=== PATIENT | female | born 1980 | race Caucasian/White ===

== ENCOUNTER 2018-11-02 11:55 | Emergency (ER) | payer OTHER, SELFPAY ==
[2018-11-02 11:56] VITALS: BP 123/76; PULSE 89; RESP 16; TEMP 36.1; O2SAT 99; BMI 29.8
--- NOTE | 2018-11-02 12:38 | CT_ITS ---
STUDY: CT ABDOMEN AND PELVIS WITH CONTRAST REASON FOR EXAM: Female, 38 years old. Trauma. Right abdominal pain RADIATION DOSAGE (If Supplied By Facility): CTDIvol = ( 16.72 ) mGy, DLP = ( 863.24 ) mGycm TECHNIQUE: Transaxial images were obtained from the dome of the diaphragm to the symphysis pubis with oral contrast. 100mL IV/Oral Isovue 300 was administered. Sagittal and coronal images were reconstructed. Individualized dose optimization techniques were used for this CT. COMPARISON: None. FINDINGS: The visualized lung bases are unremarkable. The visualized portions of the heart are within normal limits. Normal liver. Normal gallbladder and extrahepatic biliary system. There are multiple benign calcified granulomata of the spleen. Normal pancreas. Normal bilateral adrenal glands. Normal right kidney. Normal left kidney. Normal visualized stomach. Normal small intestine. There are multiple colonic diverticula consistent with diverticulosis. The appendix is visualized and appears normal. Normal abdominal aorta. Normal inferior vena cava. Normal retroperitoneum. Normal urinary bladder. Normal visualized uterus. Within the subcutaneous tissues overlying the right flank region, there is a small amount of swelling, likely related to history. Normal osseous structures. CT/Abdomen/Pelvis WITH Contrast IMPRESSION: Small amount of subcutaneous swelling and edema as above. Likely related to history. Normal appendix. No evidence of hemorrhage. Electronically Signed: Clifford Hair DO at 15:59 EDT Tel , Service support ,
[2018-11-02 12:52] LABS: Absolute Neutrophil Count 4.1 X10^3/uL (2.0-7.7); Basophil# 0.04 X10^3/uL; Basophil% 0.6 % (0-1); Eosinophil# 0.11 X10^3/uL; Eosinophils% 1.5 % (0-5); Hematocrit 40.3 % (37-47); Hemoglobin 13.7 g/dl (12.0-15.0); Lymphocyte % 34.7 % (19-41); Mean Corpuscular Volume 91.2 fL (81-99); Mean Platelet Vol. 9.7 fl (6.2-12.0); Monocyte# 0.48 X10^3/uL; Monocyte% 6.7 % (0-10); Neutrophil # 4.08 X10^3/uL (2.7-7.7); Neutrophil % 56.5 % (47-70); Platelet Count 337 K/mm3 (150-450); RBC Distribution Width CV 13.7 % (11.6-14.6); RBC Distribution Width SD 45.4 fl (35.1-43.9); Red Blood Count 4.42 M/mm3 (4.2-5.4); White Blood Count 7.2 K/mm3 (4.4-11.0)
[2018-11-02 12:53] LABS: POSITIVE COUNT NO; POSITIVE DIFFERENTIAL NO; POSITIVE MORPHOLOGY NO
--- NOTE | 2018-11-02 12:54 | ED.DCSUM_ITS ---
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[place] and the baseball game fell ball inadvertently struck her to the right flank area y esterday, she had persistent pain to this area, no vomiting no fever normal bowel bladder habits otherwise healthy without any past history she presents because of the persistent nature of the pain in the radiation to the back Physical Examination: [] Vital signs within normal range General, no distress resting comfortably HEENT is generally unremarkable The neck is supple no adenopathy Cardiovascular, regular rate and rhythm Lungs, clear bilateral Abdomen, soft to 10 cm diameter approximately bruise to the right flank area mid position, she has a very mild pain to palpation of the right upper quadrant and mild pain palpation of the right flank there is no rebound or guarding there is no organomegaly with obvious her midline back is nontender her pelvis is stable the rest of her exams unremarkable see the above Extremities, no clubbing cyanosis or edema Neurologic, awake alert answering questions appropriately moving all 4 extremities Test Results: [] Emergency Department Course and Treatment: [] Given her mechanism the potential intra-abdominal traumatic issues the differentials extensive screening labs CT IV contrast oral contrast pain management Treatment Plan: [] Patient screening labs are unremarkable, she is feeling better, the CT abdomen is pending, at this time the CT is unremarkable the plan is to discharge her home to follow-up with her family physicians on Naprosyn with a few [place] as a rescue medicine she understands need to return for change in symptoms a CT report be checked by the afternoon physicians plan is as above Disposition: [] Discharge pending CT report Impression: [] Right flank pain related to being hit by batted ball at baseball This note was generated with [employer] dictation software. It may contain incorrect words, spelling, and punctuation that were not noted in review of the chart pr ior to signing ED Disposition - Plan for ED Patient: Referrals: Arsenio Yun MD [Primary Care Provider] -
[2018-11-02] MEDS: 0.9% Normal Saline 1,000 ML 1000 ML IV (13:04)
[2018-11-02] MEDS: Ondansetron 4 MG/2 ML Vial IV (13:04)
[2018-11-02] MEDS: morphine 8 MG/ML Syringe IV (13:06)
[2018-11-02 13:12] LABS: AST(SGOT) 18 U/L (15-37); Alanine Aminotransfer ALT/SGPT 12 U/L (13-56); Albumin, Serum 3.3 g/dL (3.2-5.0); Alkaline Phosphatase 75 U/L (45-117); Anion Gap 8 (5-15); BUN 5 mg/dL (7-18); BUN/Creat Ratio 7.8 RATIO (10-20); Bilirubin, Direct 0.05 mg/dL (0.00-0.30); Calcium,Total 8.7 mg/dL (8.5-10.1); Chloride 108 mmol/L (98-107); Creatinine, Serum 0.64 mg/dL (0.55-1.02); EST Glomerular Filtration Rate 110 mL/min (>60); Est Glom Filt Rate - Afr Amer 132 mL/min (>60); Estimated Creatinine Clearance 92.42 ml/min; Globulin 3.4 g/dL (2.2-4.2); Glucose 127 mg/dL (74-106); Lipase 98 U/L (73-393); Potassium 3.7 mmol/L (3.5-5.1); Protein, Total 6.7 g/dL (6.4-8.2); Sodium Level 140 mmol/L (136-145)
--- NOTE | 2018-11-02 15:40 | DCINST.ED_ITS ---
ED Disposition - Plan for ED Patient: Instructions: ED Abdominal Injury Blunt Benign Prescriptions: Hydrocodone Bitart/Apap 5-325 [[place] 5MG-325MG] 1 tab PO Q4H PRN PRN 2 Days #7 tab PRN Reason: Pain Naproxen [Naprosyn] 500 mg PO BID PRN #20 tab Referrals: Arsenio Yun MD [Primary Care Provider] -
[2018-11-02 16:34] LABS: Mucous, Urine 0 SEEN /hpf (<or=2+); Red Blood Cells-Urine 0 SEEN /hpf (0-5)
[2018-11-02 17:02] LABS: Color, Urine Yellow (Yellow); Glucose, Dipstick Normal (Normal); Ketone-Dipstick Negative (Negative); Leukocyte Esterase-Dipstick 25 /ul (Negative); Nitrite-Dipstick Negative (Negative); Occult Blood-Urine 10 /ul (Negative); Protein-Dipstick Negative (Negative); Specific Gravity, Urine 1.015 (1.002-1.030); Urine Bilirubin Dipstick Negative (Negative); Urine Clarity Clear (Clear); Urine Urobilinogen Normal (Normal); Urine pH 6.5 (5.0 - 8.0)
[2018-11-02 17:04] LABS: Bacteria RARE /hpf (None Seen); Squamous Epithelial Cells - UA 0-5 SEEN /hpf (5-10); White Blood Cells 0-5 SEEN /hpf (0-5)
[2018-11-02] MEDS: Acetaminophen 500 MG Tablet 1000 MG PO (17:08)
--- NOTE | 2018-11-02 17:14 | ED.VISSUMM ---
- ER Visit Summary Date of Service: 11/02/18 This patient was checked out to me by Dr. Crockett. With a CT and UA pending. Test Results: CT shows a small amount of subcu edema with no hematoma or hemorrhage. Normal appendix. UA is negative. Emergency Department Course and Treatment: Patient was treated with Tylenol for her pain. She is resting comfortably. Treatment Plan: Patient will be discharged per Dr. Crockett's previous dictation. Please see this for details. Disposition: Discharged in stable condition. This note was generated with [employer] dictation software. It may contain incorrect words, spelling, and punctuation that were not noted in review of the chart prior to signing ED Disposition - Plan for ED Patient: Instructions: ED Abdominal Injury Blunt Benign Prescriptions: Hydrocodone Bitart/Apap 5-325 [[place] 5MG-325MG] 1 tab PO Q4H PRN PRN 2 Days #7 tab PRN Reason: Pain Naproxen [Naprosyn] 500 mg PO BID PRN #20 tab Referrals: Arsenio Yun MD [Primary Care Provider] -
[2018-11-02 17:33] VITALS: BP 108/76; PULSE 68; RESP 16; O2SAT 96
== END 2018-11-02 17:35 | disposition home or self-care (01) ==
LOC: ED 13:12
PROVIDERS: Emergency Provider Emergency Medicine; Family Provider Internal Medicine; PCP Internal Medicine
DX: R10.11 Right upper quadrant pain (principal); W21.03XA Struck by baseball, initial encounter; Y93.9 Activity, unspecified; Y92.9 Unspecified place or not applicable; Y99.9 Unspecified external cause status; Z79.899 Other long term (current) drug therapy
CPT/HCPCS: 74177; 80048; 80076; 81001; 83690; 85025; 96361; 96374; 96375; 99283; J7040; Q9967; A4216; J2405

== ENCOUNTER 2019-04-27 17:04 | Emergency (ER) | payer OTHER, SELFPAY ==
[2019-04-27 17:05] VITALS: BP 146/87; PULSE 97; RESP 15; TEMP 36.7; O2SAT 98; BMI 30.6
--- NOTE | 2019-04-27 17:42 | ED.VISSUMM ---
- ER Visit Summary Date of Service: 04/27/19 Chief Complaint: Left foot injury History of Present Illness: The patient is a 38 F presenting after left foot injury. Patient states that she twisted her foot in a divot in the pavement today. This occurred earlier today. She did not fall to the ground. She complains of pain lateral left foot. She is able to ambulate with pain. She has not taken any medications. Denies other injuries. Physical Examination: Vitals are stable. Patient is afebrile. Alert no acute distress. HEENT exam is unremarkable. Neck is supple. Lungs are clear and equal bilaterally. Heart is regular rate and rhythm. Extremities left lateral foot tenderness and ecchymosis. No ankle tenderness. No Achilles tendon tenderness. No proximal fibular tenderness. Skin is warm and dry. No focal neurologic deficit. Remainder of exam is unremarkable. Emergency Department Course and Treatment: Left foot x-ray shows normal x-ray examination of the foot. She was given Motrin. She is advised to ice and elevate. She was given a postop shoe. Advised to follow-up with [facility] care. Advised return to ED for worsening complaints. Disposition: Discharge home Impression: Left foot contusion This note was generated with [employer] dictation software. It may contain incorrect words, spelling, and punctuation that were not noted in review of the chart prior to signing ED Disposition - Plan for ED Patient: Instructions: CONTUSION, Foot Prescriptions: Naproxen [Naprosyn] 500 mg PO BID PRN #20 tab Prescription Printed Referrals: [facility] [GROUP OF PHYSICIANS] - Arsenio Yun MD [Primary Care Provider] -
--- NOTE | 2019-04-27 17:52 | RAD_ITS ---
STUDY: X-RAY - LEFT FOOT CLINICAL: Female, 38 years old. Injury left foot TECHNIQUE: 3 view(s) of the foot. COMPARISON: None. FINDINGS: Normal talus, calcaneus, and tarsal bones. Normal visualized subtalar, talonavicular, calcaneocuboid, tarsal and tarsometatarsal articulations. Normal metatarsi. Normal metatarsophalangeal joint of the great toe. Normal tibial and fibular sesamoid bones. Normal interphalangeal joint of the great toe. Normal phalanges of the great toe. Normal second through fifth metatarsophalangeal joints. Normal interphalangeal joints and phalanges of the lesser toes. The soft tissue structures are unremarkable. RAD/Foot min 3 Views IMPRESSION: Normal x-ray examination of the foot. Electronically Signed: Christ Hobbs MD at 18:31 EST , Service support ,
--- NOTE | 2019-04-27 18:59 | ED.DEP ---
ED Disposition - Plan for ED Patient: Instructions: CONTUSION, Foot Prescriptions: Naproxen [Naprosyn] 500 mg PO BID PRN #20 tablet Referrals: Arsenio Yun MD [Primary Care Provider] - [facility] [GROUP OF PHYSICIANS] -
[2019-04-27] MEDS: Ibuprofen 600 MG Tablet PO (19:21)
== END 2019-04-27 19:29 | disposition home or self-care (01) ==
PROVIDERS: Emergency Provider Emergency Medicine; Family Provider Internal Medicine; PCP Internal Medicine
DX: S90.32XA Contusion of left foot, initial encounter (principal); X50.1XXA Overexertion from prolonged static or awkward postures, initial encounter; Y93.9 Activity, unspecified; Y92.9 Unspecified place or not applicable; Y99.9 Unspecified external cause status; Z72.0 Tobacco use; Z79.899 Other long term (current) drug therapy
CPT/HCPCS: 73630; 99283

== ENCOUNTER 2019-08-13 20:40 | Emergency (ER) | payer OTHER, SELFPAY ==
[2019-08-13 20:41] VITALS: BP 128/86; PULSE 107; RESP 18; TEMP 36.3; O2SAT 100; BMI 29.2
[2019-08-13 20:59] LABS: Bacteria 0 SEEN /hpf (None Seen); Mucous, Urine 0 SEEN /hpf (<or=2+); Squamous Epithelial Cells - UA 0 SEEN /hpf (5-10)
[2019-08-13 21:08] LABS: Glucose, Dipstick Normal (Normal); Ketone-Dipstick Negative (Negative); Leukocyte Esterase-Dipstick 500 /ul (Negative); Nitrite-Dipstick Negative (Negative); Occult Blood-Urine 250 /ul (Negative); Protein-Dipstick 100 mg/dl (Negative); Urine Bilirubin Dipstick Negative (Negative); Urine Clarity Cloudy (Clear); Urine Urobilinogen Normal (Normal); Urine pH 6.5 (5.0 - 8.0)
[2019-08-13 21:10] LABS: Color, Urine SEE COMMENT BELOW (Yellow)
[2019-08-13 21:39] LABS: Red Blood Cells-Urine 25-50 SEEN /hpf (0-5); White Blood Cells >100 SEEN /hpf (0-5)
[2019-08-13 21:50] LABS: Internal QC Validated? YES +Cl - CLEAR BKGD; Pregnancy, Urine Negative Negative
--- NOTE | 2019-08-13 22:08 | ED.DCSUM_ITS ---
- ER Visit Summary Date of Service: 08/13/19 Chief Complaint: Dysuria and hematuria History of Present Illness: The patient is a 39 F who presents with dysuria and hematuria that began approximately 4 hours prior to arrival. Patient states she noted blood in her urine. Patient states she has been having throbbing and aching pain in the lower abdomen over the suprapubic area. Patient states this feels better after she urinates. Patient admits to some burning with urination. Patient noted some blood in her urine earlier today but states it is starting to clear up. Patient denies any fevers or chills. Patient admits to nausea but denies any vomiting. Patient denies any back pain. Physical Examination: Vital signs are stable. Patient is afebrile. Patient is in no acute distress. Oral mucosa is pink and moist. Neck is supple. Trachea is midline. There is no JVD noted. Heart was regular rate and rhythm. Lungs are clear and equal bilaterally. Abdomen is soft. Bowel sounds are normal. There is mild suprapubic tenderness. There is no rebound or guarding noted. Skin is warm dry. Cranial nerves II through XII are intact. There are no focal motor or sensory deficits noted. Extremities are intact. There is no calf tenderness or edema. Test Results: Urinalysis shows leukocyte esterase of 500 with greater than 100 white blood cells. There are 25-50 red blood cells. Emergency Department Course and Treatment: Patient was given a dose of Bactrim here. Patient was given a prescription for Bactrim. Patient was instructed to follow-up with her primary care physician in 5 to 7 days. Patient was instructed to drink plenty of fluids. Patient understood and was agreeable with the plan. All questions were answered. Disposition: Discharge home Impression: 1. Urinary tract infection This note was generated with [employer] dictation software. It may contain incorrect words, spelling, and punctuation that were not noted in review of the chart prior to signing ED Disposition - Plan for ED Patient: Disposition: Home or Assisted Living Diagnosis: Urinary tract infection Instructions: Bladder Infection, Female (Adult) Prescriptions: Smz/Tmp Ds [Bactrim Ds] 1 tab PO BID #6 tab Prescription Printed Referrals: Arsenio Yun MD [Primary Care Provider] - 5-7 Days
[2019-08-13] MEDS: Smz/Tmp Ds Tablet 1 TABLET PO (22:17)
[2019-08-13 22:18] VITALS: PULSE 86; RESP 20; O2SAT 97
--- NOTE | 2019-08-13 22:19 | ED.RN ---
THIS NURSE REVIEWED D/C INSTRUCTIONS WITH PT. PT VERBALIZED UNDERSTANDING OF INSTRUCTIONS. PT DENIES FURTHER NEEDS OR QUESTIONS AT THIS TIME. PT AMBULATES FROM ROOM ON OWN WITHOUT ASSISTANCE FROM STAFF
== END 2019-08-13 22:20 | disposition home or self-care (01) ==
PROVIDERS: Emergency Provider Emergency Medicine; PCP Internal Medicine
DX: N39.0 Urinary tract infection, site not specified (principal); R31.9 Hematuria, unspecified; F41.9 Anxiety disorder, unspecified; Z72.0 Tobacco use; Z79.899 Other long term (current) drug therapy
CPT/HCPCS: 81001; 81025; 99282

== ENCOUNTER 2019-08-17 08:27 | Emergency (ER) | payer OTHER, SELFPAY ==
[2019-08-17 08:28] VITALS: BP 113/68; PULSE 98; RESP 18; TEMP 36.6; O2SAT 100; BMI 29.2
--- NOTE | 2019-08-17 08:39 | CT_ITS ---
STUDY: CT ABDOMEN AND PELVIS WITHOUT CONTRAST REASON FOR EXAM: Female, 39 years old. LEFT FLANK PAIN, UTI SYMPTOMS, N/V RADIATION DOSAGE (If Supplied By Facility): CTDIvol = ( 9.25 ) mGy, DLP = ( 448.22 ) mGycm TECHNIQUE: Transaxial images were obtained from the dome of the diaphragm to the symphysis pubis without oral contrast, and without intravenous contrast. Sagittal and coronal images were reconstructed. Individualized dose optimization techniques were used for this CT. COMPARISON: Comparison is made with prior examination dated November 02, 2018. FINDINGS: Mild degree of dependent bibasilar atelectasis. The visualized portions of the heart are within normal limits. Normal liver. Normal gallbladder and extrahepatic biliary system. There are multiple benign calcified granulomata of the spleen. Normal pancreas. There is a small, circumscribed, smooth, low attenuation right adrenal mass, consistent with an adrenal adenoma. Normal left adrenal gland. Normal right kidney. Normal left kidney. There is a small hiatal hernia. Normal small intestine. Normal colon. The appendix is visualized and appears normal. Normal abdominal aorta. Normal inferior vena cava. There is borderline retroperitoneal lymphadenopathy with enlarged nodes no greater than 10mm in the short axis diameter. Normal urinary bladder. Prominent uterus. There is a small umbilical hernia containing fat. Normal osseous structures. CT/Abdomen/Pelvis without Cont IMPRESSION: Mild degree of dependent bibasilar atelectasis. No obstructive uropathy is seen at this time. Electronically Signed: Ronnie Perdue, at 10:22 EDT , Service support ,
--- NOTE | 2019-08-17 08:42 | ED.VIS.GEN ---
History of Present Illness Chief Complaint: Complaint Informant: Patient Onset: Days Context: Gradual Onset Current Severity: Moderate Maximum Severity: Moderate Narrative: Patient was seen in the ER on the sixth with dysuria and frequency and mild hematuria. Urine was found to have greater than 100 white cells, 0 bacteria, 0 nitrites. She was treated with a 3-day course of Bactrim. Patient states that her antibiotic course is complete but she is not feeling any better. She continues to have suprapubic pain that is now radiating into the left flank. She states this morning she did have some vomiting. She thought she had a fever on the seventh, but none since. She denies any prior abdominal surgeries. Menstrual cycle just ended. - Past Medical History (1) Depression Status: Chronic Past Medical History - Allergies and Home Meds Allergies/Adverse Reactions: Allergies terbinafine HCl [From Lamisil] Allergy (Verified 08/17/19 08:30) Hives Primary Care Physician: Arsenio Yun MD [Primary Care Provider] - Prior records reviewed: Yes Lives: With Family Smoking Status: Current every day smoker Review of Systems General: Reports: Fever Eyes: Denies: Visual changes - bilaterally ENT: Denies: Bilateral ear pain Cardiovascular: Denies: Chest pain Respiratory: Denies: Dyspnea, Cough Gastrointestinal: Reports: Abdominal pain, Nausea, Vomiting. Denies: Diarrhea Genitourinary: Reports: Dysuria, Frequency, - - Denies vaginal discharge Musculoskeletal: Denies: Swelling, Extremity Pain Skin: Denies: Rash Neurological: Denies: Headache Hematologic: Denies: Easy bruising, Easy bleeding Allergy: Denies: Uticaria Physical Exam Vital Signs/Narrative: Vital Signs Temp Pulse Resp BP Pulse Ox 08/17/19 08:28 98 F 98 18 113/68 100 Inital Vital Signs reviewed: Yes General: Well nourished, Well developed Head: Normocephalic ENT: Moist mucous membranes Neck: Supple Cardiovascular: Regular rate, Regular rhythm Respiratory: No distress, CTA bilaterally Abdomen: Soft, Tender - Suprapubic tenderness to palpation. Back: CVA tenderness - Mild left CVA tenderness Skin: Normal color Neurological: Alert, Oriented x3 Psychological: Normal affect Diagnostic/Tx/Re-eval Impressions Abdomen/Pelvis CT 08/17/19 08:39 IMPRESSION: Mild degree of dependent bibasilar atelectasis. No obstructive uropathy is seen at this time. Electronically Signed: Ronnie Perdue, at 10:22 EDT , Service support , 08/17/19 08:39 Abdomen/Pelvis without Cont [CT] Stat Laboratory Results 08/17/19 08/17/19 08/17/19 09:00 09:00 09:00 WBC 10.5 RBC 4.47 Hgb 12.9 Hct 39.2 MCV 87.7 MCH 28.9 MCHC 32.9 RDW Std Deviation 47.1 H RDW Coeff of Kael 14.6 Plt Count 331 MPV 9.6 Immature Gran % (Auto) 0.400 Neut % (Auto) 77.9 H Lymph % (Auto) 14.2 L [place] % (Auto) 6.1 Eos % (Auto) 0.8 Baso % (Auto) 0.6 Absolute Neuts (auto) 8.2 H Absolute Lymphs (auto) 1.49 Nucleated RBC % 0 Sodium 138 Potassium 3.9 Chloride 108 H Carbon Dioxide 25.0 Anion Gap 5 BUN 8 Creatinine 0.84 Estim Creat Clear Calc 69.71 Est GFR (MDRD) Af Amer 96 Est GFR (MDRD) Non-Af 79 BUN/Creatinine Ratio 9.5 L Glucose 93 Calcium 8.9 Urine Color Yellow Urine Clarity Cloudy Urine pH 6.0 Ur Specific [place] 1.015 Urine Protein 100 H Urine Glucose (UA) Normal Urine Ketones 5 H Urine Occult Blood 250 H Urine Nitrite Negative Urine Bilirubin Negative Urine Urobilinogen Normal Ur Leukocyte Esterase 500 H Urine RBC 5-10 SEEN Urine WBC 50-100 SEEN Ur Squamous Epith Cells 0-5 SEEN Urine Bacteria 1+ Urine Mucus 1+ - Medical Decision Making Patient was given Toradol, Zofran, and IV fluids. On repeat evaluation she does feel improved. Urine does now show some bacteria. White blood cell is improved when compared to prior study. CT scan is unremarkable. Patient was given a dose of IV Rocephin here. She will be treated with a 7-day course of Cipro. Urine culture is sent today and patient was advised that she would receive a phone call and antibiotic switched if culture reveals that her infection is resistant to Cipro. She was given return instructions. She voices understanding and agreement. ED Disposition - Plan for ED Patient: Disposition: Home or Assisted Living Diagnosis: Cystitis Instructions: Bladder Infection, Female (Adult) Prescriptions: Ciprofloxacin [Cipro] 500 mg PO BID #14 tab Transmission Status: Pending to [id number] Referrals: Arsenio Yun MD [Primary Care Provider] - 1 Week if not improving
[2019-08-17] MEDS: Ketorolac 30 MG/ML Syringe IV (09:02)
[2019-08-17] MEDS: Ondansetron 4 MG/2 ML Vial IV (09:02)
[2019-08-17] MEDS: 0.9% Normal Saline 1,000 ML 1000 ML IV (09:02)
[2019-08-17 09:18] LABS: Absolute Lymphocyte Count 1.49 X10^3/uL (0.83-4.51); Absolute Neutrophil Count 8.2 X10^3/uL (2.0-7.7); Basophil# 0.06 X10^3/uL; Basophil% 0.6 % (0-1); Eosinophil# 0.08 X10^3/uL; Eosinophils% 0.8 % (0-5); Hematocrit 39.2 % (37-47); Hemoglobin 12.9 g/dL (12.0-15.0); Lymphocyte # 1.49 X10^3/ul (4.0); Lymphocyte % 14.2 % (19-41); Mean Corp Hgb Conc 32.9 g/dL (32-36); Mean Corpuscular Hgb 28.9 pg (27.0-32.0); Mean Corpuscular Volume 87.7 fL (81-99); Mean Platelet Vol. 9.6 fl (6.2-12.0); Monocyte# 0.64 X10^3/uL; Monocyte% 6.1 % (0-10); NRBC Flagged by Analyzer 0 % (0-5); Neutrophil # 8.17 X10^3/uL (2.7-7.7); Neutrophil % 77.9 % (47-70); Platelet Count 331 K/mm3 (150-450); RBC Distribution Width CV 14.6 % (11.6-14.6); RBC Distribution Width SD 47.1 fl (35.1-43.9); Red Blood Count 4.47 M/mm3 (4.2-5.4); White Blood Count 10.5 K/mm3 (4.4-11.0)
[2019-08-17 09:29] VITALS: BP 113/78; PULSE 98; RESP 16; TEMP 36.7; O2SAT 98
[2019-08-17 09:29] LABS: Anion Gap 5 (5-15); BUN 8 mg/dL (7-18); BUN/Creat Ratio 9.5 RATIO (10-20); Calcium,Total 8.9 mg/dL (8.5-10.1); Chloride 108 mmol/L (98-107); Creatinine, Serum 0.84 mg/dL (0.55-1.02); EST Glomerular Filtration Rate 79 mL/min (>60); Est Glom Filt Rate - Afr Amer 96 mL/min (>60); Estimated Creatinine Clearance 69.71 ml/min; Glucose 93 mg/dL (74-106); Potassium 3.9 mmol/L (3.5-5.1); Sodium Level 138 mmol/L (136-145)
[2019-08-17 09:37] LABS: Color, Urine Yellow (Yellow); Glucose, Dipstick Normal (Normal); Ketone-Dipstick 5 mg/dl (Negative); Leukocyte Esterase-Dipstick 500 /ul (Negative); Nitrite-Dipstick Negative (Negative); Occult Blood-Urine 250 /ul (Negative); Protein-Dipstick 100 mg/dl (Negative); Specific Gravity, Urine 1.015 (1.002-1.030); Urine Bilirubin Dipstick Negative (Negative); Urine Clarity Cloudy (Clear); Urine Urobilinogen Normal (Normal)
[2019-08-17 10:02] LABS: Bacteria 1+ /hpf (None Seen); Mucous, Urine 1+ /hpf (<or=2+); Red Blood Cells-Urine 5-10 SEEN /hpf (0-5); Squamous Epithelial Cells - UA 0-5 SEEN /hpf (5-10); White Blood Cells 50-100 SEEN /hpf (0-5)
[2019-08-17] MEDS: 0.9% Normal Saline 1,000 ML 150 ML IV (10:05)
[2019-08-17 10:06] VITALS: BP 100/63; PULSE 82; RESP 16; TEMP 36.4; O2SAT 100
[2019-08-17] MEDS: Ceftriaxone 1 GM/50 ML BAG IV (10:17)
[2019-08-17 11:23] VITALS: BP 105/68; PULSE 80; RESP 16; TEMP 36.6; O2SAT 98
== END 2019-08-17 11:27 | disposition home or self-care (01) ==
PROVIDERS: Emergency Provider Emergency Medicine; PCP Internal Medicine
DX: N30.91 Cystitis, unspecified with hematuria (principal); F32.9 Major depressive disorder, single episode, unspecified; F17.200 Nicotine dependence, unspecified, uncomplicated; Z79.899 Other long term (current) drug therapy; Z88.3 Allergy status to other anti-infective agents
CPT/HCPCS: 74176; 80048; 81001; 85025; 87086; 87088; 87186; 96361; 96365; 96375; 99283; J7030; A4216; J2405

== ENCOUNTER 2021-01-01 11:09 | Emergency (ER) | payer OTHER, SELFPAY ==
[2021-01-01 11:10] VITALS: BP 123/82; PULSE 95; RESP 18; TEMP 36.8; O2SAT 97; BMI 31.8
--- NOTE | 2021-01-01 11:58 | CT_ITS ---
STUDY: CT ABDOMEN AND PELVIS WITHOUT CONTRAST REASON FOR EXAM: Female, 40 years old. Back pain and abdominal pain. RADIATION DOSAGE (If Supplied By Facility): CTDIvol = ( 11.41 ) mGy, DLP = ( 541.49 ) mGycm TECHNIQUE: Transaxial images were obtained from the dome of the diaphragm to the symphysis pubis without oral contrast, and without intravenous contrast. Sagittal and coronal images were reconstructed. Individualized dose optimization techniques were used for this CT. COMPARISON: Comparison is made with prior examination dated 08/17/2019. FINDINGS: The visualized lung bases are unremarkable. The visualized portions of the heart are within normal limits. Normal liver. Normal gallbladder and extrahepatic biliary system. There are multiple benign calcified granulomata of the spleen. Normal pancreas. There is a small, circumscribed, smooth, low attenuation right adrenal mass, consistent with an adrenal adenoma. This measures 8.4 mm. Normal left adrenal gland. Normal right kidney. Normal left kidney. Normal visualized stomach. Normal small intestine. Normal colon. The appendix is visualized and appears normal. Normal abdominal aorta. Normal inferior vena cava. There is borderline retroperitoneal lymphadenopathy with enlarged nodes no greater than 10mm in the short axis diameter. Normal urinary bladder. There is a 3.6 cm x 4.2 cm cyst in the right ovary. IUD is seen within the endometrium. There is a small umbilical hernia containing fat. There is straightening of the normal lumbar lordosis. CT/Abdomen/Pelvis without Cont IMPRESSION: 3.6 cm x 4.2 cm right ovarian cyst. IUD is seen within the endometrium. Electronically Signed: Ronnie Perdue MD at 12:59 EDT , Service support ,
--- NOTE | 2021-01-01 11:59 | EDS_ITS ---
HPI History of Present Illness Chief Complaint: Back Detail of Chief Complaint: Back and abdominal pain Informant: patient Onset/Context/Timing Onset: Yesterday Current Severity: Moderate Maximum Severity: Moderate Narrative Narrative: Patient presents with back and abdominal pain. Yesterday afternoon her back started bothering her and she thought she had threw my back out. Patient states today pain is wrapping around into the abdomen and becoming more severe. She is having abdominal spasms. She did report vomiting secondary to pain. She is urinating without difficulty and having normal bowel movements. She denies any prior abdominal surgeries. [facility] Medical History Depression High cholesterol Home Medications venlafaxine 150 mg PO DAILY 01/12/15 [History Last Taken Unknown] trazodone 50 mg PO QHS 11/02/18 [History Last Taken Unknown] hydrocodone-acetaminophen 1 tab PO Q6H PRN 3 Days #10 tab 01/01/21 [Rx Last Taken Unknown] ondansetron 4 mg PO Q8H PRN #10 tab 01/01/21 [Rx Last Taken Unknown] sulfamethoxazole-trimethoprim [Bactrim DS] 1 tab PO BID #6 tab 01/01/21 [Rx Last Taken Unknown] Allergy/AdvReac Type Severity Reaction Status Date / Time terbinafine HCl Allergy Hives Verified 01/01/21 11:10 [From Lamisil] Social History Smoking Status: Current every day smoker tobacco type: cigarettes ROS ROS ED Constitutional Constitutional ED: Denies chills or fever(s) Eyes Eyes: Denies change in vision ENT ENT ED: Denies sore throat Cardiovascular Cardiovascular: Denies chest pain Respiratory/Chest Respiratory/Chest: Denies cough or dyspnea Gastrointestinal Gastrointestinal: Reports abdominal pain, nausea and vomiting; Denies diarrhea Genitourinary Genitourinary ED: Denies dysuria or urinary frequency Musculoskeletal Musculoskeletal: Reports back pain Integumentary Denies rash Neurologic Neurologic: Denies headache(s) or weakness Psychiatric Psychiatric: Denies anxiety or depression Endocrine Endocrinology: Denies polydipsia or polyuria Allergic/Immunologic Allergic/Immunologic ED: Denies urticaria EXAM Physical Exam Const Vital Signs: 01/01/21 11:10 01/01/21 13:26 Temperature 98.3 F Temperature Source Temporal Pulse Rate 95 Respiratory Rate 18 16 Blood Pressure 123/82 H Blood Pressure Mean 95 Pulse Ox 97 Oxygen Delivery Method Room Air Positive well nourished and well developed General Appearance ED: well developed HEENT Reports normocephalic and head/scalp atraumatic Eyes PERRL and EOMs intact bilaterally Neck supple Chest Wall inspection of chest normal and palpation of chest normal Resp normal respiratory effort and clear to auscultation bilaterally Cardio regular rate and regular rhythm GI normal to inspection, nondistended, normoactive bowel sounds and non-tender Palpation: soft Extremity normal to inspection Neuro oriented x3 and no sensory deficits noted Sensorium / Orientation: alert Motor Exam: strength 5/5 throughout Psych mental status grossly normal Skin no rashes or lesions noted MDM MDM MDM Narrative Medical decision making narrative: Patient was given analgesics. Labs, urinalysis, CT flank obtained. Lab Data Attestation: I reviewed the patient's lab results. Labs: Laboratory Results - last 24 hr 01/01/21 01/01/21 01/01/21 11:55 11:55 12:10 WBC 8.5 RBC 4.80 Hgb 14.7 Hct 43.4 MCV 90.4 MCH 30.6 MCHC 33.9 RDW Std Deviation 49.9 H RDW Coeff of Kael 14.9 H Plt Count 343 MPV 9.9 Immature Gran % (Auto) 0.200 Neut % (Auto) 60.4 Lymph % (Auto) 31.7 Dewitt % (Auto) 5.6 Eos % (Auto) 1.2 Baso % (Auto) 0.9 Absolute Neuts (auto) 5.1 Absolute Lymphs (auto) 2.68 Nucleated RBC % 0 Sodium Potassium Chloride Carbon Dioxide Anion Gap BUN Creatinine Estim Creat Clear Calc Est GFR (MDRD) Af Amer Est GFR (MDRD) Non-Af BUN/Creatinine Ratio Glucose Calcium Total Bilirubin Direct Bilirubin AST ALT Alkaline Phosphatase Total Protein Albumin Globulin Urine Color Yellow Urine Clarity Sl. Cloudy Urine pH 7.0 Ur Specific [place] 1.010 Urine Protein Negative Urine Glucose (UA) Normal Urine Ketones Negative Urine Occult Blood 150 H Urine Nitrite Negative Urine Bilirubin Negative Urine Urobilinogen Normal Ur Leukocyte Esterase 100 H Urine RBC 10-25 SEEN Urine WBC 10-25 SEEN Ur Squamous Epith Cells 0-5 SEEN Urine Bacteria 1+ Urine Mucus 0 SEEN Urine Test Cancelled Negative 01/01/21 12:10 WBC RBC Hgb Hct MCV MCH MCHC RDW Std Deviation RDW Coeff of Kael Plt Count MPV Immature Gran % (Auto) Neut % (Auto) Lymph % (Auto) Dewitt % (Auto) Eos % (Auto) Baso % (Auto) Absolute Neuts (auto) Absolute Lymphs (auto) Nucleated RBC % Sodium 137 Potassium 3.8 Chloride 107 Carbon Dioxide 24.0 Anion Gap 6 BUN 7 Creatinine 0.55 Estim Creat Clear Calc 105.39 Est GFR (MDRD) Af Amer 154 Est GFR (MDRD) Non-Af 128 BUN/Creatinine Ratio 12.6 Glucose 83 Calcium 8.9 Total Bilirubin 0.30 Direct Bilirubin < 0.05 AST 14 L ALT 13 Alkaline Phosphatase 78 Total Protein 6.9 Albumin 3.4 Globulin 3.5 Urine Color Urine Clarity Urine pH Ur Specific [place] Urine Protein Urine Glucose (UA) Urine Ketones Urine Occult Blood Urine Nitrite Urine Bilirubin Urine Urobilinogen Ur Leukocyte Esterase Urine RBC Urine WBC Ur Squamous Epith Cells Urine Bacteria Urine Mucus Urine Test Radiography Diagnostic Testing: Radiology Impression Abdomen/Pelvis CT 01/01/21 11:58 IMPRESSION: 3.6 cm x 4.2 cm right ovarian cyst. IUD is seen within the endometrium. Electronically Signed: Ronnie Perdue MD at 12:59 EDT , Service support , Transvaginal US 01/01/21 13:23 IMPRESSION: 3.2 cm x 3.8 cm x 3.5 cm right ovarian cyst. There are 2 small fundal uterine fibroids. Electronically Signed: Ronnie Perdue MD at 14:46 EDT , Service support , Treatment and Re-Evaluation Comments:: CT scan did reveal a right ovarian cyst. Ultrasound is performed and does ensure good blood flow to the ovary. Lab work is reviewed with the patient. It is unremarkable. Urinalysis does show 1+ bacteria with whites and red cells. I advised her this may be secondary to infection she will be treated with 3 days of antibiotics. I also advised her she may have recently passed a kidney stone causing the blood in her urine. At this time there is no evidence of ureterolithiasis. Patient be given analgesics and antibiotics for home and will follow up with her [employer]. Discharge Plan Triage Chief Complaint: Back ED Provider: Anh Franks Dx/Rx/DC Orders Clinical Impression: Ovarian cyst, UTI (urinary tract infection) Instructions: ED Ovarian Cyst, ED CYSTITIS Female Adult Prescriptions: New hydrocodone-acetaminophen 5-325 mg tablet 1 tab PO Q6H PRN (Reason: pain) 3 Days Qty: 10 RF: 0 ondansetron 4 mg tablet,disintegrating 4 mg PO Q8H PRN (Reason: nausea and vomiting) Qty: 10 RF: 0 sulfamethoxazole-trimethoprim [Bactrim DS] 800-160 mg tablet 1 tab PO BID Qty: 6 RF: 0 No Action venlafaxine 150 MG capsule 150 mg PO DAILY RF: 0 trazodone 50 MG tablet 50 mg PO QHS RF: 0 Primary Care Provider: Arsenio Yun Referrals: Sydney Dhillon MD [STAFF PHYSICIAN] - 1-2 Weeks Arsenio Yun MD [Primary Care Provider] - Disposition Disposition: Home, Self Care
[2021-01-01 12:05] LABS: Mucous, Urine 0 SEEN /hpf (<or=2+)
[2021-01-01 12:06] LABS: Color, Urine Yellow (Yellow); Glucose, Dipstick Normal (Normal); Ketone-Dipstick Negative (Negative); Leukocyte Esterase-Dipstick 100 /ul (Negative); Nitrite-Dipstick Negative (Negative); Occult Blood-Urine 150 /ul (Negative); Protein-Dipstick Negative (Negative); Urine Bilirubin Dipstick Negative (Negative); Urine Clarity Sl. Cloudy (Clear); Urine Urobilinogen Normal (Normal)
[2021-01-01 12:12] LABS: Bacteria 1+ /hpf (None Seen); Red Blood Cells-Urine 10-25 SEEN /hpf (0-5); Squamous Epithelial Cells - UA 0-5 SEEN /hpf (5-10); White Blood Cells 10-25 SEEN /hpf (0-5)
[2021-01-01] MEDS: Morphine 4 MG/ML Syringe IV (12:13)
[2021-01-01] MEDS: Ketorolac 30 MG/ML Syringe IV (12:14)
[2021-01-01] MEDS: 0.9% Normal Saline 1,000 ML 150 ML IV (12:14)
[2021-01-01] MEDS: Ondansetron 4 MG/2 ML Vial IV (12:14)
[2021-01-01 12:25] LABS: Internal QC Validated? YES +Cl - CLEAR BKGD; Pregnancy, Urine Negative Negative
[2021-01-01 12:39] LABS: Absolute Lymphocyte Count 2.68 X10^3/uL (0.83-4.51); Absolute Neutrophil Count 5.1 X10^3/uL (2.0-7.7); Basophil# 0.08 X10^3/uL; Basophil% 0.9 % (0-1); Eosinophils% 1.2 % (0-5); Hematocrit 43.4 % (37-47); Hemoglobin 14.7 g/dL (12.0-15.0); Lymphocyte # 2.68 X10^3/ul (0.83-4.51); Lymphocyte % 31.7 % (19-41); Mean Corp Hgb Conc 33.9 g/dL (32-36); Mean Corpuscular Hgb 30.6 pg (27.0-32.0); Mean Corpuscular Volume 90.4 fL (81-99); Mean Platelet Vol. 9.9 fl (6.2-12.0); Monocyte# 0.47 X10^3/uL; Monocyte% 5.6 % (0-10); NRBC Flagged by Analyzer 0 % (0-5); Neutrophil # 5.11 X10^3/uL (2.7-7.7); Neutrophil % 60.4 % (47-70); Platelet Count 343 K/mm3 (150-450); RBC Distribution Width CV 14.9 % (11.6-14.6); RBC Distribution Width SD 49.9 fl (35.1-43.9); White Blood Count 8.5 K/mm3 (4.4-11.0)
[2021-01-01 12:59] LABS: AST(SGOT) 14 U/L (15-37); Alanine Aminotransfer ALT/SGPT 13 U/L (13-56); Albumin, Serum 3.4 g/dL (3.2-5.0); Alkaline Phosphatase 78 U/L (45-117); Anion Gap 6 (5-15); BUN 7 mg/dL (7-18); BUN/Creat Ratio 12.6 RATIO (10-20); Bilirubin, Direct < 0.05 mg/dL (0.00-0.30); Calcium,Total 8.9 mg/dL (8.5-10.1); Chloride 107 mmol/L (98-107); Creatinine, Serum 0.55 mg/dL (0.55-1.02); EST Glomerular Filtration Rate 128 mL/min (>60); Est Glom Filt Rate - Afr Amer 154 mL/min (>60); Estimated Creatinine Clearance 105.39 ml/min; Globulin 3.5 g/dL (2.2-4.2); Glucose 83 mg/dL (74-106); Potassium 3.8 mmol/L (3.5-5.1); Protein, Total 6.9 g/dL (6.4-8.2); Sodium Level 137 mmol/L (136-145)
--- NOTE | 2021-01-01 13:23 | US_ITS ---
STUDY: ULTRASOUND OF THE FEMALE PELVIS - COMPLETE REASON FOR EXAM: Female, 40 years old. Right ovarian cyst. LMP: Unknown. TECHNIQUE: Transabdominal and Transvaginal TECHNICAL QUALITY: Adequate. COMPARISON: Comparison is made with prior CT scan done on pelvis done earlier today. FINDINGS: The uterus is anteverted and is tilted to the left side of the pelvis. The uterus measures 9.1 signed by 5.5 cm x 5.7 cm. Normal uterine cervix. The endometrium measures 6 mm in thickness, and is hyperechoic. There is no demonstrated endometrial mass. There are 2 small fundal uterine fibroids. The larger measures 2.4 cm x 2.1 cm x 2.2 cm. I.U.D. - The patient does have an I.U.D. The right ovary is visualized. The right ovary measures 4.2 cm x 4.7 cm x 3.9 cm. There is a 3.2 cm x 3.8 cm x 3.5 cm right ovarian cyst. There is no visualized right adnexal mass or complex lesion. There is normal arterial and normal venous vascularity. The left ovary is visualized. The left ovary measures 2.3 cm x 2 cm x 2.7 cm. There is no left ovarian cyst or ovarian mass. There is no visualized left adnexal mass or complex lesion. There is normal arterial and normal venous vascularity. There is no fluid in the cul-de-sac. US/Transvaginal Non- IMPRESSION: 3.2 cm x 3.8 cm x 3.5 cm right ovarian cyst. There are 2 small fundal uterine fibroids. Electronically Signed: Ronnie Perdue MD at 14:46 EDT , Service support ,
[2021-01-01 13:26] VITALS: RESP 16
[2021-01-01 15:12] VITALS: BP 103/69; PULSE 70; RESP 16
== END 2021-01-01 15:14 | disposition home or self-care (01) ==
PROVIDERS: Emergency Provider Emergency Medicine; PCP Internal Medicine
DX: N83.201 Unspecified ovarian cyst, right side (principal); N39.0 Urinary tract infection, site not specified; R11.10 Vomiting, unspecified; E78.00 Pure hypercholesterolemia, unspecified; F32.9 Major depressive disorder, single episode, unspecified; F17.210 Nicotine dependence, cigarettes, uncomplicated; Z79.899 Other long term (current) drug therapy
CPT/HCPCS: 74176; 76830; 80048; 80076; 81001; 81025; 85025; 96361; 96374; 96375; 99283; J7030; A4216; J2405

== ENCOUNTER 2022-03-23 11:55 | Emergency (ER) | payer OTHER, SELFPAY ==
[2022-03-23 11:56] VITALS: BP 136/90; PULSE 98; RESP 17; TEMP 35.7; O2SAT 97; BMI 34.4
--- NOTE | 2022-03-23 12:04 | CT_ITS ---
HISTORY: right flank pain. TECHNIQUE: Helically acquired images were obtained of the abdomen and pelvis without oral or IV contrast. A radiation dose optimization technique was used for this scan. 487 images. COMPARISON: 01/01/2021. FINDINGS: LOWER CHEST: Small calcified left lower lobe granuloma. BOWEL: Bowel including appendix nondilated. Chronic fatty infiltration of the colonic wall. Colonic diverticulosis without focal pericolonic inflammatory change. PERITONEUM: No significant free fluid. LIVER: 20 cm in length with fatty infiltration. GALLBLADDER/BILIARY TREE: Gallbladder present. SPLEEN: Calcified granulomas. KIDNEYS AND URETERS: No nephrolithiasis or obstructing ureteral calculus. PANCREAS/ADRENAL GLANDS: Unremarkable. VESSELS: No abdominal aortic aneurysm. Minimal calcified plaque. PELVIC ORGANS: Mildly lobulated uterus with intrauterine device in place. Right ovarian cyst no longer identified. ABDOMINAL WALL: Small fat-containing umbilical hernia. BONES: Intact. CT/Abdomen/Pelvis without Cont IMPRESSION: Negative examination for renal stone. Colonic diverticulosis without acute diverticulitis. Unremarkable appendix. Resolution of right ovarian cyst. Lobulated uterus, likely leiomyomatous. Hepatic steatosis with hepatomegaly. Electronically Signed: Earlene Dias MD at 13:20 EDT ,
--- NOTE | 2022-03-23 12:05 | EDS_ITS ---
HPI History of Present Illness Chief Complaint: Flank Pain Detail of Chief Complaint: Flank pain that started yesterday Informant: patient Narrative Narrative: Patient presents to the emergency department complaint of right-sided flank pain that started yesterday. Pains been continuous. Today she started having some dysuria and urinary frequency. She denies any blood in the urine. She denies fevers. She has had some nausea but no vomiting. Patient believes she has passed a kidney stone before. Patient has an IUD and does not think she is . Patient rates her pain an 8 out of 10. Prior similar symptoms: Yes PFSH PFSH Medical History Anxiety Depression High cholesterol Smoker Home Medications venlafaxine 150 mg capsule,extended release 24 hr 150 mg PO DAILY 01/12/15 [History Last Taken Unknown] trazodone 50 mg tablet 50 mg PO QHS 11/02/18 [History Last Taken Unknown] atorvastatin 10 mg tablet 10 mg PO DAILY 03/23/22 [History Last Taken Unknown] cyclobenzaprine 10 mg tablet 10 mg PO TID PRN Muscle Spasm #20 TABLETS 03/23/22 [Rx Last Taken Unknown] hydrocodone-acetaminophen 5-325mg 5mg-325mg 1 tab PO Q4H PRN PRN Pain 2 days #10 TABLETS 03/23/22 [Rx Last Taken Unknown] naproxen 500 mg tablet 500 mg PO BID #14 tabs 03/23/22 [Rx Last Taken Unknown] Allergy/AdvReac Type Severity Reaction Status Date / Time terbinafine HCl Allergy Hives Verified 03/23/22 11:55 [From Lamisil] Social History Smoking Status: Current every day smoker tobacco type: cigarettes ROS ROS ED Review of Systems ROS Unobtainable: other Constitutional Constitutional ED: Reports lethargy; Denies chills, fever(s), sweats or weight loss Eyes Eyes: Denies blurry vision, change in vision or diplopia ENT ENT ED: Denies rhinorrhea or sore throat Cardiovascular Cardiovascular: Denies chest pain, orthopnea or racing heartbeat Respiratory/Chest Respiratory/Chest: Denies cough, dyspnea, dyspnea on exertion, orthopnea or sputum Gastrointestinal Gastrointestinal: Reports abdominal pain; Denies diarrhea, nausea or vomiting Genitourinary Genitourinary ED: Denies dysuria, hematuria or urinary frequency Musculoskeletal Musculoskeletal: Reports back pain; Denies arthralgias, myalgias or neck pain Integumentary Denies abscess, Abrasions or rash Neurologic Neurologic: Denies headache(s) or weakness Psychiatric Psychiatric: Denies anxiety, depression or suicidal thoughts Endocrine Endocrinology: Denies polydipsia, polyphagia or polyuria Hematologic/Lymphatic Hematologic/Lymphatic: Denies easy bleeding, easy bruising or lymphadenopathy Allergic/Immunologic Allergic/Immunologic ED: Denies mouth swelling, tongue swelling or urticaria EXAM Physical Exam Const Vital Signs: 03/23/22 11:56 03/23/22 12:28 Temperature 96.3 F L Temperature Source Temporal Pulse Rate 98 Respiratory Rate 17 Respiratory Effort Normal Respiratory Pattern Normal Blood Pressure 136/90 H Blood Pressure Mean 105 Pulse Ox 97 Oxygen Delivery Method Room Air Positive well nourished and well developed General Appearance ED: well developed and NAD HEENT Reports TM's clear and moist mucous membranes normocephalic and atraumatic; Negative for trauma or tenderness Tympanic Membrane ED: Yes TM's clear Eyes PERRL and EOMs intact bilaterally General Eye ED: Negative for pale conjunctiva or scleral icterus Neck no lymphadenopathy, supple and no JVD General: Negative for tenderness Chest Wall inspection of chest normal and palpation of chest normal Chest: Negative for tenderness Resp normal respiratory effort and clear to auscultation bilaterally Effort and Inspection: Negative for respiratory distress or pain with movement Auscultation: Negative for rhonchi, wheezes or diminished lung sounds Cardio regular rate, regular rhythm, S1 normal heart sound, S2 normal heart sound and no murmurs Peripheral Pulses: pulses 2+ throughout GI normal to inspection, nondistended, normoactive bowel sounds, soft to palpation, non-distended and no masses GI Narrative: Tenderness to palpation over the right lower quadrant with some guarding. There is no rebound, rigidity, or peritoneal signs. Back/Spine no thoracic nor lumbar tenderness Back/Spine Narrative: Patient with some mild CVA tenderness on the right. Extremity normal to inspection General Extremety ED: Negative for edema General Extremity: Negative for edema Neuro oriented x3, CN's II-XII intact bilaterally, no sensory deficits noted and gait normal Sensorium / Orientation: awake, alert, oriented to person, oriented to place and oriented to time Motor Exam: strength 5/5 throughout and strength abnormal Psych mental status grossly normal Skin no rashes or lesions noted and no wounds MDM MDM MDM Narrative Medical decision making narrative: IV line established on arrival. Patient was medicated with Toradol, morphine, and Zofran. He does complain of pain in her flank. Her lab work-up and urine were unremarkable. Her test was negative and CT scan of the abdomen pelvis without contrast showed a normal appendix without evidence of kidney stone or other acute disease process. This point etiology of her pain is unclear. Patient will be discharged to home with a prescription for Flexeril and Bynum. Patient does state the pain is worse with certain movements. Suspect possibility of musculoskeletal back pain. She has no radiculopathic symptoms or signs. Patient advised to return if worsening pain, fever, vomiting, or condition worsen anyway. Patient otherwise to follow-up with her primary care physician within next 3 to 5 days. Lab Data Labs: Laboratory Results - last 24 hr 03/23/22 03/23/22 03/23/22 12:17 12:17 12:17 WBC 9.5 RBC 5.05 Hgb 15.8 H Hct 46.1 MCV 91.3 MCH 31.3 MCHC 34.3 RDW Std Deviation 42.4 RDW Coeff of Kael 12.7 Plt Count 399 MPV 9.8 Immature Gran % (Auto) 0.300 Neut % (Auto) 54.8 Lymph % (Auto) 34.9 Walsh % (Auto) 6.0 Eos % (Auto) 2.9 Baso % (Auto) 1.1 H Absolute Neuts (auto) 5.2 Absolute Lymphs (auto) 3.30 Nucleated RBC % 0 Sodium 138 Potassium 4.1 Chloride 108 H Carbon Dioxide 24.0 Anion Gap 6 BUN 8 Creatinine 0.66 Estim Creat Clear Calc 86.93 Est GFR (MDRD) Af Amer 124 Est GFR (MDRD) Non-Af 103 BUN/Creatinine Ratio 12.0 Glucose 94 Calcium 9.2 Serum , Qual NEGATIVE Urine Color Urine Clarity Urine pH Ur Specific [place] Urine Protein Urine Glucose (UA) Urine Ketones Urine Occult Blood Urine Nitrite Urine Bilirubin Urine Urobilinogen Ur Leukocyte Esterase Urine RBC Urine WBC Ur Squamous Epith Cells Urine Bacteria Urine Mucus 03/23/22 12:17 WBC RBC Hgb Hct MCV MCH MCHC RDW Std Deviation RDW Coeff of Kael Plt Count MPV Immature Gran % (Auto) Neut % (Auto) Lymph % (Auto) Walsh % (Auto) Eos % (Auto) Baso % (Auto) Absolute Neuts (auto) Absolute Lymphs (auto) Nucleated RBC % Sodium Potassium Chloride Carbon Dioxide Anion Gap BUN Creatinine Estim Creat Clear Calc Est GFR (MDRD) Af Amer Est GFR (MDRD) Non-Af BUN/Creatinine Ratio Glucose Calcium Serum , Qual Urine Color Yellow Urine Clarity Clear Urine pH 6.0 Ur Specific [place] 1.010 Urine Protein Negative Urine Glucose (UA) Normal Urine Ketones Negative Urine Occult Blood 25 H Urine Nitrite Negative Urine Bilirubin Negative Urine Urobilinogen Normal Ur Leukocyte Esterase 25 H Urine RBC 0 SEEN Urine WBC 0 SEEN Ur Squamous Epith Cells 0-5 SEEN Urine Bacteria 1+ Urine Mucus 0 SEEN Radiography Diagnostic Testing: Clinical Impression(s) from Imaging Studies Abdomen/Pelvis CT 03/23/22 12:04 IMPRESSION: Negative examination for renal stone. Colonic diverticulosis without acute diverticulitis. Unremarkable appendix. Resolution of right ovarian cyst. Lobulated uterus, likely leiomyomatous. Hepatic steatosis with hepatomegaly. Electronically Signed: Earlene Dias MD at 13:20 EDT , Discharge Plan Triage Chief Complaint: Flank Pain ED Provider: Kanchan Morrison Dx/Rx/DC Orders Clinical Impression: Acute flank pain, Back pain, Abdominal pain Instructions: ED Abdominal Pain Unkn Cause Fem, ED Back Pain (Acute or Chronic) Prescriptions: New cyclobenzaprine [cyclobenzaprine] 10 mg tablet 10 mg PO TID PRN (Reason: Muscle Spasm) Qty: 20 0RF hydrocodone-acetaminophen [hydrocodone-acetaminophen] 5-325 mg tablet 1 tab PO Q4H PRN PRN (Reason: Pain) 2 Days Qty: 10 0RF naproxen 500 mg tablet 500 mg PO BID Qty: 14 0RF No Action venlafaxine 150 MG capsule 150 mg PO DAILY trazodone 50 MG tablet 50 mg PO QHS atorvastatin 10 mg tablet 10 mg PO DAILY Primary Care Provider: Arsenio Yun Referrals: Arsenio Yun MD [Primary Care Provider] - 3-5 Days Disposition Disposition: Home, Self Care
[2022-03-23] MEDS: Ondansetron 4 MG/2 ML Vial IV (12:15)
[2022-03-23] MEDS: Ketorolac 30 MG/ML Syringe IV (12:16)
[2022-03-23] MEDS: Morphine 4 MG/ML Syringe IV (12:18)
[2022-03-23] MEDS: 0.9% Normal Saline 1,000 ML 150 ML IV (12:20)
[2022-03-23 12:22] LABS: Mucous, Urine 0 SEEN /hpf (<or=2+); Red Blood Cells-Urine 0 SEEN /hpf (0-5); White Blood Cells 0 SEEN /hpf (0-5)
[2022-03-23 12:29] LABS: Absolute Neutrophil Count 5.2 X10^3/uL (2.0-7.7); Basophil% 1.1 % (0-1); Eosinophil# 0.27 X10^3/uL; Eosinophils% 2.9 % (0-5); Hematocrit 46.1 % (37-47); Hemoglobin 15.8 g/dL (12.0-15.0); Lymphocyte % 34.9 % (19-41); Mean Corp Hgb Conc 34.3 g/dL (32-36); Mean Corpuscular Hgb 31.3 pg (27.0-32.0); Mean Corpuscular Volume 91.3 fL (81-99); Mean Platelet Vol. 9.8 fl (6.2-12.0); Monocyte# 0.57 X10^3/uL; NRBC Flagged by Analyzer 0 % (0-5); Neutrophil # 5.19 X10^3/uL (2.7-7.7); Neutrophil % 54.8 % (47-70); Platelet Count 399 K/mm3 (150-450); RBC Distribution Width CV 12.7 % (11.6-14.6); RBC Distribution Width SD 42.4 fl (35.1-43.9); Red Blood Count 5.05 M/mm3 (4.2-5.4); White Blood Count 9.5 K/mm3 (4.4-11.0)
[2022-03-23 12:30] LABS: Color, Urine Yellow (Yellow); Glucose, Dipstick Normal (Normal); Ketone-Dipstick Negative (Negative); Leukocyte Esterase-Dipstick 25 /ul (Negative); Nitrite-Dipstick Negative (Negative); Occult Blood-Urine 25 /ul (Negative); Protein-Dipstick Negative (Negative); Urine Bilirubin Dipstick Negative (Negative); Urine Clarity Clear (Clear); Urine Urobilinogen Normal (Normal)
[2022-03-23 12:31] LABS: Internal QC Validated? YES +Cl - CLEAR BKGD; Pregnancy, Serum, hCG Quali. NEGATIVE Negative
[2022-03-23 12:37] LABS: Anion Gap 6 (5-15); BUN 8 mg/dL (7-18); Calcium,Total 9.2 mg/dL (8.5-10.1); Chloride 108 mmol/L (98-107); Creatinine, Serum 0.66 mg/dL (0.55-1.02); EST Glomerular Filtration Rate 103 mL/min (>60); Est Glom Filt Rate - Afr Amer 124 mL/min (>60); Estimated Creatinine Clearance 86.93 ml/min; Glucose 94 mg/dL (74-106); Potassium 4.1 mmol/L (3.5-5.1); Sodium Level 138 mmol/L (136-145)
[2022-03-23 12:50] LABS: Bacteria 1+ /hpf (None Seen); Squamous Epithelial Cells - UA 0-5 SEEN /hpf (5-10)
[2022-03-23 13:40] VITALS: BP 126/72; PULSE 90; RESP 15; O2SAT 99
== END 2022-03-23 13:41 | disposition home or self-care (01) ==
PROVIDERS: Emergency Provider Emergency Medicine; PCP Internal Medicine; Visit Provider Emergency Medicine
DX: R10.31 Right lower quadrant pain (principal); M54.9 Dorsalgia, unspecified; E78.00 Pure hypercholesterolemia, unspecified; R30.0 Dysuria; R35.0 Frequency of micturition; R11.0 Nausea; Z79.899 Other long term (current) drug therapy; F17.210 Nicotine dependence, cigarettes, uncomplicated; Z97.5 Presence of (intrauterine) contraceptive device
CPT/HCPCS: 74176; 80048; 81001; 84703; 85025; 96361; 96374; 96375; 99282; J7030; J2405

== ENCOUNTER 2023-02-16 04:45 | Inpatient (IN) | payer OTHER, SELFPAY ==
[2023-02-16] VITALS (8 sets, daily range): BP systolic 95–108; BP diastolic 63–75; PULSE 73–87; RESP 16–20; TEMP 36–36.8; O2SAT 93–98; BMI 34.0; BMI 34.3
--- NOTE | 2023-02-16 04:50 | RAD_ITS ---
STUDY: X-RAY CHEST REASON FOR EXAM: Female, 42 years old. Chest pain TECHNIQUE: Single AP portable view of the chest. COMPARISON: None. FINDINGS: The lungs are clear and expanded. There is no demonstrated pleural abnormality. Normal size heart. Normal mediastinum and saray. Normal visualized pulmonary arteries. Normal visualized aortic arch and descending thoracic aorta. There are diffuse degenerative changes of the visualized thoracic spine. Normal visualized ribs, clavicles, and shoulders. There is no demonstrated abnormality of the visualized soft tissue structures of the upper abdomen. RAD/Chest 1 View (Portable) IMPRESSION: No demonstrated acute cardiopulmonary process. Electronically Signed: Francia Cantu MD at 5:28 EDT ,
--- NOTE | 2023-02-16 04:50 | EKG12_ITS ---
Test Reason : DYSRHYTHMIA Blood Pressure : / mmHG Vent. Rate : 083 BPM Atrial Rate : 083 BPM P-R Int : 152 ms QRS Dur : 080 ms QT Int : 396 ms P-R-T Axes : 068 058 074 degrees QTc Int : 465 ms Normal sinus rhythm Cannot rule out Inferior infarct , age undetermined Abnormal ECG Confirmed by HILARY PUGH, MODE ([id number]), society editor LEYDA TADEO ([id number]) on 02/24/2023 7:24:48 AM Referred By: LUIS Confirmed By:MODE RICHARD MD
[2023-02-16 05:05] LABS: Absolute Lymphocyte Count 2.23 X10^3/uL (0.83-4.51); Absolute Neutrophil Count 7.6 X10^3/uL (2.0-7.7); Basophil% 0.9 % (0-1); Eosinophils% 1.9 % (0-5); Hematocrit 44.8 % (37-47); Hemoglobin 15.1 g/dL (12.0-15.0); Lymphocyte # 2.23 X10^3/ul (0.83-4.51); Lymphocyte % 20.7 % (19-41); Mean Corp Hgb Conc 33.7 g/dL (32-36); Mean Corpuscular Hgb 31.3 pg (27.0-32.0); Mean Corpuscular Volume 92.9 fL (81-99); Mean Platelet Vol. 9.7 fl (6.2-12.0); Monocyte# 0.65 X10^3/uL; NRBC Flagged by Analyzer 0 % (0-5); Neutrophil # 7.56 X10^3/uL (2.7-7.7); Neutrophil % 70.1 % (47-70); Platelet Count 329 K/mm3 (150-450); RBC Distribution Width CV 12.6 % (11.6-14.6); RBC Distribution Width SD 43.6 fl (35.1-43.9); Red Blood Count 4.82 M/mm3 (4.2-5.4); White Blood Count 10.8 K/mm3 (4.4-11.0)
--- NOTE | 2023-02-16 05:29 | EDS_ITS ---
HPI History of Present Illness Chief Complaint: Syncope Narrative Narrative: 42-year-old female presenting after an episode of syncope. Patient states that the night before last she had a lot of belching when she laid down to sleep. Last night she woke up very sweaty. She walked upstairs and thought she might need to have a bowel movement and became nauseous and states she woke up on the floor laying on her left side. She denies a headache, visual complaints, neck pain. She has no pain anywhere. She is no longer nauseous. She has not a fever or chills. She is eating and drinking normally. She states she is making normal urine and stool. Patient states she does have a history of an adrenal mass but no adrenal insufficiency. She states he supposed to have a CT scan of it next week to make sure its not changing. Patient denies any abdominal or flank pain currently. PFSH PFSH Medical History Anxiety and depression Hyperlipidemia Obesity Tobacco use Home Medications venlafaxine 150 mg capsule,extended release 24 hr 150 mg PO DAILY 01/12/15 [History Last Taken Unknown] trazodone 50 mg tablet 50 mg PO QHS 11/02/18 [History Last Taken Unknown] atorvastatin 10 mg tablet 20 mg PO DAILY 03/23/22 [History Last Taken Unknown] Allergy/AdvReac Type Severity Reaction Status Date / Time terbinafine HCl Allergy Hives Verified 02/16/23 04:49 [From Lamisil] Social History Smoking Status: Current every day smoker tobacco type: cigarettes ROS ROS ED Constitutional Constitutional ED: Reports sweats; Denies chills or fever(s) Eyes Eyes: Denies blurry vision or change in vision ENT ENT ED: Denies ear pain or sore throat Cardiovascular Cardiovascular: Reports other Details: Syncope ; Denies chest pain, palpitations or racing heartbeat Respiratory/Chest Respiratory/Chest: Denies cough, dyspnea or sputum Gastrointestinal Gastrointestinal: Denies abdominal pain, constipation, diarrhea, nausea or vomiting Genitourinary Genitourinary ED: Denies dysuria, hematuria or urinary frequency Musculoskeletal Musculoskeletal: Denies arthralgias, myalgias or neck pain Integumentary Denies abscess, Abrasions or rash Neurologic Neurologic: Denies headache(s), paresthesias or weakness Psychiatric Psychiatric: Denies anxiety, depression, suicidal ideation or suicidal thoughts Endocrine Endocrinology: Denies polydipsia or polyuria EXAM Physical Exam Const Vital Signs: 02/16/23 04:45 02/16/23 04:50 02/16/23 04:59 Temperature 96.8 F L Temperature Source Temporal Pulse Rate 86 Pulse Rate [Lying] Pulse Rate [Sitting (for 1 minute prior to obtaining)] Pulse Rate [Standing (for 1 minute prior to obtaining)] Respiratory Rate 20 H Respiratory Effort Normal Non-Labored Respiratory Pattern Normal Blood Pressure 108/73 Blood Pressure [Lying] Blood Pressure [Sitting (for 1 minute prior to obtaining)] Blood Pressure [Standing (for 1 minute prior to obtaining)] Blood Pressure Mean 84 Blood Pressure Mean [Lying] Blood Pressure Mean [Sitting (for 1 minute prior to obtaining)] Blood Pressure Mean [Standing (for 1 minute prior to obtaining)] Pulse Ox 98 Oxygen Delivery Method Room Air Room Air 02/16/23 05:32 Temperature Temperature Source Pulse Rate Pulse Rate [Lying] 83 Pulse Rate [Sitting (for 1 minute prior to obtaining)] 87 Pulse Rate [Standing (for 1 minute prior to obtaining)] 84 Respiratory Rate Respiratory Effort Respiratory Pattern Blood Pressure Blood Pressure [Lying] 99/73 Blood Pressure [Sitting (for 1 minute prior to obtaining)] 108/68 Blood Pressure [Standing (for 1 minute prior to obtaining)] 95/65 Blood Pressure Mean Blood Pressure Mean [Lying] 81 Blood Pressure Mean [Sitting (for 1 minute prior to obtaining)] 81 Blood Pressure Mean [Standing (for 1 minute prior to obtaining)] 75 Pulse Ox Oxygen Delivery Method Positive well nourished General Appearance ED: NAD; Negative for pallor HEENT Reports moist mucous membranes Eyes PERRL and EOMs intact bilaterally Neck no lymphadenopathy Resp normal respiratory effort and clear to auscultation bilaterally Cardio regular rate and regular rhythm GI normal to inspection, nondistended, normoactive bowel sounds Neuro oriented x3 and CN's II-XII intact bilaterally Sensorium / Orientation: alert Motor Exam: strength 5/5 throughout Skin no rashes or lesions noted and no wounds General Skin Exam: Negative for jaundice or pallor MDM MDM MDM Narrative Medical decision making narrative: Presenting with an episode of syncope. She initially denied any sort of chest pain. But after further discussion she states that she is having some chest pressure which she does not really feel is painful and she rates it a 1/10. Differential includes acute coronary syndrome, PE, pneumonia, electrolyte abnor malities, anemia, dehydration. CBC was obtained to assess white blood cell count, hemoglobin, platelets. This was within normal limits. BMP to assess renal function electrolytes and these are unremarkable as well. High- sensitivity troponin came back at 143. EKG on my interpretation shows a sinus rhythm with a ventricular rate of 83 bpm without sign of ischemic change or ectopy. Patient was given 324 of aspirin. Given the patient's elevated troponin and episode of syncope she will need to be admitted. I spoke with the hospitalist who recommend starting heparin. This was ordered. Patient orthostatic vital signs were negative and she is getting IV fluids. Admitted in stable condition. Impression: 1. NSTEMI 2. Syncope Lab Data Attestation: I reviewed the patient's lab results. Labs: Laboratory Results - last 24 hr 02/16/23 04:57 WBC 10.8 RBC 4.82 Hgb 15.1 H Hct 44.8 MCV 92.9 MCH 31.3 MCHC 33.7 RDW Std Deviation 43.6 RDW Coeff of Kael 12.6 Plt Count 329 MPV 9.7 Immature Gran % (Auto) 0.400 Neut % (Auto) 70.1 H Lymph % (Auto) 20.7 [place] % (Auto) 6.0 Eos % (Auto) 1.9 Baso % (Auto) 0.9 Absolute Neuts (auto) 7.6 Absolute Lymphs (auto) 2.23 Nucleated RBC % 0 Sodium 138 Potassium 3.9 Chloride 110 H Carbon Dioxide 23.0 Anion Gap 5 BUN 6 L Creatinine 0.76 Estim Creat Clear Calc 74.71 Est GFR (MDRD) Af Amer 107 Est GFR (MDRD) Non-Af 88 BUN/Creatinine Ratio 7.9 L Glucose 109 H Calcium 8.7 Troponin I High Sens 143 H* Radiography Diagnostic Testing: Clinical Impression(s) from Imaging Studies Chest X-Ray 02/16/23 04:50 IMPRESSION: No demonstrated acute cardiopulmonary process. Electronically Signed: Francia Cantu MD at 5:28 EDT , Discharge Plan Triage Chief Complaint: Syncope ED Provider: Arnav Worlye Dx/Rx/DC Orders Prescriptions: No Action venlafaxine 150 MG capsule 150 mg PO DAILY trazodone 50 MG tablet 50 mg PO QHS atorvastatin 10 mg tablet 20 mg PO DAILY Primary Care Provider: Arsenio Yun Referrals: Arsenio Yun MD [Primary Care Provider] -
[2023-02-16 05:34] LABS: Anion Gap 5 (5-15); BUN 6 mg/dL (7-18); BUN/Creat Ratio 7.9 RATIO (10-20); Calcium,Total 8.7 mg/dL (8.5-10.1); Chloride 110 mmol/L (98-107); Creatinine, Serum 0.76 mg/dL (0.55-1.02); EST Glomerular Filtration Rate 88 mL/min (>60); Est Glom Filt Rate - Afr Amer 107 mL/min (>60); Estimated Creatinine Clearance 74.71 ml/min; Glucose 109 mg/dL (74-106); Potassium 3.9 mmol/L (3.5-5.1); Sodium Level 138 mmol/L (136-145); Troponin-I HS 143 pg/mL (3.0-54.0)
--- NOTE | 2023-02-16 05:48 | PCM.HP.STD ---
HPI - General General Date of Admission: 02/16/23 Date of Service: 02/16/23 Chief Complaint: Chest pain, syncopal event. HPI Narrative The patient is a 42 y/o F w/ PMHx: Obesity, Tobacco use, Anxiety and Depression, Hx adrenal adenoma, of 21 years who presents to the [facility] ED on 02/16/23 with history of onset of retrosternal chest discomfort described as a heaviness/pressure-like sensation rated may be 1-2 out of 10 in severity with reported more difficulty taking a deep breath intermittent with no worsening symptoms with increased activity starting 48 hours prior with significant increased belching and dyspepsia at that time persisting with awakening on day of presentation just prior to ED arrival with significant diaphoresis reportedly soaked with onset of increased nausea and dyspepsia thinking that she may need to use the restroom prompting her to get up and go to the restroom then awakening on the floor of the restroom with no head trauma prompting ED evaluation. She denies having utilize the restroom with no evidence of any urination or defecation. She denied any lightheadedness or dizziness. She denies any marked dyspnea at this time. She currently is having no chest discomfort. Work-up in the ED included T96.8, negative orthostatic VS, heart rate 86, BP 108/73, respiratory rate 20, 98% on room air, CBC with WBC 10.8, hemoglobin 15.1, platelet 329 without marked shift, BMP with chloride 110, glucose 109, troponin 143, chest x-ray with no acute cardiopulmonary findings, EKG sinus rhythm with no acute evidence of ischemia. In the ED patient ministered full-strength aspirin therapy. Discussed patient with ED physician and requested heparin drip also be initiated. [facility] Medical History Adrenal adenoma Anxiety and depression Hyperlipidemia Obesity Tobacco use Home Medications venlafaxine 150 mg capsule,extended release 24 hr 150 mg PO DAILY 01/12/15 [History Last Taken Unknown] trazodone 50 mg tablet 50 mg PO QHS 11/02/18 [History Last Taken Unknown] atorvastatin 10 mg tablet 20 mg PO DAILY 03/23/22 [History Last Taken Unknown] Allergy/AdvReac Type Severity Reaction Status Date / Time terbinafine HCl Allergy Hives Verified 02/16/23 04:49 [From Lamisil] Family History (Updated 02/16/23 @ 06:[address] Alejandrina Flores MD) Father Heart disease CAD (coronary artery disease) Hypertension HLD (hyperlipidemia) Myocardial infarction Mother Heart disease Hypertension HLD (hyperlipidemia) Surgical History (Updated 02/16/23 @ 06:[address] Alejandrina Flores MD) No history of previous surgery Social History (Updated 02/16/23 @ 06:[address] Alejandrina Flores MD) household members: other details: Lives with her 10 year old and 15 year old daughters. current occupational status: employed and other details: Retired of 21 years. Smoking Status: Current every day smoker tobacco type: cigarettes Smoking packs per day: 1 Smoking cigarettes per day: 20.0 counseling given: provider counseling alcohol intake: never substance use type: does not use ROS ROS Narrative Admission Review of Systems: CONSTITUTIONAL: No weight loss, fever, chills, + weakness or fatigue. HEENT: Eyes: No visual loss, blurred vision, double vision or yellow sclerae. Ears, Nose, Throat: No hearing loss, sneezing, congestion, runny nose or sore throat. SKIN: No rash or itching, lesions, wounds. CARDIOVASCULAR: + chest pressure/heaviness, syncope. no palpitations, edema, orthopnea. RESPIRATORY: + Sensation of difficulty taking a deep breath. No shortness of breath, cough or sputum, wheezing, hemoptysis. GASTROINTESTINAL: + Dyspepsia and belching. No anorexia, nausea, vomiting or diarrhea, abdominal pain, melena, BRBPR. GENITOURINARY: No dysuria, frequency, urgency or retention. NEUROLOGICAL: + Syncopal event. No headache, dizziness, paralysis, ataxia, numbness or tingling in the extremities, focal weakness, change in bowel or bladder control, seizure. MUSCULOSKELETAL: No muscle, back pain, joint pain or stiffness. HEMATOLOGIC: No anemia, bleeding or bruising. LYMPHATICS: No enlarged nodes. No history of splenectomy. PSYCHIATRIC: + history of depression or anxiety. ENDOCRINOLOGIC: No reports of sweating, cold or heat intolerance. No polyuria or polydipsia. ALLERGIES: + History of hives. Vital Signs Vital Signs Vital Signs: 02/16/23 04:45 02/16/23 04:50 02/16/23 04:59 Temperature 96.8 F L Temperature Source Temporal Pulse Rate 86 Pulse Rate [Lying] Pulse Rate [Sitting (for 1 minute prior to obtaining)] Pulse Rate [Standing (for 1 minute prior to obtaining)] Respiratory Rate 20 H Respiratory Effort Normal Non-Labored Respiratory Pattern Normal Blood Pressure 108/73 Blood Pressure [Lying] Blood Pressure [Sitting (for 1 minute prior to obtaining)] Blood Pressure [Standing (for 1 minute prior to obtaining)] Blood Pressure Mean 84 Blood Pressure Mean [Lying] Blood Pressure Mean [Sitting (for 1 minute prior to obtaining)] Blood Pressure Mean [Standing (for 1 minute prior to obtaining)] Pulse Ox 98 Oxygen Delivery Method Room Air Room Air 02/16/23 05:32 Temperature Temperature Source Pulse Rate Pulse Rate [Lying] 83 Pulse Rate [Sitting (for 1 minute prior to obtaining)] 87 Pulse Rate [Standing (for 1 minute prior to obtaining)] 84 Respiratory Rate Respiratory Effort Respiratory Pattern Blood Pressure Blood Pressure [Lying] 99/73 Blood Pressure [Sitting (for 1 minute prior to obtaining)] 108/68 Blood Pressure [Standing (for 1 minute prior to obtaining)] 95/65 Blood Pressure Mean Blood Pressure Mean [Lying] 81 Blood Pressure Mean [Sitting (for 1 minute prior to obtaining)] 81 Blood Pressure Mean [Standing (for 1 minute prior to obtaining)] 75 Pulse Ox Oxygen Delivery Method Weight Weight: 186 lb 4.8 oz Body Mass Index (BMI) 34.0 Physical Exam Narrative Physical Examination: General: Awake, alert, oriented x 3 and cooperative, seated upright in the ED bed, anxious, no current chest discomfort. Skin: Normal color, normal turgor, no icterus, no cyanosis. HEENT: AT/NC, EOMI, PERRLA, MMM, no carotid bruits or JVD noted. Lungs: CTA bilaterally, appropriate effort, no rales, ronchi or wheezing. Heart: Regular rate and rhythm; no gallop, rub audible. Abdomen: Soft, obese, NTTP, ND, mildly hyperactive BS, no HSM. Extremities: No cyanosis, clubbing, or edema. Neurological: Patient awake, alert, oriented as noted, cognitive function intact; pupils equally reactive to light and accommodation, cranial nerves II-XII grossly normal, moving all 4 extremities, no focal deficits, strength preserved. Psychiatric: Affect appears fatigued, appropriately anxious, underlying history of depression and anxiety. Results Lab / Micro Data 02/16/23 04:57 02/16/23 04:57 Labs: Laboratory Results - last 24 hr 02/16/23 04:57: WBC 10.8, RBC 4.82, Hgb 15.1 H, Hct 44.8, MCV 92.9, MCH 31.3, MCHC 33.7, RDW Std Deviation 43.6, RDW Coeff of Kael 12.6, Plt Count 329, MPV 9.7, Immature Gran % (Auto) 0.400, Neut % (Auto) 70.1 H, Lymph % (Auto) 20.7, [place] % (Auto) 6.0, Eos % (Auto) 1.9, Baso % (Auto) 0.9, Absolute Neuts (auto) 7.6, Absolute Lymphs (auto) 2.23, Nucleated RBC % 0, Sodium 138, Potassium 3.9, Chloride 110 H, Carbon Dioxide 23.0, Anion Gap 5, BUN 6 L, Creatinine 0.76, Estim Creat Clear Calc 74.71, Est GFR (MDRD) Af Amer 107, Est GFR (MDRD) Non-Af 88, BUN/Creatinine Ratio 7.9 L, Glucose 109 H, Calcium 8.7, Troponin I High Sens 143 H* Radiology Impression Chest X-Ray 02/16/23 04:50 IMPRESSION: No demonstrated acute cardiopulmonary process. Electronically Signed: Francia Cantu MD at 5:28 EDT Reading Location ID and State: Formerly [facility], [facility] / [place] Tel , Service support , Assessment & Plan Assessment/Plan (1) NSTEMI, initial episode of care: PLAN: Plan The patient is a 42 y/o F w/ PMHx: Obesity, Tobacco use, Anxiety and Depression, Hx adrenal adenoma, of 21 years who presents to the [facility] ED on 02/16/23 with history of onset of intermittent chest pressure/heaviness over the last 48 hours with increased dyspepsia awakening on day of presentation extremely diaphoretic with ongoing belching and dyspepsia within syncopal event while attempting to use the restroom. #1. Chest Pain, Syncopal Event w/ Acute NSTEMI: EKG in ED w/ sinus rhythm with no acute evidence of ischemia, CXR w/ no acute cardiopulmonary findings. Trop elevated, 143. Will admit to PCU, maintain on a monitored bed, continue serial cardiac enzymes and EKGs. Obtain magnesium level upon admission. Start Heparin drip. Continue medical management w/ asa, will transition to high-dose statin w/ AM FLP. We will hold on beta-jordan and AKIKO inhibitor/ARB at this time given low BP. We will continue judicious IV fluids. ECHO requested. UDS requested. Cardiology consulted, pending. ASA, NG, morphine. #2. Anxiety and depression: We will continue patient home venlafaxine and trazodone regimen. #3. Hyperlipidemia: We will change to high-dose statin, FLP in AM. #4. Tobacco Abuse: Encouraged cessation, inpatient consultation per RT, NR if desired. #5. Adrenal adenoma: 08/17/19 CT abdomen pelvis with a small circumscribed smooth low-attenuation right adrenal mass consistent with adrenal adenoma however on repeat CT imaging 01/01/2021 and 03/23/2022 there is no mention. Per patient reports she has an upcoming CT in the following week to make sure it is unchanged. #6. Obesity: Weight loss and lifestyle changes encouraged. #7. DVT prophylaxis: We will maintain on heparin drip. Charges/Coding Visit Charges Inpatient E&M: 74632 Init Hosp L3
[2023-02-16] MEDS: Aspirin 81 MG TAB.CHEW 324 MG PO (06:04)
[2023-02-16] MEDS: Heparin Injection (Vial) 5,000 UNIT/ML VIAL 4000 UNIT IV (06:04)
[2023-02-16] MEDS: HEPARIN/D5w 25,000 UNITS 25,000 UNITS/250 ML IV.SOLN. 10 UNITS CONT INF (06:05)
[2023-02-16] MEDS: 0.9% Normal Saline (1000mL) 1,000 ML 999 ML IV (06:21)
[2023-02-16 06:33] LABS: International Normalized Ratio 0.9; Prothrombin Time (Protime)PT. 12.3 SECONDS (11.7-14.9)
[2023-02-16 06:34] LABS: Partial Thromboplast Time 25.9 Seconds (24.1-36.2)
--- NOTE | 2023-02-16 06:47 | EKG12_ITS ---
Test Reason : CP Blood Pressure : / mmHG Vent. Rate : 073 BPM Atrial Rate : 073 BPM P-R Int : 162 ms QRS Dur : 076 ms QT Int : 406 ms P-R-T Axes : 063 038 035 degrees QTc Int : 447 ms Normal sinus rhythm Normal ECG Confirmed by MODE RICHARD MD ([id number]), metropolitan editor LEYDA TADEO ([id number]) on 04/10/2023 8:48:41 AM Referred By: DR MARTINEZ Confirmed By:MODE RICHARD MD
--- NOTE | 2023-02-16 06:47 | ECHOD_ITS ---
Reason For Study: chest pain/pressure Procedure This was a 2D Doppler, Color Flow transthoracic echocardiogram. Exam performed portable in patient room. Left Ventricle Normal LV size. Left ventricular systolic function is normal. The estimated ejection fraction is 60 %. No regional wall motion abnormalities noted. Right Ventricle Normal RV size. Normal systolic function. Atria Normal left atrium. Normal right atrium. Mitral Valve Normal mitral valve. Tricuspid Valve Normal tricuspid valve. Aortic Valve Normal aortic valve. Pulmonic Valve Normal pulmonic valve. Great Vessels Normal aortic root. Pericardium/Pleural No pericardial effusion. MMode/2D Measurements & Calculations LVIDd: 4.4 cm IVSd: 1.2 cm Ao root diam: 3.2 cm LVIDs: 2.6 cm LVPWd: 0.89 cm RVDd: 2.8 cm FS: 40.2 % LAV(MOD-bp): 31.6 ml LVAd ap4: 27.2 cm2 LVAd ap2: 26.8 cm2 LAV(MOD-bp) Indexed: 17.1 ml/m2 LVLd ap4: 7.5 cm LVLd ap2: 7.6 cm LAV(MOD-sp2): 33.0 ml EDV(MOD-sp4): 74.3 ml EDV(MOD-sp2): 79.7 ml LAV(MOD-sp4): 28.2 ml EDV(sp4-el): 84.4 ml EDV(sp2-el): 80.7 ml LVAs ap4: 13.4 cm2 LVAs ap2: 14.5 cm2 LVLs ap4: 5.9 cm LVLs ap2: 6.0 cm ESV(MOD-sp4): 27.2 ml ESV(MOD-sp2): 30.9 ml ESV(sp4-el): 25.6 ml ESV(sp2-el): 29.6 ml EF(MOD-sp4): 63.5 % EF(MOD-sp2): 61.2 % EF(sp4-el): 69.7 % SV(MOD-sp4): 47.1 ml SV(MOD-sp2): 48.8 ml SV(sp4-el): 58.8 ml LA dimension(2D): 3.7 cm LA A4 area: 12.6 cm2 RA A4 area: 11.3 cm2 TAPSE: 1.9 cm Time Measurements MV dec time: 0.21 sec Doppler Measurements & Calculations MV E max james: 89.4 cm/sec Lat Peak E' James: 13.2 cm/sec Med Peak E' James: 11.1 cm/sec MV A max james: 60.7 cm/sec E/E' lat: 6.8 E/E' med: 8.0 MV E/A: 1.5 MV dec slope: 449.3 cm/sec2 Ao V2 max: 106.9 cm/sec LV V1 max: 94.2 cm/sec Ao max P.6 mmHg LV V1 max P.6 mmHg Ao V2 mean: 81.1 cm/sec LV V1 mean P.0 mmHg Ao mean P.8 mmHg LV V1 mean: 66.3 cm/sec Ao V2 VTI: 24.3 cm LV V1 VTI: 21.4 cm AV (velocity ratio): 0.88 PA V2 max: 60.7 cm/sec PA V2 mean: 50.0 cm/sec ECHO/Echo Complete Interpretation Summary Normal LV size. Left ventricular systolic function is normal. The estimated ejection fraction is 60 %. Structurally normal valves. Ordering Physician: Alejandrina Flores Referring Physician: Arsenio Yun M.D. Performed By: Maranda Kim, JEAN, RVT
[2023-02-16 06:53] LABS: Magnesium 2.2 mg/dL (1.6-2.6)
[2023-02-16 06:59] LABS: Amphetamine Urine VISTA NEGATIVE (<1000 ng/mL); Barbiturate Urine VISTA NEGATIVE (< 200 ng/mL); Benzodiazepine Urine VISTA NEGATIVE (< 200 ng/mL); Cocaine Urine VISTA NEGATIVE (< 300 ng/mL); Ecstacy Urine VISTA POSITIVE (< 500 ng/mL); Methadone Urine VISTA NEGATIVE (< 300 ng/mL); PCP Urine VISTA NEGATIVE (< 25 ng/mL); THC Urine VISTA NEGATIVE (< 50 ng/mL); Vista UDS pH Range 4
--- NOTE | 2023-02-16 07:43 | PN.HOSP_ITS ---
Hospitalist Note Patient was admitted with syncope with nausea belching symptoms about 2 nights before that. No major physical injury. High-sensitivity troponin 143, repeat second troponin 315 and third troponin 880. Twelve-lead EKG sinus rhythm with ventricular rate 83 but without ischemic changes. Repeat EKG shows normal sinus rhythm nonspecific T wave abnormality at 66 beats per QTc 458 ms Because of high troponin patient was started on IV heparin drip, aspirin, atorvastatin.At present BP in 100s and heart rate controlled therefore not candidate for beta-jordan or AKIKO/ARB. [employer] Maker is consulted. 2D echo ordered. Discussed with check writing machine operator and plan for cardiac cath on Friday. U tox positive of ecstasy. Serum magnesium normal. Serum phosphorus 3.3. CK normal BNP normal. Laboratory Results 02/16/23 04:57: WBC 10.8, RBC 4.82, Hgb 15.1 H, Hct 44.8, MCV 92.9, MCH 31.3, MCHC 33.7, RDW Std Deviation 43.6, RDW Coeff of Kael 12.6, Plt Count 329, MPV 9.7, Immature Gran % (Auto) 0.400, Neut % (Auto) 70.1 H, Lymph % (Auto) 20.7, [place] % (Auto) 6.0, Eos % (Auto) 1.9, Baso % (Auto) 0.9, Absolute Neuts (auto) 7.6, Absolute Lymphs (auto) 2.23, Nucleated RBC % 0, Sodium 138, Potassium 3.9, Chloride 110 H, Carbon Dioxide 23.0, Anion Gap 5, BUN 6 L, Creatinine 0.76, Estim Creat Clear Calc 74.71, Est GFR (MDRD) Af Amer 107, Est GFR (MDRD) Non-Af 88, BUN/Creatinine Ratio 7.9 L, Glucose 109 H, Calcium 8.7, Troponin I High Sens 143 H* 02/16/23 05:55: Urine Opiates Screen NEGATIVE, Urine Methadone Screen NEGATIVE, Ur Barbiturates Screen NEGATIVE, Ur Phencyclidine Scrn NEGATIVE, Ur Amphetamines Screen NEGATIVE, MDMA (Ecstasy) Screen POSITIVE H, U Benzodiazepines Scrn NEGATIVE, Urine Cocaine Screen NEGATIVE, U Cannabinoids Screen NEGATIVE, Ur Drug Screen Comment 02/16/23 06:00: PT 12.3, INR 0.9, APTT 25.9, Magnesium 2.2, B-Natriuretic Peptide 20.3 02/16/23 07:10: Phosphorus 3.3, Total Creatine Kinase 118, Troponin I High Sens 315 H* 02/16/23 10:40: Troponin I High Sens 880 H* 02/16/23 12:29: APTT 48.1 H
[2023-02-16 07:51] LABS: Troponin-I HS 315 pg/mL (3.0-54.0)
[2023-02-16] MEDS: 0.9% Normal Saline (1000mL) 1,000 ML 100 ML IV (08:12)
[2023-02-16 08:17] LABS: BNP,B-Type NATRIURETIC PEPTIDE 20.3 pg/mL (0-100)
[2023-02-16] MEDS: Famotidine 20 MG Tablet PO ×2 (08:19→22:44)
[2023-02-16] MEDS: Morphine 2 MG/ML Syringe IV ×3 (08:19→23:19)
[2023-02-16] MEDS: Ondansetron 4 MG/2 ML Vial IV (08:19)
[2023-02-16 09:06] LABS: CPK Total, Creatine Kinase 118 U/L (26-192); Phosphorus 3.3 mg/dL (2.5-4.9)
[2023-02-16 11:12] LABS: Troponin-I HS 880 pg/mL (3.0-54.0)
--- NOTE | 2023-02-16 12:03 | PCM.CONS.C ---
Assessment & Plan Assessment/Plan (1) UTI (urinary tract infection): (2) NSTEMI, initial episode of care: PLAN: 42-year-old patient admitted with syncope symptoms of nausea belching symptoms which has been ongoing for the last 2 nights. Also she started to complain of symptoms of chest pain. Came to the ER at [facility]. Patient denies any prior cardiac history. Where she been evaluated with cardiac marker EKG. Which showed elevated high sensitive troponin second set was around 315. And the EKG showed normal sinus with a heart rate of around 83 without ischemic change Nonspecific T wave abnormality was noted in the EKG. Based on clinical presentation I was consulted for cardiovascular evaluation Cardiac exam; essentially normal Cardiac care plan recommendations; 1. 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 I also discussed the need for further evaluation with cardiac catheterization which can set up for the morning Urine toxicology is positive for ecstasy. Erlinda Brumfield MD,[facility] HPI Consult Data Date of Consult: 02/16/23 HPI Narrative Reason for Consultation: Non-STEMI HPI Narrative: ROBIN LUA, is a 42 F who presents [facility] Medical History Adrenal adenoma Anxiety and depression Hyperlipidemia Obesity Tobacco use Home Medications venlafaxine 150 mg capsule,extended release 24 hr 150 mg PO DAILY 01/12/15 [History Last Taken Unknown] trazodone 50 mg tablet 50 mg PO QHS 11/02/18 [History Last Taken Unknown] atorvastatin 10 mg tablet 20 mg PO DAILY 03/23/22 [History Last Taken Unknown] Allergy/AdvReac Type Severity Reaction Status Date / Time terbinafine HCl Allergy Hives Verified 02/16/23 04:49 [From Lamisil] Family History (Updated 02/16/23 @ 06:[address] Alejandrina Flores MD) Father Heart disease CAD (coronary artery disease) Hypertension HLD (hyperlipidemia) Myocardial infarction Mother Heart disease Hypertension HLD (hyperlipidemia) Surgical History (Updated 02/16/23 @ 06:[address] Alejandrina Flores MD) No history of previous surgery Social History (Updated 02/16/23 @ 06:[address] Alejandrina Flores MD) household members: other details: Lives with her 10 year old and 15 year old daughters. current occupational status: employed and other details: Retired of 21 years. Smoking Status: Current every day smoker tobacco type: cigarettes Smoking packs per day: 1 Smoking cigarettes per day: 20.0 counseling given: provider counseling alcohol intake: never substance use type: does not use Physical Exam Cardio Cardio Narrative: Patient seen and evaluated today at bedside along with the nursing staff Family were at bedside Symptoms of chest pain resolved Telemetry, normal sinus rhythm Cardiovascular exam; S1-S2 regular No systolic or diastolic murmur. Chest examination; Clear to auscultation bilateral. Examination lower extremity no lower extremity edema noted Pedal pulses palpable. Risk Stratification Risk Stratification Applicable: Yes Age >/= 65: No >/= 3 CAD Risk Factors (HTN, HLD, DM, family hx of CAD, or current smoker): No Aspirin Use in the Past 7 Days: Yes Severe Angina (>/= episodes in 24 hours): No EKG ST Changes >/= 0.5mm: No Positive Cardiac Marker: Yes JACKELYN Risk Stratification Score: 2 JACKELYN % Risk: 8% Risk Objective Data Vital Signs: Vital Signs Temp Pulse Resp BP Pulse Ox O2 Del Method 97.2 F L 75 18 101/68 95 Room Air 02/16/23 06:49 02/16/23 06:49 02/16/23 06:49 02/16/23 06:49 02/16/23 06:49 02/16/23 06:49 Oxygen Delivery Method Room Air Weight: 187 lb 9.814 oz Body Mass Index (BMI) 34.3 Intake & Output: Intake and Output for Last 24 Hours 02/14/23 02/15/23 02/16/23 23:59 23:59 23:59 Intake Total 1000 / 1000 Balance 1000 / 1000 Lab / Micro Data 02/16/23 04:57 02/16/23 04:57 Labs: Laboratory Results - last 24 hr 02/16/23 04:57: WBC 10.8, RBC 4.82, Hgb 15.1 H, Hct 44.8, MCV 92.9, MCH 31.3, MCHC 33.7, RDW Std Deviation 43.6, RDW Coeff of Kael 12.6, Plt Count 329, MPV 9.7, Immature Gran % (Auto) 0.400, Neut % (Auto) 70.1 H, Lymph % (Auto) 20.7, Rice % (Auto) 6.0, Eos % (Auto) 1.9, Baso % (Auto) 0.9, Absolute Neuts (auto) 7.6, Absolute Lymphs (auto) 2.23, Nucleated RBC % 0, Sodium 138, Potassium 3.9, Chloride 110 H, Carbon Dioxide 23.0, Anion Gap 5, BUN 6 L, Creatinine 0.76, Estim Creat Clear Calc 74.71, Est GFR (MDRD) Af Amer 107, Est GFR (MDRD) Non-Af 88, BUN/Creatinine Ratio 7.9 L, Glucose 109 H, Calcium 8.7, Troponin I High Sens 143 H* 02/16/23 05:55: Urine Opiates Screen NEGATIVE, Urine Methadone Screen NEGATIVE, Ur Barbiturates Screen NEGATIVE, Ur Phencyclidine Scrn NEGATIVE, Ur Amphetamines Screen NEGATIVE, MDMA (Ecstasy) Screen POSITIVE H, U Benzodiazepines Scrn NEGATIVE, Urine Cocaine Screen NEGATIVE, U Cannabinoids Screen NEGATIVE, Ur Drug Screen Comment 02/16/23 06:00: PT 12.3, INR 0.9, APTT 25.9, Magnesium 2.2, B-Natriuretic Peptide 20.3 02/16/23 07:10: Phosphorus 3.3, Total Creatine Kinase 118, Troponin I High Sens 315 H* 02/16/23 10:40: Troponin I High Sens 880 H* Cardiology Labs/Tests 02/16/23 04:57: WBC 10.8, RBC 4.82, Hgb 15.1 H, Hct 44.8, MCV 92.9, MCH 31.3, MCHC 33.7, Plt Count 329, MPV 9.7, Immature Gran % (Auto) 0.400, Neut % (Auto) 70.1 H, Lymph % (Auto) 20.7, Rice % (Auto) 6.0, Eos % (Auto) 1.9, Baso % (Auto) 0.9, Absolute Neuts (auto) 7.6, Nucleated RBC % 0, Sodium 138, Potassium 3.9, Chloride 110 H, Carbon Dioxide 23.0, Anion Gap 5, BUN 6 L, Creatinine 0.76, Est GFR (MDRD) Af Amer 107, Est GFR (MDRD) Non-Af 88, BUN/Creatinine Ratio 7.9 L, Glucose 109 H, Calcium 8.7 02/16/23 06:00: PT 12.3, INR 0.9, APTT 25.9, Magnesium 2.2, B-Natriuretic Peptide 20.3 02/16/23 07:10: Phosphorus 3.3 Rhythm: EKG: ECHO: Stress Test: Cardiac Cath: PCI: CT Surgery: Holter monitor: EPS: PPM: CXR: Chest CT Scan: Radiography Diagnostic Testing: Radiology Impression Chest X-Ray 02/16/23 04:50 IMPRESSION: No demonstrated acute cardiopulmonary process. Electronically Signed: Francia Cantu MD at 5:28 EDT ,
[2023-02-16] MEDS: Venlafaxine XR 150 MG Capsule PO (12:24)
[2023-02-16 13:04] LABS: Partial Thromboplast Time 48.1 Seconds (24.1-36.2)
[2023-02-16] MEDS: Acetaminophen 325 MG Tablet 650 MG PO ×2 (17:37→23:19)
[2023-02-16 19:52] LABS: Partial Thromboplast Time 44.2 Seconds (24.1-36.2)
[2023-02-16] MEDS: traZODone 50 MG Tablet PO (22:44)
[2023-02-16] MEDS: Atorvastatin Calcium 80 MG Tablet PO (22:44)
[2023-02-16] MEDS: 0.9% Saline Lock 10 ML Syringe IV (23:20)
[2023-02-17] VITALS (11 sets, daily range): BP systolic 104–136; BP diastolic 69–92; PULSE 58–78; RESP 14–17; TEMP 36.6–36.7; O2SAT 94–99; BMI 34.4
[2023-02-17 02:11] LABS: Partial Thromboplast Time 58.5 Seconds (24.1-36.2)
[2023-02-17] MEDS: Morphine 2 MG/ML Syringe IV ×2 (02:22→05:58)
[2023-02-17] MEDS: HEPARIN/D5w 25,000 UNITS 25,000 UNITS/250 ML IV.SOLN. 12 UNITS CONT INF (03:39)
[2023-02-17 04:23] LABS: Absolute Lymphocyte Count 3.41 X10^3/uL (0.83-4.51); Absolute Neutrophil Count 4.7 X10^3/uL (2.0-7.7); Basophil# 0.08 X10^3/uL; Basophil% 0.9 % (0-1); Eosinophils% 2.3 % (0-5); Hematocrit 39.7 % (37-47); Hemoglobin 13.5 g/dL (12.0-15.0); Lymphocyte # 3.41 X10^3/ul (0.83-4.51); Lymphocyte % 38.5 % (19-41); Mean Corpuscular Hgb 32.1 pg (27.0-32.0); Mean Corpuscular Volume 94.3 fL (81-99); Mean Platelet Vol. 9.6 fl (6.2-12.0); Monocyte% 5.6 % (0-10); NRBC Flagged by Analyzer 0 % (0-5); Neutrophil # 4.66 X10^3/uL (2.7-7.7); Neutrophil % 52.6 % (47-70); Platelet Count 271 K/mm3 (150-450); RBC Distribution Width CV 12.9 % (11.6-14.6); RBC Distribution Width SD 44.4 fl (35.1-43.9); Red Blood Count 4.21 M/mm3 (4.2-5.4); White Blood Count 8.9 K/mm3 (4.4-11.0)
[2023-02-17 04:50] LABS: ALB/GLOB Ratio 0.9 RATIO (0.9-2.4); AST(SGOT) 21 U/L (15-37); Alanine Aminotransfer ALT/SGPT 10 U/L (13-56); Albumin, Serum 2.7 g/dL (3.2-5.0); Alkaline Phosphatase 71 U/L (45-117); Anion Gap 4 (5-15); BUN 6 mg/dL (7-18); BUN/Creat Ratio 9.8 RATIO (10-20); Calcium,Total 8.1 mg/dL (8.5-10.1); Chloride 115 mmol/L (98-107); Cholesterol 163 mg/dL (200); Creatinine, Serum 0.61 mg/dL (0.55-1.02); EST Glomerular Filtration Rate 112 mL/min (>60); Est Glom Filt Rate - Afr Amer 136 mL/min (>60); Estimated Creatinine Clearance 93.08 ml/min; Glucose 102 mg/dL (74-106); High Density Lipoprotein 40 mg/dL; Protein, Total 5.7 g/dL (6.4-8.2); Sodium Level 142 mmol/L (136-145); Triglycerides 163 mg/dL; Very Low Density Lipoprotein 33 mg/dL (5-40)
[2023-02-17] MEDS: Aspirin E.C. 81 MG Tablet PO (05:52)
[2023-02-17] MEDS: Acetaminophen 325 MG Tablet 650 MG PO ×2 (05:58→16:08)
[2023-02-17] MEDS: 0.9% Saline Lock 10 ML Syringe IV (05:58)
[2023-02-17 08:49] LABS: Partial Thromboplast Time 62.9 Seconds (24.1-36.2)
--- NOTE | 2023-02-17 10:08 | PCM.PN.CARD ---
Subjective Subjective Patient seen and evaluated. Appears to be doing well. No cardiac complaints this morning. Underwent cardiac catheterization. Objective Data Vital Signs: Vital Signs Temp Pulse Resp BP Pulse Ox O2 Del Method 98.0 F 72 16 104/69 94 Room Air 02/17/23 05:20 02/17/23 05:20 02/17/23 05:20 02/17/23 05:20 02/17/23 05:20 02/17/23 09:25 Oxygen Delivery Method Room Air Weight: 188 lb 0.869 oz Body Mass Index (BMI) 34.4 Intake & Output: Intake and Output for Last 24 Hours 02/15/23 02/16/23 02/17/23 23:59 23:59 23:59 Intake Total 2507.92 / 2507.92 153.0 / 153.0 Balance 2507.92 / 2507.92 153.0 / 153.0 Lab / Micro Data 02/17/23 04:15 02/17/23 04:15 Labs: Laboratory Results - last 24 hr 02/16/23 10:40: Troponin I High Sens 880 H* 02/16/23 12:29: APTT 48.1 H 02/16/23 19:19: APTT 44.2 H 02/17/23 01:50: APTT 58.5 H 02/17/23 04:15: WBC 8.9, RBC 4.21, Hgb 13.5, Hct 39.7, MCV 94.3, MCH 32.1 H, MCHC 34.0, RDW Std Deviation 44.4 H, RDW Coeff of Kael 12.9, Plt Count 271, MPV 9.6, Immature Gran % (Auto) 0.100, Neut % (Auto) 52.6, Lymph % (Auto) 38.5, [place] % (Auto) 5.6, Eos % (Auto) 2.3, Baso % (Auto) 0.9, Absolute Neuts (auto) 4.7, Absolute Lymphs (auto) 3.41, Nucleated RBC % 0, Sodium 142, Potassium 4.0, Chloride 115 H, Carbon Dioxide 23.0, Anion Gap 4 L, BUN 6 L, Creatinine 0.61, Estim Creat Clear Calc 93.08, Est GFR (MDRD) Af Amer 136, Est GFR (MDRD) Non-Af 112, BUN/Creatinine Ratio 9.8 L, Glucose 102, Calcium 8.1 L, Total Bilirubin 0.20, AST 21, ALT 10 L, Alkaline Phosphatase 71, Total Protein 5.7 L, Albumin 2.7 L, Globulin 3.0, Albumin/Globulin Ratio 0.9, Triglycerides 163, Cholesterol 163, LDL Cholesterol 90, VLDL Cholesterol 33, HDL Cholesterol 40 02/17/23 08:20: APTT 62.9 H Cardiology Labs/Tests 02/16/23 12:29: APTT 48.1 H 02/16/23 19:19: APTT 44.2 H 02/17/23 01:50: APTT 58.5 H 02/17/23 04:15: WBC 8.9, RBC 4.21, Hgb 13.5, Hct 39.7, MCV 94.3, MCH 32.1 H, MCHC 34.0, Plt Count 271, MPV 9.6, Immature Gran % (Auto) 0.100, Neut % (Auto) 52.6, Lymph % (Auto) 38.5, [place] % (Auto) 5.6, Eos % (Auto) 2.3, Baso % (Auto) 0.9, Absolute Neuts (auto) 4.7, Nucleated RBC % 0, Sodium 142, Potassium 4.0, Chloride 115 H, Carbon Dioxide 23.0, Anion Gap 4 L, BUN 6 L, Creatinine 0.61, Est GFR (MDRD) Af Amer 136, Est GFR (MDRD) Non-Af 112, BUN/Creatinine Ratio 9.8 L, Glucose 102, Calcium 8.1 L, Total Bilirubin 0.20, Triglycerides 163, Cholesterol 163, LDL Cholesterol 90, VLDL Cholesterol 33, HDL Cholesterol 40 02/17/23 08:20: APTT 62.9 H Rhythm: EKG: ECHO: Stress Test: Cardiac Cath: PCI: CT Surgery: Holter monitor: EPS: PPM: CXR: Chest CT Scan: Radiography Diagnostic Testing: Radiology Impression Echocardiogram 02/16/23 06:47 Interpretation Summary Normal LV size. Left ventricular systolic function is normal. The estimated ejection fraction is 60 %. Structurally normal valves. Ordering Physician: Alejandrina Flores Referring Physician: Arsenio Yun M.D. Performed By: Maranda Kim, JEAN, RVT Physical Exam Const alert, oriented x3 and no apparent distress General Appearance: cooperative HEENT hearing grossly normal bilaterally Head and Scalp: atraumatic Eyes EOMs intact bilaterally Neck General: normal visual inspection Chest inspection of chest normal and palpation of chest normal Resp normal respiratory effort Auscultation: clear to auscultation bilaterally Cardio regular rate, regular rhythm, S1 normal heart sound and S2 normal heart sound Jugular Venous Distention: JVD GI normal to inspection, nondistended, normoactive bowel sounds Extremity normal capillary refill and no pedal edema Peripheral Pulses: Yes pulses 2+ throughout and femoral pulses present Skin no rashes or lesions noted Neuro oriented x3 and CN's II-XII intact bilaterally Psych Appearance: grossly normal and appropriate Assessment & Plan Assessment/Plan (1) NSTEMI, initial episode of care: PLAN: Patient underwent a cardiac catheterization this morning which demonstrated the following: Normal left main coronary artery. Left anterior descending artery with mild disease. First diagonal vessel with moderate diffuse disease Left circumflex artery with mild mid segment disease and left to right collaterals filling the right coronary artery system Dominant right coronary artery which is totally occluded proximally Preserved left ventricular systolic function. Based on the above angiographic findings I would recommend attempt at PCI of the right coronary artery.
--- NOTE | 2023-02-17 10:20 | CL.D_ITS ---
Patient Name: ROBIN LUA Study Date: 02/17/2023 Performing: Adriano Arroyo MD Ht: 62 inches 157.48 cm : 1980 Wt: 188.05 lbs 85.3 kg Age: 42 Gender: female BSA: 1.86 PROCEDURE(S) PERFORMED DC01-([id number])LHC/COR/LV CLINICAL PROFILE AND INDICATIONS Indications: Suspected CAD Heart Failure: None Stress/Imaging Stress/Image Study Performed: No CAD Presentations: Non-STEMI. Symptom onset Date/Time: 02/16/23 Time Estimated CONCLUSIONS Premature coronary artery disease with diffuse disease noted of the diagonal vessel and a totally occluded right coronary artery with [id number] collaterals and preserved ejection fraction. RECOMMENDATIONS Referred for immediate PCI DESCRIPTION OF PROCEDURE The patient arrived to the procedure lab. The risks and benefits of the procedure as well as a full description of our services here and current unavailability of surgical backup were fully explained to the patient and/or their significant other prior to the catheterization. The Timeout was completed, verifying the correct patient and procedure. The patient's procedural site was prepped and draped in the usual fashion. Local anesthetic was given subcutaneously to right radial region with Lidocaine 2%. Using a modified Seldinger technique, arterial access was obtained via the right radial artery, a 6Fr sheath was inserted. Left Coronary Artery selective angiography was performed in multiple views using a 5 Fr. 4.0 [place] catheter. Right Coronary Artery selective angiography was then performed in multiple views using a 5 Fr. 4.0 [place] catheter. Left Ventriculography was performed in [place] projection using a 5 Fr. Pigtail catheter. LV to AO pullback pressures were then recorded. CORONARY ANGIOGRAPHY DOMINANCE: Right Dominant LEFT HEART ASSESSMENT Normal LV wall motion LEFT MAIN: Angiographically normal LEFT ANTERIOR DESCENDING ARTERY: Mild disease noted in the midsegment with moderate diffusely diseased first diagonal vessel. CIRCUMFLEX ARTERY: Large vessel with first obtuse marginal branch with mild disease mid segment with mild 30 to 40% stenosis and distal mild disease. [id number] collaterals filling nearly the entire right coronary artery is noted. RIGHT CORONARY ARTERY: PROX RCA: is occluded COLLATERAL FLOW: Collateral flow from Left to Right COMPLICATIONS PROCEDURE MEDICATIONS Versed 1 mg IV Fentanyl 50 mcg IV Versed 1 mg IV Versed 1 mg IV Oxygen: 2 L/min via nasal cannula Brilinta 180 mg PO @ 02/17/2023 10:09:51 Heparin given IA 02/17/2023 09:59:16 Verapamil 2.5mg, Ntg 100mcgs, 3000 units of Heparin given IA 02/17/2023 09:59:16 SUMMARY OF HEMODYNAMIC DATA Time AIR REST ECG 09:35:38 AO 106/77 (92) SA 10:00:36 LV 92/10, 10 10:05:28 LV 90/9, 13 10:05:35 LV 93/9, 20 10:06:13 LV 105/11, 22 10:06:19 LVp 98/7, 21 10:06:24 AOp 82/-16 (16) 10:06:29 Signed By Adriano Arroyo MD On 02/17/2023 10:19:30 Adriano Arroyo MD
[2023-02-17] MEDS: 0.9% Normal Saline (1000mL) 1,000 ML 100 ML IV ×2 (11:05→13:28)
--- NOTE | 2023-02-17 11:30 | EKG12_ITS ---
Test Reason : POST OP Blood Pressure : / mmHG Vent. Rate : 058 BPM Atrial Rate : 058 BPM P-R Int : 164 ms QRS Dur : 074 ms QT Int : 446 ms P-R-T Axes : 000 172 160 degrees QTc Int : 437 ms Sinus bradycardia Low voltage QRS Left posterior fascicular block Inferior infarct , age undetermined Abnormal ECG When compared with ECG of 17-FEB-2023 05:28, MANUAL COMPARISON REQUIRED, DATA IS UNCONFIRMED Confirmed by HILARY PUGH, MODE ([id number]), production editor LEYDA TADEO ([id number]) on 03/19/2023 1:53:05 PM Referred By: MICHELLE Confirmed By:MODE RICHARD MD
[2023-02-17] MEDS: Venlafaxine XR 150 MG Capsule PO (11:36)
[2023-02-17] MEDS: Famotidine 20 MG Tablet PO ×2 (11:36→21:27)
--- NOTE | 2023-02-17 11:41 | CL.I_ITS ---
Patient Name: ROBIN LUA Study Date: 02/17/2023 Performing: Larisa Eden MD Ht: 62 inches 157.48 cm : 1980 Wt: 188.3 lbs 85.3 kg Age: 42 Gender: female BSA: 1.86 PROCEDURE(S) PERFORMED IC12-(08240/[id number])CLINT W/WO PTCA, SINGLE CORONARY ARTERY CLINICAL PROFILE AND CO-MORBIDITIES Indications: Suspected CAD Heart Failure: None Stress/Imaging Stress/Image Study Performed: No CAD Presentations: Non-STEMI. Symptom onset Date/Time: 02/16/23 Time Estimated CONCLUSIONS Successful CLINT to mRCA RECOMMENDATIONS DESCRIPTION OF PROCEDURE The patient arrived to the procedure lab. The risks and benefits of the procedure as well as a full description of our services here and current unavailability of surgical backup were fully explained to the patient and/or their significant other prior to the catheterization. The Timeout was completed, verifying the correct patient and procedure. The patient's procedural site was prepped and draped in the usual fashion. Local anesthetic was given subcutaneously to right radial region with Lidocaine 2% Using a modified Seldinger technique,arterial access was obtained via the right radial artery, a 6Fr sheath was inserted. Left Coronary Artery selective angiography was performed in multiple views using a 5 Fr. 4.0 [place] catheter. Right Coronary Artery selective angiography was then performed in multiple views using a 5 Fr. 4.0 [place] catheter. Left Ventriculography was performed in [place] projection using a 5 Fr. Pigtail catheter. LV to AO pullback pressures were then recorded.The images were reviewed and options discussed. A decision was then made to proceed with an Intervention, IVUS or other adjunct procedure. JR4 Guide catheter was inserted and engaged into the RCA. BMW Dale Guide wire was advanced to the RCA. Euphora 2.0 x 12 Balloon catheter was inserted. Balloon catheter was advanced across lesion in the right coronary, mid. PTCA balloon inflated at 6 atms for 25 secs. Angiogram performed post balloon dilatation. Euphora 3.0 x 20 Balloon catheter was inserted. Balloon catheter was advanced across lesion in the right coronary, mid. PTCA balloon inflated at 10 atms for 18 secs. PTCA balloon inflated at 10 atms for 12 secs. Angiogram performed post balloon dilatation. Resolute Sukh 3.5 x 26 Drug Eluting stent was inserted. Drug Eluting stent was advanced across the lesion in the right coronary, mid. Angiogram performed pre stent deployment. Angiogram performed post stent deployment. INTERVENTION INFORMATION LESION SITE: RCA (Mid) Lesion Complexity: High/C, chronic total occlusion: No, lesion at bifurcation: No, thrombus present: No, lesion length: 22 mm, culprit lesion: Yes, Previously treated lesion: No Pre Stenosis: 100 % Pre intervention JACKELYN flow: 0 PROCEDURE: Drug Eluting Stent with pre dilatation. Post Stenosis: 0 % Post intervention JACKELYN flow: 3 Lesion Devices: Kessler .014 190cm BMW Dale Straight Cordis 6 Fr JR4 100cm Guide Catheter Medtronic SC EUPHORA RX 2.0x12 BALLOON Medtronic SC EUPHORA RX 3.0x20 BALLOON Medtronic Resolute Sukh RX CLINT 3.5x26 COMPLICATIONS No Complications PROCEDURE MEDICATIONS Versed 1 mg IV Fentanyl 50 mcg IV Versed 1 mg IV Versed 1 mg IV Versed 1 mg IV Oxygen: 2 L/min via nasal cannula Brilinta 180 mg PO @ 02/17/2023 10:09:51 Heparin given IA 02/17/2023 09:59:16 Heparin 5000 unit(s) IV 02/17/2023 10:25:16 Nitro 100 mcg IC 02/17/2023 10:34:58 Verapamil 2.5mg, Ntg 100mcgs, 3000 units of Heparin given IA 02/17/2023 09:59:16 SUMMARY OF HEMODYNAMIC DATA Time AIR REST ECG 09:35:38 AO 106/77 (92) SA 10:00:36 LV 92/10, 10 10:05:28 LV 90/9, 13 10:05:35 LV 93/9, 20 10:06:13 LV 105/11, 22 10:06:19 LVp 98/7, 21 10:06:24 AOp 82/-16 (16) 10:06:29 Signed By Larisa Eden MD On 02/17/2023 11:40:23 Larisa Eden MD
--- NOTE | 2023-02-17 12:34 | PN.HOSP_ITS ---
Reason for Visit Reason for Visit: Chest pain/Syncope Subjective Subjective Patient is a 42-year-old white female who presented to the emergency department on 02/16/2023 with chest pain and a syncopal event. Patient reported that on the day of presentation she had retrosternal chest discomfort that she described as heaviness/pressure-like that was mild and reported that difficulty taking a deep breath. She had increased belching and dyspepsia about 48 hours prior to presentation as well. She had recurrent diaphoresis and nausea along with dyspepsia prior to presentation and thought she may need to use the restroom so she got up and found herself awakening on the floor. She denied head trauma presentation. There is no evidence of loss of bowel or bladder. On presentation her vital signs were unremarkable. Orthostatic vital signs were normal. CBC was unremarkable. Chemistry panel was unremarkable. Initial troponin was 143. Chest x-ray showed no acute cardiopulmonary findings and EKG was sinus rhythm with normal intervals and no findings of acute ischemia. She was administered aspirin 324 mg and a [facility] and she was admitted to the progressive care unit. An echocardiogram was done on the day of presentation and demonstrated an EF of 60% with structurally normal valves and no wall motion abnormality. Her second troponin increased to 315 with the third going greater than 800. Toxicology was positive for ecstasy however this is reaction with her Effexor. Cardiology was consulted and recommended cardiac catheterization which was performed on the a.m. of 02/17/2023. Cath showed RCA showed chronic total occlusion with recent stenosis at 100% and JCAKELYN flow 0. Postprocedure CLINT placed meant showed post stenosis 0% with JACKELYN flow 3. She had angiographically normal left main with mild disease in the midsegment of the LAD and moderate diffuse disease of the first diagonal. The circumflex was a large vessel with a first obtuse marginal branch showing mild disease with a mid segment stenosis being 30 to 40% and distal mild disease as well as [id number] collaterals filling nearly the entire right coronary artery. Post catheterization she was placed on Brilinta, and maintained on atorvastatin however the dose was increased to 80 mg nightly and maintained on 81 mg of aspirin. Patient was also complaining of some dysuria evidently on presentation however culture showed only 11,000-25,000 CFU's per mL which is not consistent with acute infection. Treatment was deferr ed for UTI. Post catheterization patient was feeling much better and was able to take deep breath without any signs of shortness of breath. She was a little bit anxious over everything had happened. She states she plans on quitting smoking utilizing patches at the time of discharge. Objective Data Objective Data Vital Signs: Vital Signs Temp Pulse Resp BP Pulse Ox O2 Del Method 97.9 F 58 L 14 120/84 H 98 Room Air 02/17/23 11:05 02/17/23 12:23 02/17/23 12:23 02/17/23 12:23 02/17/23 12:23 02/17/23 12:23 Oxygen Delivery Method Room Air Weight: 85.3 kg Body Mass Index (BMI) 34.4 Intake & Output: Intake and Output for Last 24 Hours 02/15/23 02/16/23 02/17/23 23:59 23:59 23:59 Intake Total 2507.92 / 2507.92 393.6 / 393.6 Balance 2507.92 / 2507.92 393.6 / 393.6 Lab / Micro Data 02/17/23 04:15 02/17/23 04:15 Labs: Laboratory Results - last 24 hr 02/16/23 12:29: APTT 48.1 H 02/16/23 19:19: APTT 44.2 H 02/17/23 01:50: APTT 58.5 H 02/17/23 04:15: WBC 8.9, RBC 4.21, Hgb 13.5, Hct 39.7, MCV 94.3, MCH 32.1 H, MCHC 34.0, RDW Std Deviation 44.4 H, RDW Coeff of Kael 12.9, Plt Count 271, MPV 9.6, Immature Gran % (Auto) 0.100, Neut % (Auto) 52.6, Lymph % (Auto) 38.5, Bates % (Auto) 5.6, Eos % (Auto) 2.3, Baso % (Auto) 0.9, Absolute Neuts (auto) 4.7, Absolute Lymphs (auto) 3.41, Nucleated RBC % 0, Sodium 142, Potassium 4.0, Chloride 115 H, Carbon Dioxide 23.0, Anion Gap 4 L, BUN 6 L, Creatinine 0.61, Estim Creat Clear Calc 93.08, Est GFR (MDRD) Af Amer 136, Est GFR (MDRD) Non-Af 112, BUN/Creatinine Ratio 9.8 L, Glucose 102, Calcium 8.1 L, Total Bilirubin 0.20, AST 21, ALT 10 L, Alkaline Phosphatase 71, Total Protein 5.7 L, Albumin 2.7 L, Globulin 3.0, Albumin/Globulin Ratio 0.9, Triglycerides 163, Cholesterol 163, LDL Cholesterol 90, VLDL Cholesterol 33, HDL Cholesterol 40 02/17/23 08:20: APTT 62.9 H Radiography Diagnostic Testing: Radiology Impression Echocardiogram 02/16/23 06:47 Interpretation Summary Normal LV size. Left ventricular systolic function is normal. The estimated ejection fraction is 60 %. Structurally normal valves. Ordering Physician: Alejandrina Flores Referring Physician: Arsenio Yun M.D. Performed By: Maranda Kim, JEAN, RVT Physical Exam Const alert, oriented x3, no apparent distress, healthy appearing and well nourished; Negative for average body habitus Constitutional Narrative: Obese, middle-aged, white female, sitting up in bed, appears comfortable and nontoxic HEENT head/scalp atraumatic, moist oral mucous membranes and oropharynx normal HEENT Narrative: Mallampati 3, no thrush Resp normal respiratory effort, no retractions, no use of accessory muscles and clear to auscultation bilaterally Resp Narrative: Mildly diminished diffusely but clear Auscultation: Negative for rales, rhonchi or wheezes Cardio regular rate, regular rhythm, S1 normal heart sound, S2 normal heart sound, no murmurs, no rub, no gallops and no clicks GI normal to inspection, nondistended, normoactive bowel sounds, soft to palpation and non-tender Extremity no clubbing, cyanosis or edema Neuro oriented x3, moves all extremities and no focal motor deficits Speech: speech normal Psych affect normal Psych Narrative: Very pleasant, eye contact is good, patient interacts appropriately Mood & Affect: anxious Assessment & Plan Assessment/Plan (1) NSTEMI, initial episode of care: PLAN: Plan NSTEMI -Postcardiac catheterization with CLINT to RCA -Continue aspirin, high-dose statin, Brilinta -Echocardiogram performed on 02/16/2023 and showed an EF of 60% with normal wall motion and structure normal valves -Blood pressures have been on the lower side so we will defer any antihypertensives for now and continue to monitor clinically however we may be able to add some low-dose beta-jordan and/or low-dose AKIKO inhibitor prior to discharge -Cardiac rehab to see -We will arrange for cardiac follow-up at discharge Hyperlipidemia -Continue statin but at high intensity dosing History of adrenal adenoma -Continue outpatient follow-up Obesity BMI 34.4 -Complicates treatment, prognosis, outcomes Tobacco abuse -Encouraged ongoing cessation -Patient intends to use patches at discharge Anxiety/depression -Continue Effexor--> likely caused ecstasy positive toxicology screen -Continue trazodone -As needed Ativan as her anxiety has heightened while she is hospitalized -No intent to discharge on Ativan DVT prophylaxis -Discontinue heparin drip -Subcu Lovenox CODE STATUS Full code Charges/Coding Visit Charges Inpatient E&M: 97859 Subs Hosp L2
[2023-02-17] MEDS: LORazepam 0.5 MG Tablet PO ×2 (13:27→21:27)
--- NOTE | 2023-02-17 14:28 | CRPHASE1_ITS ---
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:: [facility] Refer Phase II Cardiac Rehab:: Yes Medical/Surgical History Medical History [place]:: No Angina:: Yes CAD:: Yes Congestive Heart Failure: Cardiomyopathy:: No Valve Disease/Replacement:: No Pulmonary:: No COPD:: No Asthma:: No Diabetes:: No Diabetes Type I:: No Diabetes Type II:: No Hypertension:: No Dyslipidemia:: Yes CVA/TIA: DVT:: No PAD:: No Arthritis:: No GI:: No GERD:: No Cancer:: No Renal:: No Thyroid:: No Depression:: Yes Anxiety:: Yes Surgical History CABG: No ICD:: No Pacemaker:: No Cardiac Rehabilitation Info Program Information Cardiac Rehabilitation Program Information: Cardiac Rehab The cardiac rehab team at [facility] consists of highly skilled exercise physiologists, nurses, respiratory therapists and physicians working together with you. Our purpose is to help you have a full recovery and achieve the goals you set for yourself. Over the years many of our patients have returned to activities they assumed they would never do again! We can help restore your confidence and motivation to make lifestyle changes that can have a significant impact on your health and quality of life! We can help answer questions and concerns you may have about exercise, lifestyle, medications, diet, stress and anxiety which are common following a hospitalization. WE monitor ECG and vital signs during exercise and discuss your progress with you and report to your physician(s). Cardiac Rehab is proven to help reduce readmissions, improve functional capacity and lower recurrence of problems with your heart. Our Cardiac Rehab program is Certified by the [place] [employer] (AACVPR) and Accredited by the [employer] through our [facility]. You can contact us at . We invite you to call us with your questions or to get started in our program. If you have other questions or concerns be sure to ask your physician/provider during your follow-up visit. WE look forward to seeing you!
--- NOTE | 2023-02-17 14:29 | CRPH1.INSTRU ---
General Education Discussed with Patient CAD and cardiac anatomy and function:: Patient communicates acknowledgment Explanation of diagnoses and procedures:: Patient communicates acknowledgment Sign/Symptoms of [place]:: Patient communicates acknowledgment Antiplatelet therapy: Patient communicates acknowledgment Proper use of NTG-SL: Patient communicates acknowledgment Emergency procedures and activation of EMS: Patient communicates acknowledgment Compliance of all prescribed medications: Patient communicates acknowledgment Smoking Risk Factors Patient Nicotine/Smoking Risk Factors Are:: Cigarettes Recommendations Recommendations Include:: Smoking cessation strategies/Smoking packet Response Code Nicotine/Smoking Response Code:: Patient communicates acknowledgment Dyslipidemia Recommendations Recommendations Include:: Lipid profile not available Response Code Dyslipidemia Response Code:: Patient communicates acknowledgment Overweight/Obesity Risk Factors Patient Overweight/Obesity Risk Factors Are:: Obesity - > or = 30 Recommendations Recommendations Include:: Weight loss of 5-10%, Reduced calorie diet and Exercise 5-7 times/week Response Code Overweight/Obesity:: Patient communicates acknowledgment Hypertension Risk Factors Patient Hypertension Risk Factors Are:: No documented hx of HTN Response Code Hypertension:: Patient communicates acknowledgment Heart Disease Risk Factors Patient Heart Disease Risk Factors Are:: Family history of heart disease < 65 years old Recommendations Recommendations Include:: Educated family members of their risk Response Code Heart Disease Response Code:: Patient communicates acknowledgment Diabetes Risk Factors Patient Diabetes Risk Factors Are:: No documented hx of diabetes Metabolic Syndrome Recommendations Recommendations Include:: Does not meet criteria Sedentary Recommendations Recommendations Include:: Benefits of regular exercise, Discussed home walking program and Monitored Outpatient Cardiac Rehab Response Code Sedentary Response Code:: Patient communicates acknowledgment Stress Recommendations Recommendations Include:: Identification of stressors, and assessment of coping skills and Stress management techniques Response Code Stress Response Code:: Patient communicates acknowledgment
--- NOTE | 2023-02-17 16:57 | CASEMGMT ---
RN?CM?STEM ASSEMBLER?CM?to room to meet with patient for initial transition planning/care coordination?assessment.?RN?CM?introduced self and role at [facility].? Pt voices understanding and consents to?assessment?at this time.? Pt sitting up in bed in no distress at this time.? Mother and dtr @ bedside and pt agreeable to them being present during assessment. Pt is A/O at this time and answers all questions appropriately.?? Care providers, pharmacy, and demographics verified/updated at this time. PCP: Dr Yun Specialists: Pt states is supposed to see an photographic developer and printer @ [facility]/Miranda and she plans to f/u about this after discharge Preferred Pharmacy: [facility] Insurance: [employer] Prescription Benefit:?Yes. Pt to discharge home on Brilinta. Instructed on medication and 30-day savings card and made aware [facility] pharmacy will apply the savings card. Pt made aware to f/u with shoe reconditioner if refills are not affordable. She voices understanding. Living Will/HPOA:?Has both LW and HCPOA, who is her mother, Ashley LEVYOK: Mother/POA, Ashley. Father, Clay Living Arrangements: Lives w/2 dtrs, ages 10 and 14, in 3-story home w/3 steps to enter. Denies difficulty w/stairs. Independent and works full-time. Pt plans to stay w/her mother, who lives in a single story home, for a couple of days after discharge. Transportation:?Pt states drives self and states no transportation concerns at this time.? DME: ? Denies using any DME and denies needs.? HHC/SNF: No hx of eiter. Pt wishes to return home and states has no concerns with going home at time of discharge.? CM?to follow for any further discharge planning/needs.? Pt voices no further concerns/needs at this time.? Advised pt to ask for?CM?if any further questions/concerns/needs arise.? Voices understanding. PLAN:??Home Evette BSN?RN?CM
[2023-02-17] MEDS: Atorvastatin Calcium 80 MG Tablet PO (21:26)
[2023-02-17] MEDS: TICAGRELOR 90 MG TABLET PO (21:26)
[2023-02-17] MEDS: traZODone 50 MG Tablet PO (21:27)
[2023-02-17] MEDS: Mag Hydrox/Al Hydrox/Simeth 30 ML UDC PO (21:27)
[2023-02-18 03:57] VITALS: BP 118/78; PULSE 68; RESP 16; TEMP 36.6; O2SAT 98
[2023-02-18] MEDS: Enoxaparin 40 MG/0.4 ML Syringe SC (05:59)
[2023-02-18 06:00] VITALS: BMI 34.4
[2023-02-18 06:42] LABS: Hemoglobin 13.9 g/dL (12.0-15.0); Mean Corp Hgb Conc 33.9 g/dL (32-36); Mean Corpuscular Hgb 31.2 pg (27.0-32.0); Mean Corpuscular Volume 92.1 fL (81-99); Mean Platelet Vol. 10.3 fl (6.2-12.0); Platelet Count 313 K/mm3 (150-450); RBC Distribution Width CV 12.4 % (11.6-14.6); RBC Distribution Width SD 42.1 fl (35.1-43.9); Red Blood Count 4.45 M/mm3 (4.2-5.4); White Blood Count 9.3 K/mm3 (4.4-11.0)
[2023-02-18 07:13] LABS: ALB/GLOB Ratio 0.9 RATIO (0.9-2.4); AST(SGOT) 18 U/L (15-37); Alanine Aminotransfer ALT/SGPT 10 U/L (13-56); Albumin, Serum 2.9 g/dL (3.2-5.0); Alkaline Phosphatase 79 U/L (45-117); Anion Gap 4 (5-15); BUN 5 mg/dL (7-18); Calcium,Total 8.4 mg/dL (8.5-10.1); Chloride 112 mmol/L (98-107); Cholesterol 177 mg/dL (200); Creatinine, Serum 0.56 mg/dL (0.55-1.02); EST Glomerular Filtration Rate 126 mL/min (>60); Est Glom Filt Rate - Afr Amer 152 mL/min (>60); Estimated Creatinine Clearance 101.39 ml/min; Globulin 3.3 g/dL (2.2-4.2); Glucose 93 mg/dL (74-106); High Density Lipoprotein 39 mg/dL; Potassium 3.7 mmol/L (3.5-5.1); Protein, Total 6.2 g/dL (6.4-8.2); Sodium Level 141 mmol/L (136-145); Triglycerides 264 mg/dL; Very Low Density Lipoprotein 53 mg/dL (5-40)
--- NOTE | 2023-02-18 08:18 | PN.CARD_ITS ---
Subjective Subjective Patient seen and evaluated. Appears to be doing well this morning. No complaints. Objective Data Vital Signs: Vital Signs Temp Pulse Resp BP Pulse Ox O2 Del Method 98 F 68 16 118/78 98 Room Air 02/18/23 03:57 02/18/23 03:57 02/18/23 03:57 02/18/23 03:57 02/18/23 03:57 02/18/23 03:58 Oxygen Delivery Method Room Air Weight: 188 lb 4.396 oz Body Mass Index (BMI) 34.4 Intake & Output: Intake and Output for Last 24 Hours 02/16/23 02/17/23 02/18/23 23:59 23:59 23:59 Intake Total 2507.92 / 2507.92 1235.27 / 1235.27 1000 / 1000 Balance 2507.92 / 2507.92 1235.27 / 1235.27 1000 / 1000 Lab / Micro Data 02/18/23 05:42 02/18/23 05:42 Labs: Laboratory Results - last 24 hr 02/17/23 08:20: APTT 62.9 H 02/18/23 05:42: WBC 9.3, RBC 4.45, Hgb 13.9, Hct 41.0, MCV 92.1, MCH 31.2, MCHC 33.9, RDW Std Deviation 42.1, RDW Coeff of Kael 12.4, Plt Count 313, MPV 10.3, Sodium 141, Potassium 3.7, Chloride 112 H, Carbon Dioxide 25.0, Anion Gap 4 L, BUN 5 L, Creatinine 0.56, Estim Creat Clear Calc 101.39, Est GFR (MDRD) Af Amer 152, Est GFR (MDRD) Non-Af 126, BUN/Creatinine Ratio 9.0 L, Glucose 93, Calcium 8.4 L, Total Bilirubin 0.30, AST 18, ALT 10 L, Alkaline Phosphatase 79, Total Pr otein 6.2 L, Albumin 2.9 L, Globulin 3.3, Albumin/Globulin Ratio 0.9, Triglycerides 264 H, Cholesterol 177, LDL Cholesterol 85, VLDL Cholesterol 53 H, HDL Cholesterol 39 L Cardiology Labs/Tests 02/17/23 08:20: APTT 62.9 H 02/18/23 05:42: WBC 9.3, RBC 4.45, Hgb 13.9, Hct 41.0, MCV 92.1, MCH 31.2, MCHC 33.9, Plt Count 313, MPV 10.3, Sodium 141, Potassium 3.7, Chloride 112 H, Carbon Dioxide 25.0, Anion Gap 4 L, BUN 5 L, Creatinine 0.56, Est GFR (MDRD) Af Amer 152, Est GFR (MDRD) Non-Af 126, BUN/Creatinine Ratio 9.0 L, Glucose 93, Calcium 8.4 L, Total Bilirubin 0.30, Triglycerides 264 H, Cholesterol 177, LDL Cholesterol 85, VLDL Cholesterol 53 H, HDL Cholesterol 39 L Rhythm: EKG: ECHO: Stress Test: Cardiac Cath: PCI: CT Surgery: Holter monitor: EPS: PPM: CXR: Chest CT Scan: Radiography Diagnostic Testing: Radiology Impression Echocardiogram 02/16/23 06:47 Interpretation Summary Normal LV size. Left ventricular systolic function is normal. The estimated ejection fraction is 60 %. Structurally normal valves. Ordering Physician: Alejandrina Flores Referring Physician: Arsenio Yun M.D. Performed By: Maranda Kim, JEAN, RVT Physical Exam Const alert, oriented x3, no apparent distress, healthy appearing and well nourished; Negative for average body habitus Constitutional Narrative: Obese, middle-aged, white female, sitting up in bed, appears comfortable and nontoxic HEENT head/scalp atraumatic, moist oral mucous membranes and oropharynx normal HEENT Narrative: Mallampati 3, no thrush Resp normal respiratory effort, no retractions, no use of accessory muscles and clear to auscultation bilaterally Resp Narrative: Mildly diminished diffusely but clear Auscultation: Negative for rales, rhonchi or wheezes Cardio regular rate, regular rhythm, S1 normal heart sound, S2 normal heart sound, no murmurs, no rub, no gallops and no clicks GI normal to inspection, nondistended, normoactive bowel sounds, soft to palpation and non-tender Extremity no clubbing, cyanosis or edema Neuro oriented x3, moves all extremities and no focal motor deficits Speech: speech normal Psych affect normal Psych Narrative: Very pleasant, eye contact is good, patient interacts appropriately Mood & Affect: anxious Assessment & Plan Assessment/Plan (1) NSTEMI, initial episode of care: PLAN: Patient underwent a cardiac catheterization which demonstrated the following: Normal left main coronary artery. Left anterior descending artery with mild disease. First diagonal vessel with moderate diffuse disease Left circumflex artery with mild mid segment disease and left to right collaterals filling the right coronary artery system Dominant right coronary artery which is totally occluded proximally Preserved left ventricular systolic function. Based on the above angiographic findings the patient underwent PCI of the right coronary artery and appears to be doing well at this time plan is to continue current medical therapy. We will follow-up as outpatient.
[2023-02-18 09:22] VITALS: BP 120/88; PULSE 81; RESP 14; TEMP 36.6; O2SAT 98
[2023-02-18] MEDS: Aspirin E.C. 81 MG Tablet PO (09:28)
[2023-02-18] MEDS: Famotidine 20 MG Tablet PO (09:28)
[2023-02-18] MEDS: Venlafaxine XR 150 MG Capsule PO (09:28)
[2023-02-18] MEDS: TICAGRELOR 90 MG TABLET PO (09:28)
[2023-02-18 09:35] VITALS: BP 120/88; PULSE 81
[2023-02-18] MEDS: Metoprolol(XL)Succ 25 MG Tablet PO (09:35)
--- NOTE | 2023-02-18 11:40 | DS.PCM_ITS ---
Providers Date of Admission: 02/16/23 Date of Discharge: 02/18/23 Primary Care Physician: Dr. Arsenio Yun MD Consultations 02/16/23 06:47 Consult: Cardiology Routine Consulting Provider: Erlinda Brumfield Reason for Consult: Chest Pain, Syncope, NSTEMI EMERGENT Consult: No MD Notified: Yes Date Notified: 02/16/23 Time Notified: 05:50 Method of Notification: Text Reason For Visit: CP, SYNCOPE, NSTEMI Diagnosis Discharge Diagnosis (1) NSTEMI, initial episode of care: Status: Acute Code(s): I21.4 - Non-ST elevation (NSTEMI) myocardial infarction Medications at Discharge Home Medications venlafaxine 150 mg capsule,extended release 24 hr 150 mg PO DAILY 01/12/15 trazodone 50 mg tablet 50 mg PO QHS 11/02/18 aspirin 81 mg tablet,delayed release 81 mg PO BREAKFAST #0 tabs 02/18/23 atorvastatin 80 mg tablet 80 mg PO QHS #30 tabs 02/18/23 metoprolol succinate 25 mg tablet,extended release 24 hr 25 mg PO DAILY #30 tabs 02/18/23 ticagrelor 90 mg tablet (Brilinta) 90 mg PO BID #60 tabs 02/18/23 Hospital Course Operations None Procedures 2-D Echocardiogram and Cardiac catheterization Summary of Care Provided Minutes Spent on Discharge: 37 Hospital Course: Ms Eugene is a 42-year-old white female who presented to the emergency department on 02/16/2023 with chest pain and a syncopal event. Patient reported that on the day of presentation she had retrosternal chest discomfort that she described as heaviness/pressure-like that was mild and reported that difficulty taking a deep breath. She had increased belching and dyspepsia about 48 hours prior to presentation as well. She had recurrent diaphoresis and nausea along with dyspepsia prior to presentation and thought she may need to use the restroom so she got up and found herself awakening on the floor. She denied head trauma upon presentation. There was no evidence of loss of bowel or bladder control with the event. On presentation, her vital signs were unremarkable. Orthostatic vital signs were normal. CBC was unremarkable. Chemistry panel was unremarkable. Initial troponin was 143. Chest x-ray showed no acute cardiopulmonary findings and EKG was sinus rhythm with normal intervals and no findings of acute ischemia. She was administered aspirin 324 mg and a heparin drip was initiated by the emergency department and she was admitted to the progressive care unit. An echocardiogram was done on the day of presentation and demonstrated an EF of 60% with structurally normal valves and no wall motion abnormality. Her second troponin increased to 315 with the third going greater than 800. Toxicology was positive for ecstasy however this is most likely cross reaction with her Effexor. Cardiology was consulted and recommended cardiac catheterization which was performed on the a.m. of 02/17/2023. Cath showed RCA showed chronic total occlusion with recent stenosis at 100% and JACKELYN flow 0. Postprocedure CLINT placed meant showed post stenosis 0% with JACKELYN flow 3. She had angiographically normal left main with mild disease in the midsegment of the LAD and moderate diffuse disease of the first diagonal. The circumflex was a large vessel with a first obtuse marginal branch showing mild disease with a mid segment stenosis being 30 to 40% and distal mild disease as well as [id number] collaterals filling nearly the entire right coronary artery. Post catheterization she was placed on Brilinta, and maintained on atorvastatin however the dose was increased to 80 mg nightly and maintained on 81 mg of aspirin. Patient was also complaining of some dysuria evidently on presentation however culture showed only 11,000-25,000 CFU's per mL which is not consistent with acute infection. Treatment was deferred for UTI. Served 24 hours post catheterization and did well. Her ability to take a deep breath returned and she had no further chest discomfort. She will be discharged on aspirin 81 mg a day, atorvastatin 80 mg nightly, metoprolol succinate 25 mg daily and Brilinta 90 mg p.o. twice daily. She will be further evaluated for the addition of GAUTAM inhibitor or ARB as an outpatient depending on her blood pressure. We did arrange for outpatient cardiology follow-up at the time of discharge. She was seen on 03/20/2023 at 10 AM. She is to follow-up with her primary care physician within the next 2 to 4 weeks. Prescriptions were sent to her local pharmacy and she was discharged home on 02/18/2023 in stable condition. We did extensively counseled her on the importance of tobacco cessation. She indicated she was going to utilize patches as she has had no significant cravings while she is been hospitalized utilizing patches. Discharge diagnoses: NSTEMI CAD Hyperlipidemia History of adrenal adenoma Obesity Tobacco abuse Anxiety Depression Physical Exam Const alert, oriented x3, no apparent distress, healthy appearing and well nourished; Negative for average body habitus Constitutional Narrative: Obese, middle-aged, white female, sitting up in bed, appears comfortable and nontoxic General Appearance: cooperative, comfortable, well kempt and well developed Orientation / Consciousness: awake, oriented to person, oriented to place and oriented to time Exam Limitations: no limitations Nutritional Appearance: obese HEENT normocephalic, head/scalp atraumatic, hearing grossly normal bilaterally, moist oral mucous membranes and oropharynx normal HEENT Narrative: Mallampati 3, no thrush, dentition is good Eyes PERRL, EOMs intact bilaterally and conjunctivae normal Eyes Narrative: No scleral icterus Neck no lymphadenopathy and supple Neck Narrative: Trachea midline, no thyroid enlargement Resp normal respiratory effort, no retractions, no use of accessory muscles and clear to auscultation bilaterally Resp Narrative: Mildly diminished diffusely but clear Auscultation: Negative for rales, rhonchi or wheezes Cardio regular rate, regular rhythm, S1 normal heart sound, S2 normal heart sound, no murmurs, no rub, no gallops and no clicks GI normal to inspection, nondistended, normoactive bowel sounds, soft to palpation and non-tender Extremity no clubbing, cyanosis or edema Skin no rashes or lesions noted, no wounds, skin turgor normal and no jaundice Skin Narrative: Skin over right radial artery without any ecchymosis or tenderness, multiple tattoos Neuro oriented x3, CN's II-XII intact bilaterally, moves all extremities and no focal motor deficits Speech: speech normal Psych affect normal Psych Narrative: Very pleasant, eye contact is good, patient interacts appropriately Mood & Affect: anxious Weight / BMI Weight Weight: 85.4 kg Body Mass Index (BMI) 34.4 ABG / Lab / Microbiology Data 02/18/23 05:42 02/18/23 05:42 Laboratory: Laboratory Results - last 24 hr 02/18/23 05:42: WBC 9.3, RBC 4.45, Hgb 13.9, Hct 41.0, MCV 92.1, MCH 31.2, MCHC 33.9, RDW Std Deviation 42.1, RDW Coeff of Kael 12.4, Plt Count 313, MPV 10.3, Sodium 141, Potassium 3.7, Chloride 112 H, Carbon Dioxide 25.0, Anion Gap 4 L, BUN 5 L, Creatinine 0.56, Estim Creat Clear Calc 101.39, Est GFR (MDRD) Af Amer 152, Est GFR (MDRD) Non-Af 126, BUN/Creatinine Ratio 9.0 L, Glucose 93, Calcium 8.4 L, Total Bilirubin 0.30, AST 18, ALT 10 L, Alkaline Phosphatase 79, Total Protein 6.2 L, Albumin 2.9 L, Globulin 3.3, Albumin/Globulin Ratio 0.9, Triglycerides 264 H, Cholesterol 177, LDL Cholesterol 85, VLDL Cholesterol 53 H, HDL Cholesterol 39 L D/C Instructions Discharge Diet: Low fat / Low cholesterol Discharge Activity: Return to Normal Activity Return to work on: 02/19/23 May resume sexual activity in: No Restrictions Meaningful Use Info Meaningful Use Diagnoses (Choose all that apply): AMI AMI/Post PCI/Angioplasty Aspirin given w/in 24hrs of arrival?: Yes ASA at discharge?: Yes Antiplatelet Therapy at Discharge:: Yes Statins at discharge?: Yes Gautam/ARB at discharge?: No Reason Gautam/ARB not ordered:: Not indicated Beta Zora at discharge?: Yes Done w/ Acute PR measure.: Yes Documented LVEF (%): 60 Discharge Plan Admission Admit Date/Time: 02/16/23 05:49 Primary Reason for Your Visit: Chest pain Attending Provider: Diana Marrero Primary Care Provider: Arsenio Yun Consulting Providers: Alejandrina Flores; Erlinda Brumfield; Horacio Jasmine Discharge Orders/Prescriptions Prescriptions: New atorvastatin 80 mg Tablet 80 mg PO QHS Qty: 30 1RF aspirin 81 mg Tablet,Delayed Release (Dr/Ec) 81 mg PO BREAKFAST Qty: 0 0RF metoprolol succinate 25 mg Tablet Extended Release 24 Hr 25 mg PO DAILY Qty: 30 1RF Brilinta 90 mg Tablet 90 mg PO BID Qty: 60 11RF Continued venlafaxine 150 MG capsule 150 mg PO DAILY trazodone 50 MG tablet 50 mg PO QHS Discontinued atorvastatin 10 mg tablet 20 mg PO DAILY Referrals / Follow Up: Arsenio Yun MD [Primary Care Provider] - Within 1 Month Abdi Birmingham NP, IMMIGRATION INVESTIGATOR-C [Med Staff - Adv Practice Prof] - 03/20/23 10:00 am Disposition Disposition (needs filled in before D/C Order can be placed): Home, Self Care Charges/Coding Visit Charges Inpatient E&M: 62384 Disch Hosp >30min
--- NOTE | 2023-02-18 13:06 | CASEMGMT ---
Patient has order for discharge. Patient is discharging on Brilinta. [facility] retail pharmacy applied savings card. JANNETH MICHAELS updated patient and instructed to follow up with PCP or conference coordinator is medication is too expensive for alternative options. Patient voiced understanding and had no further questions or concerns this time.
== END 2023-02-18 13:54 | disposition home or self-care (01) | DRG 247 ==
LOC: ED 05:06 → PCU 05:56
PROVIDERS: Internal Medicine; Internal Medicine Interventional Cardiology; Specialist; Admitting Provider Family Medicine; Emergency Provider Student in an Organized Health Care Education/Training Program; PCP Internal Medicine; Visit Provider Internal Medicine
DX: I21.4 Non-ST elevation (NSTEMI) myocardial infarction (principal); E66.9 Obesity, unspecified; F32.A Depression, unspecified; E78.5 Hyperlipidemia, unspecified; F41.9 Anxiety disorder, unspecified; I25.10 Atherosclerotic heart disease of native coronary artery without angina pectoris; F17.210 Nicotine dependence, cigarettes, uncomplicated; R55 Syncope and collapse; Z68.34 Body mass index [BMI] 34.0-34.9, adult; Z79.899 Other long term (current) drug therapy
CPT/HCPCS: 36415; 71045; 80048; 80053; 80061; 80307; 82550; 83735; 83880; 84100; 84484; 85025; 85027; 85610; 85730; 92928; 93005; 93306; 93458; 99152; 99153; 99285; 99406; J7030; J7040; Q9967; A4216; C1725; C1769; C1874; C1887; C1894; C9600; J1327; J2405

== ENCOUNTER 2023-03-01 11:13 | Emergency (ER) | payer OTHER, SELFPAY ==
[2023-03-01 11:15] VITALS: BP 122/83; PULSE 69; RESP 16; TEMP 35.9; O2SAT 97; BMI 32.9
--- NOTE | 2023-03-01 11:41 | EKG12_ITS ---
Test Reason : CP Blood Pressure : / mmHG Vent. Rate : 068 BPM Atrial Rate : 068 BPM P-R Int : 158 ms QRS Dur : 076 ms QT Int : 414 ms P-R-T Axes : 052 010 033 degrees QTc Int : 440 ms Normal sinus rhythm Possible Inferior infarct , age undetermined Abnormal ECG When compared with ECG of 18-FEB-2023 05:30, MANUAL COMPARISON REQUIRED, DATA IS UNCONFIRMED Confirmed by HILARY PUGH, MODE ([id number]), editor map LEYDA TADEO ([id number]) on 03/19/2023 11:13:10 AM Referred By: MELITON/ADIEL Confirmed By:MODE RICHARD MD
--- NOTE | 2023-03-01 11:45 | EX.ED.DYSGE1 ---
HPI <QUINN Lucio - Last Filed: 03/01/23 15:23> History of Present Illness Chief Complaint: Chest Pain Narrative Narrative: 42-year-old female with history of CAD, NSTEMI February 18, 2023, patient has 1 stent in the RCA. Patient is currently on Brilinta, sees Dr. Dover. Patient has history of cholesterol, anxiety and depression. Patient states she did smoke 1.5 packs/day. Patient now smokes 1/4 to 1/2 pack. Patient states that she is continue to work and her job is strenuous. 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 Patient states that she developed have pain in her right arm, right shoulder blade, slight pain to her chest, she did have some sweating, and the symptoms were similar, so she is here for evaluation. Patient is pain-free at this time. PFSH <QUINN Lucio - Last Filed: 03/01/23 15:23> [facility] Medical History Adrenal adenoma Anxiety and depression Atherosclerotic heart disease of [place] coronary artery without angina pectoris (02/16/23) Hyperlipidemia NSTEMI, initial episode of care (02/16/23) Obesity Tobacco use Home Medications venlafaxine 150 mg capsule,extended release 24 hr 150 mg PO DAILY 01/12/15 [History Last Taken Unknown] trazodone 50 mg tablet 50 mg PO QHS 11/02/18 [History Last Taken Unknown] aspirin 81 mg tablet,delayed release 81 mg PO BREAKFAST #0 tabs 02/18/23 [Rx Last Taken Unknown] atorvastatin 80 mg tablet 80 mg PO QHS #30 tabs 02/18/23 [Rx Last Taken Unknown] metoprolol succinate 25 mg tablet,extended release 24 hr 25 mg PO DAILY #30 tabs 02/18/23 [Rx Last Taken Unknown] ticagrelor 90 mg tablet (Brilinta) 90 mg PO BID #60 tabs 02/18/23 [Rx Last Taken Unknown] alprazolam 0.25 mg tablet 0.25 mg PO BID PRN anxiety 03/01/23 [History Last Taken Unknown] Allergy/AdvReac Type Severity Reaction Status Date / Time terbinafine HCl Allergy Hives Verified 03/01/23 11:14 [From Lamisil] Family History (Updated 02/16/23 @ 06:[address] Alejandrina Flores MD) Father Heart disease CAD (coronary artery disease) Hypertension HLD (hyperlipidemia) Myocardial infarction Mother Heart disease Hypertension HLD (hyperlipidemia) Surgical History No history of previous surgery Stented coronary artery (02/17/23) Social History (Updated 02/16/23 @ 06:[address] Alejandrina Flores MD) household members: other details: Lives with her 10 year old and 15 year old daughters. current occupational status: employed and other details: Retired of 21 years. Smoking Status: Current every day smoker tobacco type: cigarettes counseling given: provider counseling alcohol intake: never substance use type: does not use ROS <QUINN Lucio - Last Filed: 03/01/23 15:23> ROS ED ROS Narrative Constitutional: Negative for fever, chills, weight loss, weakness. Positive for diaphoresis Eyes: Negative for vision loss, vision change, double vision ENT: Negative for any sore throat, ear pain, congestion Cardiovascular: Negative for any chest pain, palpitations. Positive for chest tightness Respiratory: Negative for any cough, sputum production, hemoptysis, dyspnea on exertion, orthopnea. Positive for dyspnea Gastrointestinal: Negative for any abdominal pain, nausea, vomiting, diarrhea, constipation, blood in stool, blood in vomit : Negative for any urinary frequency, dysuria, retention, blood in urine Muscle skeletal: Negative for any muscle joint pain, stiffness, myalgias, arthralgias, back pain. Positive for right-sided neck pain, right shoulder pain Neurological: Negative for any headache, syncope, numbness or tingling, dizziness Skin: Negative for any rashes, lumps, itching, abrasions, lacerations Psychiatric: Negative for any depression, anxiety, stress, suicidal ideation, homicidal ideation Hematologic: Negative for any easy bruising, excessive bruising, easy bleeding Allergies: Negative for any eczema, hives, rash EXAM <QUINN Lucio - Last Filed: 03/01/23 15:23> Physical Exam Narrative Exam Narrative: Vital signs reviewed. Patient is in no distress. Patient is pain-free. Vital signs are stable. HEET: Head normocephalic atraumatic, TMs clear bilaterally. Posterior pharynx is clear, moist mucous membranes. Nares clear bilaterally. Neck: Supple with no lymphadenopathy or tenderness. No signs of meningismus, negative jolt sign. Cardiac: Regular rate and rhythm no murmurs gallops or rubs, equal peripheral pulses bilaterally. Respiratory: Lungs clear to auscultation bilaterally. No chest tenderness. Abdomen: Soft, nontender, nondistended. No abdominal bruit or pulsatile masses. No hepatosplenomegaly Extremities: No peripheral edema, no signs of gross trauma or deformity. Active full range of motion of all extremities. Neuro: Cranial nerves II through XII intact, no focal neurological deficits. Skin: Clean dry and intact with no rash, purpura, petechiae, vesicles or pustules. Backs/flank: No CVA tenderness, no midline spinal tenderness, no deformity. Patient does have tenderness to the right shoulder blade, right trapezius muscle. This appears to be muscle skeletal. Psych: Normal mood and affect. No SI, HI or acute psychosis. Const Vital Signs: 03/01/23 11:15 03/01/23 11:36 03/01/23 13:24 Temperature 96.7 F L Temperature Source Temporal Pulse Rate 69 65 Respiratory Rate 16 18 Respiratory Effort Normal Non-Labored Blood Pressure 122/83 H 110/75 Blood Pressure Mean 96 86 Pulse Ox 97 97 Oxygen Delivery Method Room Air Room Air 03/01/23 15:31 Temperature Temperature Source Pulse Rate 67 Respiratory Rate 16 Respiratory Effort Blood Pressure 114/69 Blood Pressure Mean Pulse Ox 98 Oxygen Delivery Method <Dr. Robbie Wolf DO - Last Filed: 03/01/23 15:33> Physical Exam Const Vital Signs: 03/01/23 11:15 03/01/23 11:36 03/01/23 13:24 Temperature 96.7 F L Temperature Source Temporal Pulse Rate 69 65 Respiratory Rate 16 18 Respiratory Effort Normal Non-Labored Blood Pressure 122/83 H 110/75 Blood Pressure Mean 96 86 Pulse Ox 97 97 Oxygen Delivery Method Room Air Room Air 03/01/23 15:31 Temperature Temperature Source Pulse Rate 67 Respiratory Rate 16 Respiratory Effort Blood Pressure 114/69 Blood Pressure Mean Pulse Ox 98 Oxygen Delivery Method TANYA <QUINN Lucio - Last Filed: 03/01/23 15:23> [facility] Lab Data Labs: Laboratory Results - last 24 hr 03/01/23 03/01/23 11:40 14:05 WBC 10.8 RBC 4.99 Hgb 15.3 H Hct 44.9 MCV 90.0 MCH 30.7 MCHC 34.1 RDW Std Deviation 40.8 RDW Coeff of Kael 12.4 Plt Count 403 MPV 9.7 Immature Gran % (Auto) 0.300 Neut % (Auto) 61.8 Lymph % (Auto) 29.9 [place] % (Auto) 5.1 Eos % (Auto) 2.0 Baso % (Auto) 0.9 Absolute Neuts (auto) 6.7 Absolute Lymphs (auto) 3.23 Nucleated RBC % 0 PT 12.5 INR 0.9 D-Dimer Quant (PE/DVT) < 0.27 L Sodium 138 Potassium 3.7 Chloride 108 H Carbon Dioxide 25.0 Anion Gap 5 BUN 5 L Creatinine 0.71 Estim Creat Clear Calc 79.97 Est GFR (MDRD) Af Amer 115 Est GFR (MDRD) Non-Af 95 BUN/Creatinine Ratio 7.0 L Glucose 85 Calcium 9.5 Troponin I High Sens 6 8 B-Natriuretic Peptide 34.4 Radiography Diagnostic Testing: Clinical Impression(s) from Imaging Studies Chest X-Ray 03/01/23 12:12 IMPRESSION: No radiographic evidence of acute cardiopulmonary disease. Electronically Signed: Milagro Chu MD at 12:49 EDT , EKG Normal sinus rhythm: Attestation: I personally reviewed and interpreted this EKG as follows: Interpretation: Sinus Rhythm Comments: EKG shows a normal sinus rhythm, rate of 60 bpm, MO interval 158 ms, QRS duration 76 ms, no acute ST elevation, no acute ST elevation, no acute infarct noted Treatment and Re-Evaluation :: Patient appears to be in no distress, vital signs are stable. Patient is in no pain at this time. Patient story of her epigastric pain, right shoulder pain is different than her previous story when she had her NSTEMI 2 weeks ago. Patient states that she was doing pretty significant labor, moving heavy objects. Patient's pain is worse with palpation. Patient states she did have some diaphoresis. Patient denies any near syncope like last time, patient's been taking her medication. However since her history she is here for evaluation. She will see 2 sets of troponins, cardiac work-up, D-dimer to rule out a pulmonary embolism. Patient at this time is pain-free and does not require any aspirin because she takes this at home or nitro. Patient remains pain-free, patient's chest x-ray two-view interpreted the ER physician was negative. Patient's CBC was unremarkable PT/INR within normal limits. Patient's D-dimer was negative, no evidence for any pulmonary embolus. Patient initial troponin was 6, repeat was 8, I did speak with cardiology regarding this patient. At this time, we do not believe this is cardiac. Patient is pain-free, she will take it easy, and follow-up outpatient. She was given return precautions. Patient stable for discharge. I have personally performed a face to face assessment of the patient and have reviewed the KATY Note. I performed a substantive portion of the visit including all aspects of the following. My qiu findings include: History is spent status post recent NSTEMI and stenting. Has been doing well returned to work. Today at work developed sweating some atypical symptoms from her right symptoms that led her to the hospital with her NSTEMI. The patient feels back to baseline. Exam is nonfocal heart regular without murmur patient appears stable and well Medical Decison Making EKG is in normal sinus rhythm. Initial troponin is negative. D-dimer negative. We will obtain a second troponin. Discussed the case with on-call cardiology. <Dr. Robbie Wolf, DO - Last Filed: 03/01/23 15:33> [facility] Lab Data Attestation: I reviewed the patient's lab results. Labs: Laboratory Results - last 24 hr 03/01/23 03/01/23 11:40 14:05 WBC 10.8 RBC 4.99 Hgb 15.3 H Hct 44.9 MCV 90.0 MCH 30.7 MCHC 34.1 RDW Std Deviation 40.8 RDW Coeff of Kael 12.4 Plt Count 403 MPV 9.7 Immature Gran % (Auto) 0.300 Neut % (Auto) 61.8 Lymph % (Auto) 29.9 [place] % (Auto) 5.1 Eos % (Auto) 2.0 Baso % (Auto) 0.9 Absolute Neuts (auto) 6.7 Absolute Lymphs (auto) 3.23 Nucleated RBC % 0 PT 12.5 INR 0.9 D-Dimer Quant (PE/DVT) < 0.27 L Sodium 138 Potassium 3.7 Chloride 108 H Carbon Dioxide 25.0 Anion Gap 5 BUN 5 L Creatinine 0.71 Estim Creat Clear Calc 79.97 Est GFR (MDRD) Af Amer 115 Est GFR (MDRD) Non-Af 95 BUN/Creatinine Ratio 7.0 L Glucose 85 Calcium 9.5 Troponin I High Sens 6 8 B-Natriuretic Peptide 34.4 Radiography Diagnostic Testing: Clinical Impression(s) from Imaging Studies Chest X-Ray 03/01/23 12:12 IMPRESSION: No radiographic evidence of acute cardiopulmonary disease. Electronically Signed: Milagro Chu MD at 12:49 EDT , Treatment and Re-Evaluation :: Patient appears to be in no distress, vital signs are stable. Patient is in no pain at this time. Patient story of her epigastric pain, right shoulder pain is different than her previous story when she had her NSTEMI 2 weeks ago. Patient states that she was doing pretty significant labor, moving heavy objects. Patient's pain is worse with palpation. Patient states she did have some diaphoresis. Patient denies any near syncope like last time, patient's been taking her medication. However since her history she is here for evaluation. She will see 2 sets of troponins, cardiac work-up, D-dimer to rule out a pulmonary embolism. Patient at this time is pain-free and does not require any aspirin because she takes this at home or nitro. I have personally performed a face to face assessment of the patient and have reviewed the KATY Note. I performed a substantive portion of the visit including all aspects of the following. My qiu findings include: History is spent status post recent NSTEMI and stenting. Has been doing well returned to work. Today at work developed sweating some atypical symptoms from her right symptoms that led her to the hospital with her NSTEMI. The patient feels back to baseline. Exam is nonfocal heart regular without murmur patient appears stable and well Medical Decison Making EKG is in normal sinus rhythm. Initial troponin is negative. D-dimer negative. We will obtain a second troponin. Discussed the case with on-call cardiology. Discharge Plan Triage Chief Complaint: Chest Pain ED Midlevel Provider: Romain Austin ED Provider: Robbie Wolf Dx/Rx/DC Orders Clinical Impression: Chest pain in adult Instructions: ED Chest Pain, Uncertain Cause Prescriptions: No Action venlafaxine 150 MG capsule 150 mg PO DAILY trazodone 50 MG tablet 50 mg PO QHS atorvastatin 80 mg Tablet 80 mg PO QHS Qty: 30 1RF aspirin 81 mg Tablet,Delayed Release (Dr/Ec) 81 mg PO BREAKFAST Qty: 0 0RF metoprolol succinate 25 mg Tablet Extended Release 24 Hr 25 mg PO DAILY Qty: 30 1RF Brilinta 90 mg Tablet 90 mg PO BID Qty: 60 11RF alprazolam 0.25 mg tablet 0.25 mg PO BID PRN (Reason: anxiety) Patient Comments: take 1 tablet by mouth twice a day if needed for anxiety for up to 7 days Primary Care Provider: Arsenio Yun Referrals: Miguel Edne MD [Med Staff - Active Staff] - Arsenio Yun MD [Primary Care Provider] - Activity Restrictions/Additional Instructions: Continue to try to quit smoking, follow-up with cardiology Disposition Disposition: Home, Self Care Discharge Date/Time: 03/01/23 15:32
[2023-03-01] MEDS: 0.9% Normal Saline (1000mL) 1,000 ML 1000 ML IV (11:55)
[2023-03-01 11:56] LABS: Absolute Lymphocyte Count 3.23 X10^3/uL (0.83-4.51); Absolute Neutrophil Count 6.7 X10^3/uL (2.0-7.7); Basophil% 0.9 % (0-1); Eosinophil# 0.22 X10^3/uL; Hematocrit 44.9 % (37-47); Hemoglobin 15.3 g/dL (12.0-15.0); Lymphocyte # 3.23 X10^3/ul (0.83-4.51); Lymphocyte % 29.9 % (19-41); Mean Corp Hgb Conc 34.1 g/dL (32-36); Mean Corpuscular Hgb 30.7 pg (27.0-32.0); Mean Platelet Vol. 9.7 fl (6.2-12.0); Monocyte# 0.55 X10^3/uL; Monocyte% 5.1 % (0-10); NRBC Flagged by Analyzer 0 % (0-5); Neutrophil # 6.68 X10^3/uL (2.7-7.7); Neutrophil % 61.8 % (47-70); Platelet Count 403 K/mm3 (150-450); RBC Distribution Width CV 12.4 % (11.6-14.6); RBC Distribution Width SD 40.8 fl (35.1-43.9); Red Blood Count 4.99 M/mm3 (4.2-5.4); White Blood Count 10.8 K/mm3 (4.4-11.0)
[2023-03-01 12:09] LABS: International Normalized Ratio 0.9; Prothrombin Time (Protime)PT. 12.5 SECONDS (11.7-14.9)
--- NOTE | 2023-03-01 12:12 | RAD_ITS ---
INDICATION: chest pain EXAMINATION/TECHNIQUE: X-RAY - XR Chest 1 View COMPARISON: February 16, 2023 FINDINGS: LINES/DEVICES: None. LUNGS: No consolidation, edema or effusion. There is a stable calcified appearing nodule within the left lower lung suggestive of a granuloma. No pneumothorax. MEDIASTINUM AND CARDIOVASCULAR STRUCTURES: Cardiac silhouette not enlarged. Central airways and mediastinal contour are unremarkable. BONES AND SOFT TISSUES: Unremarkable. RAD/Chest 1 View (Portable) IMPRESSION: No radiographic evidence of acute cardiopulmonary disease. Electronically Signed: Milagro Chu MD at 12:49 EDT ,
[2023-03-01 12:17] LABS: Anion Gap 5 (5-15); BUN 5 mg/dL (7-18); Calcium,Total 9.5 mg/dL (8.5-10.1); Chloride 108 mmol/L (98-107); Creatinine, Serum 0.71 mg/dL (0.55-1.02); EST Glomerular Filtration Rate 95 mL/min (>60); Est Glom Filt Rate - Afr Amer 115 mL/min (>60); Estimated Creatinine Clearance 79.97 ml/min; Glucose 85 mg/dL (74-106); Potassium 3.7 mmol/L (3.5-5.1); Sodium Level 138 mmol/L (136-145); Troponin-I HS (w/2H Reflex) 6 pg/mL (3.0-54.0)
[2023-03-01 12:22] LABS: BNP,B-Type NATRIURETIC PEPTIDE 34.4 pg/mL (0-100); D-Dimer Quantitative (DVT/PE) < 0.27 FEU/ug/m (0.27-0.49)
[2023-03-01 13:24] VITALS: BP 110/75; PULSE 65; RESP 18; O2SAT 97
[2023-03-01 13:49] LABS: Reflex Troponin-HS? (from REC) Y
[2023-03-01 15:09] LABS: Troponin-I HS 8 pg/mL (3.0-54.0)
[2023-03-01 15:31] VITALS: BP 114/69; PULSE 67; RESP 16; O2SAT 98
== END 2023-03-01 15:32 | disposition home or self-care (01) ==
PROVIDERS: Nurse Practitioner; Emergency Provider Emergency Medicine; PCP Internal Medicine; Visit Provider Emergency Medicine
DX: R07.9 Chest pain, unspecified (principal); I21.4 Non-ST elevation (NSTEMI) myocardial infarction; F17.210 Nicotine dependence, cigarettes, uncomplicated; I25.10 Atherosclerotic heart disease of native coronary artery without angina pectoris; E78.5 Hyperlipidemia, unspecified; F41.8 Other specified anxiety disorders; Z79.899 Other long term (current) drug therapy; Z79.82 Long term (current) use of aspirin; Z95.5 Presence of coronary angioplasty implant and graft
CPT/HCPCS: 71045; 80048; 83880; 84484; 85025; 85379; 85610; 93005; 96360; 99284; J7030; A4216

== ENCOUNTER 2023-07-02 19:39 | Observation (INO) | payer OTHER, SELFPAY ==
[2023-07-02 19:40] VITALS: BP 123/91; PULSE 72; RESP 16; TEMP 36.7; O2SAT 100; BMI 32.2
--- NOTE | 2023-07-02 19:45 | RAD_ITS ---
STUDY: X-RAY CHEST REASON FOR EXAM: Female, 42 years old. chest pain TECHNIQUE: AP portable COMPARISON: May 31, 2023 FINDINGS: The lungs are clear and expanded. Tiny calcified granuloma in left lower lobe There is no demonstrated pleural abnormality. Normal size heart. Normal mediastinum and saray. Normal visualized pulmonary arteries. Normal visualized aortic arch and descending thoracic aorta. Normal visualized thoracic spine. Normal visualized ribs, clavicles, and shoulders. There is no demonstrated abnormality of the visualized soft tissue structures of the upper abdomen. RAD/Chest 1 View (Portable) IMPRESSION: Old granulomatous disease. No acute cardiopulmonary pathology. Electronically Signed: Deandre Guerin MD at 20:08 EST ,
[2023-07-02 20:02] LABS: Absolute Lymphocyte Count 3.83 X10^3/uL (0.83-4.51); Absolute Neutrophil Count 7.1 X10^3/uL (2.0-7.7); Basophil# 0.11 X10^3/uL; Basophil% 0.9 % (0-1); Eosinophil# 0.34 X10^3/uL; Eosinophils% 2.8 % (0-5); Hematocrit 47.1 % (37-47); Hemoglobin 15.9 g/dL (12.0-15.0); Lymphocyte # 3.83 X10^3/ul (0.83-4.51); Lymphocyte % 31.9 % (19-41); Mean Corp Hgb Conc 33.8 g/dL (32-36); Mean Corpuscular Hgb 30.7 pg (27.0-32.0); Mean Corpuscular Volume 90.9 fL (81-99); Mean Platelet Vol. 9.7 fl (6.2-12.0); NRBC Flagged by Analyzer 0 % (0-5); Neutrophil # 7.11 X10^3/uL (2.7-7.7); Neutrophil % 59.2 % (47-70); Platelet Count 407 K/mm3 (150-450); RBC Distribution Width CV 12.6 % (11.6-14.6); RBC Distribution Width SD 42.1 fl (35.1-43.9); Red Blood Count 5.18 M/mm3 (4.2-5.4)
[2023-07-02 20:19] LABS: Anion Gap 1 (5-15); BUN 8 mg/dL (7-18); BUN/Creat Ratio 11.1 RATIO (10-20); Calcium,Total 9.4 mg/dL (8.5-10.1); Chloride 109 mmol/L (98-107); Creatinine, Serum 0.72 mg/dL (0.55-1.02); EST Glomerular Filtration Rate 93 mL/min (>60); Est Glom Filt Rate - Afr Amer 113 mL/min (>60); Estimated Creatinine Clearance 97.63 ml/min; Glucose 100 mg/dL (74-106); Potassium 3.9 mmol/L (3.5-5.1); Sodium Level 135 mmol/L (136-145); Troponin-I HS (w/2H Reflex) 6 pg/mL (3.0-54.0)
[2023-07-02 20:39] VITALS: BP 111/75; PULSE 66; RESP 24; O2SAT 97
--- NOTE | 2023-07-02 20:51 | ED.VIS.CHEST ---
HPI History of Present Illness Chief Complaint: Chest Pain Informant: patient Onset/Context/Timing Onset: Days Timing: Waxes and wanes Quality: Positive for Heaviness Narrative Narrative: Patient presents with 3-day history of waxing and waning pressure in her right arm, upper chest, and breaking out in sweats. The right arm pain does radiate up into the right neck. She had an NSTEMI in February and has 1 stent to the RCA. She called cardiology today who recommended she come in for evaluation. She states she did have similar symptoms of this prior to her NSTEMI in February and had a syncopal episode at that time. PFSH PFSH Medical History Adrenal adenoma Anxiety Anxiety and depression Atherosclerotic heart disease of [place] coronary artery without angina pectoris (02/16/23) COVID-19 GERD (gastroesophageal reflux disease) Hyperlipidemia Myocardial infarct NSTEMI, initial episode of care (02/16/23) Obesity Sleep apnea Smoker Tobacco use Home Medications venlafaxine 150 mg capsule,extended release 24 hr 150 mg PO DAILY 01/12/15 [History Last Taken Unknown] aspirin 81 mg tablet,delayed release 81 mg PO BREAKFAST #0 tabs 02/18/23 [Rx Last Taken Unknown] atorvastatin 80 mg tablet 80 mg PO QHS #90 tabs 03/20/23 [Rx Last Taken Unknown] bupropion HCl 100 mg tablet,12 hr sustained-release 100 mg PO BID 03/20/23 [History Last Taken Unknown] metoprolol succinate 25 mg tablet,extended release 24 hr 25 mg PO DAILY #90 tabs 03/20/23 [Rx Last Taken Unknown] trazodone 100 mg tablet 100 mg PO QHS 03/20/23 [History Last Taken Unknown] ticagrelor 90 mg tablet (Brilinta) 90 mg PO BID #180 tabs 05/19/23 [Rx Last Taken Unknown] Allergy/AdvReac Type Severity Reaction Status Date / Time terbinafine HCl Allergy Hives Verified 07/02/23 19:44 [From Lamisil] Family History Father Heart disease CAD (coronary artery disease) Hypertension HLD (hyperlipidemia) Myocardial infarction Mother Heart disease Hypertension HLD (hyperlipidemia) Surgical History Stented coronary artery (02/17/23) Social History household members: other details: Lives with her 10 year old and 15 year old daughters. current occupational status: employed and other details: Retired of 21 years. Smoking Status: Current every day smoker tobacco type: cigarettes quit status: considering quitting counseling given: provider counseling alcohol intake: never substance use type: does not use caffeine: Yes Type: coffee Number of servings: 4 ROS ROS ED Constitutional Constitutional ED: Reports sweats; Denies chills or fever(s) Eyes Eyes: Denies change in vision or discharge from eye(s) ENT ENT ED: Denies discharge from eye(s), rhinorrhea or sore throat Cardiovascular Cardiovascular: Reports chest pain; Denies palpitations Respiratory/Chest Respiratory/Chest: Denies cough or dyspnea Gastrointestinal Gastrointestinal: Reports nausea; Denies abdominal pain or vomiting Genitourinary Genitourinary ED: Denies dysuria Musculoskeletal Musculoskeletal: Reports extremity pain; Denies back pain Integumentary Denies Abrasions or rash Neurologic Neurologic: Denies headache(s) or weakness Psychiatric Psychiatric: Denies anxiety or depression Allergic/Immunologic Allergic/Immunologic ED: Denies lip swelling or urticaria EXAM Physical Exam Const Vital Signs: 07/02/23 19:40 07/02/23 20:17 07/02/23 20:21 Temperature 98.0 F Temperature Source Temporal Pulse Rate 72 Respiratory Rate 16 Respiratory Effort Normal Blood Pressure 123/91 H Blood Pressure Mean 101 Pulse Ox 100 Oxygen Delivery Method Room Air Room Air Positive well nourished and well developed General Appearance ED: well developed HEENT Reports moist mucous membranes Eyes EOMs intact bilaterally Chest Wall inspection of chest normal and palpation of chest normal Resp normal respiratory effort and clear to auscultation bilaterally Cardio regular rate and regular rhythm GI soft to palpation and non-tender Extremity normal to inspection Neuro oriented x3 and no sensory deficits noted Motor Exam: strength 5/5 throughout Psych mental status grossly normal Skin no rashes or lesions noted MDM MDM MDM Narrative Medical decision making narrative: IV line established. 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 She took 1 baby aspirin this morning and is given 3 additional baby aspirin at this time. Labwork obtained to evaluate for leukocytosis, anemia, and electrolyte derangement. EKG obtained to evaluate for cardiac arrhythmia/ischemia. Chest x-ray obtained to evaluate for acute lung pathology, cardiac size, or mediastinal abnormality. History & Record Review Discussion w/independent historian: Patient Additional record(s) reviewed:: Prior inpatient record, Prior outpatient record, Prior ED visit and Prior labs Lab Data Attestation: I reviewed the patient's lab results. Labs: Laboratory Results - last 24 hr 07/02/23 19:55 WBC 12.0 H RBC 5.18 Hgb 15.9 H Hct 47.1 H MCV 90.9 MCH 30.7 MCHC 33.8 RDW Std Deviation 42.1 RDW Coeff of Kael 12.6 Plt Count 407 MPV 9.7 Immature Gran % (Auto) 0.200 Neut % (Auto) 59.2 Lymph % (Auto) 31.9 [place] % (Auto) 5.0 Eos % (Auto) 2.8 Baso % (Auto) 0.9 Absolute Neuts (auto) 7.1 Absolute Lymphs (auto) 3.83 Nucleated RBC % 0 Sodium 135 L Potassium 3.9 Chloride 109 H Carbon Dioxide 25.0 Anion Gap 1 L BUN 8 Creatinine 0.72 Estim Creat Clear Calc 97.63 Est GFR (MDRD) Af Amer 113 Est GFR (MDRD) Non-Af 93 BUN/Creatinine Ratio 11.1 Glucose 100 Calcium 9.4 Troponin I High Sens 6 Radiography Chest X-Ray - ED: 1 View, Read by ED Physician, Heart, Lungs and Mediastinum Diagnostic Testing: Clinical Impression(s) from Imaging Studies Chest X-Ray 07/02/23 19:45 IMPRESSION: Old granulomatous disease. No acute cardiopulmonary pathology. Electronically Signed: Deandre Guerin MD at 20:08 EST Reading Location ID and State: [facility] / [place] Tel , Service support , EKG Initial EKG: Attestation: I personally reviewed and interpreted this EKG as follows: Interpretation: Sinus Rhythm (Sinus rhythm at 62 bpm. No acute ischemia.) Treatment and Re-Evaluation :: CBC was a white count 12.0 with a hemoglobin concentrated at 15.9. Chemistry studies reveal slightly low sodium at 135 and a chloride of 109. Renal function is normal. Glucose is normal at 100 with a troponin of 6. Portable chest x-ray per my interpretation reveals no acute abnormalities. Radiology interpretation reviewed and agrees. EKG is sinus rhythm with no evidence of ischemia. Patient's symptoms are certainly concerning for cardiac etiology. I will discuss with hospitalist regarding observation and further testing. Discharge Plan Triage Chief Complaint: Chest Pain ED Provider: Anh Franks Dx/Rx/DC Orders Clinical Impression: Chest pain Prescriptions: No Action trazodone 100 mg tablet 100 mg PO QHS bupropion HCl 100 mg tablet sustained-release 12 hr 100 mg PO BID Patient Comments: take 1 tablet by mouth twice a day atorvastatin 80 mg tablet 80 mg PO QHS Qty: 90 3RF metoprolol succinate 25 mg tablet extended release 24 hr 25 mg PO DAILY Qty: 90 3RF venlafaxine 150 MG capsule 150 mg PO DAILY aspirin 81 mg Tablet,Delayed Release (Dr/Ec) 81 mg PO BREAKFAST Qty: 0 0RF Brilinta 90 mg tablet 90 mg PO BID Qty: 180 3RF Primary Care Provider: Arsenio Yun Referrals: Arsenio Yun MD [Primary Care Provider] - Disposition Disposition: Acute Care Hospital [facility]
--- OUTSIDE RECORDS SUMMARY | 2023-07-02 20:58 | XMS RPT_ITS | CCD ---
Author Name Unknown Address [address] [place] [address] Organization [facility] Care Team Providers Care Cat Driver Name Role Phone Carlos PUGH, Arsenio Fernandez Primary Care Provider [phone] ARSENIO YUN Attending Unavailable YUN, ARSENIO Fernandez Primary Care Unavailable YUN, ARSENIO Fernandez Primary Care Unavailable YUN, ARSENIO Fernandez Attending Unavailable OLDERJERRICA Attending Unavailable YUN, ARSENIO Fernandez Primary Care Unavailable YUN, ARSENIO Fernandez Primary Care Unavailable YUN, ARSENIO Fernandez Referring Unavailable YUN, ARSENIO Fernandez Primary Care Unavailable ANIYAH CARRIZALES Attending Unavaila ble YUN, ARSENIO Fernandez Referring Unavailable YUN, ARSENIO Fernandez Primary Care Unavailable YUN, ARSENIO Fernandez Referring Unavailable YUN, ARSENIO Fernandez Primary Care Unavailable OLDER, JERRICA Attending Unavailable RUBINA HOLBROOK Referring Unavailable YUN, ARSENIO Fernandez Primary Care Unavailable YUN, ARSENIO Fernandez Primary Care Unavailable RUBINA HOLBROOK Attending Unavailable YUN, ARSENIO Fernandez Primary Care Unavailable YUN, ARSENIO Fernandez Primary Care Unavailable OLDERJERRICA Attending Unavailable CARLOS, ARSENIO Fernandez Referring Unavailable YUN, ARSENIO Fernandez Primary Care Unavailable Allergies Allergy Classification Reported Allergen(s) Allergy Type Date of Onset Reaction(s) Facility (20 sources) Seasonal allergy; Translations: [SEASONAL ALLERGIES] Propensity to adverse reactions 8 Other: See Comments [facility] Work Phone: (20 sources) terbinafine; Translations: [TERBINAFINE HCL] Drug Allergy 8 Summeres [facility] Work Phone: Medications Current Medications Medication Drug Class(es) Dates Sig (Normalized) Sig (Original) ALPRAZolam 0.25 mg oral tablet (4 sources) Benzodiazepine Start: 02-24-2023 End: 03-03-2023 take 1 tablet by mouth every twelve hours as needed for anxiety and anxiety ALPRAZolam (XANAX) 0.25 mg tablet Indications: Anxiety Take 1 tablet by mouth twice daily as needed for anxiety for up to 7 days. 14 tablet 0 02/24/2023 03/03/2023 Active Completed/Discontinued Medications Medication Drug Class(es) Dates Sig (Normalized) Sig (Original) acetaminophen 325 mg / HYDROcodone bitartrate 5 mg oral tablet (4 sources) Opioid Agonist Start: 03-23-2022 End: 07-31-2022 take 1 tablet by mouth once HYDROcodone-acetami nophen (NORCO) 5-325 mg per tablet Take 1 tablet by mouth. 0 03/23/2022 07/31/2022 Discontinued (Course of therapy completed) Problems Active Problems Problem Classification Problem Date Documented Da te Episodic/Chronic Abdominal pain (1 source) Lower abdominal pain; Translations: [Lower abdominal pain, unspecified] Episodic Acute myocardial infarction (3 sources) Myocardial infarction; Translations: [Non-ST elevation (NSTEMI) myocardial infarction] Onset: 02-24-2023 02-24-2023 Chronic Anxiety disorders (20 sources) Anxiety; Translations: [Anxiety disorder, unspecified] Onset: 08-12-2010 10-15-2010 Chronic Coronary atherosclerosis and other heart disease (3 sources) Coronary arteriosclerosis; Translations: [Atherosclerotic heart disease of [place] coronary artery without angina pectoris] Onset: 02-24-2023 02-24-2023 Chronic Disorders of lipid metabolism (20 sources) Mixed hyperlipidemia; Translations: [Mixed hyperlipidemia] Onset: 02-05-2007 05-15-2018 Chronic Immunizations and screening for infectious disease (10 sources) Patient encounter status; Translations: [Encounter for immunization] Episodic Mood disorders (16 sources) Depressive disorder; Translations: [Depression, unspecified depression type] Onset: 08-23-2022 Chronic Nausea and vomiting (1 source) Nausea; Translations: [Nausea] Episodic Other endocrine disorders (1 source) Disorder of adrenal gland, unspecified; Translations: [Disorder of adrenal gland (HCC)] Onset: 02-26-2023 Chronic Other gastrointestinal disorders (1 source) Change in stool consistency; Translations: [Other fecal abnormalities] Episodic Other lower respiratory disease (1 source) Wheezing; Translations: [Wheezing] 01-26-2023 Episodic Other nutritional; endocrine; and metabolic disorders (20 sources) Obese class I; Translations: [Obesity, unspecified] Onset: 11-07-2021 Chronic Other screening for suspected conditions (not mental disorders or infectious disease) (4 sources) Mammography abnormal; Translations: [Other abnormal and inconclusive findings on diagnostic imaging of breast] Onset: 02-14-2023 Episodic Other skin disorders (1 source) Eruption; Translations: [Rash and other nonspecific skin eruption] Episodic Other upper respiratory disease (1 source) Hoarse; Translations: [Dysphonia] Episodic Other upper respiratory disease (1 source) Polyp of vocal cord ; Translations: [Polyp of vocal cord and larynx] Episodic Other upper respiratory infections (5 sources) Laryngitis; Translations: [Acute laryngitis] Episodic Residual codes; unclassified (1 source) Insomnia; Translations: [Insomnia, unspecified] Episodic Spondylosis; intervertebral disc disorders; other back problems (1 source) Acute low back pain; Translations: [Acute bilateral low back pain without sciatica] Episodic Substance-related disorders (20 sources) Tobacco user; Translations: [Nicotine dependence, unspecified, uncomplicated] Onset: 10-15-2010 05-15-2018 Chronic Past or Other Problems Problem Classification Problem Date Documented Da te Episodic/Chronic Other and unspecified benign neoplasm (20 sources) Adenoma of right adrenal gland; Translations: [Benign neoplasm of right adrenal gland] Onset: 08-26-2019 08-26-2019 Episodic Other and unspecified benign neoplasm (1 source) Benign neoplasm of right adrenal gland; Translations: [Adrenal adenoma, right] Onset: 08-26-2019 Episodic Results Test Name Value Interpretation Reference Range Facil ity Vital Signs Date Time Vital Sign Value Performing Clinician Ritai lity 02-24-2023 09:20-0400 Body temperature 97.5 [degF] Jerrica Older [employer]ER[employer] Work Phone: [facility] 02-24-2023 09:20-0400 Body weight 83.01 kg Jerrica Older [employer]OCK DEALER.[employer] DIRECT[employer] Work Phone: [facility] 02-24-2023 09:20-0400 Diastolic blood pressure 70 mm[Hg] Jerrica Older [employer]OCK DEALER.[employer] DIRECT[employer] Work Phone: [facility] 02-24-2023 09:20-0400 Heart rate 76 /min Jerrica Older [employer]OCK DEALER.[employer] DIRECTOR Work Phone: [facility] 02-24-2023 09:20-0400 SaO2% (BldA) [Mass fraction] 96 % Jerrica Older STOCK DEALER.[employer] DIRECTOR Work Phone: [facility] 02-24-2023 09:20-0400 Systolic blood pressure 116 mm[Hg] Jerrica Older STOCK DEALER.[employer] DIRECTOR Work Phone: [facility] 01-26-2023 10:35-0400 Body temperature 98.8 [degF] Kristi Kael STOCK DEALER.[employer] DIRECTOR Work Phone: [facility] 01-26-2023 10:35-0400 Body weight 83.92 kg Kristi Kael STOCK DEALER.[employer] DIRECTOR Work Phone: [facility] 01-26-2023 10:35-0400 Diastolic blood pressure 80 mm[Hg] Kristi Kael STOCK DEALER.[employer] DEF[employer] DIRECTOR Work Phone: [facility] 01-26-2023 10:35-0400 Heart rate 82 /min Kristi Kael STOCK DEALER.[employer] DIRECTOR Work Phone: [facility] 01-26-2023 10:35-0400 Respiratory rate 16 /min Kristi Kael STOCK DEALER.[employer] DIRECTOR Work Phone: [facility] 01-26-2023 10:35-0400 SaO2% (BldA) [Mass fraction] 97 % Kristi Kael STOCK DEALER.[employer] DEF[employer] DIRECTOR Work Phone: [facility] 01-26-2023 10:35-0400 Systolic blood pressure 122 mm[Hg] Kristi Kael STOCK DEALER.[employer] DIRECTOR Work Phone: [facility] 01-15-2023 08:11-0400 Body height 157.5 cm Rubina Holbrook STOCK DEALER.CNM Work Phone: [facility] 01-15-2023 08:11-0400 Body weight 84.82 kg Rubina Holbrook STOCK DEALER.CNM Work Phone: [facility] 01-15-2023 08:11-0400 Diastolic blood pressure 80 mm[Hg] Rubina Holbrook STOCK DEALER.CNM Work Phone: [facility] 01-15-2023 08:11-0400 Systolic blood pressure 110 mm[Hg] Rubina Holbrook STOCK DEALER.CNM Work Phone: [facility] 01-10-2023 10:00-0400 Body weight 83.01 kg Jerrica Older STOCK DEALER.[employer] DIRECTOR Work Phone: [facility] 01-10-2023 10:00-0400 Diastolic blood pressure 85 mm[Hg] Jerrica Older STOCK DEALER.[employer] DIRECTOR Work Phone: [facility] 01-10-2023 10:00-0400 Heart rate 85 /min Jerrica Older [employer]OCK DEALER.[employer] DIRECTOR Work Phone: [facility] 01-10-2023 10:00-0400 Respiratory rate 16 /min Jerrica Older STOCK DEALER.[employer] DIRECTOR Work Phone: [facility] 01-10-2023 10:00-0400 Systolic blood pressure 128 mm[Hg] Jerrica Older STOCK DEALER.[employer] DIRECTOR Work Phone: [facility] 10-03-2022 18:03-0400 Body temperature 97.81 [degF] Arsenio Yun MD Work Phone: [facility] 10-03-2022 18:03-0400 Body weight 83.73 kg Arsenio Yun MD Work Phone: [facility] 10-03-2022 18:03-0400 Diastolic blood pressure 78 mm[Hg] Arsenio Yun MD Work Phone: [facility] 10-03-2022 18:03-0400 Heart rate 80 /min Arsenio Yun MD Work Phone: [facility] 10-03-2022 18:03-0400 Respiratory rate 16 /min Arsenio Yun MD Work Phone: [facility] 10-03-2022 18:03-0400 SaO2% (BldA) [Mass fraction] 95 % Arsenio Yun MD Work Phone: [facility] 10-03-2022 18:03-0400 Systolic blood pressure 110 mm[Hg] Arsenio Yun MD Work Phone: [facility] 07-31-2022 15:06-0500 Body weight 84.37 kg Jerrica Older STOCK DEALER.[employer] DIRECTOR Work Phone: [facility] 07-31-2022 15:06-0500 Diastolic blood pressure 87 mm[Hg] Jerrica Older STOCK DEALER.[employer] DIRECTOR Work Phone: [facility] 07-31-2022 15:06-0500 Heart rate 91 /min Jerrica Older STOCK DEALER.[employer] DIRECTOR Work Phone: [facility] 07-31-2022 15:06-0500 Respiratory rate 14 /min Jerrica Older STOCK DEALER.[employer] DIRECTOR Work Phone: [facility] 07-31-2022 15:06-0500 Systolic blood pressure 127 mm[Hg] Jerrica Older STOCK DEALER.[employer] DIRECTOR Work Phone: [facility] 05-08-2022 15:34-0500 Body temperature 97.39 [degF] Luciana Mcgrath STOCK DEALER.[employer] DIRECTOR Work Phone: [facility] 05-08-2022 15:34-0500 Body weight 85.46 kg Luciana Mcgrath STOCK DEALER.[employer] DIRECTOR Work Phone: [facility] 05-08-2022 15:34-0500 Diastolic blood pressure 82 mm[Hg] Luciana Mcgrath STOCK DEALER.[employer] DIRECTOR Work Phone: [facility] 05-08-2022 15:34-0500 Heart rate 85 /min Luciana Mcgrath STOCK DEALER.[employer] DIRECTOR Work Phone: [facility] 05-08-2022 15:34-0500 Respiratory rate 21 /min Luciana Mcgrath STOCK DEALER.[employer] DIRECTOR Work Phone: [facility] 05-08-2022 15:34-0500 SaO2% (BldA) [Mass fraction] 97 % Luciana Mcgrath STOCK DEALER.[employer] DIRECTOR Work Phone: [facility] 05-08-2022 15:34-0500 Systolic blood pressure 120 mm[Hg] Luciana Mcgrath STOCK DEALER.[employer] DIRECTOR Work Phone: [facility] 04-01-2022 11:10-0400 Diastolic blood pressure 86 mm[Hg] Teresa Podlogar STOCK DEALER.[employer] DIRECTOR Work Phone: [facility] 04-01-2022 11:10-0400 Heart rate 89 /min Teresa Podlogar STOCK DEALER.[employer] DIRECTOR Work Phone: [facility] 04-01-2022 11:10-0400 Respiratory rate 16 /min Teresa Podlogar STOCK DEALER.[employer] DIRECTOR Work Phone: [facility] 04-01-2022 11:10-0400 SaO2% (BldA) [Mass fraction] 97 % Teresa Podlogar STOCK DEALER.[employer] DIRECTOR Work Phone: [facility] 04-01-2022 11:10-0400 Systolic blood pressure 122 mm[Hg] Teresa Podlogar STOCK DEALER.[employer] DIRECTOR Work Phone: [facility] 11-07-2021 08:47-0400 Body weight 83.92 kg Jerrica Older STOCK DEALER.[employer] DIRECTOR Work Phone: [facility] 11-07-2021 08:47-0400 Diastolic blood pressure 86 mm[Hg] Jerrica Older STOCK DEALER.[employer] DEF[employer] DIRECTOR Work Phone: [facility] 11-07-2021 08:47-0400 Heart rate 86 /min Jerrica Older STOCK DEALER.[employer] DIRECTOR Work Phone: [facility] 11-07-2021 08:47-0400 Respiratory rate 12 /min Jerrica Older STOCK DEALER.[employer] DIRECTOR Work Phone: [facility] 11-07-2021 08:47-0400 Systolic blood pressure 126 mm[Hg] Jerrica Older STOCK DEALER.[employer] DIRECTOR Work Phone: [facility] Encounters Encounter Date Encounter Type Care Provider Facility Start: 05-06-2023 End: 05-06-2023 ambulatory ARSENIO YUN Facility:[facility] Start: 04-11-2023 Telephone encounter Aniyah Carrizales MD Work Phone: Endocrinology Procedures Date Procedure Procedure Detail Performing Clinician Start: 02-24-2023 INFLUENZA VACCINE, A GE 6 MO - 64 YR, QUADRIVALENT (AFLURIA, FLULAVAL, FLUZONE) Jerrica Older STOCK DEALER.[employer] DIRECTOR Work Phone: Start: 01-26-2023 STREP A MOLECULAR (POC) Kristi Kael STOCK DEALER.[employer]IV[employer] DEF[employer] DIRECTOR Work Phone: Start: 05-08-2022 STREP A MOLECULAR (POC) Luciana Mcgrath STOCK DEALER.[employer] DEF[employer] DIRECTOR Work Phone: Start: 04-01-2022 Urnls dip stick/tabl et rgnt auto w/o microscopy Teresa Podlogewa STOCK DEALER.[employer] DIRECTOR Work Phone: Start: 12-12-2021 Diagnostic mammograp hy computer-aided detcj bi Alma Delia Frey STOCK DEALER.[employer] DIRECTOR Work Phone: Start: 11-08-2021 End: 11-08-2021 Screening mammography bi 2-view breast inc cad Aditi Roger MD Work Phone: Start: 11-07-2021 [email or web address] COVI D-19 VACCINE, AGE 12+ YR (VICENTE TOP) Jerrica Older STOCK DEALER.[employer] DEF[employer] DIRECTOR Work Phone: Start: 11-07-2021 Adult depression scr eening assessment Jerrica Older STOCK DEALER.[employer] DIRECTOR Work Phone: Start: 10-12-2020 Mammography Jerrica Older STOCK DEALER.[employer] DIRECTOR Work Phone: Start: 10-06-2020 Adult depression scr eening assessment Jerrica Older STOCK DEALER.[employer] DIRECTOR Work Phone: Start: 12-15-2019 Colonoscopy Jerrica Older STOCK DEALER.[employer] DEFENSE DIRECTOR Work Phone: Plan of Treatment Date Care Activity Detail Author Start: 12-14-2029 Colonoscopy COLONOSCOPY [facility] Start: 12-14-2029 COLORECTAL CANCER SCREENING COLORECTAL CANCER SCREENING [facility] Start: 01-16-2028 HPV TESTING HPV TESTING [facility] Start: 01-16-2028 PAP TESTING PAP TESTING [facility] Start: 06-28-2026 Urine microalbumin profile [facility] Start: 02-25-2024 Annual PCP Team Color Separation Photographer nani Disease Visit Annual PCP Team Chronic Disease Visit [facility] Start: 02-15-2024 Mammography Mammogram Screening [facility] Start: 01-11-2024 COVID-19 VACCINE (4 - Moderna series) COVID-19 VACCINE (4 - Moderna series) [facility] Immunizations Immunization Date Immunization Notes Care Provider Fa cility 02-24-2023 influenza, injectabl e, quadrivalent, contains preservative Jerrica Older STOCK DEALER.[employer] Work Phone: [facility] Work Phone: 01-10-2023 pneumococcal (PCV20) vaccine, 20 valent (PREVNAR 20) Jerrica Older STOCK DEALER.[employer] Work Phone: [facility] 01-10-2023 pneumococcal Conjuga te, unspecified formulation Jerrica Older STOCK DEALER.[employer] DEF[employer] DIRECTOR Work Phone: [facility] Work Phone: 11-07-2021 COVID-19 vaccine, ag e 12+ yr ([email or web address] - [facility]) Jerrica Older STOCK DEALER.[employer]IVIL DEFENSE DIRECTOR Work Phone: [facility] 03-29-2021 influenza, injectabl e, quadrivalent, contains preservative Jerrica Older STOCK DEALER.[employer] Work Phone: [facility] 03-29-2021 influenza virus vacc ine, unspecified formulation Arsenio Yun MD Work Phone: [facility] 11-29-2020 COVID-19 vaccine, fu ll dose (MODERNA) Jerrica Older STOCK DEALER.[employer] DIRECTOR Work Phone: [facility] Work Phone: 10-31-2020 COVID-19 vaccine, fu ll dose (MODERNA) Jerrica Older STOCK DEALER.[employer] DIRECTOR Work Phone: [facility] Work Phone: 04-18-2020 influenza, injectabl e, quadrivalent, contains preservative Jerrica Older STOCK DEALER.[employer] DIRECTOR Work Phone: [facility] 05-15-2018 pneumococcal polysaccharide vaccine, 23 valent Jerrica Older STOCK DEALER.[employer] DIRECT[employer] Work Phone: [facility] Work Phone: 04-17-2018 influenza, injectabl e, quadrivalent, preservative free Jerrica Older STOCK DEALER.[employer] Work Phone: [facility] Work Phone: 04-04-2018 influenza, injectabl e, quadrivalent, preservative free Jerrica Older STOCK DEALER.[employer] DIRECTOR Work Phone: [facility] 05-22-2017 Influenza, injectabl e, Madin Trinidad Canine Kidney, preservative free, quadrivalent Jerrica Older STOCK DEALER.[employer] DIRECTOR Work Phone: [facility] 09-27-2016 anthrax vaccine Jerrica Older AP RN.[employer] DIRECTOR Work Phone: [facility] 06-28-2016 tetanus toxoid, redu fang diphtheria toxoid, and acellular pertussis vaccine, adsorbed Jerrica Older STOCK DEALER.[employer] DIRECTOR Work Phone: [facility] 04-23-2016 influenza, seasonal, injectable Jerrica Older STOCK DEALER.[employer] DIRECTOR Work Phone: [facility] 03-19-2016 influenza, seasonal, injectable, preservative free Jerrica Older STOCK DEALER.[employer] DIRECTOR Work Phone: [facility] 04-15-2015 influenza, seasonal, injectable, preservative free Jerrica Older STOCK DEALER.[employer] DIRECTOR Work Phone: [facility] 04-15-2015 measles, mumps and rubella virus vaccine Jerrica Older STOCK DEALER.[employer] DIRECTOR Work Phone: [facility] 03-12-2014 influenza, injectabl e, quadrivalent, preservative free Jerrica Older STOCK DEALER.[employer] DIRECTOR Work Phone: [facility] 04-09-2013 influenza, live, intranasal, quadrivalent Jerrica Older STOCK DEALER.[employer] DIRECTOR Work Phone: [facility] 03-28-2012 influenza, seasonal, injectable, preservative free Jerrica Older STOCK DEALER.[employer] DIRECTOR Work Phone: [facility] 03-25-2012 influenza virus vacc ine, unspecified formulation Jerrica Older STOCK DEALER.[employer] DIRECTOR Work Phone: [facility] 05-18-2011 hepatitis B vaccine, adult dosage Jerrica Older STOCK DEALER.[employer] DIRECTOR Work Phone: [facility] 05-18-2011 influenza virus vacc ine, live, attenuated, for intranasal use Jerrica Older STOCK DEALER.[employer] DIRECTOR Work Phone: [facility] 04-15-2010 anthrax vaccine Jerrica Older AP RN.[employer] DEF[employer] DIRECTOR Work Phone: [facility] 04-15-2010 hepatitis B vaccine, adult dosage Jerrica Older STOCK DEALER.[employer] DIRECTOR Work Phone: [facility] 04-15-2010 influenza virus vacc ine, split virus (incl. purified surface antigen) Jerrica Older STOCK DEALER.[employer] DIRECTOR Work Phone: [facility] 07-15-2009 hepatitis B vaccine, adult dosage Jerrica Older STOCK DEALER.[employer] DIRECTOR Work Phone: [facility] 07-15-2009 novel influenza-H1N1 -09, injectable Jerrica Older STOCK DEALER.[employer] DIRECTOR Work Phone: [facility] 03-12-2009 influenza virus vacc ine, live, attenuated, for intranasal use Jerrica Older STOCK DEALER.[employer] DIRECTOR Work Phone: [facility] 03-12-2009 tetanus toxoid, redu fang diphtheria toxoid, and acellular pertussis vaccine, adsorbed Jerrica Older STOCK DEALER.[employer] DEF[employer] DIRECTOR Work Phone: [facility] 05-19-2007 influenza virus vacc ine, live, attenuated, for intranasal use Jerrica Older STOCK DEALER.[employer] DEF[employer] DIRECTOR Work Phone: [facility] 06-28-2006 influenza virus vacc ine, split virus (incl. purified surface antigen) Jerrica Older STOCK DEALER.[employer] DEF[employer] DIRECTOR Work Phone: [facility] 04-21-2004 influenza virus vacc ine, split virus (incl. purified surface antigen) Jerrica Older STOCK DEALER.[employer] DEF[employer] DIRECTOR Work Phone: [facility] 05-20-2003 influenza virus vacc ine, split virus (incl. purified surface antigen) Jerrica Older STOCK DEALER.[employer] DEF[employer] DIRECTOR Work Phone: [facility] 01-29-2003 anthrax vaccine Jerrica Older AP RN.C[employer] DEF[employer] DIRECTOR Work Phone: [facility] 08-26-2002 measles, mumps and rubella virus vaccine Jerrica Older STOCK DEALER.[employer] DIRECTOR Work Phone: [facility] 08-26-2002 meningococcal polysaccharide vaccine (MPSV4) Jerrica Older STOCK DEALER.[employer] DIRECTOR Work Phone: [facility] 08-26-2002 vaccinia (smallpox) vaccine, diluted Jerrica Older STOCK DEALER.[employer] DIRECTOR Work Phone: [facility] 08-14-2002 anthrax vaccine Jerrica Older AP RN.CIVIL DEFENSE DIRECTOR Work Phone: [facility] 07-31-2002 anthrax vaccine Jerrica Older AP RN.CIVIL DEFENSE DIRECTOR Work Phone: [facility] 07-17-2002 anthrax vaccine Jerrica Older AP RN.CIVIL DEFENSE DIRECTOR Work Phone: [facility] 06-19-2002 hepatitis A vaccine, adult dosage Jerrica Older STOCK DEALER.[employer] DIRECTOR Work Phone: [facility] 06-19-2002 typhoid vaccine, unspecified formulation Jerrica Older STOCK DEALER.[employer] DEF[employer] DIRECTOR Work Phone: [facility] 06-09-2002 tetanus and diphther ia toxoids, adsorbed, preservative free, for adult use (2 Lf of tetanus toxoid and 2 Lf of diphtheria toxoid) Jerrica Older STOCK DEALER.[employer] DIRECTOR Work Phone: [facility] Work Phone: 05-17-2000 hepatitis A vaccine, adult dosage Jerrica Older STOCK DEALER.[employer] DIRECTOR Work Phone: [facility] 05-17-2000 measles and rubella virus vaccine Jerrica Older STOCK DEALER.[employer] DIRECTOR Work Phone: [facility] 05-17-2000 poliovirus vaccine, inactivated Jerrica Older STOCK DEALER.[employer] DIRECTOR Work Phone: [facility] 08-16-1998 yellow fever vaccine Jerrica Old er STOCK DEALER.[employer] DIRECTOR Work Phone: [facility] 04-15-1997 tetanus and diphther ia toxoids, adsorbed, preservative free, for adult use (2 Lf of tetanus toxoid and 2 Lf of diphtheria toxoid) Jerrica Older STOCK DEALER.[employer] DEF[employer] DIRECTOR Work Phone: [facility] 07-27-1996 TD(adult) unspecifie d formulation Jerrica Older STOCK DEALER.[employer] DEF[employer] DIRECTOR Work Phone: [facility] 06-29-1996 measles, mumps and rubella virus vaccine Jerrica Older STOCK DEALER.C[employer] DEF[employer] DIRECTOR Work Phone: [facility] Payers Date Payer Category Payer [employer] ( and others) [id number] 2004 Unknown [employer] [id number] 2004-Present [phone] [address] [place] [address] Indemnity [id number] 2004 Unknown [employer] [id number] 2004-Present [phone] [address] [place] [address] Indemnity [id number] Social History Date Type Detail Facility Start: 06-09-1994 End: 02-24-2023 Tobacco smoking status NHIS Smokes tobacco daily [facility] Start: 06-09-1994 History of tobacco use Cigarette Smo ker [facility] Start: 06-17-2012 End: 11-15-2022 Cigarettes smoked current (pack per day) - Reported 1 [facility] Start: 06-17-2012 End: 02-24-2023 Tobacco use and exposure Smokeless tobacco non-user [facility] Start: 06-30-2021 End: 01-10-2023 Alcohol intake Current drinker of alcohol (finding) [facility] Start: 10-06-2020 End: 07-31-2022 History SDOH Alcohol Frequency 2 [facility] Start: 10-06-2020 End: 07-31-2022 History SDOH Alcohol Std Drinks 1 [facility] Start: 10-13-2018 History SDOH Alcohol Comment Rarely [facility] Start: 10-06-2020 End: 07-31-2022 History SDOH Social Connections Phone 4 [facility] Start: 10-06-2020 End: 07-31-2022 History SDOH Social Connections Living 7 [facility] Start: 10-06-2020 End: 07-31-2022 History SDOH Physical Activity DPW 0 [facility] Start: 10-06-2020 History SDOH Financial 3 [facility] Start: 10-06-2020 Education 12 [facility] Start: 1980 Sex Assigned At Not on file C [facility] Start: 10-29-2021 End: 05-08-2022 Exposure to SARS-CoV-2 (event) Not sure [facility] Start: 07-31-2022 History SDOH Social Connections Phone 5 [facility] Start: 07-31-2022 End: 11-15-2022 Social connection and isolation panel [facility] Do you belong to any clubs or organizations such as taoist groups, unions, fraternal or athletic groups, or school groups? No [facility] Are you now , , , , never or living with a partner? Never [facility] How often to you hav e a drink containing alcohol? Monthly or less [facility] How many standard dr inks containing alcohol do you have on a typical day? 1 or 2 [facility] How often do you hav e 6 or more drinks on 1 occasion? Less than monthly [facility] How hard is it for y ou to pay for the very basics like food, housing, medical care, and heating Not very hard [facility] Adult Depression Scr eening Assessment 3 [facility] Do you feel stress - tense, restless, nervous, or anxious, or unable to sleep at night because your mind is troubled all the time - these days [OSQ] Rather much [facility] (I/We) worried wheruby er (my/our) food would run out before (I/we) got money to buy more. Never true [facility] Start: 01-15-2023 End: 02-24-2023 Alcohol intake Ex-drinker (finding) [facility] Start: 02-24-2023 Tobacco Comment 02/24/23- down to 3 cigarettes a day [facility] Clinical Notes 06-28-2016 to 05-06-2023 Patient Jerrica Dominguez APRN.CIVIL DEFENSE DIRECTOR - 02/24/2023 9:28 AM EDTPatient Kristi German APRN.CIVIL DEFENSE DIRECTOR - 01/26/2023 10:41 AM EDTPatient Jerrica Dominguez APRN.CIVIL DEFENSE DIRECTOR - 01/10/2023 10:11 AM EDT Note Date & Type Note Facility 05-06-2023 Note HNO ID: [id number] Author: Aniyah Carrizales MD Service: ? Author Type: Physician Type: Progress Notes Filed: 05/06/2023 5:07 PM Note Text: Endocrinology/Initial Adrenal Assessment Note: History of Present Illness: Ms. Eveline Eugene is a 42 year old female with past medical history significant for CAD, anxiety and depression, intermittent right mid back pain coming today for evaluation of bilateral adrenal hyperplasia. Patient referred by: Arsenio Yun, PCP She recalls having a trauma to her abdomen during a baseball game while trying to protect her daughter from a foul ball, after which she had significant bruising at the site. She was stated ED at [facility] for evaluation, with CT abdomen and pelvis without contrast done in August 2019 revealing small, circumscribed, smooth, low-attenuation right adrenal mass consistent with an adrenal adenoma with normal left adrenal gland.. It appears that at the same time cortisol ACTH levels were checked with acceptable results. She had a repeat CT abdomen and pelvis without contrast in December 2020 with right adrenal adenoma measuring 8.4 mm and normal left adrenal, and no further evaluation was done. Most recently in January 2023, ACTH, cortisol, plasma metanephrines were checked and this was at noon, with results showing cortisol 6.2 mcg/dL with reference ranges 4.8-19.5, ACTH 9.4 pg/mL and acceptable plasma metanephrines. In February 2023, CT adrenal without contrast was repeated by her PCP again revealing bilateral adrenal adenomatous hyperplasia. She was referred to endocrinology by her PCP for further evaluation for this. In addition, she also had ischemic chest pain in February 2023, with work-up angiogram showing complete blockage of right coronary artery resulting in stent placement. At this time she presented with symptoms like sweating and abdominal pain, which she describes as symptoms of food poisoning, and this was associated with syncope. She states that high cholesterol levels (associated with familial hypercholesterolemia) has been attributed to AR. Patient denies any symptoms including easy bruising, thin skin, white abdominal striae, proximal muscle weakness, flushing or pallor of face, previous fractures, hirsutism/excess body hair, palpitations, tremors, continuous or episodic headaches, vision symptoms, any history of hypertension or diabetes, constipation, calcium abnormalities, dizziness, orthostatic hypotension, fatigue, low appetite, vomiting, nausea, weight loss, hyperpigmentation, history of hypokalemia or muscle cramps, any personal or family history autoimmune conditions, use of blood thinners. She does report regular but heavy menstrual cycles. History of Adrenal mass: as above in HPI Past Medical History: PAST MEDICAL HISTORY Diagnosis Date Anxiety 08/12/2010 Cervicalgia 03/04/2013 Chlamydia 1996 Coronary artery disease involving lovelock coronary artery of lovelock heart without angina pectoris 02/24/2023 Depressive disorder, not elsewhere classified 2004 Dysmenorrhea 07/11/2006 Excessive or frequent menstruation Family history of defect 12/05/2011 Patient's brother at 1 month at age from anencephaly Herpes simplex virus (HSV) infection 09/29/2013 Herpes simplex without mention of complication 02/05/2007 Fever blisters every 3 months or so Hyperlipidemia Intramural leiomyoma of uterus 07/08/06 LEIOMYOMATA UTERUS INTRAMURAL Irritable colon 12/31/2012 IUD (intrauterine device) in place 07/06/2013 Other and unspecified hyperlipidemia 02/05/2007 Pain in thoracic spine 03/04/2013 Plantar fasciitis 09/25/2010 Surveillance of previously prescribed intrauterine contraceptive device Inserted 09/14/2008 Surgical History: PAST SURGICAL HISTORY Procedure Laterality Date COLONOSCOPY FLX DX W/COLLJ SPEC WHEN PFRMD 12/15/2019 Colonoscopy IUD INSERTION (ELECTRONICS [employer]S SALES REPRESENTATIVE DEPT)_*FL 09/14/08 mirena IUD REMOVAL (ELECTRONICS PARTS SALES REPRESENTATIVE DEPT)_*FL 09/25/2010,06/2013 Mirena Family Medical History: FAMILY HISTORY Problem Relation Age of Onset Hypertension Mother Resolved Lipids Mother Breast Cancer Mother Coronary Artery Disease Father AR age 62 Heart Maternal Grandmother AR, Cancer Maternal Grandfather BLACK LUNG,AUTOMOTIVE INTERNET SALES MANAGER Colon Cancer Paternal Grandmother No Known Problems Daughter No Known Problems Daughter Diabetes Maternal Aunt Prostate Cancer Maternal Uncle X-2 Cancer Paternal Aunt Skin Cancer Social History: Social History Tobacco Use Smoking status: Every Day Packs/day: 1.00 Years: 23.00 Additional pack years: 0.00 Total pack years: 23.00 Types: Cigarettes Start date: 06/09/1994 Smokeless tobacco: Never Tobacco comments: 02/24/23- down to 3 cigarettes a day Vaping Use Vaping Use: Never used Substance Use Topics Alcohol use: Not Currently Comment: Rarely Drug use: No Allergies: ALLERGIES Allergen Reactions Hay Fe (more content not included)... [facility] 02-26-2023 Note HNO ID: [id number] Author: Rita Bunn RT(R) Service: ? Author Type: Motor And Generator Assembler Type: Progress Notes Filed: 02/26/2023 3:01 PM Note Text: Radiology Service Progress Note PATIENT NAME: Eveline Eugene DATE OF SERVICE: February 26, 2023 TIME: 3:00 PM PATIENT IDENTITY VERIFICATION COMPLETED USING TWO (2) IDENTIFIERS: Name and Date of confirmed by patient verbally. FALL SCREENING: Has the patient had 2 falls in the last year or 1 fall with injury or currently using an Ambulatory Assistive Device (Walker, Cane, Wheelchair, Crutches, etc.)? No PATIENT GENDER DATA: Female. status: : No status: NO. PATIENT RELEVANT IMPLANT DATA REVIEWED: Yes RADIOLOGY DEPARTMENT: CT; Exam(s) Completed: Abdomen PERIPHERAL IV DATA: Not applicable SIGNED BY: RT Belem(R) February 26, 2023 3:00 PM [facility] 02-24-2023 Note HNO ID: [id number] Author: Jerrica Plummer APRN.GEORGINA Service: ? Author Type: Nurse Practitioner Type: Progress Notes Filed: 02/24/2023 9:59 AM Note Text: CC: Patient presents with: Hospital F/U HPI Eveline Eugene is a 42 year old female who presents today for above. Patient was admitted to [facility] 02/16 to 02/18 for NSTEMI. She presented to the ER with chest pain and syncope. Troponin elevated, continued to rise. Echocardiogram was normal. Heart cath showed RCA with chronic total occlusion and recent stenosis at 100%, CLINT placed. She was discharged home on Brillinta, metoprolol, and baby ASA. Lipitor increased from 20 mg to 80 mg. Today patient denies recurrent chest pain or syncope. She has appointment scheduled in a few weeks with cardiology and is going to schedule cardiac rehab. Taking all medications as prescribed, denies side effects. She is down to 3 ultra light cigarettes a day. Unable to wear Nicotine patch due to skin sensitivity. Tried vaping but felt weird in her lungs. Requesting to go back on Zyban which she had some success with in the past. She has been feeling very anxious and overwhelmed since the heart attack. She is planning on getting into counseling for this. Requesting prescription for Xanax to use sparingly as needed until then. Review of Systems Constitutional: Positive for fatigue. Negative for chills, diaphoresis and fever. Respiratory: Negative for cough, chest tightness, shortness of breath and wheezing. Cardiovascular: Negative for chest pain, palpitations and leg swelling. Neurological: Negative for dizziness, tremors, weakness and light-headedness. PAST MEDICAL HISTORY Diagnosis Date Anxiety 08/12/2010 Cervicalgia 03/04/2013 Chlamydia 1997 Depressive disorder, not elsewhere classified 2004 Dysmenorrhea 07/11/2006 Excessive or frequent menstruation Family history of defect 12/05/2011 Patient's brother at 1 month at age from anencephaly Herpes simplex virus (HSV) infection 09/29/2013 Herpes simplex without mention of complication 02/05/2007 Fever blisters every 3 months or so Hyperlipidemia Intramural leiomyoma of uterus 07/08/06 LEIOMYOMATA UTERUS INTRAMURAL Irritable colon 12/31/2012 IUD (intrauterine device) in place 07/06/2013 Other and unspecified hyperlipidemia 02/05/2007 Pain in thoracic spine 03/04/2013 Plantar fasciitis 09/25/2010 Surveillance of previously prescribed intrauterine contraceptive device Inserted 09/14/2008 PAST SURGICAL HISTORY Procedure Laterality Date COLONOSCOPY FLX DX W/COLLJ SPEC WHEN PFRMD 12/15/2019 Colonoscopy IUD INSERTION (E[employer]S SALES REPRESENTATIVE DEPT)_*FL 09/14/08 mirena IUD REMOVAL (ELECT[employer]S SALES REPRESENTATIVE DEPT)_*FL 09/25/2010,06/2013 Mirena ALLERGIES Hay Fever [Seasonal Allergies] and Lamisil [Terbinafine Hcl] MEDICATIONS metoprolol succinate ER (TOPROL XL) 25 mg 24 hr tablet Take 25 mg by mouth once daily. ticagrelor (BRILINTA) 90 mg tablet Take 90 mg by mouth twice daily. atorvastatin (LIPITOR) 80 mg tablet Take 80 mg by mouth daily at bedtime. LOW-DOSE ASPIRIN ORAL Take 81 mg by mouth once daily. traZODone (DESYREL) 100 mg tablet Take 1 tablet by mouth daily at bedtime. For sleep. cyclobenzaprine (FLEXERIL) 10 mg tablet Take 1 tablet by mouth three times daily as needed. venlafaxine ER (EFFEXOR XR) 150 mg 24 hr capsule Take 1 capsule by mouth once daily. Take with 75 mg capsule wi=110 mg daily hydrOXYzine HCl (ATARAX) 25 mg tablet Take 1-2 tablets by mouth every 4 hours as needed. levonorgestrel (MIRENA) 20 mcg/24 hours (5-6 yrs) 52 mg IUD 1 Each by INTRAUTERINE route as directed. FAMILY HISTORY Problem Relation Age of Onset Hypertension Mother Resolved Lipids Mother Breast Cancer Mother Coronary Artery Disease Father AR age 62 Heart Maternal Grandmother AR, Cancer Maternal Grandfather BLACK LUNG,AUTOMOTIVE INTERNET SALES MANAGER Colon Cancer Paternal Grandmother No Known Problems Daughter No Known Problems Daughter Diabetes Maternal Aunt Prostate Cancer Maternal Uncle X-2 Cancer Paternal Aunt Skin Cancer Social History Tobacco Use Smoking status: Every Day Packs/day: 1.00 Years: 23.00 Additional pack years: 0.00 Total pack years: 23.00 Types: Cigarettes Start date: 06/09/1994 Smokeless tobacco: Never Vaping Use Vaping Use: Never used Substance Use Topics Alcohol use: Not Currently Comment: Rarely Drug use: No BP 116/70 (BP Site: Left Arm, BP Position: Sitting, BP Cuff Size: Large Adult) Pulse 76 Temp 36.4 ?C (97.5 ?F) (Temporal) Wt 83 kg (183 lb) LMP 09/21/2020 SpO2 96% BMI 33.47 kg/m? Physical Exam Vitals reviewed. Constitutional: General: She is not in acute distress. Appearance: She is not ill-appearing. Cardiovascular: Rate and Rhythm: Normal rate and regular rhythm. Pulses: Normal pulses. Heart sounds: Normal heart sounds. No murmur heard. Musculoskeletal: Right lower leg: No edema. Left lower leg: No edema. Neurological: Me (more content not included)... [facility] 02-24-2023 Instructions Jerrica Plummer APRN.CNP - 02/24/2023 9:32 AM EDT Bupropion instructions: 1. Please set your quit date 1 week after starting your medication. 2. Take 1 tab daily for the first 3 days, then 1 tab twice daily 3. Continue to take twice a day for up to 12 weeks total. 4. Continue your efforts to quit. 5. If you have any thoughts of suicide, you should stop this medicine immediately and call the office for guidance. 6. Call [employer] Quit Line, [phone] documented in this encounter [facility] 02-24-2023 History of Presen t illness Narrative CC: Patient presents with: Hospital F/U HPI Eveline Eugene is a 42 year old female who presents today for above. Patient was admitted to [facility] 02/16 to 02/18 for NSTEMI. She presented to the ER with chest pain and syncope. Troponin elevated, continued to rise. Echocardiogram was normal. Heart cath showed RCA with chronic total occlusion and recent stenosis at 100%, CLINT placed. She was discharged home on Brillinta, metoprolol, and baby ASA. Lipitor increased from 20 mg to 80 mg. Today patient denies recurrent chest pain or syncope. She has appointment scheduled in a few weeks with cardiology and is going to schedule cardiac rehab. Taking all medications as prescribed, denies side effects. She is down to 3 ultra light cigarettes a day. Unable to wear Nicotine patch due to skin sensitivity. Tried vaping but felt weird in her lungs. Requesting to go back on Zyban which she had some success with in the past. She has been feeling very anxious and overwhelmed since the heart attack. She is planning on getting into counseling for this. Requesting prescription for Xanax to use sparingly as needed until then. Review of Systems Constitutional: Positive for fatigue. Negative for chills, diaphoresis and fever. Respiratory: Negative for cough, chest tightness, shortness of breath and wheezing. Cardiovascular: Negative for chest pain, palpitations and leg swelling. Neurological: Negative for dizziness, tremors, weakness and light-headedness. PAST MEDICAL HISTORY Diagnosis Date Anxiety 08/12/2010 Cervicalgia 03/04/2013 Chlamydia 1997 Depressive disorder, not elsewhere classified 2004 Dysmenorrhea 07/11/2006 Excessive or frequent menstruation Family history of defect 12/05/2011 Patient's brother at 1 month at age from anencephaly Herpes simplex virus (HSV) infection 09/29/2013 Herpes simplex without mention of complication 02/05/2007 Fever blisters every 3 months or so Hyperlipidemia Intramural leiomyoma of uterus 07/08/06 LEIOMYOMATA UTERUS INTRAMURAL Irritable colon 12/31/2012 IUD (intrauterine device) in place 07/06/2013 Other and unspecified hyperlipidemia 02/05/2007 Pain in thoracic spine 03/04/2013 Plantar fasciitis 09/25/2010 Surveillance of previously prescribed intrauterine contraceptive device Inserted 09/14/2008 PAST SURGICAL HISTORY Procedure Laterality Date COLONOSCOPY FLX DX W/COLLJ SPEC WHEN PFRMD 12/15/2019 Colonoscopy IUD INSERTION (ELECTRONICS [employer]S SALES REPRESENTATIVE DEPT)_*FL 09/14/08 mirena IUD REMOVAL (ELECTRONICS PARTS SALES REPRESENTATIVE DEPT)_*FL 09/25/2010,06/2013 Mirena ALLERGIES Hay Fever [Seasonal Allergies] and Lamisil [Terbinafine Hcl] MEDICATIONS metoprolol succinate ER (TOPROL XL) 25 mg 24 hr tablet Take 25 mg by mouth once daily. ticagrelor (BRILINTA) 90 mg tablet Take 90 mg by mouth twice daily. atorvastatin (LIPITOR) 80 mg tablet Take 80 mg by mouth daily at bedtime. LOW-DOSE ASPIRIN ORAL Take 81 mg by mouth once daily. traZODone (DESYREL) 100 mg tablet Take 1 tablet by mouth daily at bedtime. For sleep. cyclobenzaprine (FLEXERIL) 10 mg tablet Take 1 tablet by mouth three times daily as needed. venlafaxine ER (EFFEXOR XR) 150 mg 24 hr capsule Take 1 capsule by mouth once daily. Take with 75 mg capsule vw=311 mg daily hydrOXYzine HCl (ATARAX) 25 mg tablet Take 1-2 tablets by mouth every 4 hours as needed. levonorgestrel (MIRENA) 20 mcg/24 hours (5-6 yrs) 52 mg IUD 1 Each by INTRAUTERINE route as directed. FAMILY HISTORY Problem Relation Age of Onset Hypertension Mother Resolved Lipids Mother Breast Cancer Mother Coronary Artery Disease Father AR age 62 Heart Maternal Grandmother AR, Cancer Maternal Grandfather BLACK LUNG,AUTOMOTIVE INTERNET SALES MANAGER Colon Cancer Paternal Grandmother No Known Problems Daughter No Known Problems Daughter Diabetes Maternal Aunt Prostate Cancer Maternal Uncle X-2 Cancer Paternal Aunt Skin Cancer Social History Tobacco Use Smoking status: Every Day Packs/day: 1.00 Years: 23.00 Additional pack years: 0.00 Total pack years: 23.00 Types: Cigarettes Start date: 06/09/1994 Smokeless tobacco: Never Vaping Use Vaping Use: Never used Substance Use Topics Alcohol use: Not Currently Comment: Rarely Drug use: No BP 116/70 (BP Site: Left Arm, BP Position: Sitting, BP Cuff Size: Large Adult) Pulse 76 Temp 36.4 C (97.5 F) (Temporal) Wt 83 kg (183 lb) LMP 09/21/2020 SpO2 96% BMI 33.47 kg/m Physical Exam Vitals reviewed. Constitutional: General: She is not in acute distress. Appearance: She is not ill-appearing. Cardiovascular: Rate and Rhythm: Normal rate and regular rhythm. Pulses: Normal pulses. Heart sounds: Normal heart sounds. No murmur heard. Musculoskeletal: Right lower leg: No edema. Left lower leg: No edema. Neurological: Mental Status: She is alert. DATA REVIEWED: Outside chart from [facility] admission reviewed. ASSESSMENT/PLAN: 1. NSTEMI (non-ST elevated myocardial infarction) (HCC) - ICD9: 410.70, ICD10: I21.4 (primary diagnosis) Continue with medications as prescribed at discharge and follow-up with cardiology. Schedule cardiac rehab. Follow-up in office in 4 months 2. Anxiety - ICD9: 300.00, ICD10: F41.9 Secondary to recent AR and health issues. Encouraged patient to start counseling MEÑO. - ALPRAZOLAM 0.25 MG TABLET to be used sparingly as needed, advised patient no refills. Discussed potential for overdose, abuse and addiction; patient verbalized understanding. - VENLAFAXINE ER 150 MG CAPSULE,EXTENDED RELEASE 24 HR 3. Tobacco use disorder - ICD9: 305.1, ICD10: F17.200 - Cessation encouraged. - Physiologic and physical aspects of tobacco addiction as well as strategies for quitting were discussed. - Counseling was given focusing on the harmful effects of this addiction especially given the patient's medical condition(s) which will be worsened because of the chemicals in tobacco. - Prescription for bupropion (Wellbutrin) given 4. Coronary artery disease involving lovelock coronary artery of lovelock heart without angina pectoris - ICD9: 414.01, ICD10: I25.10 See #1 5. Mixed hyperlipidemia - ICD9: 272.2, ICD10: E78.2 - Continue current medications - Counseled on healthy diet and regular exercise 6. Adrenal adenoma, right - ICD9: 227.0, ICD10: D35.01 Needs follow-up, scheduled for CT - CONSULT TO ENDOCRINOLOGY 7. Need for influenza vaccination - ICD9: V04.81, ICD10: Z23 - INFLUENZA VACCINE, AGE 6 MO - 64 YR, QUADRIVALENT (AFLURIA, FLULAVAL, FLUZONE) Prescription instructions reviewed with patient as applicable. Potential red flag symptoms discussed with the patient. Reviewed appropriate action plan to take if red flag symptoms occur. Patient agreeable to treatment plan. Jerrica Plummer APRN.CNP documented in this encounter [facility] 02-14-2023 Note HNO ID: [id number] Author: Avery Ronquillo Mammo Tech Service: ? Author Type: Technologist Type: Progress Notes Filed: 02/14/2023 9:22 AM Note Text: Radiology Service Progress Note PATIENT NAME: Eveline Eugene DATE OF SERVICE: February 14, 2023 TIME: 9:22 AM PATIENT IDENTITY VERIFICATION COMPLETED USING TWO (2) IDENTIFIERS: Name and Date of confirmed by patient verbally. FALL SCREENING: Has the patient had 2 falls in the last year or 1 fall with injury or currently using an Ambulatory Assistive Device (Walker, Cane, Wheelchair, Crutches, etc.)? No PATIENT GENDER DATA: Female. status: : No status: NO. PATIENT RELEVANT IMPLANT DATA REVIEWED: Not Applicable RADIOLOGY DEPARTMENT: Mammography PERIPHERAL IV DATA: Not applicable SIGNED BY: Lovely Bush February 14, 2023 9:22 AM [facility] 02-14-2023 Note HNO ID: [id number] Author: Dolly Thibodeaux Mammo Tech Service: ? Author Type: Motor And Generator Assembler Type: Progress Notes Filed: 02/14/2023 9:24 AM Note Text: Radiology Service Progress Note PATIENT NAME: Eveline Eugene DATE OF SERVICE: February 14, 2023 TIME: 8:52 AM PATIENT IDENTITY VERIFICATION COMPLETED USING TWO (2) IDENTIFIERS: Name and Date of confirmed by patient verbally. FALL SCREENING: Has the patient had 2 falls in the last year or 1 fall with injury or currently using an Ambulatory Assistive Device (Walker, Cane, Wheelchair, Crutches, etc.)? No PATIENT GENDER DATA: Female. status: : No status: NO. PATIENT RELEVANT IMPLANT DATA REVIEWED: Not Applicable RADIOLOGY DEPARTMENT: Mammography PERIPHERAL IV DATA: Not applicable SIGNED BY: Lovely España February 14, 2023 8:52 AM [facility] 01-26-2023 Note HNO ID: [id number] Author: Kristi Scruggs APRN.CIVIL DEFENSE DIRECTOR Service: ? Author Type: Nurse Practitioner Type: Progress Notes Filed: 01/26/2023 10:57 AM Note Text: Subjective The history is provided by the patient. No sign language translator was used. HPI Eveline Eugene is a 42 year old female who presents today for CC of sore throat, fever, and headache for 2 days. She has used tylenol with out relief. Exposure - denies any. Denies covid testing. She is an every day smoker BP 122/80 Pulse 82 Temp 37.1 ?C (98.8 ?F) Resp 16 Wt 83.9 kg (185 lb) LMP 09/21/2020 SpO2 97% BMI 33.84 kg/m? Social History Tobacco Use Smoking status: Every Day Packs/day: 1.00 Years: 23.00 Additional pack years: 0.00 Total pack years: 23.00 Types: Cigarettes Start date: 06/09/1994 Smokeless tobacco: Never Vaping Use Vaping Use: Never used Substance Use Topics Alcohol use: Not Currently Comment: Rarely Drug use: No PAST MEDICAL HISTORY Diagnosis Date Anxiety 08/12/2010 Cervicalgia 03/04/2013 Chlamydia 1997 Depressive disorder, not elsewhere classified 2004 Dysmenorrhea 07/11/2006 Excessive or frequent menstruation Family history of defect 12/05/2011 Patient's brother at 1 month at age from anencephaly Herpes simplex virus (HSV) infection 09/29/2013 Herpes simplex without mention of complication 02/05/2007 Fever blisters every 3 months or so Hyperlipidemia Intramural leiomyoma of uterus 07/08/06 LEIOMYOMATA UTERUS INTRAMURAL Irritable colon 12/31/2012 IUD (intrauterine device) in place 07/06/2013 Other and unspecified hyperlipidemia 02/05/2007 Pain in thoracic spine 03/04/2013 Plantar fasciitis 09/25/2010 Surveillance of previously prescribed intrauterine contraceptive device Inserted 09/14/2008 I have confirmed and edited as necessary, the [facility] Review of Systems Constitutional: Positive for fever. Negative for chills. HENT: Positive for sore throat. Negative for congestion, ear pain and sinus pain. Respiratory: Negative for cough, sputum production, shortness of breath and wheezing. Cardiovascular: Negative for chest pain. Musculoskeletal: Negative for myalgias. Neurological: Positive for headaches. Objective Physical Exam Vitals and nursing note reviewed. HENT: Head: Normocephalic and atraumatic. Right Ear: Tympanic membrane, ear canal and external ear normal. Left Ear: Tympanic membrane, ear canal and external ear normal. Nose: Mucosal edema, congestion and rhinorrhea present. Right Sinus: No maxillary sinus tenderness or frontal sinus tenderness. Left Sinus: No maxillary sinus tenderness or frontal sinus tenderness. Mouth/Throat: Pharynx: Uvula midline. Posterior oropharyngeal erythema present. No pharyngeal swelling or oropharyngeal exudate. Cardiovascular: Rate and Rhythm: Normal rate and regular rhythm. Heart sounds: Normal heart sounds. Pulmonary: Effort: Pulmonary effort is normal. Breath sounds: Wheezing present. Lymphadenopathy: Head: Right side of head: No submental, submandibular or tonsillar adenopathy. Left side of head: No submental, submandibular or tonsillar adenopathy. Cervical: No cervical adenopathy. Skin: General: Skin is warm and dry. Neurological: Mental Status: She is alert. Psychiatric: Mood and Affect: Affect normal. ASSESSMENT/PLAN: 1. Sore throat - ICD9: 462, ICD10: J02.9 (primary diagnosis) - suspect viral - Rapid Strep negative in the office today - Discussed supportive care treatment with fluids, rest and analgesia. - The patient may also use warm salt water gargles, throat lozenges and/or OTC throat spray as needed. - Call back if drooling, increased temperature, symptoms of dehydration and/or still sick in one week - STREP A MOLECULAR (POC) 2. URI with cough and congestion - ICD9: 465.9, ICD10: J06.9 - Discussed viral etiology and rationale for treatment. - Symptomatic treatment with prn analgesia - Supportive care with fluids and rest 3. Wheezing - ICD9: 786.07, ICD10: R06.2 Prednisone 40 mg (2-20mg tablets) po QD for 5 days No NSAIDs while using Kristi Scruggs APRN.CNP [facility] 01-26-2023 Instructions Kristi Scruggs APRN.CNP - 01/26/2023 10:57 AM EDT Rest, increase water intake Tylenol as needed for fever or pain. Salt water gargles, chloraseptic spray or lozenges as needed for sore throat. Warm beverages, honey. Nasal saline spray as needed Cool mist humidifier at night A cold normally lasts 7-10 days. If your symptoms are lasting longer, develop fever, or worsening by that time instead of improving then return to clinic or follow up with PCP for re-evaluation. Tessalon Perles 1-2 every 8 hours, do not combine this with robitussin or delsym * Prednisone 40 mg (2 tablets) per day for 5 days, take in morning or early in day * Do not NSAIDs during this 5 day course (ibuprofen, naproxen, Motrin, Aleve, Advil) Tylenol only during prednisone use * Follow up with primary care provider if no improvement with treatment * Seek medical care immediately, call 911, go to ER if you have chest pain, difficulty breathing, shortness of breath, inability to swallow. documented in this encounter [facility] 01-26-2023 History of Presen t illness Narrative Subjective The history is provided by the patient. No sign language translator was used. HPI Eveline Eugene is a 42 year old female who presents today for CC of sore throat, fever, and headache for 2 days. She has used tylenol with out relief. Exposure - denies any. Denies covid testing. She is an every day smoker BP 122/80 Pulse 82 Temp 37.1 C (98.8 F) Resp 16 Wt 83.9 kg (185 lb) LMP 09/21/2020 SpO2 97% BMI 33.84 kg/m Social History Tobacco Use Smoking status: Every Day Packs/day: 1.00 Years: 23.00 Additional pack years: 0.00 Total pack years: 23.00 Types: Cigarettes Start date: 06/09/1994 Smokeless tobacco: Never Vaping Use Vaping Use: Never used Substance Use Topics Alcohol use: Not Currently Comment: Rarely Drug use: No PAST MEDICAL HISTORY Diagnosis Date Anxiety 08/12/2010 Cervicalgia 03/04/2013 Chlamydia 1997 Depressive disorder, not elsewhere classified 2004 Dysmenorrhea 07/11/2006 Excessive or frequent menstruation Family history of defect 12/05/2011 Patient's brother at 1 month at age from anencephaly Herpes simplex virus (HSV) infection 09/29/2013 Herpes simplex without mention of complication 02/05/2007 Fever blisters every 3 months or so Hyperlipidemia Intramural leiomyoma of uterus 07/08/06 LEIOMYOMATA UTERUS INTRAMURAL Irritable colon 12/31/2012 IUD (intrauterine device) in place 07/06/2013 Other and unspecified hyperlipidemia 02/05/2007 Pain in thoracic spine 03/04/2013 Plantar fasciitis 09/25/2010 Surveillance of previously prescribed intrauterine contraceptive device Inserted 09/14/2008 I have confirmed and edited as necessary, the [facility] Review of Systems Constitutional: Positive for fever. Negative for chills. HENT: Positive for sore throat. Negative for congestion, ear pain and sinus pain. Respiratory: Negative for cough, sputum production, shortness of breath and wheezing. Cardiovascular: Negative for chest pain. Musculoskeletal: Negative for myalgias. Neurological: Positive for headaches. Objective Physical Exam Vitals and nursing note reviewed. HENT: Head: Normocephalic and atraumatic. Right Ear: Tympanic membrane, ear canal and external ear normal. Left Ear: Tympanic membrane, ear canal and external ear normal. Nose: Mucosal edema, congestion and rhinorrhea present. Right Sinus: No maxillary sinus tenderness or frontal sinus tenderness. Left Sinus: No maxillary sinus tenderness or frontal sinus tenderness. Mouth/Throat: Pharynx: Uvula midline. Posterior oropharyngeal erythema present. No pharyngeal swelling or oropharyngeal exudate. Cardiovascular: Rate and Rhythm: Normal rate and regular rhythm. Heart sounds: Normal heart sounds. Pulmonary: Effort: Pulmonary effort is normal. Breath sounds: Wheezing present. Lymphadenopathy: Head: Right side of head: No submental, submandibular or tonsillar adenopathy. Left side of head: No submental, submandibular or tonsillar adenopathy. Cervical: No cervical adenopathy. Skin: General: Skin is warm and dry. Neurological: Mental Status: She is alert. Psychiatric: Mood and Affect: Affect normal. ASSESSMENT/PLAN: 1. Sore throat - ICD9: 462, ICD10: J02.9 (primary diagnosis) - suspect viral - Rapid Strep negative in the office today - Discussed supportive care treatment with fluids, rest and analgesia. - The patient may also use warm salt water gargles, throat lozenges and/or OTC throat spray as needed. - Call back if drooling, increased temperature, symptoms of dehydration and/or still sick in one week - STREP A MOLECULAR (POC) 2. URI with cough and congestion - ICD9: 465.9, ICD10: J06.9 - Discussed viral etiology and rationale for treatment. - Symptomatic treatment with prn analgesia - Supportive care with fluids and rest 3. Wheezing - ICD9: 786.07, ICD10: R06.2 Prednisone 40 mg (2-20mg tablets) po QD for 5 days No NSAIDs while using Kristi Scruggs APRN.CIVIL DEFENSE DIRECTOR documented in this encounter [facility] 01-15-2023 Note HNO ID: [id number] Author: Rubina Holbrook APRN.CNM Service: ? Author Type: Workday Manager Type: Progress Notes Filed: 01/15/2023 9:15 AM Note Text: Eveline is a 42 year old who presents for an annual gynecologic exam without complaints. Mirena IUD. Patient's mother recently diagnosed with breast cancer and had double mastectomy. Not genetic. Menses: no menses - Mirena IUD. Contraception: IUD HPV vaccine: No Last Pap: 10/21/2018 normal HPV: 10/16/2018 negative History of abnormal pap: No Last mammogram: 2021 Sexually active: No Pain with intercourse: No Postcoital bleeding: No Hot flashes: Occasional Night sweats: Occasional Vaginal dryness: No OB History T2 L2 SAB0 IAB0 Ectopic0 Multiple0 Live Births2 Hiv Cts Specialist History LMP: 09/21/2020, IUD Age at Menarche: Age at First : Age at Menopause: Hiv Cts Specialist History Comments: Sexual Activity: Not Currently; No partner data on record Contraception: Abstinence PAST MEDICAL HISTORY Diagnosis Date Anxiety 08/12/2010 Cervicalgia 03/04/2013 Chlamydia 1996 Depressive disorder, not elsewhere classified 2004 Dysmenorrhea 07/11/2006 Excessive or frequent menstruation Family history of defect 12/05/2011 Patient's brother at 1 month at age from anencephaly Herpes simplex virus (HSV) infection 09/29/2013 Herpes simplex without mention of complication 02/05/2007 Fever blisters every 3 months or so Hyperlipidemia Intramural leiomyoma of uterus 07/08/06 LEIOMYOMATA UTERUS INTRAMURAL Irritable colon 12/31/2012 IUD (intrauterine device) in place 07/06/2013 Other and unspecified hyperlipidemia 02/05/2007 Pain in thoracic spine 03/04/2013 Plantar fasciitis 09/25/2010 Surveillance of previously prescribed intrauterine contraceptive device Inserted 09/14/2008 PAST SURGICAL HISTORY Procedure Laterality Date COLONOSCOPY FLX DX W/COLLJ SPEC WHEN PFRMD 12/15/2019 Colonoscopy IUD INSERTION (ELECT[employer]S SALES REPRESENTATIVE DEPT)_*FL 09/14/08 mirena IUD REMOVAL (ELECT[employer]S SALES REPRESENTATIVE DEPT)_*FL 09/25/2010,06/2013 Mirena FAMILY HISTORY Problem Relation Age of Onset Hypertension Mother Resolved Lipids Mother Breast Cancer Mother Coronary Artery Disease Father AR age 62 Heart Maternal Grandmother [place], Cancer Maternal Grandfather [employer]G,AUTOMOTIVE INTERNET SALES MANAGER Colon Cancer Paternal Grandmother No Known Problems Daughter No Known Problems Daughter Diabetes Maternal Aunt Prostate Cancer Maternal Uncle X-2 Cancer Paternal Aunt Skin Cancer SOCIAL HISTORY Social History Tobacco Use Smoking status: Every Day Packs/day: 1.00 Years: 23.00 Total pack years: 23.00 Types: Cigarettes Start date: 06/09/1994 Smokeless tobacco: Never Vaping Use Vaping Use: Never used Substance Use Topics Alcohol use: Not Currently Comment: Rarely Drug use: No REVIEW OF SYSTEMS Abdomen: No abdominal pain, nausea, vomiting, diarrhea, or constipation. No bloating, early satiety, indigestion, or increased flatulence. Bladder: No dysuria, gross hematuria, urinary frequency, urinary urgency. Positive for stress incontinence Breast: No breast lumps, nipple d/c, overlying skin changes, redness or skin retraction. Allergies and current medication updated:Yes EXAM: BP 110/80 Ht 5' 2 (1.58m) Wt 187 lb (84.8kg) LMP 09/21/2020 BMI 34.19 kg/(m2). GENERAL: pleasant, female in no apparent distress HEENT: Normocephalic, atraumatic, mucus membranes moist, and no lesions NECK: Supple, full range of motion, and no adenopathy DERMATOLOGY: Normal, without lesions, and non-icteric BREAST: soft, non-tender, symmetric, no dominant mass, normal nipple-areolar complex, no lymphadenopathy, no nipple discharge, and fibrocystic changes CHEST: Normal inspiratory effort ABDOMEN: soft, non-tender, and no masses PELVIC: external genitalia normal, normal Bartholin's glands, urethra, [place]'s glands, no vulvar lesions, no cervical lesions, good vaginal support, physiologic discharge present, normal appearing perineal body and perianal region BIMANUAL: uterus normal size, shape and consistency, no adnexal masses, non-tender, and no cervical motion tenderness RECTOVAGINAL: deferred. NEURO: alert and oriented x3,exam grossly non-focal EXTREMITIES: normal ASSESSMENT/PLAN: 1) Health maintenance: Pap done with HPV. Mammogram ordered- [facility] due to dense breast tissue 2) Contraception: IUD. 3) STD screening: Accepted STD check for Gonorrhea and Chlamydia. 4) Follow up one year or sooner as needed Rubina Holbrook APRN.CNM [facility] 01-15-2023 Instructions Rubina Holbrook APRN.CNM - 01/15/2023 8:21 AM EDT KEGAL EXERCISES The pelvic floor is made up of a complex muscle group. These pelvic muscles are responsible for holding the body's lower organs. Because we walk upright, quite a bit of pressure is put on this muscle group as we walk, cough or strain. The muscles may become weakened by childbirth, hormonal changes, as a result of surgeries or from age. As these muscles become weakened some people experience leakage of stool and/or gas. This is called rectal incontinence and it can affect men or women. As with any weakened muscles, exercise is a good way to strengthen these pelvic muscles. This may help to control the leakage. First it is important to identify the correct muscles to exercise. Even though we are working on the rectal muscles, we want to strengthen the whole group of pelvic muscles. The best way to locate the correct muscles is to start and stop your flow of urine. Tighten the muscle to stop the flow of urine and relax the muscle to start the flow. As soon as you understand how to contract and release the pelvic muscles, you are ready to start. Choose your times to exercise and incorporate this into your daily routine. (It is best to find times that are easily associated with something that you do regularly-such as fixing meals, watching favorite TV programs, commuting back and forth to work, etc.) Tighten the pelvic muscles as hard as you can. Hold the muscles tight for the count of 10- then relax the muscles for the count of 10. Repeat 10 times. (Remember that one repetition consists of Holding for 10 AND releasing for 10.) Start with four sets a day- as these exercises become easier you may begin to increase the number of repetitions with each set and/or increase the number of sets you do daily. documented in this encounter [facility] 01-15-2023 History of Presen t illness Narrative Eveline is a 42 year old who presents for an annual gynecologic exam without complaints. Mirena IUD. Patient's mother recently diagnosed with breast cancer and had double mastectomy. Not genetic. Menses: no menses - Mirena IUD. Contraception: IUD HPV vaccine: No Last Pap: 10/21/2018 normal HPV: 10/16/2018 negative History of abnormal pap: No Last mammogram: 2021 Sexually active: No Pain with intercourse: No Postcoital bleeding: No Hot flashes: Occasional Night sweats: Occasional Vaginal dryness: No OB History T2 L2 SAB0 IAB0 Ectopic0 Multiple0 Live Births2 Hiv Cts Specialist History LMP: 09/21/2020, IUD Age at Menarche: Age at First : Age at Menopause: Hiv Cts Specialist History Comments: Sexual Activity: Not Currently; No partner data on record Contraception: Abstinence PAST MEDICAL HISTORY Diagnosis Date Anxiety 08/12/2010 Cervicalgia 03/04/2013 Chlamydia 1997 Depressive disorder, not elsewhere classified 2004 Dysmenorrhea 07/11/2006 Excessive or frequent menstruation Family history of defect 12/05/2011 Patient's brother at 1 month at age from anencephaly Herpes simplex virus (HSV) infection 09/29/2013 Herpes simplex without mention of complication 02/05/2007 Fever blisters every 3 months or so Hyperlipidemia Intramural leiomyoma of uterus 07/08/06 LEIOMYOMATA UTERUS INTRAMURAL Irritable colon 12/31/2012 IUD (intrauterine device) in place 07/06/2013 Other and unspecified hyperlipidemia 02/05/2007 Pain in thoracic spine 03/04/2013 Plantar fasciitis 09/25/2010 Surveillance of previously prescribed intrauterine contraceptive device Inserted 09/14/2008 PAST SURGICAL HISTORY Procedure Laterality Date COLONOSCOPY FLX DX W/COLLJ SPEC WHEN PFRMD 12/15/2019 Colonoscopy IUD INSERTION ([employer] SALES REPRESENTATIVE DEPT)_*FL 09/14/08 mirena IUD REMOVAL ([employer] SALES REPRESENTATIVE DEPT)_*FL 09/25/2010,06/2013 Mirena FAMILY HISTORY Problem Relation Age of Onset Hypertension Mother Resolved Lipids Mother Breast Cancer Mother Coronary Artery Disease Father AR age 62 Heart Maternal Grandmother [place], Cancer Maternal Grandfather BL[employer]G,AUTOMOTIVE INTERNET SALES MANAGER Colon Cancer Paternal Grandmother No Known Problems Daughter No Known Problems Daughter Diabetes Maternal Aunt Prostate Cancer Maternal Uncle X-2 Cancer Paternal Aunt Skin Cancer SOCIAL HISTORY Social History Tobacco Use Smoking status: Every Day Packs/day: 1.00 Years: 23.00 Total pack years: 23.00 Types: Cigarettes Start date: 06/09/1994 Smokeless tobacco: Never Vaping Use Vaping Use: Never used Substance Use Topics Alcohol use: Not Currently Comment: Rarely Drug use: No REVIEW OF SYSTEMS Abdomen: No abdominal pain, nausea, vomiting, diarrhea, or constipation. No bloating, early satiety, indigestion, or increased flatulence. Bladder: No dysuria, gross hematuria, urinary frequency, urinary urgency. Positive for stress incontinence Breast: No breast lumps, nipple d/c, overlying skin changes, redness or skin retraction. Allergies and current medication updated:Yes EXAM: BP 110/80 Ht 5' 2 (1.58m) Wt 187 lb (84.8kg) LMP 09/21/2020 BMI 34.19 kg/(m^2). GENERAL: pleasant, female in no apparent distress HEENT: Normocephalic, atraumatic, mucus membranes moist, and no lesions NECK: Supple, full range of motion, and no adenopathy DERMATOLOGY: Normal, without lesions, and non-icteric BREAST: soft, non-tender, symmetric, no dominant mass, normal nipple-areolar complex, no lymphadenopathy, no nipple discharge, and fibrocystic changes CHEST: Normal inspiratory effort ABDOMEN: soft, non-tender, and no masses PELVIC: external genitalia normal, normal Bartholin's glands, urethra, [place]'s glands, no vulvar lesions, no cervical lesions, good vaginal support, physiologic discharge present, normal appearing perineal body and perianal region BIMANUAL: uterus normal size, shape and consistency, no adnexal masses, non-tender, and no cervical motion tenderness RECTOVAGINAL: deferred. NEURO: alert and oriented x3,exam grossly non-focal EXTREMITIES: normal ASSESSMENT/PLAN: 1) Health maintenance: Pap done with HPV. Mammogram ordered- [facility] due to dense breast tissue 2) Contraception: IUD. 3) STD screening: Accepted STD check for Gonorrhea and Chlamydia. 4) Follow up one year or sooner as needed Rubina Holbrook APRN.CNM documented in this encounter [facility] 01-10-2023 Note HNO ID: [id number] Author: Jerrica Plummer APRN.CNP Service: ? Author Type: Nurse Practitioner Type: Progress Notes Filed: 01/10/2023 10:57 AM Note Text: CC: Patient presents with: F/U 3 Month HPI Eveline Eugene is a 42 year old female who presents today for above. Patient denies any concerns today. She had blood work recently that she would like to review today. Requesting referral to [facility] for skin cancer check. She is taking Lipitor 10 mg daily, denies side effects. She was diagnosed with adrenal adenoma a few years ago, needs to follow-up with endocrinology. REVIEW OF SYSTEMS See HPI PAST MEDICAL HISTORY Diagnosis Date Anxiety 08/12/2010 Cervicalgia 03/04/2013 Chlamydia 1997 Depressive disorder, not elsewhere classified 2004 Dysmenorrhea 07/11/2006 Excessive or frequent menstruation Family history of defect 12/05/2011 Patient's brother at 1 month at age from anencephaly Herpes simplex virus (HSV) infection 09/29/2013 Herpes simplex without mention of complication 02/05/2007 Fever blisters every 3 months or so Hyperlipidemia Intramural leiomyoma of uterus 07/08/06 LEIOMYOMATA UTERUS INTRAMURAL Irritable colon 12/31/2012 IUD (intrauterine device) in place 07/06/2013 Other and unspecified hyperlipidemia 02/05/2007 Pain in thoracic spine 03/04/2013 Plantar fasciitis 09/25/2010 Surveillance of previously prescribed intrauterine contraceptive device Inserted 09/14/2008 PAST SURGICAL HISTORY Procedure Laterality Date COLONOSCOPY FLX DX W/COLLJ SPEC WHEN PFRMD 12/15/2019 Colonoscopy IUD INSERTION ([employer] SALES REPRESENTATIVE DEPT)_*FL 09/14/08 mirena IUD REMOVAL (E[employer]S SALES REPRESENTATIVE DEPT)_*FL 09/25/2010,06/2013 Mirena ALLERGIES Hay Fever [Seasonal Allergies] and Lamisil [Terbinafine Hcl] MEDICATIONS atorvastatin (LIPITOR) 10 mg tablet Take 1 tablet by mouth once daily. traZODone (DESYREL) 100 mg tablet Take 1 tablet by mouth daily at bedtime. For sleep. naproxen (NAPROSYN) 500 mg tablet Take 1 tablet by mouth twice daily with meals. cyclobenzaprine (FLEXERIL) 10 mg tablet Take 1 tablet by mouth three times daily as needed. venlafaxine ER (EFFEXOR XR) 150 mg 24 hr capsule Take 1 capsule by mouth once daily. Take with 75 mg capsule td=471 mg daily venlafaxine ER (EFFEXOR XR) 75 mg 24 hr capsule Take 1 capsule by mouth once daily. Take with 150 mg capsule aa=657 mg daily hydrOXYzine HCl (ATARAX) 25 mg tablet Take 1-2 tablets by mouth every 4 hours as needed. levonorgestrel (MIRENA) 20 mcg/24 hours (5-6 yrs) 52 mg IUD 1 Each by INTRAUTERINE route as directed. FAMILY HISTORY Problem Relation Age of Onset Hypertension Mother Resolved Lipids Mother Breast Cancer Mother Coronary Artery Disease Father [place] age 62 Heart Maternal Grandmother [place], Cancer Maternal Grandfather BLACK [employer]UNG,AUTOMOTIVE INTERNET SALES MANAGER Colon Cancer Paternal Grandmother No Known Problems Daughter No Known Problems Daughter Diabetes Maternal Aunt Prostate Cancer Maternal Uncle X-2 Cancer Paternal Aunt Skin Cancer Social History Tobacco Use Smoking status: Every Day Packs/day: 1.00 Years: 23.00 Total pack years: 23.00 Types: Cigarettes Start date: 06/09/1994 Smokeless tobacco: Never Vaping Use Vaping Use: Never used Substance Use Topics Alcohol use: Yes Comment: Rarely Drug use: No PHYSICAL EXAM BP 128/85 Pulse 85 Resp 16 Wt 83 kg (183 lb) LMP 09/21/2020 BMI 32.42 kg/m? General Appearance: well appearing, in no acute distress, alert Pysch: mood and affect broad and appropriate Health maintenance reviewed with patient: PNEUMOCOCCAL(2 - PCV) due on 05/15/2019 COVID-19 VACCINE(4 - Moderna series) due on 01/02/2022 MAMMOGRAM due on 11/08/2022 INFLUENZA(1) due on 02/07/2023 PAP TESTING due on 10/14/2023 HPV TESTING due on 10/14/2023 DTAP,TDAP,TD(5 - Td or Tdap) due on 06/28/2026 COLORECTAL CANCER SCREENING due on 12/14/2029 HEPATITIS B Completed HEPATITIS C SCREENING Completed HIV SCREENING Completed HPV VACCINE Aged Out DATA REVIEWED: Most recent labs Component Latest Ref Rng AND Units 01/08/2023 Protein, Total 6.3 - 8.0 g/dL 7.1 Albumin 3.9 - 4.9 g/dL 4.2 Calcium 8.5 - 10.2 mg/dL 9.7 Bilirubin, Total 0.2 - 1.3 mg/dL 0.2 Alkaline Phosphatase 34 - 123 U/L 91 AST 13 - 35 U/L 13 ALT 7 - 38 U/L 5 (L) Glucose 74 - 99 mg/dL 90 BUN 7 - 21 mg/dL 6 (L) Creatinine 0.58 - 0.96 mg/dL 0.68 Sodium 136 - 144 mmol/L 137 Potassium 3.7 - 5.1 mmol/L 4.0 Chloride 97 - 105 mmol/L 105 CO2 22 - 30 mmol/L 22 Anion Gap 9 - 18 mmol/L 10 eGFR >=60 mL/min/1.73mA? 110 Cholesterol, Total <200 mg/dL 289 (H) Triglyceride <150 mg/dL 362 (H) HDL Cholesterol >39 mg/dL 43 Non HDL Cholesterol <130 mg/dL 246 (H) Fasting Time hrs 12 VLDL Cholesterol <30 mg/dL 72 (H) TC:HDL Ratio <5.10 6.72 (H) LDL Cholesterol <100 mg/dL 174 (H) LDL:HDL Ratio <2.54 4.05 (H) Cortisol 4.8 - 19.5 ug/dL 6.2 ACTH 7.2 - 63.3 pg/mL 9.4 ASSESSMENT/PLAN: 1. Mixed hyper (more content not included)... [facility] 01-10-2023 History of Presen t illness Narrative CC: Patient presents with: F/U 3 Month HPI Eveline Eugene is a 42 year old female who presents today for above. Patient denies any concerns today. She had blood work recently that she would like to review today. Requesting referral to [facility] for skin cancer check. She is taking Lipitor 10 mg daily, denies side effects. She was diagnosed with adrenal adenoma a few years ago, needs to follow-up with endocrinology. REVIEW OF SYSTEMS See HPI PAST MEDICAL HISTORY Diagnosis Date Anxiety 08/12/2010 Cervicalgia 03/04/2013 Chlamydia 1997 Depressive disorder, not elsewhere classified 2004 Dysmenorrhea 07/11/2006 Excessive or frequent menstruation Family history of defect 12/05/2011 Patient's brother at 1 month at age from anencephaly Herpes simplex virus (HSV) infection 09/29/2013 Herpes simplex without mention of complication 02/05/2007 Fever blisters every 3 months or so Hyperlipidemia Intramural leiomyoma of uterus 07/08/06 LEIOMYOMATA UTERUS INTRAMURAL Irritable colon 12/31/2012 IUD (intrauterine device) in place 07/06/2013 Other and unspecified hyperlipidemia 02/05/2007 Pain in thoracic spine 03/04/2013 Plantar fasciitis 09/25/2010 Surveillance of previously prescribed intrauterine contraceptive device Inserted 09/14/2008 PAST SURGICAL HISTORY Procedure Laterality Date COLONOSCOPY FLX DX W/COLLJ SPEC WHEN PFRMD 12/15/2019 Colonoscopy IUD INSERTION ([employer]ENT[employer]IVE DEPT)_*[place] 09/14/08 mirena IUD REMOVAL (E[employer] SALES REPRESENTATIVE DEPT)_*[place] 09/25/2010,06/2013 Mirena ALLERGIES Hay Fever [Seasonal Allergies] and Lamisil [Terbinafine Hcl] MEDICATIONS atorvastatin (LIPITOR) 10 mg tablet Take 1 tablet by mouth once daily. traZODone (DESYREL) 100 mg tablet Take 1 tablet by mouth daily at bedtime. For sleep. naproxen (NAPROSYN) 500 mg tablet Take 1 tablet by mouth twice daily with meals. cyclobenzaprine (FLEXERIL) 10 mg tablet Take 1 tablet by mouth three times daily as needed. venlafaxine ER (EFFEXOR XR) 150 mg 24 hr capsule Take 1 capsule by mouth once daily. Take with 75 mg capsule yq=653 mg daily venlafaxine ER (EFFEXOR XR) 75 mg 24 hr capsule Take 1 capsule by mouth once daily. Take with 150 mg capsule vx=869 mg daily hydrOXYzine HCl (ATARAX) 25 mg tablet Take 1-2 tablets by mouth every 4 hours as needed. levonorgestrel (MIRENA) 20 mcg/24 hours (5-6 yrs) 52 mg IUD 1 Each by INTRAUTERINE route as directed. FAMILY HISTORY Problem Relation Age of Onset Hypertension Mother Resolved Lipids Mother Breast Cancer Mother Coronary Artery Disease Father AR age 62 Heart Maternal Grandmother [place], Cancer Maternal Grandfather BLACK LUNG,AUTOMOTIVE INTERNET SALES MANAGER Colon Cancer Paternal Grandmother No Known Problems Daughter No Known Problems Daughter Diabetes Maternal Aunt Prostate Cancer Maternal Uncle X-2 Cancer Paternal Aunt Skin Cancer Social History Tobacco Use Smoking status: Every Day Packs/day: 1.00 Years: 23.00 Total pack years: 23.00 Types: Cigarettes Start date: 06/09/1994 Smokeless tobacco: Never Vaping Use Vaping Use: Never used Substance Use Topics Alcohol use: Yes Comment: Rarely Drug use: No PHYSICAL EXAM BP 128/85 Pulse 85 Resp 16 Wt 83 kg (183 lb) LMP 09/21/2020 BMI 32.42 kg/m General Appearance: well appearing, in no acute distress, alert Pysch: mood and affect broad and appropriate Health maintenance reviewed with patient: PNEUMOCOCCAL(2 - PCV) due on 05/15/2019 COVID-19 VACCINE(4 - Moderna series) due on 01/02/2022 MAMMOGRAM due on 11/08/2022 INFLUENZA(1) due on 02/07/2023 PAP TESTING due on 10/14/2023 HPV TESTING due on 10/14/2023 DTAP,TDAP,TD(5 - Td or Tdap) due on 06/28/2026 COLORECTAL CANCER SCREENING due on 12/14/2029 HEPATITIS B Completed HEPATITIS C SCREENING Completed HIV SCREENING Completed HPV VACCINE Aged Out DATA REVIEWED: Most recent labs Component Latest Ref Rng & Units 01/08/2023 Protein, Total 6.3 - 8.0 g/dL 7.1 Albumin 3.9 - 4.9 g/dL 4.2 Calcium 8.5 - 10.2 mg/dL 9.7 Bilirubin, Total 0.2 - 1.3 mg/dL 0.2 Alkaline Phosphatase 34 - 123 U/L 91 AST 13 - 35 U/L 13 ALT 7 - 38 U/L 5 (L) Glucose 74 - 99 mg/dL 90 BUN 7 - 21 mg/dL 6 (L) Creatinine 0.58 - 0.96 mg/dL 0.68 Sodium 136 - 144 mmol/L 137 Potassium 3.7 - 5.1 mmol/L 4.0 Chloride 97 - 105 mmol/L 105 CO2 22 - 30 mmol/L 22 Anion Gap 9 - 18 mmol/L 10 eGFR >=60 mL/min/1.73m 110 Cholesterol, Total <200 mg/dL 289 (H) Triglyceride <150 mg/dL 362 (H) HDL Cholesterol >39 mg/dL 43 Non HDL Cholesterol <130 mg/dL 246 (H) Fasting Time hrs 12 VLDL Cholesterol <30 mg/dL 72 (H) TC:HDL Ratio <5.10 6.72 (H) LDL Cholesterol <100 mg/dL 174 (H) LDL:HDL Ratio <2.54 4.05 (H) Cortisol 4.8 - 19.5 ug/dL 6.2 ACTH 7.2 - 63.3 pg/mL 9.4 ASSESSMENT/PLAN: 1. Mixed hyperlipidemia - ICD9: 272.2, ICD10: E78.2 (primary diagnosis) - Worsening control - Increase Lipitor to 20 mg daily - Counseled on healthy diet and regular exercise - Discussed need for and benefit of weight loss. BMI 32.42 kg/(m^2) - ATORVASTATIN 20 MG TABLET 2. Adrenal adenoma, right - ICD9: 227.0, ICD10: D35.01 Metanephrines result pending, ACTH and cortisol normal 3. Screening exam for skin cancer - ICD9: V76.43, ICD10: Z12.83 - CONSULT TO DERMATOLOGY 4. Encounter for immunization - ICD9: V03.89, ICD10: Z23 - PNEUMOCOCCAL VACCINE (PREVNAR 20) Prescription instructions reviewed with patient as applicable. Potential red flag symptoms discussed with the patient. Reviewed appropriate action plan to take if red flag symptoms occur. Patient agreeable to treatment plan. During this patient visit I have spent approximately 20 minutes in counseling regarding test results and coordinating care. Jerrica Plummer APRN.GEORGINA documented in this encounter [facility] 12-11-2022 Note Patient Outreach (IN [facility]) EVELINE EUGENE ([id number]) 1980 F Date Time Provider Department 12/11/22 ARSENIO YUN During your visit today, we recorded the following information about you: Allergies As of Date: 12/11/2022 Noted Allergy Reaction HAY FEVER (SEASONAL ALLERGIES) 11/10/2017 14 - Other: See Comments LAMISIL (TERBINAFINE HCL) 08/06/2007 4 - Hives Date Reviewed: 08/23/2022 Reviewed by: Avelina Pete LPN - Fully Assessed Visit Diagnosis:Encounter for screening mammogram for breast cancer [Z12.31] Order(s):[facility] SCREENING [[id number]] Order #: [id number] FUTURE Prescriptions as of 12/16/2022 - traZODone (DESYREL) 100 mg tablet Take 1 tablet by mouth daily at bedtime. For sleep. - predniSONE (DELTASONE) 10 mg tablet TAKE BY MOUTH 4 TABLETS DAILY FOR 2 DAYS, THEN 3 TABLETS DAILY FOR 2 DAYS, THEN 2 TABLETS DAILY FOR 2 DAYS, THEN 1 TABLET DAILY FOR 2 DAYS. - ondansetron orally disintegrating (ZOFRAN ODT) 4 mg disintegrating tablet Take 1 tablet by mouth every 6 hours as needed for nausea/vomiting. - naproxen (NAPROSYN) 500 mg tablet Take 1 tablet by mouth twice daily with meals. - cyclobenzaprine (FLEXERIL) 10 mg tablet Take 1 tablet by mouth three times daily as needed. - atorvastatin (LIPITOR) 10 mg tablet Take 1 tablet by mouth once daily. - venlafaxine ER (EFFEXOR XR) 150 mg 24 hr capsule Take 1 capsule by mouth once daily. Take with 75 mg capsule cj=416 mg daily - venlafaxine ER (EFFEXOR XR) 75 mg 24 hr capsule Take 1 capsule by mouth once daily. Take with 150 mg capsule ni=043 mg daily - hydrOXYzine HCl (ATARAX) 25 mg tablet Take 1-2 tablets by mouth every 4 hours as needed. - levonorgestrel (MIRENA) 20 mcg/24 hours (5-6 yrs) 52 mg IUD 1 Each by INTRAUTERINE route as directed. - valACYclovir (VALTREX) 1 gram tab Take two (2) tablets every 12 hours for one day, as directed. Problem List As Of Date 12/11/2022 Noted Resolved Dysmenorrhea [N94.6] 07/11/2006 09/26/2014 Herpes simplex without mention of complication *02/05/2007 01/23/2012 Mixed hyperlipidemia [E78.2] 02/05/2007 Rectal bleeding [K62.5] 10/15/2010 Calcaneal spur [M77.30] 02/16/2010 12/18/2010 Plantar fasciitis [M72.2] 09/25/2010 09/07/2011 Anxiety [F41.9] 08/12/2010 Tobacco use disorder [F17.200] 10/15/2010 History of hemorrhoids [Z87.19] 12/05/2011 09/26/2014 Patient requested diagnostic testing [Z01.89] 12/05/2011 09/26/2014 IUD (intrauterine device) in place [Z97.5] 07/06/2013 05/15/2018 Herpes simplex virus (HSV) infection [B00.9] 09/29/2013 11/15/2020 Hip pain, bilateral [M25.551, M25.552] 06/28/2016 10/28/2018 Adrenal adenoma, right [D35.01] 08/26/2019 Obesity, Class I, BMI 30-34.9 [E66.9] 11/07/2021 Reactive depression [F32.9] 08/23/2022 Encounter Status:Closed by EPIC, PRODUSER on 12/16/22 [facility] 10-03-2022 Note HNO ID: [id number] Author: Arsenio Yun MD Service: ? Author Type: Physician Type: Progress Notes Filed: 10/03/2022 7:56 PM Note Text: This note was created using Egr Renovationriter. Subjective Eveline Eugene is a 42 year old female. She moved on to another job and was feeling much better. Her lipids needed checked. She had a right adrenal adenoma with no follow up since 2019. She broke out in a rash one week ago, itchy. She suspected this was from a new conditioner. Her children had no rashes, and there were no bugs or bug bites. Review of Systems Constitutional: Negative. Negative for fatigue. Respiratory: Negative. Cardiovascular: Negative. Psychiatric/Behavioral: Negative for decreased concentration, dysphoric mood and sleep disturbance. The patient is not nervous/anxious. ACTIVE PROBLEM LIST Mixed Hyperlipidemia Anxiety Tobacco Use Disorder Adrenal Adenoma, Right Obesity, Class I, Bmi 30-34.9 Reactive Depression Current Outpatient Medications Medication Sig ondansetron orally disintegrating (ZOFRAN ODT) 4 mg disintegrating tablet Take 1 tablet by mouth every 6 hours as needed for nausea/vomiting. naproxen (NAPROSYN) 500 mg tablet Take 1 tablet by mouth twice daily with meals. cyclobenzaprine (FLEXERIL) 10 mg tablet Take 1 tablet by mouth three times daily as needed. traZODone (DESYREL) 100 mg tablet Take 1 tablet by mouth daily at bedtime. For sleep. atorvastatin (LIPITOR) 10 mg tablet Take 1 tablet by mouth once daily. venlafaxine ER (EFFEXOR XR) 150 mg 24 hr capsule Take 1 capsule by mouth once daily. Take with 75 mg capsule ub=687 mg daily venlafaxine ER (EFFEXOR XR) 75 mg 24 hr capsule Take 1 capsule by mouth once daily. Take with 150 mg capsule zp=375 mg daily hydrOXYzine HCl (ATARAX) 25 mg tablet Take 1-2 tablets by mouth every 4 hours as needed. levonorgestrel (MIRENA) 20 mcg/24 hours (5-6 yrs) 52 mg IUD 1 Each by INTRAUTERINE route as directed. valACYclovir (VALTREX) 1 gram tab Take two (2) tablets every 12 hours for one day, as directed. No current facility-administered medications for this visit. Objective BP 110/78 Pulse 80 Temp 36.6 ?C (97.8 ?F) (Left Tympanic) Resp 16 Wt 83.7 kg (184 lb 9.6 oz) LMP 09/21/2020 SpO2 95% BMI 32.70 kg/m? Physical Exam Constitutional: Appearance: Normal appearance. Pulmonary: Effort: Pulmonary effort is normal. Skin: Comments: Erythematous papules, discrete, in upper and lower extremities, no drainage. Neurological: Mental Status: She is alert. Psychiatric: Mood and Affect: Mood normal. Behavior: Behavior normal. Thought Content: Thought content normal. CP PHQ9 10/03/2022 Little interest or pleasure 0 - Not at all Feeling down, depressed, hopeless 0 - Not at all Trouble falling or staying asleep, sleeping too much 1 - Several days Feeling tired, having little energy 1 - Several days Poor appetite or overeating 0 - Not at all Feeling bad about yourself, failure or you have let yourself/family down 0 - Not at all Trouble concentrating on things 0 - Not at all Moving or speaking so slowly, or fidgety or restless 0 - Not at all Thoughts that you would be better off , or of hurting yourself in some way 0 - Not at all How difficult have these problems made things Not difficult at all Interpretation of Total Score 1-4 Minimal depression ANJU-7 ANXIETY SCALE 10/03/2022 FEELING NERVOUS,ANXIOUS,OR ON EDGE 0 Not at all sure NOT BEING ABLE TO STOP OR CONTROL WORRYING 0 Not at all sure WORRYING TOO MUCH ABOUT DIFFERENT THINGS 0 Not at all sure TROUBLE RELAXING 0 Not at all sure BEING SO RESTLESS THAT IT'S HARD TO SIT STILL 0 Not at all sure BEING EASILY ANNOYED OR IRRITABLE 0 Not at all sure FEELING AFRAID IF SOMETHING AWFUL MIGHT HAPPEN 0 Not at all sure GAD7 SCORE 0 IF YOU CHECKED OFF ANY PROBLEMS Assessment and Plan 1. Reactive depression - ICD9: 300.4, ICD10: F32.9 (primary diagnosis) Controlled. 2. Mixed hyperlipidemia - ICD9: 272.2, ICD10: E78.2 - to be determined upon return of lab results - Continue current medication. - COMP METABOLIC PANEL - LIPID PANEL BASIC 3. Rash and nonspecific skin eruption - ICD9: 782.1, ICD10: R21 Discussed medication dosage, usage, goals of therapy, and side effects. - PREDNISONE 10 MG TABLET 4. Adrenal adenoma, right - ICD9: 227.0, ICD10: D35.01 Reevaluate for next visit. - CORTISOL BLD - ACTH BLD - METANEPHRINES, FREE PLASMA Arsenio Yun MD [facility] 10-03-2022 History of Presen t illness Narrative This note was created using Egr [employer]ovation[employer]. Subjective Eveline Eugene is a 42 year old female. She moved on to another job and was feeling much better. Her lipids needed checked. She had a right adrenal adenoma with no follow up since 2019. She broke out in a rash one week ago, itchy. She suspected this was from a new conditioner. Her children had no rashes, and there were no bugs or bug bites. Review of Systems Constitutional: Negative. Negative for fatigue. Respiratory: Negative. Cardiovascular: Negative. Psychiatric/Behavioral: Negative for decreased concentration, dysphoric mood and sleep disturbance. The patient is not nervous/anxious. ACTIVE PROBLEM LIST Mixed Hyperlipidemia Anxiety Tobacco Use Disorder Adrenal Adenoma, Right Obesity, Class I, Bmi 30-34.9 Reactive Depression Current Outpatient Medications Medication Sig ondansetron orally disintegrating (ZOFRAN ODT) 4 mg disintegrating tablet Take 1 tablet by mouth every 6 hours as needed for nausea/vomiting. naproxen (NAPROSYN) 500 mg tablet Take 1 tablet by mouth twice daily with meals. cyclobenzaprine (FLEXERIL) 10 mg tablet Take 1 tablet by mouth three times daily as needed. traZODone (DESYREL) 100 mg tablet Take 1 tablet by mouth daily at bedtime. For sleep. atorvastatin (LIPITOR) 10 mg tablet Take 1 tablet by mouth once daily. venlafaxine ER (EFFEXOR XR) 150 mg 24 hr capsule Take 1 capsule by mouth once daily. Take with 75 mg capsule wz=739 mg daily venlafaxine ER (EFFEXOR XR) 75 mg 24 hr capsule Take 1 capsule by mouth once daily. Take with 150 mg capsule oz=855 mg daily hydrOXYzine HCl (ATARAX) 25 mg tablet Take 1-2 tablets by mouth every 4 hours as needed. levonorgestrel (MIRENA) 20 mcg/24 hours (5-6 yrs) 52 mg IUD 1 Each by INTRAUTERINE route as directed. valACYclovir (VALTREX) 1 gram tab Take two (2) tablets every 12 hours for one day, as directed. No current facility-administered medications for this visit. Objective BP 110/78 Pulse 80 Temp 36.6 C (97.8 F) (Left Tympanic) Resp 16 Wt 83.7 kg (184 lb 9.6 oz) LMP 09/21/2020 SpO2 95% BMI 32.70 kg/m Physical Exam Constitutional: Appearance: Normal appearance. Pulmonary: Effort: Pulmonary effort is normal. Skin: Comments: Erythematous papules, discrete, in upper and lower extremities, no drainage. Neurological: Mental Status: She is alert. Psychiatric: Mood and Affect: Mood normal. Behavior: Behavior normal. Thought Content: Thought content normal. CP PHQ9 10/03/2022 Little interest or pleasure 0 - Not at all Feeling down, depressed, hopeless 0 - Not at all Trouble falling or staying asleep, sleeping too much 1 - Several days Feeling tired, having little energy 1 - Several days Poor appetite or overeating 0 - Not at all Feeling bad about yourself, failure or you have let yourself/family down 0 - Not at all Trouble concentrating on things 0 - Not at all Moving or speaking so slowly, or fidgety or restless 0 - Not at all Thoughts that you would be better off , or of hurting yourself in some way 0 - Not at all How difficult have these problems made things Not difficult at all Interpretation of Total Score 1-4 Minimal depression ANJU-7 ANXIETY SCALE 10/03/2022 FEELING NERVOUS,ANXIOUS,OR ON EDGE 0 Not at all sure NOT BEING ABLE TO STOP OR CONTROL WORRYING 0 Not at all sure WORRYING TOO MUCH ABOUT DIFFERENT THINGS 0 Not at all sure TROUBLE RELAXING 0 Not at all sure BEING SO RESTLESS THAT IT'S HARD TO SIT STILL 0 Not at all sure BEING EASILY ANNOYED OR IRRITABLE 0 Not at all sure FEELING AFRAID IF SOMETHING AWFUL MIGHT HAPPEN 0 Not at all sure GAD7 SCORE 0 IF YOU CHECKED OFF ANY PROBLEMS Assessment and Plan 1. Reactive depression - ICD9: 300.4, ICD10: F32.9 (primary diagnosis) Controlled. 2. Mixed hyperlipidemia - ICD9: 272.2, ICD10: E78.2 - to be determined upon return of lab results - Continue current medication. - COMP METABOLIC PANEL - LIPID PANEL BASIC 3. Rash and nonspecific skin eruption - ICD9: 782.1, ICD10: R21 Discussed medication dosage, usage, goals of therapy, and side effects. - PREDNISONE 10 MG TABLET 4. Adrenal adenoma, right - ICD9: 227.0, ICD10: D35.01 Reevaluate for next visit. - CORTISOL BLD - ACTH BLD - METANEPHRINES, FREE PLASMA Arsenio Yun MD documented in this encounter [facility] 09-30-2022 Miscellaneous Notes Spoke to Patient, she missed her appt, 09/23/2022, rescheduled 10/03/2022. Dr. Yun to refill at appt. Charu Sunshine LPN documented in this encounter [facility] 08-30-2022 Miscellaneous Notes Rec'd fax from [facility] for attending physician's statement for disability claim. To pcp to review. documented in this encounter [facility] 08-30-2022 Note HNO ID: [id number] Author: GIBRAN Ken Service: ? Author Type: Education Courses Sales Representative Type: Progress Notes Filed: 08/30/2022 8:23 AM Note Text: Behavioral Health Social Work Progress Note Patient identified for [facility] from: PCP Reason for referral: Resources Behavioral Health Resources: Psychology - talk therapy, Psychiatry med management [facility] encounter type: MyChart Message Attempts to Outreach: 3 attempts Referral made: Psychiatry - Internal, Psychiatry - External, Psychology - Internal, Psychology - External Psychiatry-Internal referral type: Medication Management Psychology-Internal referral type: Therapy Psychology-External referral type: Therapy Psychiatry-External referral type: Medication Management Reason for external referral: Wait times at [facility] too long Final Disposition: Resources given Patient Discharged?: Yes Patient reported that caregiver was able to meet their needs today?: N/A Patient read Edkimo message with requested resources by PCP. [facility] sent follow-up message to see if any additional questions or concerns exist and if they were able to set up an appointment with a provider. GIBRAN Ken ACM-SW August 30, 2022 [facility] 08-30-2022 History of Presen t illness Narrative Behavioral Health Social Work Progress Note Patient identified for [facility] from: PCP Reason for referral: [facility] Behavioral Health Resources: Psychology - talk therapy, Psychiatry med management [facility] encounter type: Edkimo Message Attempts to Outreach: 3 attempts Referral made: Psychiatry - Internal, Psychiatry - External, Psychology - Internal, Psychology - External Psychiatry-Internal referral type: Medication Management Psychology-Internal referral type: Therapy Psychology-External referral type: Therapy Psychiatry-External referral type: Medication Management Reason for external referral: Wait times at [facility] too long Final Disposition: Resources given Patient Discharged?: Yes Patient reported that caregiver was able to meet their needs today?: N/A Patient read Edkimo message with requested resources by PCP. [facility] sent follow-up message to see if any additional questions or concerns exist and if they were able to set up an appointment with a provider. GIBRAN Ken ACM-SW August 30, 2022 documented in this encounter [facility] 08-23-2022 Note HNO ID: [id number] Author: Arsenio Yun MD Service: ? Author Type: Physician Type: Progress Notes Filed: 08/25/2022 4:40 PM Note Text: This note was created using Layer. Subjective Eveline Eugene is a 42 year old female. She was dealing with acute depression and anxiety from stressors at work. She had been working overtime since fall in anticipation of a promotion, only to be bypassed. She tried working 08/20 but had to call off. She felt anxious about returning to work, depressed, and fatigued. She was trying to catch up on her home chores as well. She was considering short term disability for one month or FMLA. Review of Systems Constitutional: Positive for appetite change and fatigue. Respiratory: Negative. Cardiovascular: Negative. Gastrointestinal: Negative. Neurological: Negative. Psychiatric/Behavioral: Positive for decreased concentration, dysphoric mood and sleep disturbance. Negative for self-injury and suicidal ideas. The patient is nervous/anxious. ACTIVE PROBLEM LIST Mixed Hyperlipidemia Anxiety Tobacco Use Disorder Adrenal Adenoma, Right Obesity, Class I, Bmi 30-34.9 Reactive Depression Social History Tobacco Use Smoking status: Every Day Packs/day: 1.00 Years: 23.00 Pack years: 23.00 Types: Cigarettes Start date: 06/09/1994 Smokeless tobacco: Never Vaping Use Vaping Use: Never used Substance Use Topics Alcohol use: Yes Comment: Rarely Drug use: No Current Outpatient Medications Medication Sig ondansetron orally disintegrating (ZOFRAN ODT) 4 mg disintegrating tablet Take 1 tablet by mouth every 6 hours as needed for nausea/vomiting. naproxen (NAPROSYN) 500 mg tablet Take 1 tablet by mouth twice daily with meals. cyclobenzaprine (FLEXERIL) 10 mg tablet Take 1 tablet by mouth three times daily as needed. traZODone (DESYREL) 100 mg tablet Take 1 tablet by mouth daily at bedtime. For sleep. atorvastatin (LIPITOR) 10 mg tablet Take 1 tablet by mouth once daily. venlafaxine ER (EFFEXOR XR) 150 mg 24 hr capsule Take 1 capsule by mouth once daily. Take with 75 mg capsule ku=017 mg daily venlafaxine ER (EFFEXOR XR) 75 mg 24 hr capsule Take 1 capsule by mouth once daily. Take with 150 mg capsule qe=195 mg daily hydrOXYzine HCl (ATARAX) 25 mg tablet Take 1-2 tablets by mouth every 4 hours as needed. levonorgestrel (MIRENA) 20 mcg/24 hours (5-6 yrs) 52 mg IUD 1 Each by INTRAUTERINE route as directed. valACYclovir (VALTREX) 1 gram tab Take two (2) tablets every 12 hours for one day, as directed. ALPRAZolam (XANAX) 0.25 mg tablet Take 1 tablet by mouth twice daily as needed for anxiety for up to 7 days. No current facility-administered medications for this visit. Objective BP (P) 122/84 (BP Site: Left Arm, BP Position: Sitting, BP Cuff Size: Large Adult) Pulse (P) 90 Wt (P) 82.6 kg (182 lb) LMP 09/21/2020 BMI (P) 32.24 kg/m? Physical Exam Constitutional: Appearance: She is not ill-appearing. Pulmonary: Effort: Pulmonary effort is normal. Neurological: Mental Status: She is alert and oriented to person, place, and time. Psychiatric: Attention and Perception: Attention normal. Mood and Affect: Mood is depressed. Speech: Speech normal. Behavior: Behavior normal. Thought Content: Thought content does not include suicidal ideation. Thought content does not include homicidal or suicidal plan. ANJU-7 ANXIETY SCALE 08/23/2022 FEELING NERVOUS,ANXIOUS,OR ON EDGE 3 Nearly every day NOT BEING ABLE TO STOP OR CONTROL WORRYING 3 Nearly every day WORRYING TOO MUCH ABOUT DIFFERENT THINGS 3 Nearly every day TROUBLE RELAXING 2 Over half the days BEING SO RESTLESS THAT IT'S HARD TO SIT STILL 2 Over half the days BEING EASILY ANNOYED OR IRRITABLE 3 Nearly every day FEELING AFRAID IF SOMETHING AWFUL MIGHT HAPPEN 2 Over half the days GAD7 SCORE 18 IF YOU CHECKED OFF ANY PROBLEMS Very difficult CP PHQ9 08/23/2022 Little interest or pleasure 2 - More than half the days Feeling down, depressed, hopeless 2 - More than half the days Trouble falling or staying asleep, sleeping too much 3 - nearly every day Feeling tired, having little energy 3 - Nearly every day Poor appetite or overeating 3 - Nearly every day Feeling bad about yourself, failure or you have let yourself/family down 3 - Nearly every day Trouble concentrating on things 2 - More than half the days Moving or speaking so slowly, or fidgety or restless 2 - More than half the days Thoughts that you would be better off , or of hurting yourself in some way 0 - Not at all How difficult have these problems made things Very difficult Interpretation of Total Score 20-27 Severe depression Assessment and Plan 1. Reactive depression - ICD9: 300.4, ICD10: F32.9 (primary diagnosis) - She is already on two medications. We agreed referral for counseling and product demonstrator. Verbal contract for patient safety was agreed upon. - CONSULT (more content not included)... [facility] 08-23-2022 Miscellaneous Notes Behavioral Health Social Work Progress Note Patient identified for [facility] from: PCP Reason for referral: Resources Behavioral Health Resources: Psychiatry med management, Psychology - talk therapy [facility] encounter type: Telephone Encounter Attempts to Outreach: 1 attempt Referral made: Psychiatry - Internal, Psychiatry - External, Psychology - Internal, Psychology - External Psychiatry-Internal referral type: Medication Management Psychology-Internal referral type: Therapy Psychology-External referral type: Therapy Psychiatry-External referral type: Medication Management Reason for external referral: Wait times at [facility] too long Final Disposition: Unable to reach Patient Discharged?: No Patient reported that caregiver was able to meet their needs today?: N/A Phone call placed today that went to [facility]. Left my contact information and brief nature of call. Initial outreach also completed via [employer] sending list of in network providers with insurance. These include: [facility] Virtual appointments only for insurances [phone] [email or web address] [facility] [address] [place] [address] [facility] [address] [place] [address] [address] [address] [facility] [address] [place] [address] *[facility] [address] [place] [address] GIBRAN Ken, M-SW August 23, 2022 documented in this encounter [facility] 07-31-2022 Note HNO ID: [id number] Author: Jerrica Plummer APRN.GEORGINA Service: ? Author Type: Nurse Practitioner Type: Progress Notes Filed: 07/31/2022 3:32 PM Note Text: CC: Patient presents with: bowel changes and nausea x 1 week HPI Eveline Eugene is a 42 year old female who presents today for above. Patient reports nausea and bowel changes x 1 week. Stools are anywhere form softly formed to runny. Associated with heartburn a few times this week. Denies vomiting, abdominal pain, bloating, black/bloody stools, rectal pain, straining with BM's. No new medications or dietary changes. No recent antibiotics or illnesses. Multiple stressors this past year. Inadequate fiber and water intake. Sedentary lifestyle. Chronic issues with diarrhea after eating a meal occurring at least times a week. She had diagnostic colonoscopy in 2019 due to blood in stools and diarrhea. No abnormal findings. REVIEW OF SYSTEMS GENERAL: Negative for malaise, significant weight loss, fever, night sweats PAST MEDICAL HISTORY Diagnosis Date Anxiety 08/12/2010 Cervicalgia 03/04/2013 Chlamydia 1997 Depressive disorder, not elsewhere classified 2004 Dysmenorrhea 07/11/2006 Excessive or frequent menstruation Family history of defect 12/05/2011 Patient's brother at 1 month at age from anencephaly Herpes simplex virus (HSV) infection 09/29/2013 Herpes simplex without mention of complication 02/05/2007 Fever blisters every 3 months or so Hyperlipidemia Intramural leiomyoma of uterus 07/08/06 LEIOMYOMATA UTERUS INTRAMURAL Irritable colon 12/31/2012 IUD (intrauterine device) in place 07/06/2013 Other and unspecified hyperlipidemia 02/05/2007 Pain in thoracic spine 03/04/2013 Plantar fasciitis 09/25/2010 Surveillance of previously prescribed intrauterine contraceptive device Inserted 09/14/2008 PAST SURGICAL HISTORY Procedure Laterality Date COLONOSCOPY FLX DX W/COLLJ SPEC WHEN PFRMD 12/15/2019 Colonoscopy IUD INSERTION ([employer]ES REPRESENT[employer]IVE DEPT)_*FL 09/14/08 mirena 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 cyclobenzaprine (FLEXERIL) 10 mg tablet Take 1 tablet by mouth three times daily as needed. traZODone (DESYREL) 100 mg tablet Take 1 tablet by mouth daily at bedtime. For sleep. atorvastatin (LIPITOR) 10 mg tablet Take 1 tablet by mouth once daily. venlafaxine ER (EFFEXOR XR) 150 mg 24 hr capsule Take 1 capsule by mouth once daily. Take with 75 mg capsule at=833 mg daily venlafaxine ER (EFFEXOR XR) 75 mg 24 hr capsule Take 1 capsule by mouth once daily. Take with 150 mg capsule gw=426 mg daily hydrOXYzine HCl (ATARAX) 25 mg tablet Take 1-2 tablets by mouth every 4 hours as needed. levonorgestrel (MIRENA) 20 mcg/24 hours (5-6 yrs) 52 mg IUD 1 Each by INTRAUTERINE route as directed. valACYclovir (VALTREX) 1 gram tab Take two (2) tablets every 12 hours for one day, as directed. HYDROcodone-acetaminophen (NORCO) 5-325 mg per tablet Take 1 tablet by mouth. 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 General Appearance: well appearing, in no acute distress, alert Lungs: Lungs clear to auscultation. No wheezing, rhonchi, rales. Heart: RRR without murmur, gallop, or rubs. No ectopy Abdomen: Soft, non-distended. mild lower abdominal tenderness with palpation. No guarding or rebound tenderness. Bowel sounds normal and active. No masses, organomegaly but difficult exam due to body habitus DATA REVIEWED: Most recent colonoscopy ASSESSMENT/PLAN: 1. Change in consistency of stool - ICD9: 787.7, ICD10: R19.5 (primary diagnosis) No alarm symptoms or exam findings. Colonoscopy 3 years ago normal. Recommend increasing activity level, fiber and fluid intake; see patient instructions . Follow-up in two weeks if symptoms are not improving. 2. Nausea - ICD9: 787.02, ICD10: R11.0 Zofran as needed for nausea. Prescription instructions reviewed with patient as applicable. Potential red flag symptoms discussed with (more content not included)... [facility] 07-31-2022 Instructions Jerrica Plummer APRN.CNP - 07/31/2022 3:19 PM EST 1. Increase your intake of fluids daily. Try to include 8 - 8 ounce glasses per day. Sip on fluids throughout the day. 2. Add more fiber to your diet. The recommended daily amount of fiber is 20 to 35 grams. If you are increasing your fiber intake do so slowly to avoid bloating and discomfort. The best source of fiber comes from foods. Examples of high fiber foods include whole grain breads and cereals, fruits (berries, prunes, oranges, etc) and vegetables (lettuce, broccoli, potato with skins, etc.). There are also fiber supplements available over the counter such as Metamucil or Benefiber 3. Increase your daily activity (walking, etc) 4. Set aside a time preferably around the same time each day (example: right after breakfast) to move bowels. 5. Take Pepcid as needed for heartburn symptoms Let me know in two weeks if your symptoms are not improving. Go to ER if you develop severe abdominal pain, vomiting that won't stop, fever above 100.5, rigid/hard abdomen. documented in this encounter [facility] 07-31-2022 History of Presen t illness Narrative CC: Patient presents with: bowel changes and nausea x 1 week HPI Eveline Eugene is a 42 year old female who presents today for above. Patient reports nausea and bowel changes x 1 week. Stools are anywhere form softly formed to runny. Associated with heartburn a few times this week. Denies vomiting, abdominal pain, bloating, black/bloody stools, rectal pain, straining with BM's. No new medications or dietary changes. No recent antibiotics or illnesses. Multiple stressors this past year. Inadequate fiber and water intake. Sedentary lifestyle. Chronic issues with diarrhea after eating a meal occurring at least times a week. She had diagnostic colonoscopy in 2019 due to blood in stools and diarrhea. No abnormal findings. REVIEW OF SYSTEMS GENERAL: Negative for malaise, significant weight loss, fever, night sweats PAST MEDICAL HISTORY Diagnosis Date Anxiety 08/12/2010 Cervicalgia 03/04/2013 Chlamydia 1997 Depressive disorder, not elsewhere classified 2004 Dysmenorrhea 07/11/2006 Excessive or frequent menstruation Family history of defect 12/05/2011 Patient's brother at 1 month at age from anencephaly Herpes simplex virus (HSV) infection 09/29/2013 Herpes simplex without mention of complication 02/05/2007 Fever blisters every 3 months or so Hyperlipidemia Intramural leiomyoma of uterus 07/08/06 LEIOMYOMATA UTERUS INTRAMURAL Irritable colon 12/31/2012 IUD (intrauterine device) in place 07/06/2013 Other and unspecified hyperlipidemia 02/05/2007 Pain in thoracic spine 03/04/2013 Plantar fasciitis 09/25/2010 Surveillance of previously prescribed intrauterine contraceptive device Inserted 09/14/2008 PAST SURGICAL HISTORY Procedure Laterality Date COLONOSCOPY FLX DX W/COLLJ SPEC WHEN PFRMD 12/15/2019 Colonoscopy IUD INSERTION ([employer] REPRESENT[employer]IVE DEPT)_*FL 09/14/08 mirena 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 cyclobenzaprine (FLEXERIL) 10 mg tablet Take 1 tablet by mouth three times daily as needed. traZODone (DESYREL) 100 mg tablet Take 1 tablet by mouth daily at bedtime. For sleep. atorvastatin (LIPITOR) 10 mg tablet Take 1 tablet by mouth once daily. venlafaxine ER (EFFEXOR XR) 150 mg 24 hr capsule Take 1 capsule by mouth once daily. Take with 75 mg capsule iw=309 mg daily venlafaxine ER (EFFEXOR XR) 75 mg 24 hr capsule Take 1 capsule by mouth once daily. Take with 150 mg capsule mp=107 mg daily hydrOXYzine HCl (ATARAX) 25 mg tablet Take 1-2 tablets by mouth every 4 hours as needed. levonorgestrel (MIRENA) 20 mcg/24 hours (5-6 yrs) 52 mg IUD 1 Each by INTRAUTERINE route as directed. valACYclovir (VALTREX) 1 gram tab Take two (2) tablets every 12 hours for one day, as directed. HYDROcodone-acetaminophen (NORCO) 5-325 mg per tablet Take 1 tablet by mouth. (Patient not taking: Reported on 07/31/2022) FAMILY HISTORY Problem Relation Age of Onset Hypertension Mother Resolved Lipids Mother Breast Cancer Mother Coronary Artery Disease Father AR age 62 Heart Maternal Grandmother AR, Cancer Maternal Grandfather BLACK LUNG,AUTOMOTIVE INTERNET SALES MANAGER Colon Cancer Paternal Grandmother No Known Problems Daughter No Known Problems Daughter Diabetes Maternal Aunt Prostate Cancer Maternal Uncle X-2 Cancer Paternal Aunt Skin Cancer Social History Tobacco Use Smoking status: Every Day Packs/day: 1.00 Years: 23.00 Pack years: 23.00 Types: Cigarettes Start date: 06/09/1994 Smokeless tobacco: Never Vaping Use Vaping Use: Never used Substance Use Topics Alcohol use: Yes Comment: Rarely Drug use: No PHYSICAL EXAM BP 127/87 Pulse 91 Resp 14 Wt 84.4 kg (186 lb) LMP 09/21/2020 BMI 32.95 kg/m General Appearance: well appearing, in no acute distress, alert Lungs: Lungs clear to auscultation. No wheezing, rhonchi, rales. Heart: RRR without murmur, gallop, or rubs. No ectopy Abdomen: Soft, non-distended. mild lower abdominal tenderness with palpation. No guarding or rebound tenderness. Bowel sounds normal and active. No masses, organomegaly but difficult exam due to body habitus DATA REVIEWED: Most recent colonoscopy ASSESSMENT/PLAN: 1. Change in consistency of stool - ICD9: 787.7, ICD10: R19.5 (primary diagnosis) No alarm symptoms or exam findings. Colonoscopy 3 years ago normal. Recommend increasing activity level, fiber and fluid intake; see patient instructions . Follow-up in two weeks if symptoms are not improving. 2. Nausea - ICD9: 787.02, ICD10: R11.0 Zofran as needed for nausea. Prescription instructions reviewed with patient as applicable. Potential red flag symptoms discussed with the patient. Reviewed appropriate action plan to take if red flag symptoms occur. Patient agreeable to treatment plan. Jerrica Plummer APRN.CNP documented in this encounter [facility] 05-08-2022 Influenza virus A and B RNA and SARS-CoV-2 (COVID-19) N gene panel CORWIN+probe (Resp) COVID 19 RESULT: SARS-CoV-2 (Agent of COVID-19) Not Detected by RT-PCR or equivalent method. blessing [id number] (ERIC)_EUA This test was developed and its performance characteristics determined by [facility]'s [facility] [place]. This test has been authorized by FDA under an Emergency Use Authorization (EUA). This test has been validated in accordance with the FDA's Guidance Document Policy for Diagnostics Testing in Laboratories Certified to Perform High Complexity Testing under CLIA prior to Emergency use Authorization for Coronavirus Disease 2019 during the Public Health Emergency issued on August 07, 2019. Test performed by [facility], [facility] [place], [address] [place] [address]. INFLUENZA A PCR: Negative for Influenza A by RT-PCR INFLUENZA B PCR: Negative for Influenza B by RT-PCR [facility] documented as of this encounter (statuses as of 11/06/2021) [facility] History of Past illness Narrative* Problem Noted Date Resolved Date Hip pain, bilateral 06/28/2016 10/28/2018 Herpes simplex virus (HSV) infection 09/29/2013 11/15/2020 IUD (intrauterine device) in place 07/06/2013 05/15/2018 History of hemorrhoids 12/05/2011 5 Overview: Patient has a history of hemorrhoids. Discussed the importance of avoiding constipation and straining with bowel movements. Patient requested diagnostic testing 12/05/2011 09/26/2014 Overview: Patient desires early screening in with sequential testing. 02/03/2012negative Sequential screen first trimester. The first part of the Sequential Screen reports that her risk for Down syndrome decreased from her age-related risk of 1:280 to 1:4,300 and her Trisomy 18 risk decreased from her age-related risk of 1:1,000 to 1:10,000. Based on these results Dr. Mosqueda's recommendation is for patient to follow-up with a blood test for AFP after 15wks to screen for ONTD and level II anatomy scan after 18wks. Plantar fasciitis 09/25/2010 09/07/2011 Calcaneal spur 02/16/2010 12/18/2010 Herpes simplex without mention of complication 0 02/05/2007 01/23/2012 Overview: Fever blisters every 3 months or so Dysmenorrhea 07/11/2006 09/26/2014 Rectal bleeding 10/15/2010 documented as of this encounter (statuses as of 11/07/2021) [facility] History of Past illness Narrative* Problem Noted Date Resolved Date Hip pain, bilateral 06/28/2016 10/28/2018 Herpes simplex virus (HSV) infection 09/29/2013 11/15/2020 IUD (intrauterine device) in place 07/06/2013 05/15/2018 History of hemorrhoids 12/05/2011 5 Overview: Patient has a history of hemorrhoids. Discussed the importance of avoiding constipation and straining with bowel movements. Patient requested diagnostic testing 12/05/2011 09/26/2014 Overview: Patient desires early screening in with sequential testing. 02/03/2012negative Sequential screen first trimester. The first part of the Sequential Screen reports that her risk for Down syndrome decreased from her age-related risk of 1:280 to 1:4,300 and her Trisomy 18 risk decreased from her age-related risk of 1:1,000 to 1:10,000. Based on these results Dr. Mosqueda's recommendation is for patient to follow-up with a blood test for AFP after 15wks to screen for ONTD and level II anatomy scan after 18wks. Plantar fasciitis 09/25/2010 09/07/2011 Calcaneal spur 02/16/2010 12/18/2010 Herpes simplex without mention of complication 0 02/05/2007 01/23/2012 Overview: Fever blisters every 3 months or so Dysmenorrhea 07/11/2006 09/26/2014 Rectal bleeding 10/15/2010 documented as of this encounter (statuses as of 11/09/2021) [facility] History of Past illness Narrative* Problem Noted Date Resolved Date Hip pain, bilateral 06/28/2016 10/28/2018 Herpes simplex virus (HSV) infection 09/29/2013 11/15/2020 IUD (intrauterine device) in place 07/06/2013 05/15/2018 History of hemorrhoids 12/05/2011 5 Overview: Patient has a history of hemorrhoids. Discussed the importance of avoiding constipation and straining with bowel movements. Patient requested diagnostic testing 12/05/2011 09/26/2014 Overview: Patient desires early screening in with sequential testing. 02/03/2012negative Sequential screen first trimester. The first part of the Sequential Screen reports that her risk for Down syndrome decreased from her age-related risk of 1:280 to 1:4,300 and her Trisomy 18 risk decreased from her age-related risk of 1:1,000 to 1:10,000. Based on these results Dr. Mosqueda's recommendation is for patient to follow-up with a blood test for AFP after 15wks to screen for ONTD and level II anatomy scan after 18wks. Plantar fasciitis 09/25/2010 09/07/2011 Calcaneal spur 02/16/2010 12/18/2010 Herpes simplex without mention of complication 0 02/05/2007 01/23/2012 Overview: Fever blisters every 3 months or so Dysmenorrhea 07/11/2006 09/26/2014 Rectal bleeding 10/15/2010 documented as of this encounter (statuses as of 11/10/2021) [facility] History of Past illness Narrative* Problem Noted Date Resolved Date Hip pain, bilateral 06/28/2016 10/28/2018 Herpes simplex virus (HSV) infection 09/29/2013 11/15/2020 IUD (intrauterine device) in place 07/06/2013 05/15/2018 History of hemorrhoids 12/05/2011 5 Overview: Patient has a history of hemorrhoids. Discussed the importance of avoiding constipation and straining with bowel movements. Patient requested diagnostic testing 12/05/2011 09/26/2014 Overview: Patient desires early screening in with sequential testing. 02/03/2012negative Sequential screen first trimester. The first part of the Sequential Screen reports that her risk for Down syndrome decreased from her age-related risk of 1:280 to 1:4,300 and her Trisomy 18 risk decreased from her age-related risk of 1:1,000 to 1:10,000. Based on these results Dr. Mosqueda's recommendation is for patient to follow-up with a blood test for AFP after 15wks to screen for ONTD and level II anatomy scan after 18wks. Plantar fasciitis 09/25/2010 09/07/2011 Calcaneal spur 02/16/2010 12/18/2010 Herpes simplex without mention of complication 0 02/05/2007 01/23/2012 Overview: Fever blisters every 3 months or so Dysmenorrhea 07/11/2006 09/26/2014 Rectal bleeding 10/15/2010 documented as of this encounter (statuses as of 11/26/2021) [facility] History of Past illness Narrative* Problem Noted Date Resolved Date Hip pain, bilateral 06/28/2016 10/28/2018 Herpes simplex virus (HSV) infection 09/29/2013 11/15/2020 IUD (intrauterine device) in place 07/06/2013 05/15/2018 History of hemorrhoids 12/05/2011 5 Overview: Patient has a history of hemorrhoids. Discussed the importance of avoiding constipation and straining with bowel movements. Patient requested diagnostic testing 12/05/2011 09/26/2014 Overview: Patient desires early screening in with sequential testing. 02/03/2012negative Sequential screen first trimester. The first part of the Sequential Screen reports that her risk for Down syndrome decreased from her age-related risk of 1:280 to 1:4,300 and her Trisomy 18 risk decreased from her age-related risk of 1:1,000 to 1:10,000. Based on these results Dr. Mosqueda's recommendation is for patient to follow-up with a blood test for AFP after 15wks to screen for ONTD and level II anatomy scan after 18wks. Plantar fasciitis 09/25/2010 09/07/2011 Calcaneal spur 02/16/2010 12/18/2010 Herpes simplex without mention of complication 0 02/05/2007 01/23/2012 Overview: Fever blisters every 3 months or so Dysmenorrhea 07/11/2006 09/26/2014 Rectal bleeding 10/15/2010 documented as of this encounter (statuses as of 12/13/2021) [facility] History of Past illness Narrative* Problem Noted Date Resolved Date Hip pain, bilateral 06/28/2016 10/28/2018 Herpes simplex virus (HSV) infection 09/29/2013 11/15/2020 IUD (intrauterine device) in place 07/06/2013 05/15/2018 History of hemorrhoids 12/05/2011 5 Overview: Patient has a history of hemorrhoids. Discussed the importance of avoiding constipation and straining with bowel movements. Patient requested diagnostic testing 12/05/2011 09/26/2014 Overview: Patient desires early screening in with sequential testing. 02/03/2012negative Sequential screen first trimester. The first part of the Sequential Screen reports that her risk for Down syndrome decreased from her age-related risk of 1:280 to 1:4,300 and her Trisomy 18 risk decreased from her age-related risk of 1:1,000 to 1:10,000. Based on these results Dr. Mosqueda's recommendation is for patient to follow-up with a blood test for AFP after 15wks to screen for ONTD and level II anatomy scan after 18wks. Plantar fasciitis 09/25/2010 09/07/2011 Calcaneal spur 02/16/2010 12/18/2010 Herpes simplex without mention of complication 0 02/05/2007 01/23/2012 Overview: Fever blisters every 3 months or so Dysmenorrhea 07/11/2006 09/26/2014 Rectal bleeding 10/15/2010 documented as of this encounter (statuses as of 04/01/2022) [facility] History of Past illness Narrative* Problem Noted Date Resolved Date Hip pain, bilateral 06/28/2016 10/28/2018 Herpes simplex virus (HSV) infection 09/29/2013 11/15/2020 IUD (intrauterine device) in place 07/06/2013 05/15/2018 History of hemorrhoids 12/05/2011 5 Overview: Patient has a history of hemorrhoids. Discussed the importance of avoiding constipation and straining with bowel movements. Patient requested diagnostic testing 12/05/2011 09/26/2014 Overview: Patient desires early screening in with sequential testing. 02/03/2012negative Sequential screen first trimester. The first part of the Sequential Screen reports that her risk for Down syndrome decreased from her age-related risk of 1:280 to 1:4,300 and her Trisomy 18 risk decreased from her age-related risk of 1:1,000 to 1:10,000. Based on these results Dr. Mosqueda's recommendation is for patient to follow-up with a blood test for AFP after 15wks to screen for ONTD and level II anatomy scan after 18wks. Plantar fasciitis 09/25/2010 09/07/2011 Calcaneal spur 02/16/2010 12/18/2010 Herpes simplex without mention of complication 0 02/05/2007 01/23/2012 Overview: Fever blisters every 3 months or so Dysmenorrhea 07/11/2006 09/26/2014 Rectal bleeding 10/15/2010 documented as of this encounter (statuses as of 04/01/2022) [facility] History of Past illness Narrative* Problem Noted Date Resolved Date Hip pain, bilateral 06/28/2016 10/28/2018 Herpes simplex virus (HSV) infection 09/29/2013 11/15/2020 IUD (intrauterine device) in place 07/06/2013 05/15/2018 History of hemorrhoids 12/05/2011 5 Overview: Patient has a history of hemorrhoids. Discussed the importance of avoiding constipation and straining with bowel movements. Patient requested diagnostic testing 12/05/2011 09/26/2014 Overview: Patient desires early screening in with sequential testing. 02/03/2012negative Sequential screen first trimester. The first part of the Sequential Screen reports that her risk for Down syndrome decreased from her age-related risk of 1:280 to 1:4,300 and her Trisomy 18 risk decreased from her age-related risk of 1:1,000 to 1:10,000. Based on these results Dr. Mosqueda's recommendation is for patient to follow-up with a blood test for AFP after 15wks to screen for ONTD and level II anatomy scan after 18wks. Plantar fasciitis 09/25/2010 09/07/2011 Calcaneal spur 02/16/2010 12/18/2010 Herpes simplex without mention of complication 0 02/05/2007 01/23/2012 Overview: Fever blisters every 3 months or so Dysmenorrhea 07/11/2006 09/26/2014 Rectal bleeding 10/15/2010 documented as of this encounter (statuses as of 05/08/2022) [facility] History of Past illness Narrative* Problem Noted Date Resolved Date Hip pain, bilateral 06/28/2016 10/28/2018 Herpes simplex virus (HSV) infection 09/29/2013 11/15/2020 IUD (intrauterine device) in place 07/06/2013 05/15/2018 History of hemorrhoids 12/05/2011 5 Overview: Patient has a history of hemorrhoids. Discussed the importance of avoiding constipation and straining with bowel movements. Patient requested diagnostic testing 12/05/2011 09/26/2014 Overview: Patient desires early screening in with sequential testing. 02/03/2012negative Sequential screen first trimester. The first part of the Sequential Screen reports that her risk for Down syndrome decreased from her age-related risk of 1:280 to 1:4,300 and her Trisomy 18 risk decreased from her age-related risk of 1:1,000 to 1:10,000. Based on these results Dr. Mosqueda's recommendation is for patient to follow-up with a blood test for AFP after 15wks to screen for ONTD and level II anatomy scan after 18wks. Plantar fasciitis 09/25/2010 09/07/2011 Calcaneal spur 02/16/2010 12/18/2010 Herpes simplex without mention of complication 0 02/05/2007 01/23/2012 Overview: Fever blisters every 3 months or so Dysmenorrhea 07/11/2006 09/26/2014 Rectal bleeding 10/15/2010 documented as of this encounter (statuses as of 07/31/2022) [facility] History of Past illness Narrative* Problem Noted Date Resolved Date Hip pain, bilateral 06/28/2016 10/28/2018 Herpes simplex virus (HSV) infection 09/29/2013 11/15/2020 IUD (intrauterine device) in place 07/06/2013 05/15/2018 History of hemorrhoids 12/05/2011 5 Overview: Patient has a history of hemorrhoids. Discussed the importance of avoiding constipation and straining with bowel movements. Patient requested diagnostic testing 12/05/2011 09/26/2014 Overview: Patient desires early screening in with sequential testing. 02/03/2012negative Sequential screen first trimester. The first part of the Sequential Screen reports that her risk for Down syndrome decreased from her age-related risk of 1:280 to 1:4,300 and her Trisomy 18 risk decreased from her age-related risk of 1:1,000 to 1:10,000. Based on these results Dr. Mosqueda's recommendation is for patient to follow-up with a blood test for AFP after 15wks to screen for ONTD and level II anatomy scan after 18wks. Plantar fasciitis 09/25/2010 09/07/2011 Calcaneal spur 02/16/2010 12/18/2010 Herpes simplex without mention of complication 0 02/05/2007 01/23/2012 Overview: Fever blisters every 3 months or so Dysmenorrhea 07/11/2006 09/26/2014 Rectal bleeding 10/15/2010 documented as of this encounter (statuses as of 08/23/2022) [facility] History of Past illness Narrative* Problem Noted Date Resolved Date Hip pain, bilateral 06/28/2016 10/28/2018 Herpes simplex virus (HSV) infection 09/29/2013 11/15/2020 IUD (intrauterine device) in place 07/06/2013 05/15/2018 History of hemorrhoids 12/05/2011 5 Overview: Patient has a history of hemorrhoids. Discussed the importance of avoiding constipation and straining with bowel movements. Patient requested diagnostic testing 12/05/2011 09/26/2014 Overview: Patient desires early screening in with sequential testing. 02/03/2012negative Sequential screen first trimester. The first part of the Sequential Screen reports that her risk for Down syndrome decreased from her age-related risk of 1:280 to 1:4,300 and her Trisomy 18 risk decreased from her age-related risk of 1:1,000 to 1:10,000. Based on these results Dr. Mosqueda's recommendation is for patient to follow-up with a blood test for AFP after 15wks to screen for ONTD and level II anatomy scan after 18wks. Plantar fasciitis 09/25/2010 09/07/2011 Calcaneal spur 02/16/2010 12/18/2010 Herpes simplex without mention of complication 0 02/05/2007 01/23/2012 Overview: Fever blisters every 3 months or so Dysmenorrhea 07/11/2006 09/26/2014 Rectal bleeding 10/15/2010 documented as of this encounter (statuses as of 08/30/2022) [facility] History of Past illness Narrative* Problem Noted Date Resolved Date Hip pain, bilateral 06/28/2016 10/28/2018 Herpes simplex virus (HSV) infection 09/29/2013 11/15/2020 IUD (intrauterine device) in place 07/06/2013 05/15/2018 History of hemorrhoids 12/05/2011 5 Overview: Patient has a history of hemorrhoids. Discussed the importance of avoiding constipation and straining with bowel movements. Patient requested diagnostic testing 12/05/2011 09/26/2014 Overview: Patient desires early screening in with sequential testing. 02/03/2012negative Sequential screen first trimester. The first part of the Sequential Screen reports that her risk for Down syndrome decreased from her age-related risk of 1:280 to 1:4,300 and her Trisomy 18 risk decreased from her age-related risk of 1:1,000 to 1:10,000. Based on these results Dr. Mosqueda's recommendation is for patient to follow-up with a blood test for AFP after 15wks to screen for ONTD and level II anatomy scan after 18wks. Plantar fasciitis 09/25/2010 09/07/2011 Calcaneal spur 02/16/2010 12/18/2010 Herpes simplex without mention of complication 0 02/05/2007 01/23/2012 Overview: Fever blisters every 3 months or so Dysmenorrhea 07/11/2006 09/26/2014 Rectal bleeding 10/15/2010 documented as of this encounter (statuses as of 08/30/2022) [facility] History of Past illness Narrative* Problem Noted Date Resolved Date Hip pain, bilateral 06/28/2016 10/28/2018 Herpes simplex virus (HSV) infection 09/29/2013 11/15/2020 IUD (intrauterine device) in place 07/06/2013 05/15/2018 History of hemorrhoids 12/05/2011 5 Overview: Patient has a history of hemorrhoids. Discussed the importance of avoiding constipation and straining with bowel movements. Patient requested diagnostic testing 12/05/2011 09/26/2014 Overview: Patient desires early screening in with sequential testing. 02/03/2012negative Sequential screen first trimester. The first part of the Sequential Screen reports that her risk for Down syndrome decreased from her age-related risk of 1:280 to 1:4,300 and her Trisomy 18 risk decreased from her age-related risk of 1:1,000 to 1:10,000. Based on these results Dr. Mosqueda's recommendation is for patient to follow-up with a blood test for AFP after 15wks to screen for ONTD and level II anatomy scan after 18wks. Plantar fasciitis 09/25/2010 09/07/2011 Calcaneal spur 02/16/2010 12/18/2010 Herpes simplex without mention of complication 0 02/05/2007 01/23/2012 Overview: Fever blisters every 3 months or so Dysmenorrhea 07/11/2006 09/26/2014 Rectal bleeding 10/15/2010 documented as of this encounter (statuses as of 09/02/2022) [facility] History of Past illness Narrative* Problem Noted Date Resolved Date Hip pain, bilateral 06/28/2016 10/28/2018 Herpes simplex virus (HSV) infection 09/29/2013 11/15/2020 IUD (intrauterine device) in place 07/06/2013 05/15/2018 History of hemorrhoids 12/05/2011 5 Overview: Patient has a history of hemorrhoids. Discussed the importance of avoiding constipation and straining with bowel movements. Patient requested diagnostic testing 12/05/2011 09/26/2014 Overview: Patient desires early screening in with sequential testing. 02/03/2012negative Sequential screen first trimester. The first part of the Sequential Screen reports that her risk for Down syndrome decreased from her age-related risk of 1:280 to 1:4,300 and her Trisomy 18 risk decreased from her age-related risk of 1:1,000 to 1:10,000. Based on these results Dr. Mosqueda's recommendation is for patient to follow-up with a blood test for AFP after 15wks to screen for ONTD and level II anatomy scan after 18wks. Plantar fasciitis 09/25/2010 09/07/2011 Calcaneal spur 02/16/2010 12/18/2010 Herpes simplex without mention of complication 0 02/05/2007 01/23/2012 Overview: Fever blisters every 3 months or so Dysmenorrhea 07/11/2006 09/26/2014 Rectal bleeding 10/15/2010 documented as of this encounter (statuses as of 10/01/2022) [facility] History of Past illness Narrative* Problem Noted Date Resolved Date Hip pain, bilateral 06/28/2016 10/28/2018 Herpes simplex virus (HSV) infection 09/29/2013 11/15/2020 IUD (intrauterine device) in place 07/06/2013 05/15/2018 History of hemorrhoids 12/05/2011 5 Overview: Patient has a history of hemorrhoids. Discussed the importance of avoiding constipation and straining with bowel movements. Patient requested diagnostic testing 12/05/2011 09/26/2014 Overview: Patient desires early screening in with sequential testing. 02/03/2012negative Sequential screen first trimester. The first part of the Sequential Screen reports that her risk for Down syndrome decreased from her age-related risk of 1:280 to 1:4,300 and her Trisomy 18 risk decreased from her age-related risk of 1:1,000 to 1:10,000. Based on these results Dr. Mosqueda's recommendation is for patient to follow-up with a blood test for AFP after 15wks to screen for ONTD and level II anatomy scan after 18wks. Plantar fasciitis 09/25/2010 09/07/2011 Calcaneal spur 02/16/2010 12/18/2010 Herpes simplex without mention of complication 0 02/05/2007 01/23/2012 Overview: Fever blisters every 3 months or so Dysmenorrhea 07/11/2006 09/26/2014 Rectal bleeding 10/15/2010 documented as of this encounter (statuses as of 10/04/2022) [facility] History of Past illness Narrative* Problem Noted Date Diagnosed Date Resolved Date Hip pain, bilateral 06/28/2016 10/29/19 19 Herpes simplex virus (HSV) infection 09/29/2013 11/15/2020 IUD (intrauterine device) in place 07/06/2013 05/15/2018 History of hemorrhoids 12/05/201109/26 Overview: Patient has a history of hemorrhoids. Discussed the importance of avoiding constipation and straining with bowel movements. Patient requested diagnostic testing 12/05/2011 09/26/2014 Overview: Patient desires early screening in with sequential testing. 02/03/2012negative Sequential screen first trimester. The first part of the Sequential Screen reports that her risk for Down syndrome decreased from her age-related risk of 1:280 to 1:4,300 and her Trisomy 18 risk decreased from her age-related risk of 1:1,000 to 1:10,000. Based on these results Dr. Mosqueda's recommendation is for patient to follow-up with a blood test for AFP after 15wks to screen for ONTD and level II anatomy scan after 18wks. Plantar fasciitis 09/25/2010 09/07/2011 Calcaneal spur 02/16/2010 12/18/2010 Herpes simplex without menti on of complication 02/05/2007 01/23/2012 Overview: Fever blisters every 3 months or so Dysmenorrhea 07/11/2006 09/26/2014 Rectal bleeding 10/15/2010 documented as of this encounter (statuses as of 12/16/2022) [facility] History of Past illness Narrative* Problem Noted Date Diagnosed Date Resolved Date Hip pain, bilateral 06/28/2016 10/29/19 Herpes simplex virus (HSV) infection 09/29/2013 11/15/2020 IUD (intrauterine device) in place 07/06/2013 05/15/2018 History of hemorrhoids 12/05/201109/26 Overview: Patient has a history of hemorrhoids. Discussed the importance of avoiding constipation and straining with bowel movements. Patient requested diagnostic testing 12/05/2011 09/26/2014 Overview: Patient desires early screening in with sequential testing. 02/03/2012negative Sequential screen first trimester. The first part of the Sequential Screen reports that her risk for Down syndrome decreased from her age-related risk of 1:280 to 1:4,300 and her Trisomy 18 risk decreased from her age-related risk of 1:1,000 to 1:10,000. Based on these results Dr. Mosqueda's recommendation is for patient to follow-up with a blood test for AFP after 15wks to screen for ONTD and level II anatomy scan after 18wks. Plantar fasciitis 09/25/2010 09/07/2011 Calcaneal spur 02/16/2010 12/18/2010 Herpes simplex without menti on of complication 02/05/2007 01/23/2012 Overview: Fever blisters every 3 months or so Dysmenorrhea 07/11/2006 09/26/2014 Rectal bleeding 10/15/2010 documented as of this encounter (statuses as of 01/10/2023) [facility] History of Past illness Narrative* Problem Noted Date Diagnosed Date Resolved Date Hip pain, bilateral 06/28/2016 10/29/19 Herpes simplex virus (HSV) infection 09/29/2013 11/15/2020 IUD (intrauterine device) in place 07/06/2013 05/15/2018 History of hemorrhoids 12/05/201109/26 Overview: Patient has a history of hemorrhoids. Discussed the importance of avoiding constipation and straining with bowel movements. Patient requested diagnostic testing 12/05/2011 09/26/2014 Overview: Patient desires early screening in with sequential testing. 02/03/2012negative Sequential screen first trimester. The first part of the Sequential Screen reports that her risk for Down syndrome decreased from her age-related risk of 1:280 to 1:4,300 and her Trisomy 18 risk decreased from her age-related risk of 1:1,000 to 1:10,000. Based on these results Dr. Mosqueda's recommendation is for patient to follow-up with a blood test for AFP after 15wks to screen for ONTD and level II anatomy scan after 18wks. Plantar fasciitis 09/25/2010 09/07/2011 Calcaneal spur 02/16/2010 12/18/2010 Herpes simplex without menti on of complication 02/05/2007 01/23/2012 Overview: Fever blisters every 3 months or so Dysmenorrhea 07/11/2006 09/26/2014 Rectal bleeding 10/15/2010 documented as of this encounter (statuses as of 01/15/2023) [facility] History of Past illness Narrative* Problem Noted Date Diagnosed Date Resolved Date Hip pain, bilateral 06/28/2016 10/29/19 19 Herpes simplex virus (HSV) infection 09/29/2013 11/15/2020 IUD (intrauterine device) in place 07/06/2013 05/15/2018 History of hemorrhoids 12/05/201109/26 Overview: Patient has a history of hemorrhoids. Discussed the importance of avoiding constipation and straining with bowel movements. Patient requested diagnostic testing 12/05/2011 09/26/2014 Overview: Patient desires early screening in with sequential testing. 02/03/2012negative Sequential screen first trimester. The first part of the Sequential Screen reports that her risk for Down syndrome decreased from her age-related risk of 1:280 to 1:4,300 and her Trisomy 18 risk decreased from her age-related risk of 1:1,000 to 1:10,000. Based on these results Dr. Mosqueda's recommendation is for patient to follow-up with a blood test for AFP after 15wks to screen for ONTD and level II anatomy scan after 18wks. Plantar fasciitis 09/25/2010 09/07/2011 Calcaneal spur 02/16/2010 12/18/2010 Herpes simplex without menti on of complication 02/05/2007 01/23/2012 Overview: Fever blisters every 3 months or so Dysmenorrhea 07/11/2006 09/26/2014 Rectal bleeding 10/15/2010 documented as of this encounter (statuses as of 01/26/2023) [facility] History of Past illness Narrative* Problem Noted Date Diagnosed Date Resolved Date Hip pain, bilateral 06/28/2016 10/29/19 19 Herpes simplex virus (HSV) infection 09/29/2013 11/15/2020 IUD (intrauterine device) in place 07/06/2013 05/15/2018 History of hemorrhoids 12/05/201109/26 Overview: Patient has a history of hemorrhoids. Discussed the importance of avoiding constipation and straining with bowel movements. Patient requested diagnostic testing 12/05/2011 09/26/2014 Overview: Patient desires early screening in with sequential testing. 02/03/2012negative Sequential screen first trimester. The first part of the Sequential Screen reports that her risk for Down syndrome decreased from her age-related risk of 1:280 to 1:4,300 and her Trisomy 18 risk decreased from her age-related risk of 1:1,000 to 1:10,000. Based on these results Dr. Mosqueda's recommendation is for patient to follow-up with a blood test for AFP after 15wks to screen for ONTD and level II anatomy scan after 18wks. Plantar fasciitis 09/25/2010 09/07/2011 Calcaneal spur 02/16/2010 12/18/2010 Herpes simplex without menti on of complication 02/05/2007 01/23/2012 Overview: Fever blisters every 3 months or so Dysmenorrhea 07/11/2006 09/26/2014 Rectal bleeding 10/15/2010 documented as of this encounter (statuses as of 02/21/2023) [facility] History of Past illness Narrative* Problem Noted Date Diagnosed Date Resolved Date Hip pain, bilateral 06/28/2016 10/29/19 Herpes simplex virus (HSV) infection 09/29/2013 11/15/2020 IUD (intrauterine device) in place 07/06/2013 05/15/2018 History of hemorrhoids 12/05/201109/26 Overview: Patient has a history of hemorrhoids. Discussed the importance of avoiding constipation and straining with bowel movements. Patient requested diagnostic testing 12/05/2011 09/26/2014 Overview: Patient desires early screening in with sequential testing. 02/03/2012negative Sequential screen first trimester. The first part of the Sequential Screen reports that her risk for Down syndrome decreased from her age-related risk of 1:280 to 1:4,300 and her Trisomy 18 risk decreased from her age-related risk of 1:1,000 to 1:10,000. Based on these results Dr. Mosqueda's recommendation is for patient to follow-up with a blood test for AFP after 15wks to screen for ONTD and level II anatomy scan after 18wks. Plantar fasciitis 09/25/2010 09/07/2011 Calcaneal spur 02/16/2010 12/18/2010 Herpes simplex without menti on of complication 02/05/2007 01/23/2012 Overview: Fever blisters every 3 months or so Dysmenorrhea 07/11/2006 09/26/2014 Rectal bleeding 10/15/2010 documented as of this encounter (statuses as of 02/24/2023) [facility] History of Past illness Narrative* Problem Noted Date Diagnosed Date Resolved Date Hip pain, bilateral 06/28/2016 10/29/19 Herpes simplex virus (HSV) infection 09/29/2013 11/15/2020 IUD (intrauterine device) in place 07/06/2013 05/15/2018 History of hemorrhoids 12/05/201109/26 Overview: Patient has a history of hemorrhoids. Discussed the importance of avoiding constipation and straining with bowel movements. Patient requested diagnostic testing 12/05/2011 09/26/2014 Overview: Patient desires early screening in with sequential testing. 02/03/2012negative Sequential screen first trimester. The first part of the Sequential Screen reports that her risk for Down syndrome decreased from her age-related risk of 1:280 to 1:4,300 and her Trisomy 18 risk decreased from her age-related risk of 1:1,000 to 1:10,000. Based on these results Dr. Mosuqeda's recommendation is for patient to follow-up with a blood test for AFP after 15wks to screen for ONTD and level II anatomy scan after 18wks. Plantar fasciitis 09/25/2010 09/07/2011 Calcaneal spur 02/16/2010 12/18/2010 Herpes simplex without menti on of complication 02/05/2007 01/23/2012 Overview: Fever blisters every 3 months or so Dysmenorrhea 07/11/2006 09/26/2014 Rectal bleeding 10/15/2010 documented as of this encounter (statuses as of 04/11/2023) [facility] Diagnosis Anxiety- Primary Anxiety state, unspecified Voice hoarseness Dysphonia Insomnia, unspecified type Depression, unspecified depression type Mixed hyperlipidemia Adrenal adenoma, right Encounter for immunization Need for other specified prophylactic vaccination against single bacterial disease Encounter for screening mammogram for breast cancer Special screening examination for viral disease Special screening examination for unspecified viral disease Obesity, Class I, BMI 30-34.9 Obesity, unspecified Tobacco use disorder [facility] Diagnosis Encounter for screening mammogram for malignant neoplasm of breast Other screening mammogram [facility] Diagnosis Laryngitis- Primary Acute laryngitis, without mention of obstruction 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 [facility] Diagnosis Abnormal mammogram Abnormal mammogram, unspecified [facility] Diagnosis Lower abdominal pain- Primary Abdominal pain, other specified site Acute bilateral low back pain without sciatica [facility] Diagnosis Pharyngitis, unspecified etiology- Primary URI, acute Acute upper respiratory infections of unspecified site [facility] Diagnosis Change in consistency of stool- Primary Nausea Nausea alone [facility] Diagnosis Reactive depression- Primary Dysthymic disorder Mixed hyperlipidemia Rash and nonspecific skin eruption Rash and other nonspecific skin eruption Adrenal adenoma, right [facility] Diagnosis Encounter for screening mammogram for breast cancer [facility] Diagnosis Mixed hyperlipidemia- Primary Adrenal adenoma, right Screening exam for skin cancer Screening for malignant neoplasm of the skin Encounter for immunization Need for other specified prophylactic vaccination against single bacterial disease [facility] Diagnosis Encounter for gynecological examination (general) (routine) without abnormal findings- Primary Dense breast tissue Screening for cervical cancer Screening for malignant neoplasm of the cervix Special screening examination for human papillomavirus (HPV) Screening for STD (sexually transmitted disease) Screening examination for venereal disease [facility] Diagnosis Sore throat- Primary Acute pharyngitis URI with cough and congestion Wheezing [facility] Diagnosis NSTEMI (non-ST elevated myocardial infarction) (HCC)- Primary Acute myocardial infarction, subendocardial infarction, episode of care unspecified Anxiety Anxiety state, unspecified Tobacco use disorder Coronary artery disease involving [place] coronary artery of lo[place]ock heart without angina pectoris Mixed hyperlipidemia Adrenal adenoma, right Need for influenza vaccination Need for prophylactic vaccination and inoculation against influenza documented in this encounter [facility] for referral (narrative)* Diagnostic Procedure Only (Routine) - Closed Specialty Diagnoses / Procedures Referred By Tadeo t Referred To Contact [facility] Diagnoses Abnormal mammogram Procedures RJ DIAGNOSTIC BILAT DIAGNOSTIC MAMMOGRAPHY COMPUTER-AIDED DETCJ Alma Delia Renteria APRN.CIVIL DEFENSE DIRECTOR [address] [place] [address] [facility] [address] [place] [address] Referral ID Status Reason Start Date Expiration Date V isits Requested Visits Authorized [id number] Closed Auto-Generate d Referral 11/08/2021 12/08/2022 1 1 [facility] for referral (narrative)* Diagnostic Procedure Only (Routine) - Closed Specialty Diagnoses / Procedures Referred By Tadeo munoz Referred To Contact [facility] IMAGING Diagnoses Acute bilateral low back pain without sciatica Procedures XR LUMBAR GENERAL 3V AP/LAT/L5-S1 RADEX SPINE LUMBOSACRAL 2/3 VIEWS PodlogTeresa mcneil APRN.CNP [address] [place] [address] X[facility] Imaging Referral ID Status Reason Start Date Expiration Date V isits Requested Visits Authorized [id number] Closed Auto-Generate d Referral 04/01/2022 05/01/2023 1 1 [facility] for referral (narrative)* Diagnostic Procedure Only (Routine) - Pending Review Specialty Diagnoses / Procedures Referred By Tadeo t Referred To Contact [facility] Diagnoses Encounter for screening mammogram for breast cancer Procedures RJ SCREENING SCREENING MAMMOGRAPHY BI 2-VIEW BREAST INC Arsenio Vicente MD [address] [place] [address] [facility] [address] [place] [address] Referral ID Status Reason Start Date Expiration Date Visits Requested Visits Authorized [id number] Pending Review Auto-Generat ed Referral 12/11/2022 01/10/2024 1 1 [facility] (narrative)* Diagnostic Procedure Only (Routine) - Authorized Specialty Diagnoses / Procedures Referred By Contac t Referred To Contact [facility] Diagnoses Dense breast tissue Procedures RJ SCREENING W LUIS SCREENING DIGITAL BREAST TOMOSYNTHESIS BI SCREENING MAMMOGRAPHY BI 2-VIEW BREAST INC Rubina Caba APRN.GERBERM [address] [place] [address] [facility] [address] [place] [address] Referral ID Status Reason Start Date Expiration Date Visits Requested Visits Authorized [id number] Authorized Auto-Generat ed Referral 01/15/2023 02/14/2024 1 1 [facility] Summary Purpose Family History No Family History Records FoundNo Family History Records Found Advance Directives No Advanced Directives Records FoundDocuments on File Type Date Recorded Patient Applications Coordinator Expl anation Advance Directive(s) 12/15/2019 9:33 AM Advance Directive(s) 12/14/2019 8:34 AM Documents on File Type Date Recorded Patient Applications Coordinator Expl anation Advance Directive(s) 12/15/2019 9:33 AM Advance Directive(s) 12/14/2019 8:34 AM Reason for Referral Specialty Diagnoses / Procedures Referred By Contac t Referred To Contact Ent - Otolaryngology Diagnoses Voice hoarseness Procedures CONSULT TO ENT OFFICE/OUTPATIENT NEW HIGH MDM 60-74 MINUTES Older, Jerrica, STOCK DEALER.CIVIL DEFENSE DIRECTOR [address] [place] [address] Referral ID Status Reason Start Date Expiration Date Visits Requested Visits Authorized [id number] Pending Review PCP Requested Referral 11/07/2021 11/07/2022 1 1 Specialty Diagnoses / Procedures Referred By Contac t Referred To Contact [facility] Diagnoses Encounter for screening mammogram for breast cancer Procedures RJ SCREENING SCREENING MAMMOGRAPHY BI 2-VIEW BREAST INC CAD Older, Jerrica, ASAD.CIVIL DEFENSE DIRECTOR [address] [place] [address] [facility] [address] [place] [address] Referral ID Status Reason Start Date Expiration Date Visits Requested Visits Authorized [id number] Pending Review Auto-Generat ed Referral 11/07/2021 12/07/2022 1 1 Specialty Diagnoses / Procedures Referred By Contac t Referred To Contact Dermatology Diagnoses Screening exam for skin cancer Procedures CONSULT TO DERMATOLOGY OFFICE/OUTPATIENT [facility] 60-74 MINUTES Older, LING BecerrilN.CIVIL DEFENSE DIRECTOR [address] [place] [address] Referral ID Status Reason Start Date Expiration Date Visits Requested Visits Authorized [id number] Pending Review PCP Requested Referral 01/10/2023 01/10/2024 1 1 Specialty Diagnoses / Procedures Referred By Contac t Referred To Contact Endocrinology Diagnoses Adrenal adenoma, right Procedures CONSULT TO ENDOCRINOLOGY OFFICE/OUTPATIENT [facility] 60-74 MINUTES Older, Jerrica, STOCK DEALER.CIVIL DEFENSE DIRECTOR [address] [place] [address] Referral ID Status Reason Start Date Expiration Date Visits Requested Visits Authorized [id number] Pending Review PCP Requested Referral 02/24/2023 02/24/2024 1 1 Health Concerns Infection Onset Date Last Indicated Resolved Time COVID-19 Rule-Out 05/08/2022 05/08/2022 Additional Source Comments INFORMATION SOURCE (unrecogn ized section and content) DATE CREATED AUTHOR AUTHOR'S ORGANIZ ATION 05/07/2023 [facility] Source Comments (unrecognize d section and content) In the event this informatio n is protected by the Federal Confidentiality of Alcohol and Drug Abuse Patient Records regulations: The Federal rules restrict any use of the information to criminally investigate or prosecute any alcohol or drug abuse patient.[facility] HospitalIn the event this information is protected by the Federal Confidentiality of Alcohol and Drug Abuse Patient Records regulations: The Federal rules restrict any use of the information to criminally investigate or prosecute any alcohol or drug abuse patient.[facility] HospitalIn the event this information is protected by the Federal Confidentiality of Alcohol and Drug Abuse Patient Records regulations: The Federal rules restrict any use of the information to criminally investigate or prosecute any alcohol or drug abuse patient.[facility] HospitalIn the event this information is protected by the Federal Confidentiality of Alcohol and Drug Abuse Patient Records regulations: The Federal rules restrict any use of the information to criminally investigate or prosecute any alcohol or drug abuse patient.[facility] HospitalIn the event this information is protected by the Federal Confidentiality of Alcohol and Drug Abuse Patient Records regulations: The Federal rules restrict any use of the information to criminally investigate or prosecute any alcohol or drug abuse patient.[facility] HospitalIn the event this information is protected by the Federal Confidentiality of Alcohol and Drug Abuse Patient Records regulations: The Federal rules restrict any use of the information to criminally investigate or prosecute any alcohol or drug abuse patient.[facility] HospitalIn the event this information is protected by the Federal Confidentiality of Alcohol and Drug Abuse Patient Records regulations: The Federal rules restrict any use of the information to criminally investigate or prosecute any alcohol or drug abuse patient.[facility] HospitalIn the event this information is protected by the Federal Confidentiality of Alcohol and Drug Abuse Patient Records regulations: The Federal rules restrict any use of the information to criminally investigate or prosecute any alcohol or drug abuse patient.[facility] HospitalIn the event this information is protected by the Federal Confidentiality of Alcohol and Drug Abuse Patient Records regulations: The Federal rules restrict any use of the information to criminally investigate or prosecute any alcohol or drug abuse patient.[facility] HospitalIn the event this information is protected by the Federal Confidentiality of Alcohol and Drug Abuse Patient Records regulations: The Federal rules restrict any use of the information to criminally investigate or prosecute any alcohol or drug abuse patient.[facility] HospitalIn the event this information is protected by the Federal Confidentiality of Alcohol and Drug Abuse Patient Records regulations: The Federal rules restrict any use of the information to criminally investigate or prosecute any alcohol or drug abuse patient.[facility] HospitalIn the event this information is protected by the Federal Confidentiality of Alcohol and Drug Abuse Patient Records regulations: The Federal rules restrict any use of the information to criminally investigate or prosecute any alcohol or drug abuse patient.[facility] HospitalIn the event this information is protected by the Federal Confidentiality of Alcohol and Drug Abuse Patient Records regulations: The Federal rules restrict any use of the information to criminally investigate or prosecute any alcohol or drug abuse patient.[facility] HospitalIn the event this information is protected by the Federal Confidentiality of Alcohol and Drug Abuse Patient Records regulations: The Federal rules restrict any use of the information to criminally investigate or prosecute any alcohol or drug abuse patient.[facility] HospitalIn the event this information is protected by the Federal Confidentiality of Alcohol and Drug Abuse Patient Records regulations: The Federal rules restrict any use of the information to criminally investigate or prosecute any alcohol or drug abuse patient.[facility] HospitalIn the event this information is protected by the Federal Confidentiality of Alcohol and Drug Abuse Patient Records regulations: The Federal rules restrict any use of the information to criminally investigate or prosecute any alcohol or drug abuse patient.[facility] HospitalIn the event this information is protected by the Federal Confidentiality of Alcohol and Drug Abuse Patient Records regulations: The Federal rules restrict any use of the information to criminally investigate or prosecute any alcohol or drug abuse patient.[facility] HospitalIn the event this information is protected by the Federal Confidentiality of Alcohol and Drug Abuse Patient Records regulations: The Federal rules restrict any use of the information to criminally investigate or prosecute any alcohol or drug abuse patient.[facility] HospitalIn the event this information is protected by the Federal Confidentiality of Alcohol and Drug Abuse Patient Records regulations: The Federal rules restrict any use of the information to criminally investigate or prosecute any alcohol or drug abuse patient.[facility] HospitalIn the event this information is protected by the Federal Confidentiality of Alcohol and Drug Abuse Patient Records regulations: The Federal rules restrict any use of the information to criminally investigate or prosecute any alcohol or drug abuse patient.[facility] HospitalIn the event this information is protected by the Federal Confidentiality of Alcohol and Drug Abuse Patient Records regulations: The Federal rules restrict any use of the information to criminally investigate or prosecute any alcohol or drug abuse patient.[facility] HospitalIn the event this information is protected by the Federal Confidentiality of Alcohol and Drug Abuse Patient Records regulations: The Federal rules restrict any use of the information to criminally investigate or prosecute any alcohol or drug abuse patient.[facility] HospitalIn the event this information is protected by the Federal Confidentiality of Alcohol and Drug Abuse Patient Records regulations: The Federal rules restrict any use of the information to criminally investigate or prosecute any alcohol or drug abuse patient.[facility] Reason for Visit (unrecogniz ed section and content) Reason Comments Medication Follow-up Reason Comments Throat Problem hoarse started 5 mon ths ago, again 3 months ago. voice was gone for a few days. 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 DEFENSE DIRECTOR [address] [place] [address] [facility] [address] [address] Referral ID Status Reason Start Date Expiration Date V isits Requested Visits Authorized [id number] Closed PCP Requested Referral 11/14/2021 06/08/2022 1 1 Reason Comments Radiology Mammogram Specialty Diagnoses / Procedures Referred By Contac t Referred To Contact [facility] Diagnoses Abnormal mammogram Procedures RJ DIAGNOSTIC BILAT DIAGNOSTIC MAMMOGRAPHY COMPUTER-AIDED DETCJ Alma Delia Renteria, STOCK DEALER.CIVIL DEFENSE DIRECTOR [address] [place] [address] [facility] [address] [place] [address] Referral ID Status Reason Start Date Expiration Date V isits Requested Visits Authorized [id number] Closed Auto-Generate d Referral 11/08/2021 12/08/2022 1 1 Reason Comments Recheck Lower abdominal pres sure; relieves some when has BM Abdominal Pain Has noticed having s ome heartburn here recently Reason Comments Results Reason Comments Sore Throat Cough x 1 day Reason Comments bowel changes and nausea x 1 week Reason Comments Behavioral Health Social Work Reason Comments Forms Reason Onset Date Comments Refill Request 09/30/2022 Reason Comments Medication Follow-up Reason Comments F/U 3 Month Reason Comments Yearly Exam Reason Comments Sore Throat headache and fever x 2 days Reason Onset Date Comments Hospital F/U Immunizations 02/24/2023 Flu vaccination Specialty Diagnoses / Procedures Referred By Tadeo t Referred To Contact INTERNAL MEDICINE Diagnoses hospital follow up Procedures FOLLOW-UP E-ASSESSMENT Arsenio Yun MD [address] [place] [address] [facility] [address] [address] [place] [address] Referral ID Status Reason Start Date Expiration Date Visits Requested Visits Authorized [id number] Pending Review OON/Self Pay Override 02/19/2023 08/18/2023 1 1 Reason Comments Appointment Called patient and l eft a message that scheduling error was made, patient was referred to see an Endo Med,not an Endo Surg.Rescheduled appointment with on 04/21 with on 05/06 and sent [employer] message,gave [phone] number Care Teams (unrecognized sec tion and content) Cat Driver Relationship Specialty Start Date End Date Arsenio Yun MD [address] [place] [address] PCP - General 02/05/07 Cat Driver Relationship Specialty Start Date End Date Arsenio Yun MD [address] [place] [address] PCP - General 02/05/07 Cat Driver Relationship Specialty Start Date End Date Arsenio Yun MD [facility] [place] [address] PCP - General 02/05/07 Cat Driver Relationship Specialty Start Date End Date Arsenio Yun MD [facility] [place] [address] PCP - General 02/05/07 Cat Driver Relationship Specialty Start Date End Date Arsenio Yun MD [facility] [place] [address] PCP - General 02/05/07 Cat Driver Relationship Specialty Start Date End Date Arsenio Yun MD [facility] [place] [address] PCP - General 02/05/07 Cat Driver Relationship Specialty Start Date End Date Arsenio Yun MD [facility] [place] [address] PCP - General 02/05/07 Cat Driver Relationship Specialty Start Date End Date Arsenio Yun MD [facility] [place] [address] PCP - General 02/05/07 Cat Driver Relationship Specialty Start Date End Date Arsenio Yun MD [address] [place] [address] PCP - General 02/05/07 Cat Driver Relationship Specialty Start Date End Date Arsenio Yun MD [address] [place] [address] PCP - General 02/05/07 Cat Driver Relationship Specialty Start Date End Date Arsenio Yun MD [address] [place] [address] PCP - General 02/05/07 Cat Driver Relationship Specialty Start Date End Date Arsenio Yun MD [address] [place] [address] PCP - General 02/05/07 Cat Driver Relationship Specialty Start Date End Date Arsenio Yun MD [address] [place] [address] PCP - General 02/05/07 Cat Driver Relationship Specialty Start Date End Date Arsenio Yun MD [address] [place] [address] PCP - General 02/05/07 Cat Driver Relationship Specialty Start Date End Date Arsenio Yun MD [address] [place] [address] PCP - General 02/05/07 Cat Driver Relationship Specialty Start Date End Date Arsenio Yun MD [address] [place] [address] PCP - General 02/05/07 Cat Driver Relationship Specialty Start Date End Date Arsenio Yun MD [address] [place], [place] [address] PCP - General 02/05/07 Cat Driver Relationship Specialty Start Date End Date Arsenio Yun MD [address] [place], [place] [address] PCP General 02/05/07 Cat Driver Relationship Specialty Start Date End Date Arsenio Yun MD [address] [place], [place] [address] PCP General 02/05/07 Cat Driver Relationship Specialty Start Date End Date Arsenio Yun MD [address] [place], [place] [id number] PCP General 02/05/07 FOR RECORDS PERTAINING TO PATIENTS WHO ARE OR HAVE BEEN ENROLLED IN A CHEMICAL DEPENDENCY/SUBSTANCEABUSE PROGRAM, SOME INFORMATION MAY BE OMITTED. This clinical summary was aggregated from multiple sources. Caution should be exercised in using it in the provision of clinical care. This summary normalizes information from multiple sources, and as a consequence, information in this document may materially change the coding, format and clinical context of patient data. In addition, data may be omitted in some cases. CLINICAL DECISIONS SHOULD BE BASED ON THE PRIMARY CLINICAL RECORDS. [facility] [employer] [facility]. provides no warranty or guarantee of the accuracy or completeness of information in this document.
[2023-07-02] MEDS: Aspirin 81 MG TAB.CHEW 243 MG PO (21:04)
--- NOTE | 2023-07-02 21:28 | PCM.HP.STD ---
HPI - General General Date of Admission: 07/02/23 Date of Service: 07/02/23 Chief Complaint: Chest pain. HPI Narrative The patient is a 42 y/o F w/ PMHx: Obesity, JO ANN, Tobacco use, GERD, HTN, HLD, CAD s/p PCI w/ NSTEMI (02/2023 PCI RCA with ECHO with EF 60% with no acute abnormalities), Anxiety and Depression, Adrenal adenoma who presents to the [facility] ED on 07/02/23 with history of onset of chest heaviness with a pressure-like sensation in her chest, diffuse, midsternal that is waxing and waning with shooting pains more sharp in nature starting in her right elbow with radiation into her right upper extremity/shoulder and neck with associated mild diaphoresis and nausea without emesis ongoing intermittently for the last 3 days prompting call to her cardiology office who recommended ED evaluation given her underlying history. She denies any dyspnea associated. She does report recent issues with wheezing. She notes compliance with her medications. Patient currently reports her discomfort mild, improved, potentially 1-2 out of 10 in severity but notes it has been up to 10/10 in the past 3 days. She denies any recent RUE injury or atypical activities for her. Her cardiac catheterization previously had normal left main coronary artery, left anterior descending artery with very mild disease, first diagonal vessel with moderate diffuse disease, left circumflex artery with mild mid segment disease and left right collaterals filling the right coronary artery system, dominant right coronary artery at that point which was totally occluded proximally with a preserved LV systolic function. Workup in the ED included T98, heart 72, BP 123/91, respiratory rate 16, 1 9% on room air, CBC with WBC 12, hemoglobin 15.9, platelet 407 without marked shift, BMP with sodium 135, chloride 109 otherwise unremarkable, troponin 6, chest x-ray with old granulomatous disease with no acute cardiopulmonary findings, EKG with sinus rhythm with no acute evidence of ischemia. In the ED patient administered FS ASA therapy. [facility] History Adrenal adenoma Anxiety Anxiety and depression Atherosclerotic heart disease of [place] coronary artery without angina pectoris (02/16/23) COVID-19 GERD (gastroesophageal reflux disease) Hyperlipidemia Myocardial infarct NSTEMI, initial episode of care (02/16/23) Obesity Sleep apnea Smoker Tobacco use Home Medications venlafaxine 150 mg capsule,extended release 24 hr 150 mg PO DAILY 01/12/15 [History Last Taken Unknown] aspirin 81 mg tablet,delayed release 81 mg PO BREAKFAST #0 tabs 02/18/23 [Rx Last Taken Unknown] atorvastatin 80 mg tablet 80 mg PO QHS #90 tabs 03/20/23 [Rx Last Taken Unknown] bupropion HCl 100 mg tablet,12 hr sustained-release 100 mg PO BID 03/20/23 [History Last Taken Unknown] metoprolol succinate 25 mg tablet,extended release 24 hr 25 mg PO DAILY #90 tabs 03/20/23 [Rx Last Taken Unknown] trazodone 100 mg tablet 100 mg PO QHS 03/20/23 [History Last Taken Unknown] ticagrelor 90 mg tablet (Brilinta) 90 mg PO BID #180 tabs 05/19/23 [Rx Last Taken Unknown] Allergy/AdvReac Type Severity Reaction Status Date / Time terbinafine HCl Allergy Hives Verified 07/02/23 19:44 [From Lamisil] Family History Father Heart disease CAD (coronary artery disease) Hypertension HLD (hyperlipidemia) Myocardial infarction Mother Heart disease Hypertension HLD (hyperlipidemia) Surgical History Stented coronary artery (02/17/23) Social History (Updated 07/02/23 @ 21:[address] Alejandrina Flores MD) household members: other details: Lives with her two daughters. current occupational status: employed and other details: Retired of 21 years. Smoking Status: Current every day smoker tobacco type: cigarettes Smoking packs per day: 1 Smoking cigarettes per day: 20.0 quit status: considering quitting counseling given: provider counseling alcohol intake: never substance use type: does not use caffeine: Yes Type: coffee Number of servings: 4 ROS ROS Narrative Admission Review of Systems: CONSTITUTIONAL: No weight loss, fever, chills, + weakness or fatigue. HEENT: Eyes: No visual loss, blurred vision, double vision or yellow sclerae. Ears, Nose, Throat: No hearing loss, sneezing, congestion, runny nose or sore throat. SKIN: No rash or itching, lesions, wounds. CARDIOVASCULAR: + Chest pain. No palpitations, edema, orthopnea, syncopal events. RESPIRATORY: + Intermittent wheezing. No shortness of breath, cough or sputum, hemoptysis. GASTROINTESTINAL: + Nausea. No anorexia, vomiting or diarrhea, abdominal pain, melena, BRBPR. GENITOURINARY: No dysuria, frequency, urgency or retention. NEUROLOGICAL: No headache, dizziness, syncope, paralysis, ataxia, numbness or tingling in the extremities, focal weakness, change in bowel or bladder control, seizure. MUSCULOSKELETAL: + muscle, back pain, joint pain or stiffness. HEMATOLOGIC: No anemia, bleeding or bruising. LYMPHATICS: No enlarged nodes. No history of splenectomy. PSYCHIATRIC: + history of depression or anxiety. ENDOCRINOLOGIC: + reports of sweating. No cold or heat intolerance. No polyuria or polydipsia. ALLERGIES: No history of asthma, hives, eczema or rhinitis. Vital Signs Vital Signs Vital Signs: 07/02/23 19:40 07/02/23 20:17 07/02/23 20:21 Temperature 98.0 F Temperature Source Temporal Pulse Rate 72 Respiratory Rate 16 Respiratory Effort Normal Blood Pressure 123/91 H Blood Pressure Mean 101 Pulse Ox 100 Oxygen Delivery Method Room Air Room Air 07/02/23 20:39 Temperature Temperature Source Pulse Rate 66 Respiratory Rate 24 H Respiratory Effort Blood Pressure 111/75 Blood Pressure Mean 87 Pulse Ox 97 Oxygen Delivery Method Room Air Weight Weight: 176 lb 3 oz Body Mass Index (BMI) 32.2 Physical Exam Narrative Physical Examination: General: Awake, alert, oriented x 3 and cooperative, seated upright in the ED bed, fatigued appearing and mildly anxious, some mild 1-2 chest discomfort but no right arm pain at this point. Skin: Normal color, normal turgor, no icterus, no cyanosis. HEENT: AT/NC, EOMI, PERRLA, MMM, no carotid bruits or JVD noted. Lungs: CTA bilaterally, moderate effort, mild decrease BL bases, no rales, ronchi or wheezing. Heart: Regular rate and rhythm; no gallop, rub audible. Abdomen: Soft, obese, NTTP, ND, mildly hyperactive BS, no HSM. Extremities: No cyanosis, clubbing, or edema. Neurological: Patient awake, alert, oriented as noted, cognitive function intact; pupils equally reactive to light and accommodation, cranial nerves II-XII grossly normal, moving all 4 extremities, no focal deficits, strength preserved. Psychiatric: Affect appears mildly anxious, fatigued, does have underlying depression and anxiety. Results Lab / Micro Data 07/02/23 19:55 07/02/23 19:55 Labs: Laboratory Results - last 24 hr 07/02/23 19:55: WBC 12.0 H, RBC 5.18, Hgb 15.9 H, Hct 47.1 H, MCV 90.9, MCH 30.7, MCHC 33.8, RDW Std Deviation 42.1, RDW Coeff of Kael 12.6, Plt Count 407, MPV 9.7, Immature Gran % (Auto) 0.200, Neut % (Auto) 59.2, Lymph % (Auto) 31.9, [place] % (Auto) 5.0, Eos % (Auto) 2.8, Baso % (Auto) 0.9, Absolute Neuts (auto) 7.1, Absolute Lymphs (auto) 3.83, Nucleated RBC % 0, Sodium 135 L, Potassium 3.9, Chloride 109 H, Carbon Dioxide 25.0, Anion Gap 1 L, BUN 8, Creatinine 0.72, Estim Creat Clear Calc 97.63, Est GFR (MDRD) Af Amer 113, Est GFR (MDRD) Non-Af 93, BUN/Creatinine Ratio 11.1, Glucose 100, Calcium 9.4, Troponin I High Sens 6 Imagaing Radiology Impression Chest X-Ray 07/02/23 19:45 IMPRESSION: Old granulomatous disease. No acute cardiopulmonary pathology. Electronically Signed: Deandre Guerin MD at 20:08 EST Reading Location ID and State: [facility] / [place] Tel , Service support , Assessment & Plan Assessment/Plan (1) Chest pain: PLAN: Plan The patient is a 42 y/o F w/ PMHx: Obesity, JO ANN, Tobacco use, GERD, HTN, HLD, CAD s/p PCI w/ NSTEMI (02/2023 PCI RCA with ECHO with EF 60% with no acute abnormalities), Anxiety and Depression, Adrenal adenoma who presents to the [facility] ED on 07/02/23 with history of onset of chest heaviness with a pressure-like sensation that is waxing and waning with RUE pain, shooting into her R neck and shoulder intermittently in addition with cardiology office recommendation for ED evaluation. #1. Chest Pain: EKG in ED sinus rhythm with no acute evidence of ischemia, CXR w/ no acute cardiopulmonary findings, initial trop 6. Will admit to PCU, place on a monitored bed to assure no acute myocardial infarction with serial cardiac enzymes and EKGs. If repeat serial cardiac enzymes remain unremarkable will pursue a.m. cardiac stress testing; however, given history if ongoing discomfort or EKG changes/enzyme rise low threshold to involve cardiology for possible repeat cardiac catheterization consideration. Judicious hydration with NPO status at midnight. ASA, NG. #2. CAD: Status post previous 02/2023 admission with NSTEMI with PCI RCA, echo at that time with EF 60% with no acute abnormalities, continue aspirin, Brilinta, metoprolol home regimen, not on AKIKO or/ARB. #3. Hypertension: Continue home regimen including metoprolol, PRN hydralazine. #4. Hyperlipidemia: Continue high-dose statin, FLP in AM. #5. Anxiety and depression: We will continue patient home venlafaxine, bupropion and trazodone regimen. #6. Tobacco Abuse w/ recent complaint of intermittent wheezing, possible underlying COPD: Encouraged cessation, inpatient consultation per RT, NR if desired, will place on ATC budesonide with PRN albuterol. This presentation certainly could be contributing to her acute presentation complaints #1. Encouraged possible PFTs outpatient. #7. Adrenal adenoma: 08/17/19 CT abdomen pelvis with a small circumscribed smooth low-attenuation right adrenal mass consistent with adrenal adenoma however on repeat CT imaging 01/01/2021 and 03/23/2022 there is no mention. During prior 02/2023 visit she had reported upcoming CT however in [email or web address] records there is no other CT noted. Encourage continued outpatient follow-up and evaluation as previously arranged. #8. Obesity: Weight loss and lifestyle changes encouraged. #9. JO ANN: CPAP q HS. #10. DVT prophylaxis: Lovenox. Charges/Coding Visit Charges Inpatient E&M: 64311 Init Hosp L2
--- OUTSIDE RECORDS SUMMARY | 2023-07-02 21:40 | XMS RPT_ITS | CCD ---
Author Name Unknown Address [address] [place] [address] Organization [facility] Care Team Providers Care Mud Temperer Name Role Phone Carlos PUGH, Arsenio Fernandez Primary Care Provider ARSENIO YUN Attending Unavailable YUN, ARSENIO Fernandez [...] ARSENIO Fernandez Primary Care Unavailable YUN, ARSENIO Fernnadez Primary Care Unavailable OLDERJERRICA Attending Unavailable CARLOS, ARSENIO Fernandez Referring Unavailable YUN, ARSENIO Fernandez Primary Care Unavailable Allergies Allergy Classification Reported Allergen(s) Allergy Type Date of Onset Reaction(s) Facility (20 sources) Seasonal allergy; Translations: [SEASONAL ALLERGIES] Propensity to adverse reactions 8 Other: See Comments [facility] Work Phone: (20 sources) terbinafine; Translations: [TERBINAFINE HCL] Drug Allergy 8 [place] [facility] Work Phone: Medications Current Medications Medication Drug [...] Coronary arteriosclerosis; Translations: [Atherosclerotic heart disease of creek coronary artery without angina pectoris] Onset: 02-24-2023 [...] 09:20-0400 Body temperature 97.5 [degF] Jerrica Older SHELLFISH CHECKER.TELETYPE ADJUSTER Work Phone: [facility] 02-24-2023 09:20-0400 Body weight 83.01 kg Jerrica Older SHELLFISH CHECKER.TELETYPE ADJUSTER Work Phone: [facility] 02-24-2023 09:20-0400 Diastolic blood pressure 70 mm[Hg] Jerrica Older SHELLFISH CHECKER.TELETYPE ADJUSTER Work Phone: [facility] 02-24-2023 09:20-0400 Heart rate 76 /min Jerrica Older SHELLFISH CHECKER.TELETYPE ADJUSTER Work Phone: [facility] 02-24-2023 09:20-0400 SaO2% (BldA) [Mass fraction] 96 % Jerrica Older SHELLFISH CHECKER.TELETYPE ADJUSTER Work Phone: [facility] 02-24-2023 09:20-0400 Systolic blood pressure 116 mm[Hg] Jerrica Older SHELLFISH CHECKER.TELETYPE ADJUSTER Work Phone: [facility] 01-26-2023 10:35-0400 Body temperature 98.8 [degF] Kristi Kael SHELLFISH CHECKER.TELETYPE ADJUSTER Work Phone: [facility] 01-26-2023 10:35-0400 Body weight 83.92 kg Kristi Kael SHELLFISH CHECKER.TELETYPE ADJUSTER Work Phone: [facility] 01-26-2023 10:35-0400 Diastolic blood pressure 80 mm[Hg] Kristi Kael SHELLFISH CHECKER.TELETYPE ADJUSTER Work Phone: [facility] 01-26-2023 10:35-0400 Heart rate 82 /min Kristi Kael SHELLFISH CHECKER.TELETYPE ADJUSTER Work Phone: [facility] 01-26-2023 10:35-0400 Respiratory rate 16 /min Kristi Kael SHELLFISH CHECKER.TELETYPE ADJUSTER Work Phone: [facility] 01-26-2023 10:35-0400 SaO2% (BldA) [Mass fraction] 97 % Kristi Kael SHELLFISH CHECKER.TELETYPE ADJUSTER Work Phone: [facility] 01-26-2023 10:35-0400 Systolic blood pressure 122 mm[Hg] Kristi Kael SHELLFISH CHECKER.TELETYPE ADJUSTER Work Phone: [facility] 01-15-2023 08:11-0400 Body height 157.5 cm Rubina Holbrook SHELLFISH CHECKER.CNM Work Phone: [facility] 01-15-2023 08:11-0400 Body weight 84.82 kg Rubina Holbrook SHELLFISH CHECKER.CNM Work Phone: [facility] 01-15-2023 08:11-0400 Diastolic blood pressure 80 mm[Hg] Rubina Holbrook SHELLFISH CHECKER.CNM Work Phone: [facility] 01-15-2023 08:11-0400 Systolic blood pressure 110 mm[Hg] Rubina Holbrook SHELLFISH CHECKER.CNM Work Phone: [facility] 01-10-2023 10:00-0400 Body weight 83.01 kg Jerrica Older SHELLFISH CHECKER.TELETYPE ADJUSTER Work Phone: [facility] 01-10-2023 10:00-0400 Diastolic blood pressure 85 mm[Hg] Jerrica Older SHELLFISH CHECKER.TELETYPE ADJUSTER Work Phone: [facility] 01-10-2023 10:00-0400 Heart rate 85 /min Jerrica Older SHELLFISH CHECKER.TELETYPE ADJUSTER Work Phone: [facility] 01-10-2023 10:00-0400 Respiratory rate 16 /min Jerrica Older SHELLFISH CHECKER.TELETYPE ADJUSTER Work Phone: [facility] 01-10-2023 10:00-0400 Systolic blood pressure 128 mm[Hg] Jerrica Older SHELLFISH CHECKER.TELETYPE ADJUSTER Work Phone: [facility] 10-03-2022 18:03-0400 Body temperature 97.81 [degF] Arsenio Yun MD Work Phone: [facility] 10-03-2022 18:03-0400 Body weight 83.73 kg Arsenio Yun MD Work Phone: [facility] 10-03-2022 18:03-0400 Diastolic blood pressure 78 mm[Hg] Arsenio Yun MD Work Phone: [facility] 10-03-2022 18:03-0400 Heart rate 80 /min Arsenio Yun MD Work Phone: [facility] 10-03-2022 18:03-0400 Respiratory rate 16 /min Arsenio Yun MD Work Phone: [facility] 10-03-2022 18:03-0400 SaO2% (BldA) [Mass fraction] 95 % Arsenio Yun MD Work Phone: [facility] 10-03-2022 18:03-0400 Systolic blood pressure 110 mm[Hg] Arsenio Yun MD Work Phone: [facility] 07-31-2022 15:06-0500 Body weight 84.37 kg Jerrica Older SHELLFISH CHECKER.TELETYPE ADJUSTER Work Phone: [facility] 07-31-2022 15:06-0500 Diastolic blood pressure 87 mm[Hg] Jerrica Older SHELLFISH CHECKER.TELETYPE ADJUSTER Work Phone: [facility] 07-31-2022 15:06-0500 Heart rate 91 /min Jerrica Older SHELLFISH CHECKER.TELETYPE ADJUSTER Work Phone: [facility] 07-31-2022 15:06-0500 Respiratory rate 14 /min Jerrica Older SHELLFISH CHECKER.TELETYPE ADJUSTER Work Phone: [facility] 07-31-2022 15:06-0500 Systolic blood pressure 127 mm[Hg] Jerrica Older SHELLFISH CHECKER.TELETYPE ADJUSTER Work Phone: [facility] 05-08-2022 15:34-0500 Body temperature 97.39 [degF] Luciana Mcgrath SHELLFISH CHECKER.TELETYPE ADJUSTER Work Phone: [facility] 05-08-2022 15:34-0500 Body weight 85.46 kg Luciana Mcgrath SHELLFISH CHECKER.TELETYPE ADJUSTER Work Phone: [facility] 05-08-2022 15:34-0500 Diastolic blood pressure 82 mm[Hg] Luciana Mcgrath SHELLFISH CHECKER.TELETYPE ADJUSTER Work Phone: [facility] 05-08-2022 15:34-0500 Heart rate 85 /min Luciana Mcgrath SHELLFISH CHECKER.TELETYPE ADJUSTER Work Phone: [facility] 05-08-2022 15:34-0500 Respiratory rate 21 /min Luciana Mcgrath SHELLFISH CHECKER.TELETYPE ADJUSTER Work Phone: [facility] 05-08-2022 15:34-0500 SaO2% (BldA) [Mass fraction] 97 % Luciana Mcgrath SHELLFISH CHECKER.TELETYPE ADJUSTER Work Phone: [facility] 05-08-2022 15:34-0500 Systolic blood pressure 120 mm[Hg] Luciana Mcgrath SHELLFISH CHECKER.TELETYPE ADJUSTER Work Phone: [facility] 04-01-2022 11:10-0400 Diastolic blood pressure 86 mm[Hg] Teresa Podlogar SHELLFISH CHECKER.TELETYPE ADJUSTER Work Phone: [facility] 04-01-2022 11:10-0400 Heart rate 89 /min Teresa Podlogar SHELLFISH CHECKER.TELETYPE ADJUSTER Work Phone: [facility] 04-01-2022 11:10-0400 Respiratory rate 16 /min Teresa Podlogar SHELLFISH CHECKER.TELETYPE ADJUSTER Work Phone: [facility] 04-01-2022 11:10-0400 SaO2% (BldA) [Mass fraction] 97 % Teresa Podlogar SHELLFISH CHECKER.TELETYPE ADJUSTER Work Phone: [facility] 04-01-2022 11:10-0400 Systolic blood pressure 122 mm[Hg] Teresa Podlogar SHELLFISH CHECKER.TELETYPE ADJUSTER Work Phone: [facility] 11-07-2021 08:47-0400 Body weight 83.92 kg Jerrica Older SHELLFISH CHECKER.TELETYPE ADJUSTER Work Phone: [facility] 11-07-2021 08:47-0400 Diastolic blood pressure 86 mm[Hg] Jerrica Older SHELLFISH CHECKER.TELETYPE ADJUSTER Work Phone: [facility] 11-07-2021 08:47-0400 Heart rate 86 /min Jerrica Older SHELLFISH CHECKER.TELETYPE ADJUSTER Work Phone: [facility] 11-07-2021 08:47-0400 Respiratory rate 12 /min Jerrica Older SHELLFISH CHECKER.TELETYPE ADJUSTER Work Phone: [facility] 11-07-2021 08:47-0400 Systolic blood pressure 126 mm[Hg] Jerrica Older SHELLFISH CHECKER.TELETYPE ADJUSTER Work Phone: [facility] Encounters Encounter Date Encounter Type Care Provider Facility Start: 05-06-2023 End: 05-06-2023 ambulatory ARSENIO YUN Facility:[facility] Start: 04-11-2023 Telephone encounter Aniyah Carrizales MD Work Phone: Endocrinology Procedures Date Procedure Procedure Detail Performing Clinician Start: 02-24-2023 INFLUENZA VACCINE, A GE 6 MO - 64 YR, QUADRIVALENT (AFLURIA, FLULAVAL, FLUZONE) Jerrica Older SHELLFISH CHECKER.TELETYPE ADJUSTER Work Phone: Start: 01-26-2023 STREP A MOLECULAR (POC) Kristi Kael SHELLFISH CHECKER.TELETYPE ADJUSTER Work Phone: Start: 05-08-2022 STREP A MOLECULAR (POC) Luciana Mcgrath SHELLFISH CHECKER.TELETYPE ADJUSTER Work Phone: Start: 04-01-2022 Urnls dip stick/tabl et rgnt auto w/o microscopy Teresa Podlogewa SHELLFISH CHECKER.TELETYPE ADJUSTER Work Phone: Start: 12-12-2021 Diagnostic mammograp hy computer-aided detcj bi Alma Delia Frey SHELLFISH CHECKER.TELETYPE ADJUSTER Work Phone: Start: 11-08-2021 End: 11-08-2021 Screening mammography bi 2-view breast inc cad Aditi Roger MD Work Phone: Start: 11-07-2021 [facility] COVI D-19 VACCINE, AGE 12+ YR (VICENTE TOP) Jerirca Older SHELLFISH CHECKER.TELETYPE ADJUSTER Work Phone: Start: 11-07-2021 Adult depression scr eening assessment Jerrica Older SHELLFISH CHECKER.TELETYPE ADJUSTER Work Phone: Start: 10-12-2020 Mammography Jerrica Older SHELLFISH CHECKER.TELETYPE ADJUSTER Work Phone: Start: 10-06-2020 Adult depression scr eening assessment Jerrica Older SHELLFISH CHECKER.TELETYPE ADJUSTER Work Phone: Start: 12-15-2019 Colonoscopy Jerrica Older SHELLFISH CHECKER.TELETYPE ADJUSTER Work Phone: Plan of Treatment Date Care Activity Detail Author Start: 12-14-2029 Colonoscopy COLONOSCOPY [facility] Start: 12-14-2029 COLORECTAL CANCER SCREENING COLORECTAL CANCER SCREENING [facility] Start: 01-16-2028 HPV TESTING HPV TESTING [facility] Start: 01-16-2028 PAP TESTING PAP TESTING [facility] Start: 06-28-2026 Urine microalbumin profile [facility] Start: 02-25-2024 Annual PCP Team Corporate Manager nani Disease Visit Annual PCP Team Chronic Disease Visit [facility] Start: 02-15-2024 Mammography Mammogram Screening [facility] Start: 01-11-2024 COVID-19 VACCINE (4 - Moderna series) COVID-19 VACCINE (4 - Moderna series) [facility] Immunizations Immunization Date Immunization Notes Care Provider Fa cility 02-24-2023 influenza, injectabl e, quadrivalent, contains preservative Jerrica Older SHELLFISH CHECKER.[facility] Work Phone: [facility] Work Phone: 01-10-2023 pneumococcal (PCV20) vaccine, 20 valent (PREVNAR 20) Jerrica Older SHELLFISH CHECKER.[facility] Work Phone: [facility] 01-10-2023 pneumococcal Conjuga te, unspecified formulation Jerrica Older SHELLFISH CHECKER.TELETYPE ADJUSTER Work Phone: [facility] Work Phone: 11-07-2021 COVID-19 vaccine, ag e 12+ yr ([facility] - [facility]) Jerrica Older SHELLFISH CHECKER.TELETYPE ADJUSTER Work Phone: [facility] 03-29-2021 influenza, injectabl e, quadrivalent, contains preservative Jerrica Older SHELLFISH CHECKER.[facility] Work Phone: [facility] 03-29-2021 influenza virus vacc ine, unspecified formulation Arsenio Yun MD Work Phone: [facility] 11-29-2020 COVID-19 vaccine, fu ll dose (MODERNA) Jerrica Older SHELLFISH CHECKER.TELETYPE ADJUSTER Work Phone: [facility] Work Phone: 10-31-2020 COVID-19 vaccine, fu ll dose (MODERNA) Jerrica Older SHELLFISH CHECKER.TELETYPE ADJUSTER Work Phone: [facility] Work Phone: 04-18-2020 influenza, injectabl e, quadrivalent, contains preservative Jerrica Older SHELLFISH CHECKER.TELETYPE ADJUSTER Work Phone: [facility] 05-15-2018 pneumococcal polysaccharide vaccine, 23 valent Jerrica Older SHELLFISH CHECKER.TELETYPE ADJUSTER Work Phone: [facility] Work Phone: 04-17-2018 influenza, injectabl e, quadrivalent, preservative free Jerrica Older SHELLFISH CHECKER.TELETYPE ADJUSTER Work Phone: [facility] Work Phone: 04-04-2018 influenza, injectabl e, quadrivalent, preservative free Jerrica Older SHELLFISH CHECKER.TELETYPE ADJUSTER Work Phone: [facility] 05-22-2017 Influenza, injectabl e, [facility], preservative free, quadrivalent Jerrica Older SHELLFISH CHECKER.TELETYPE ADJUSTER Work Phone: [facility] 09-27-2016 anthrax vaccine Jerrica Older AP RN.TELETYPE ADJUSTER Work Phone: [facility] 06-28-2016 tetanus toxoid, redu fang diphtheria toxoid, and acellular pertussis vaccine, adsorbed Jerrica Older SHELLFISH CHECKER.TELETYPE ADJUSTER Work Phone: [facility] 04-23-2016 influenza, seasonal, injectable Jerrica Older SHELLFISH CHECKER.TELETYPE ADJUSTER Work Phone: [facility] 03-19-2016 influenza, seasonal, injectable, preservative free Jerrica Older SHELLFISH CHECKER.TELETYPE ADJUSTER Work Phone: [facility] 04-15-2015 influenza, seasonal, injectable, preservative free Jerrica Older SHELLFISH CHECKER.TELETYPE ADJUSTER Work Phone: [facility] 04-15-2015 measles, mumps and rubella virus vaccine Jerrica Older SHELLFISH CHECKER.TELETYPE ADJUSTER Work Phone: [facility] 03-12-2014 influenza, injectabl e, quadrivalent, preservative free Jerrica Older SHELLFISH CHECKER.TELETYPE ADJUSTER Work Phone: [facility] 04-09-2013 influenza, live, intranasal, quadrivalent Jerrica Older SHELLFISH CHECKER.TELETYPE ADJUSTER Work Phone: [facility] 03-28-2012 influenza, seasonal, injectable, preservative free Jerrica Older SHELLFISH CHECKER.TELETYPE ADJUSTER Work Phone: [facility] 03-25-2012 influenza virus vacc ine, unspecified formulation Jerrica Older SHELLFISH CHECKER.TELETYPE ADJUSTER Work Phone: [facility] 05-18-2011 hepatitis B vaccine, adult dosage Jerrica Older SHELLFISH CHECKER.TELETYPE ADJUSTER Work Phone: [facility] 05-18-2011 influenza virus vacc ine, live, attenuated, for intranasal use Jerrica Older SHELLFISH CHECKER.TELETYPE ADJUSTER Work Phone: [facility] 04-15-2010 anthrax vaccine Jerrica Older AP RN.TELETYPE ADJUSTER Work Phone: [facility] 04-15-2010 hepatitis B vaccine, adult dosage Jerrica Older SHELLFISH CHECKER.TELETYPE ADJUSTER Work Phone: [facility] 04-15-2010 influenza virus vacc ine, split virus (incl. purified surface antigen) Jerrica Older SHELLFISH CHECKER.TELETYPE ADJUSTER Work Phone: [facility] 07-15-2009 hepatitis B vaccine, adult dosage Jerrica Older SHELLFISH CHECKER.TELETYPE ADJUSTER Work Phone: [facility] 07-15-2009 novel influenza-H1N1 -09, injectable Jerrica Older SHELLFISH CHECKER.TELETYPE ADJUSTER Work Phone: [facility] 03-12-2009 influenza virus vacc ine, live, attenuated, for intranasal use Jerrica Older SHELLFISH CHECKER.TELETYPE ADJUSTER Work Phone: [facility] 03-12-2009 tetanus toxoid, redu fang diphtheria toxoid, and acellular pertussis vaccine, adsorbed Jerrica Older SHELLFISH CHECKER.TELETYPE ADJUSTER Work Phone: [facility] 05-19-2007 influenza virus vacc ine, live, attenuated, for intranasal use Jerrica Older SHELLFISH CHECKER.TELETYPE ADJUSTER Work Phone: [facility] 06-28-2006 influenza virus vacc ine, split virus (incl. purified surface antigen) Jerrica Older SHELLFISH CHECKER.TELETYPE ADJUSTER Work Phone: [facility] 04-21-2004 influenza virus vacc ine, split virus (incl. purified surface antigen) Jerrica Older SHELLFISH CHECKER.TELETYPE ADJUSTER Work Phone: [facility] 05-20-2003 influenza virus vacc ine, split virus (incl. purified surface antigen) Jerrica Older SHELLFISH CHECKER.TELETYPE ADJUSTER Work Phone: [facility] 01-29-2003 anthrax vaccine Jerrica Older AP RN.TELETYPE ADJUSTER Work Phone: [facility] 08-26-2002 measles, mumps and rubella virus vaccine Jerrica Older SHELLFISH CHECKER.TELETYPE ADJUSTER Work Phone: [facility] 08-26-2002 meningococcal polysaccharide vaccine (MPSV4) Jerrica Older SHELLFISH CHECKER.TELETYPE ADJUSTER Work Phone: [facility] 08-26-2002 vaccinia (smallpox) vaccine, diluted Jerrica Older SHELLFISH CHECKER.TELETYPE ADJUSTER Work Phone: [facility] 08-14-2002 anthrax vaccine Jerrica Older AP RN.TELETYPE ADJUSTER Work Phone: [facility] 07-31-2002 anthrax vaccine Jerrica Older AP RN.TELETYPE ADJUSTER Work Phone: [facility] 07-17-2002 anthrax vaccine Jerrica Older AP RN.TELETYPE ADJUSTER Work Phone: [facility] 06-19-2002 hepatitis A vaccine, adult dosage Jerrica Older SHELLFISH CHECKER.TELETYPE ADJUSTER Work Phone: [facility] 06-19-2002 typhoid vaccine, unspecified formulation Jerrica Older SHELLFISH CHECKER.TELETYPE ADJUSTER Work Phone: [facility] 06-09-2002 tetanus and diphther ia toxoids, adsorbed, preservative free, for adult use (2 Lf of tetanus toxoid and 2 Lf of diphtheria toxoid) Jerrica Older SHELLFISH CHECKER.TELETYPE ADJUSTER Work Phone: [facility] Work Phone: 05-17-2000 hepatitis A vaccine, adult dosage Jerrica Older SHELLFISH CHECKER.TELETYPE ADJUSTER Work Phone: [facility] 05-17-2000 measles and rubella virus vaccine Jerrica Older SHELLFISH CHECKER.TELETYPE ADJUSTER Work Phone: [facility] 05-17-2000 poliovirus vaccine, inactivated Jerrica Older SHELLFISH CHECKER.TELETYPE ADJUSTER Work Phone: [facility] 08-16-1998 yellow fever vaccine Jerrica Old er SHELLFISH CHECKER.TELETYPE ADJUSTER Work Phone: [facility] 04-15-1997 tetanus and diphther ia toxoids, adsorbed, preservative free, for adult use (2 Lf of tetanus toxoid and 2 Lf of diphtheria toxoid) Jerrica Older SHELLFISH CHECKER.TELETYPE ADJUSTER Work Phone: [facility] 07-27-1996 TD(adult) unspecifie d formulation Jerrica Older SHELLFISH CHECKER.TELETYPE ADJUSTER Work Phone: [facility] 06-29-1996 measles, mumps and rubella virus vaccine Jerrica Older SHELLFISH CHECKER.TELETYPE ADJUSTER Work Phone: [facility] Payers Date Payer Category Payer [employer] ( and others) [id number] 2004 Unknown [facility] [id number] 2004-Present [phone] [address] [place] [address] Indemnity [id number] 2004 Unknown [facility] [id number] 2004-Present [phone] [address] [place] [address] Indemnity [id number] Social History Date Type Detail Facility Start: 06-09-1994 End: 02-24-2023 Tobacco smoking status NHIS Smokes tobacco daily [facility] Start: 06-09-1994 History of tobacco use Cigarette Smo ker [facility] Start: 06-17-2012 End: 11-15-2022 Cigarettes smoked current (pack per day) - Reported 1 [facility] Start: 06-17-2012 End: 02-24-2023 Tobacco use and exposure Smokeless tobacco non-user [facility] Start: 06-30-2021 End: 01-10-2023 Alcohol intake Current drinker of alcohol (finding) [facility] Start: 10-06-2020 End: 07-31-2022 History SDOH Alcohol Frequency 2 [facility] Start: 10-06-2020 End: 07-31-2022 History SDOH Alcohol Std Drinks 1 [facility] Start: 10-13-2018 History SDOH Alcohol Comment Rarely [facility] Start: 10-06-2020 End: 07-31-2022 History SDOH Social Connections Phone 4 [facility] Start: 10-06-2020 End: 07-31-2022 History SDOH Social Connections Living 7 [facility] Start: 10-06-2020 End: 07-31-2022 History SDOH Physical Activity DPW 0 [facility] Start: 10-06-2020 History SDOH Financial 3 [facility] Start: 10-06-2020 Education 12 [facility] Start: 1980 Sex Assigned At Not on file C [facility] Start: 10-29-2021 End: 05-08-2022 Exposure to SARS-CoV-2 (event) Not sure [facility] Start: 07-31-2022 History SDOH Social Connections Phone 5 [facility] Start: 07-31-2022 End: 11-15-2022 Social connection and isolation panel [facility] Do you belong to any clubs or organizations such as restorationism groups, unions, fraternal or athletic groups, or school groups? No [facility] Are you now , , , , never or living with a partner? Never [facility] How often to you hav e a drink containing alcohol? Monthly or less [facility] How many standard dr inks containing alcohol do you have on a typical day? 1 or 2 [facility] How often do you hav e 6 or more drinks on 1 occasion? Less than monthly [facility] How hard is it for y ou to pay for the very basics like food, housing, medical care, and heating Not very hard [facility] Adult Depression Scr eening Assessment 3 [facility] Do you feel stress - tense, restless, nervous, or anxious, or unable to sleep at night because your mind is troubled all the time - these days [OSQ] Rather much [facility] (I/We) worried wheruby er (my/our) food would run out before (I/we) got money to buy more. Never true [facility] Start: 01-15-2023 End: 02-24-2023 Alcohol intake Ex-drinker (finding) [facility] Start: 02-24-2023 Tobacco Comment 02/24/23- down to 3 cigarettes a day [facility] Clinical Notes 06-28-2016 to 05-06-2023 Patient Jerrica Dominguez APRN.TELETYPE ADJUSTER - 02/24/2023 9:28 AM EDTPatient Kristi German APRN.TELETYPE ADJUSTER - 01/26/2023 10:41 AM EDTPatient Jerrica Dominguez APRN.TELETYPE ADJUSTER - 01/10/2023 10:11 AM EDT Note Date & Type Note Facility 05-06-2023 Note HNO ID: [id number] Author: Aniyah Carrizales MD Service: ? Author [...] the site. 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 Patient denies any symptoms including easy bruising, [...] 03/04/2013 Chlamydia 1996 Coronary artery disease involving creek coronary artery of creek heart without angina pectoris 02/24/2023 Depressive disorder, [...] SPEC WHEN PFRMD 12/15/2019 Colonoscopy IUD INSERTION (SENIOR ACCOUNT REPRESENTATIVE DEPT)_*[place] 09/14/08 mirena IUD REMOVAL (SENIOR ACCOUNT REPRESENTATIVE DEPT)_*[place] 09/25/2010,06/2013 Mirena Family Medical History: FAMILY HISTORY Problem Relation Age of Onset Hypertension Mother Resolved Lipids Mother Breast Cancer Mother Coronary Artery Disease Father [place] age 62 Heart Maternal Grandmother SC, Cancer Maternal Grandfather BLACK LUNG,NURSES SUPERINTENDENT Colon Cancer Paternal Grandmother No Known Problems [...] Reactions Hay Fe (more content not included)... [facility] 02-26-2023 Note HNO ID: [id number] Author: Rita Bunn RT(R) Service: ? Author Type: Parking Line Painter Type: Progress Notes Filed: 02/26/2023 3:01 PM [...] RT [place](R) February 26, 2023 3:00 PM [facility] 02-24-2023 Note HNO ID: [id number] Author: Jerrica Plummer APRN.GEORGINA Service: ? Author Type: Nurse Practitioner Type: Progress Notes Filed: 02/24/2023 9:59 AM Note Text: CC: Patient presents with: Hospital F/U HPI Eveline Eugene is a 42 year old female who presents today for above. Patient was admitted to [facility] 02/16 to 02/18 for NSTEMI. She presented [...] SPEC WHEN PFRMD 12/15/2019 Colonoscopy IUD INSERTION (SENIOR ACCOUNT REPRESENTATIVE DEPT)_*[place] 09/14/08 mirena IUD REMOVAL (SENIOR ACCOUNT REPRESENTATIVE DEPT)_*[place] 09/25/2010,06/2013 Mirena ALLERGIES Hay Fever [...] once daily. Take with 75 mg capsule qt=303 mg daily hydrOXYzine HCl (ATARAX) 25 mg tablet Take 1-2 tablets by mouth every 4 hours as needed. levonorgestrel (MIRENA) 20 mcg/24 hours (5-6 yrs) 52 mg IUD 1 Each by INTRAUTERINE route as directed. FAMILY HISTORY Problem Relation Age of Onset Hypertension Mother Resolved Lipids Mother Breast Cancer Mother Coronary Artery Disease Father [place] age 62 Heart Maternal Grandmother SC, Cancer Maternal Grandfather BLACK LUNG,NURSES SUPERINTENDENT Colon Cancer Paternal Grandmother No Known Problems [...] edema. Neurological: Me (more content not included)... [facility] 02-24-2023 Instructions Jerrica Plummer APRN.CNP - 02/24/2023 [...] call the office for guidance. 6. Call [employer] Quit Line, [phone] [employer] documented in this encounter [facility] 02-24-2023 History of Presen t illness Narrative CC: Patient presents with: Hospital F/U HPI Eveline Eugene is a 42 year old female who presents today for above. Patient was admitted to [facility] 02/16 to 02/18 for NSTEMI. She presented [...] SPEC WHEN PFRMD 12/15/2019 Colonoscopy IUD INSERTION (SENIOR ACCOUNT REPRESENTATIVE DEPT)_*FL 09/14/08 mirena IUD REMOVAL (SENIOR ACCOUNT REPRESENTATIVE DEPT)_*FL 09/25/2010,06/2013 Mirena ALLERGIES Hay Fever [...] once daily. Take with 75 mg capsule nw=271 mg daily hydrOXYzine HCl (ATARAX) 25 mg tablet Take 1-2 tablets by mouth every 4 hours as needed. levonorgestrel (MIRENA) 20 mcg/24 hours (5-6 yrs) 52 mg IUD 1 Each by INTRAUTERINE route as directed. FAMILY HISTORY Problem Relation Age of Onset Hypertension Mother Resolved Lipids Mother Breast Cancer Mother Coronary Artery Disease Father SC age 62 Heart Maternal Grandmother SC, Cancer Maternal Grandfather BLACK LUNG,NURSES SUPERINTENDENT Colon Cancer Paternal Grandmother No Known Problems [...] is alert. DATA REVIEWED: Outside chart from [facility] admission reviewed. ASSESSMENT/PLAN: 1. NSTEMI (non-ST elevated myocardial infarction) (HCC) - ICD9: 410.70, ICD10: I21.4 (primary diagnosis) Continue with medications as prescribed at discharge and follow-up with cardiology. Schedule cardiac rehab. Follow-up in office in 4 months 2. Anxiety - ICD9: 300.00, ICD10: F41.9 Secondary to recent SC and health issues. Encouraged patient to start [...] (Wellbutrin) given 4. Coronary artery disease involving creek coronary artery of creek heart without angina pectoris - ICD9: 414.01, [...] Jerrica Plummer APRN.CNP documented in this encounter [facility] 02-14-2023 Note HNO ID: [id number] Author: Avery Ronquillo Mammo Tech Service: ? [...] Lovely Bush February 14, 2023 9:22 AM [facility] 02-14-2023 Note HNO ID: [id number] Author: Dolly Thibodeaux Mammo Tech Service: ? Author Type: Parking Line Painter Type: Progress Notes Filed: 02/14/2023 9:24 AM [...] Lovely España February 14, 2023 8:52 AM [facility] 01-26-2023 Note HNO ID: [id number] Author: Kristi Scruggs APRN.TELETYPE ADJUSTER Service: ? Author Type: Nurse Practitioner Type: Progress Notes Filed: 01/26/2023 10:57 AM Note Text: Subjective The history is provided by the patient. No sign language teacher was used. HPI Eveline Eugene is a [...] have confirmed and edited as necessary, the [facility] Review of Systems Constitutional: Positive for fever. [...] No NSAIDs while using Kristi Scruggs APRN.CNP [facility] 01-26-2023 Instructions Kristi Scruggs APRN.CNP - 01/26/2023 [...] inability to swallow. documented in this encounter [facility] 01-26-2023 History of Presen t illness Narrative Subjective The history is provided by the patient. No sign language teacher was used. HPI Eveline Eugene is a [...] have confirmed and edited as necessary, the [facility] Review of Systems Constitutional: Positive for fever. [...] days No NSAIDs while using Kristi Scruggs APRN.TELETYPE ADJUSTER documented in this encounter [facility] 01-15-2023 Note HNO ID: [id number] Author: Rubina Holbrook APRN.CNM Service: ? Author Type: Network Analyst Type: Progress Notes Filed: 01/15/2023 9:15 AM [...] L2 SAB0 IAB0 Ectopic0 Multiple0 Live Births2 Mold Burner History LMP: 09/21/2020, IUD Age at Menarche: Age at First : Age at Menopause: Mold Burner History Comments: Sexual Activity: Not Currently; No [...] SPEC WHEN PFRMD 12/15/2019 Colonoscopy IUD INSERTION (SENIOR ACCOUNT REPRESENTATIVE DEPT)_*FL 09/14/08 mirena IUD REMOVAL (SENIOR ACCOUNT REPRESENTATIVE DEPT)_*FL 09/25/2010,06/2013 Mirena FAMILY HISTORY Problem Relation Age of Onset Hypertension Mother Resolved Lipids Mother Breast Cancer Mother Coronary Artery Disease Father SC age 62 Heart Maternal Grandmother SC, Cancer Maternal Grandfather BLACK LUNG,NURSES SUPERINTENDENT Colon Cancer Paternal Grandmother No Known Problems [...] external genitalia normal, normal Bartholin's glands, urethra, Medulla's glands, no vulvar lesions, no cervical lesions, [...] or sooner as needed Rubina Holbrook APRN.CNM [facility] 01-15-2023 Instructions Rubina Holbrook APRN.CNM - 01/15/2023 [...] you do daily. documented in this encounter [facility] 01-15-2023 History of Presen t illness Narrative [...] L2 SAB0 IAB0 Ectopic0 Multiple0 Live Births2 Mold Burner History LMP: 09/21/2020, IUD Age at Menarche: Age at First : Age at Menopause: Mold Burner History Comments: Sexual Activity: Not Currently; No [...] SPEC WHEN PFRMD 12/15/2019 Colonoscopy IUD INSERTION (SENIOR ACCOUNT REPRESENTATIVE DEPT)_*FL 09/14/08 mirena IUD REMOVAL (SENIOR ACCOUNT REPRESENTATIVE DEPT)_*FL 09/25/2010,06/2013 Mirena FAMILY HISTORY Problem Relation Age of Onset Hypertension Mother Resolved Lipids Mother Breast Cancer Mother Coronary Artery Disease Father [place] age 62 Heart Maternal Grandmother SC, Cancer Maternal Grandfather BLACK LUNG,NURSES SUPERINTENDENT Colon Cancer Paternal Grandmother No Known Problems [...] external genitalia normal, normal Bartholin's glands, urethra, Medulla's glands, no vulvar lesions, no cervical lesions, [...] Rubina Holbrook APRN.CNM documented in this encounter [facility] 01-10-2023 Note HNO ID: [id number] Author: Jerrica Plummer APRN.CNP Service: ? Author Type: Nurse Practitioner Type: Progress Notes Filed: 01/10/2023 10:57 AM Note Text: CC: Patient presents with: F/U 3 Month HPI Eveline Eugene is a 42 year old female who presents today for above. Patient denies any concerns today. She had blood work recently that she would like to review today. Requesting referral to traffic director for skin cancer check. She is taking [...] SPEC WHEN PFRMD 12/15/2019 Colonoscopy IUD INSERTION (SENIOR ACCOUNT REPRESENTATIVE DEPT)_*FL 09/14/08 mirena IUD REMOVAL (SENIOR ACCOUNT REPRESENTATIVE DEPT)_*FL 09/25/2010,06/2013 Mirena ALLERGIES Hay Fever [...] once daily. Take with 75 mg capsule yo=543 mg daily venlafaxine ER (EFFEXOR XR) 75 mg 24 hr capsule Take 1 capsule by mouth once daily. Take with 150 mg capsule nz=565 mg daily hydrOXYzine HCl (ATARAX) 25 mg tablet Take 1-2 tablets by mouth every 4 hours as needed. levonorgestrel (MIRENA) 20 mcg/24 hours (5-6 yrs) 52 mg IUD 1 Each by INTRAUTERINE route as directed. FAMILY HISTORY Problem Relation Age of Onset Hypertension Mother Resolved Lipids Mother Breast Cancer Mother Coronary Artery Disease Father [place] age 62 Heart Maternal Grandmother SC, Cancer Maternal Grandfather BLACK LUNG,NURSES SUPERINTENDENT Colon Cancer Paternal Grandmother No Known Problems [...] 1. Mixed hyper (more content not included)... [facility] 01-10-2023 History of Presen t illness Narrative CC: Patient presents with: F/U 3 Month HPI Eveline Eugene is a 42 year old female who presents today for above. Patient denies any concerns today. She had blood work recently that she would like to review today. Requesting referral to traffic director for skin cancer check. She is taking [...] SPEC WHEN PFRMD 12/15/2019 Colonoscopy IUD INSERTION (SENIOR ACCOUNT REPRESENTATIVE DEPT)_*FL 09/14/08 mirena IUD REMOVAL (SENIOR ACCOUNT REPRESENTATIVE DEPT)_*FL 09/25/2010,06/2013 Mirena ALLERGIES Hay Fever [...] once daily. Take with 75 mg capsule rs=056 mg daily venlafaxine ER (EFFEXOR XR) 75 mg 24 hr capsule Take 1 capsule by mouth once daily. Take with 150 mg capsule rv=779 mg daily hydrOXYzine HCl (ATARAX) 25 mg tablet Take 1-2 tablets by mouth every 4 hours as needed. levonorgestrel (MIRENA) 20 mcg/24 hours (5-6 yrs) 52 mg IUD 1 Each by INTRAUTERINE route as directed. FAMILY HISTORY Problem Relation Age of Onset Hypertension Mother Resolved Lipids Mother Breast Cancer Mother Coronary Artery Disease Father [place] age 62 Heart Maternal Grandmother SC, Cancer Maternal Grandfather BLACK LUNG,NURSES SUPERINTENDENT Colon Cancer Paternal Grandmother No Known Problems [...] Jerrica Plummer APRN.GEORGINA documented in this encounter [facility] 12-11-2022 Note Patient Outreach (IN TMMN) EVELINE EUGENE ([id number]) 1980 F Date Time Provider Department 12/11/22 ARSENIO YUN During your visit today, we recorded the following information about you: Allergies As of Date: 12/11/2022 Noted Allergy Reaction HAY FEVER (SEASONAL ALLERGIES) 11/10/2017 14 - Other: See Comments LAMISIL (TERBINAFINE HCL) 08/06/2007 4 - Hives Date Reviewed: 08/23/2022 Reviewed by: Avelina Ptee LPN - Fully Assessed Visit Diagnosis:Encounter for screening mammogram for breast cancer [Z12.31] Order(s):[facility] SCREENING [[id number]] Order #: [id number] FUTURE Prescriptions as of 12/16/2022 - traZODone [...] once daily. Take with 75 mg capsule iy=908 mg daily - venlafaxine ER (EFFEXOR XR) 75 mg 24 hr capsule Take 1 capsule by mouth once daily. Take with 150 mg capsule wj=666 mg daily - hydrOXYzine HCl (ATARAX) 25 [...] Encounter Status:Closed by EPIC, PRODUSER on 12/16/22 [facility] 10-03-2022 Note HNO ID: [id number] Author: Arsenio Yun MD Service: ? Author Type: Physician Type: Progress Notes Filed: 10/03/2022 7:56 PM Note Text: This note was created using [employer]. Subjective Eveline Eugene is a 42 year [...] once daily. Take with 75 mg capsule ug=265 mg daily venlafaxine ER (EFFEXOR XR) 75 mg 24 hr capsule Take 1 capsule by mouth once daily. Take with 150 mg capsule dl=001 mg daily hydrOXYzine HCl (ATARAX) 25 mg [...] - METANEPHRINES, FREE PLASMA Arsenio Yun MD [facility] 10-03-2022 History of Presen t illness Narrative This note was created using [employer]. Subjective Eveline Eugene is a 42 year [...] once daily. Take with 75 mg capsule ju=178 mg daily venlafaxine ER (EFFEXOR XR) 75 mg 24 hr capsule Take 1 capsule by mouth once daily. Take with 150 mg capsule lk=080 mg daily hydrOXYzine HCl (ATARAX) 25 mg [...] Arsenio Yun MD documented in this encounter [facility] 09-30-2022 Miscellaneous Notes Spoke to Patient, she missed her appt, 09/23/2022, rescheduled 10/03/2022. Dr. Yun to refill at appt. Charu Sunshine LPN documented in this encounter [facility] 08-30-2022 Miscellaneous Notes Rec'd fax from [facility] for attending physician's statement for disability claim. To pcp to review. documented in this encounter [facility] 08-30-2022 Note HNO ID: [id number] Author: GIBRAN Ken Service: ? Author Type: Water Plant Maintenance Mechanic Type: Progress Notes Filed: 08/30/2022 8:23 AM Note Text: Behavioral Health Social Work Progress Note Patient identified for [facility] from: PCP Reason for referral: Resources Behavioral Health Resources: Psychology - talk therapy, Psychiatry med management [facility] encounter type: MyChart Message Attempts to Outreach: [...] meet their needs today?: N/A Patient read [employer] message with requested resources by PCP. [facility] sent follow-up message to see if any additional questions or concerns exist and if they were able to set up an appointment with a provider. GIBRAN Ken ACM-SW August 30, 2022 [facility] 08-30-2022 History of Presen t illness Narrative Behavioral Health Social Work Progress Note Patient identified for [facility] from: PCP Reason for referral: [facility] Behavioral Health Resources: Psychology - talk therapy, Psychiatry med management [facility] encounter type: [employer] Message Attempts to Outreach: 3 attempts Referral [...] meet their needs today?: N/A Patient read [employer] message with requested resources by PCP. [facility] sent follow-up message to see if any additional questions or concerns exist and if they were able to set up an appointment with a provider. GIBRAN Ken ACM-SW August 30, 2022 documented in this encounter [facility] 08-23-2022 Note HNO ID: [id number] Author: Arsenio Yun MD Service: ? Author Type: Physician Type: Progress Notes Filed: 08/25/2022 4:40 PM Note Text: This note was created using [employer]. Subjective Eveline Eugene is a 42 year [...] once daily. Take with 75 mg capsule pf=476 mg daily venlafaxine ER (EFFEXOR XR) 75 mg 24 hr capsule Take 1 capsule by mouth once daily. Take with 150 mg capsule po=563 mg daily hydrOXYzine HCl (ATARAX) 25 mg [...] medications. We agreed referral for counseling and dot net developer. Verbal contract for patient safety was agreed upon. - CONSULT (more content not included)... [facility] 08-23-2022 Miscellaneous Notes Behavioral Health Social Work Progress Note Patient identified for [facility] from: PCP Reason for referral: Resources Behavioral Health Resources: Psychiatry med management, Psychology - talk therapy [facility] encounter type: Telephone Encounter Attempts to Outreach: 1 attempt Referral made: Psychiatry - Internal, Psychiatry - External, Psychology - Internal, Psychology - External Psychiatry-Internal referral type: Medication Management Psychology-Internal referral type: Therapy Psychology-External referral type: Therapy Psychiatry-External referral type: Medication Management Reason for external referral: Wait times at [facility] too long Final Disposition: Unable to reach Patient Discharged?: No Patient reported that caregiver was able to meet their needs today?: N/A Phone call placed today that went to [employer]. Left my contact information and brief nature of call. Initial outreach also completed via [employer] sending list of in network providers with insurance. These include: [email or web address] Virtual appointments only for insurances [phone] [email or web address]) [address] [place] [address] [facility] [address] [place] [address] [address] [place] [address] [facility] [address] [place] [address] *counsel[facility] [address] [place] [address] GIBRAN Ken, M-SW August 23, 2022 documented in this encounter [facility] 07-31-2022 Note HNO ID: [id number] Author: Jerrica Plummer APRN.GEORGINA Service: ? Author [...] SPEC WHEN PFRMD 12/15/2019 Colonoscopy IUD INSERTION (SENIOR ACCOUNT REPRESENTATIVE DEPT)_*FL 09/14/08 mirena IUD REMOVAL (SENIOR ACCOUNT REPRESENTATIVE DEPT)_*FL 09/25/2010,06/2013 Mirena ALLERGIES Hay Fever [...] once daily. Take with 75 mg capsule bz=706 mg daily venlafaxine ER (EFFEXOR XR) 75 mg 24 hr capsule Take 1 capsule by mouth once daily. Take with 150 mg capsule wg=196 mg daily hydrOXYzine HCl (ATARAX) 25 mg [...] Breast Cancer Mother Coronary Artery Disease Father [place] age 62 Heart Maternal Grandmother SC, Cancer Maternal Grandfather BLACK LUNG,NURSES SUPERINTENDENT Colon Cancer Paternal Grandmother No Known Problems [...] symptoms discussed with (more content not included)... [facility] 07-31-2022 Instructions Jerrica Plummer APRN.CNP - 07/31/2022 [...] 100.5, rigid/hard abdomen. documented in this encounter [facility] 07-31-2022 History of Presen t illness Narrative [...] SPEC WHEN PFRMD 12/15/2019 Colonoscopy IUD INSERTION (SENIOR ACCOUNT REPRESENTATIVE DEPT)_*FL 09/14/08 mirena IUD REMOVAL (SENIOR ACCOUNT REPRESENTATIVE DEPT)_*FL 09/25/2010,06/2013 Mirena ALLERGIES Hay Fever [...] once daily. Take with 75 mg capsule si=485 mg daily venlafaxine ER (EFFEXOR XR) 75 mg 24 hr capsule Take 1 capsule by mouth once daily. Take with 150 mg capsule mf=695 mg daily hydrOXYzine HCl (ATARAX) 25 mg [...] Breast Cancer Mother Coronary Artery Disease Father [place] age 62 Heart Maternal Grandmother SC, Cancer Maternal Grandfather BLACK LUNG,NURSES SUPERINTENDENT Colon Cancer Paternal Grandmother No Known Problems [...] Jerrica Plummer APRN.CNP documented in this encounter [facility] 05-08-2022 Influenza virus A and B RNA and SARS-CoV-2 (COVID-19) N gene panel CORWIN+probe (Resp) COVID 19 RESULT: SARS-CoV-2 (Agent of COVID-19) Not Detected by RT-PCR or equivalent method. blessing [employer] (ERIC)_EUA This test was developed and its performance characteristics determined by [facility]. This test has been authorized by FDA under an Emergency Use Authorization (EUA). This test has been validated in accordance with the FDA's Guidance Document Policy for Diagnostics Testing in Laboratories Certified to Perform High Complexity Testing under CLIA prior to Emergency use Authorization for Coronavirus Disease 2019 during the Public Health Emergency issued on August 07, 2019. Test performed by [facility], [facility], [address] [place] [address]. INFLUENZA A PCR: Negative for Influenza A by RT-PCR INFLUENZA B PCR: Negative for Influenza B by RT-PCR [facility] documented as of this encounter (statuses as of 11/06/2021) [facility] History of Past illness Narrative* Problem Noted [...] of this encounter (statuses as of 11/07/2021) [facility] History of Past illness Narrative* Problem Noted [...] of this encounter (statuses as of 11/09/2021) [facility] History of Past illness Narrative* Problem Noted [...] of this encounter (statuses as of 11/10/2021) [facility] History of Past illness Narrative* Problem Noted [...] of this encounter (statuses as of 11/26/2021) [facility] History of Past illness Narrative* Problem Noted [...] of this encounter (statuses as of 12/13/2021) [facility] History of Past illness Narrative* Problem Noted [...] of this encounter (statuses as of 04/01/2022) [facility] History of Past illness Narrative* Problem Noted [...] of this encounter (statuses as of 04/01/2022) [facility] History of Past illness Narrative* Problem Noted [...] of this encounter (statuses as of 05/08/2022) [facility] History of Past illness Narrative* Problem Noted [...] of this encounter (statuses as of 07/31/2022) [facility] History of Past illness Narrative* Problem Noted [...] of this encounter (statuses as of 08/23/2022) [facility] History of Past illness Narrative* Problem Noted [...] of this encounter (statuses as of 08/30/2022) [facility] History of Past illness Narrative* Problem Noted [...] of this encounter (statuses as of 08/30/2022) [facility] History of Past illness Narrative* Problem Noted [...] of this encounter (statuses as of 09/02/2022) [facility] History of Past illness Narrative* Problem Noted [...] of this encounter (statuses as of 10/01/2022) [facility] History of Past illness Narrative* Problem Noted [...] of this encounter (statuses as of 10/04/2022) [facility] History of Past illness Narrative* Problem Noted [...] of this encounter (statuses as of 12/16/2022) [facility] History of Past illness Narrative* Problem Noted [...] of this encounter (statuses as of 01/10/2023) [facility] History of Past illness Narrative* Problem Noted [...] of this encounter (statuses as of 01/15/2023) [facility] History of Past illness Narrative* Problem Noted [...] of this encounter (statuses as of 01/26/2023) [facility] History of Past illness Narrative* Problem Noted [...] of this encounter (statuses as of 02/21/2023) [facility] History of Past illness Narrative* Problem Noted [...] of this encounter (statuses as of 02/24/2023) [facility] History of Past illness Narrative* Problem Noted [...] of this encounter (statuses as of 04/11/2023) [facility] Diagnosis Anxiety- Primary Anxiety state, unspecified [...] Tobacco use disorder 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 [facility] Diagnosis Abnormal mammogram Abnormal mammogram, unspecified [facility] Diagnosis Lower abdominal pain- Primary Abdominal pain, other specified site Acute bilateral low back pain without sciatica [facility] Diagnosis Pharyngitis, unspecified etiology- Primary URI, acute Acute upper respiratory infections of unspecified site [facility] Diagnosis Change in consistency of stool- Primary Nausea Nausea alone [facility] Diagnosis Reactive depression- Primary Dysthymic disorder Mixed hyperlipidemia Rash and nonspecific skin eruption Rash and other nonspecific skin eruption Adrenal adenoma, right [facility] Diagnosis Encounter for screening mammogram for breast cancer [facility] Diagnosis Mixed hyperlipidemia- Primary Adrenal adenoma, right Screening exam for skin cancer Screening for malignant neoplasm of the skin Encounter for immunization Need for other specified prophylactic vaccination against single bacterial disease [facility] Diagnosis Encounter for gynecological examination (general) (routine) without abnormal findings- Primary Dense breast tissue Screening for cervical cancer Screening for malignant neoplasm of the cervix Special screening examination for human papillomavirus (HPV) Screening for STD (sexually transmitted disease) Screening examination for venereal disease [facility] Diagnosis Sore throat- Primary Acute pharyngitis URI with cough and congestion Wheezing [facility]* Diagnosis NSTEMI (non-ST elevated myocardial infarction) (HCC)- Primary Acute myocardial infarction, subendocardial infarction, episode of care unspecified Anxiety Anxiety state, unspecified Tobacco use disorder Coronary artery disease involving creek coronary artery of creek heart without angina pectoris Mixed hyperlipidemia Adrenal adenoma, right Need for influenza vaccination Need for prophylactic vaccination and inoculation against influenza documented in this encounter [facility] for referral (narrative)* Diagnostic Procedure Only (Routine) - Closed Specialty Diagnoses / Procedures Referred By Tadeo t Referred To Contact [facility] Diagnoses Abnormal mammogram Procedures RJ DIAGNOSTIC BILAT DIAGNOSTIC MAMMOGRAPHY COMPUTER-AIDED DETCJ Alma Delia Renteria APRN.TELETYPE ADJUSTER [address] [place] [address] [facility] [address] [place] [address] Referral ID Status Reason Start Date Expiration Date V isits Requested Visits Authorized [id number] Closed Auto-Generate d Referral 11/08/2021 12/08/2022 1 1 [facility] for referral (narrative)* Diagnostic Procedure Only (Routine) - Closed Specialty Diagnoses / Procedures Referred By Tadeo munoz Referred To Contact XR IMAGING Diagnoses Acute bilateral low back pain without sciatica Procedures XR LUMBAR GENERAL 3V AP/LAT/L5-S1 RADEX SPINE LUMBOSACRAL 2/3 VIEWS PodlogTeresa mcneil APRN.CNP [address] [place] [address] Xr Imaging Referral ID Status Reason Start Date Expiration Date V isits Requested Visits Authorized [id number] Closed Auto-Generate d Referral 04/01/2022 05/01/2023 1 1 [facility] for referral (narrative)* Diagnostic Procedure Only (Routine) - Pending Review Specialty Diagnoses / Procedures Referred By Tadeo t Referred To Contact BR IMAGING Diagnoses Encounter for screening mammogram for breast cancer Procedures RJ SCREENING SCREENING MAMMOGRAPHY BI 2-VIEW BREAST INC Arsenio Vicente MD [address] [place] [address] [facility] [address] [place] [address] Referral ID Status Reason Start Date Expiration Date Visits Requested Visits Authorized [id number] Pending Review Auto-Generat ed Referral 12/11/2022 01/10/2024 1 1 [facility] Diagnostic Procedure Only (Routine) - Authorized Specialty Diagnoses / Procedures Referred By Contac t Referred To Contact BR IMAGING Diagnoses Dense breast tissue Procedures RJ SCREENING W LUIS SCREENING DIGITAL BREAST TOMOSYNTHESIS BI SCREENING MAMMOGRAPHY BI 2-VIEW BREAST INC Rubina Caba APRN.GERBERM [address] [place] [address] [facility] [address] [place] [address] Referral ID Status Reason Start Date Expiration Date Visits Requested Visits Authorized [id number] Authorized Auto-Generat ed Referral 01/15/2023 02/14/2024 1 1 [facility] Summary Purpose Family History No Family History Records FoundNo Family History Records Found Advance Directives No Advanced Directives Records FoundDocuments on File Type Date Recorded 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 Advance Directive(s) 12/15/2019 9:33 AM Advance Directive(s) 12/14/2019 8:34 AM Documents on File Type Date Recorded 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 Advance Directive(s) 12/15/2019 9:33 AM Advance Directive(s) 12/14/2019 8:34 AM Reason for Referral Specialty Diagnoses / Procedures Referred By Contac t Referred To Contact Ent - Otolaryngology Diagnoses Voice hoarseness Procedures CONSULT TO ENT OFFICE/OUTPATIENT NEW HIGH MDM 60-74 MINUTES Older, Jerrica, SHELLFISH CHECKER.TELETYPE ADJUSTER [address] [place] [address] Referral ID Status Reason Start Date Expiration Date Visits Requested Visits Authorized [id number] Pending Review PCP Requested Referral 11/07/2021 11/07/2022 1 1 Specialty Diagnoses / Procedures Referred By Contac t Referred To Contact BR IMAGING Diagnoses Encounter for screening mammogram for breast cancer Procedures RJ SCREENING SCREENING MAMMOGRAPHY BI 2-VIEW BREAST INC CAD Older, Jerrica, ASAD.TELETYPE ADJUSTER [address] [place] [address] Br Imaging [address] [place] [address] Referral ID Status Reason Start Date Expiration Date Visits Requested Visits Authorized [id number] Pending Review Auto-Generat ed Referral 11/07/2021 12/07/2022 1 1 Specialty Diagnoses / Procedures Referred By Contac t Referred To Contact Dermatology Diagnoses Screening exam for skin cancer Procedures CONSULT TO DERMATOLOGY OFFICE/OUTPATIENT [facility] 60-74 MINUTES Older, LING BecerrilN.TELETYPE ADJUSTER [address] [place] [address] Referral ID Status Reason Start Date Expiration Date Visits Requested Visits Authorized [id number] Pending Review PCP Requested Referral 01/10/2023 01/10/2024 1 1 Specialty Diagnoses / Procedures Referred By Contac t Referred To Contact Endocrinology Diagnoses Adrenal adenoma, right Procedures CONSULT TO ENDOCRINOLOGY OFFICE/OUTPATIENT [facility] 60-74 MINUTES Older, Jerrica, SHELLFISH CHECKER.TELETYPE ADJUSTER [address] [place] [address] Referral ID Status Reason Start Date Expiration Date Visits Requested Visits Authorized [id number] Pending Review PCP Requested Referral 02/24/2023 02/24/2024 1 1 Health Concerns Infection Onset Date Last Indicated Resolved Time COVID-19 Rule-Out 05/08/2022 05/08/2022 Additional Source Comments INFORMATION SOURCE (unrecogn ized section and content) DATE CREATED AUTHOR AUTHOR'S ORGANIZ ATION 05/07/2023 [facility] Source Comments (unrecognize d section and content) In the event this informatio n is protected by the Federal Confidentiality of Alcohol and Drug Abuse Patient Records regulations: The Federal rules restrict any use of the information to criminally investigate or prosecute any alcohol or drug abuse patient.[facility] the event this information is protected by the Federal Confidentiality of Alcohol and Drug Abuse Patient Records regulations: The Federal rules restrict any use of the information to criminally investigate or prosecute any alcohol or drug abuse patient.[facility] the event this information is protected by the Federal Confidentiality of Alcohol and Drug Abuse Patient Records regulations: The Federal rules restrict any use of the information to criminally investigate or prosecute any alcohol or drug abuse patient.[facility] the event this information is protected by the Federal Confidentiality of Alcohol and Drug Abuse Patient Records regulations: The Federal rules restrict any use of the information to criminally investigate or prosecute any alcohol or drug abuse patient.[facility] the event this information is protected by the Federal Confidentiality of Alcohol and Drug Abuse Patient Records regulations: The Federal rules restrict any use of the information to criminally investigate or prosecute any alcohol or drug abuse patient.[facility] the event this information is protected by the Federal Confidentiality of Alcohol and Drug Abuse Patient Records regulations: The Federal rules restrict any use of the information to criminally investigate or prosecute any alcohol or drug abuse patient.[facility] the event this information is protected by the Federal Confidentiality of Alcohol and Drug Abuse Patient Records regulations: The Federal rules restrict any use of the information to criminally investigate or prosecute any alcohol or drug abuse patient.[facility] the event this information is protected by the Federal Confidentiality of Alcohol and Drug Abuse Patient Records regulations: The Federal rules restrict any use of the information to criminally investigate or prosecute any alcohol or drug abuse patient.[facility] the event this information is protected by the Federal Confidentiality of Alcohol and Drug Abuse Patient Records regulations: The Federal rules restrict any use of the information to criminally investigate or prosecute any alcohol or drug abuse patient.[facility] the event this information is protected by the Federal Confidentiality of Alcohol and Drug Abuse Patient Records regulations: The Federal rules restrict any use of the information to criminally investigate or prosecute any alcohol or drug abuse patient.[facility] the event this information is protected by the Federal Confidentiality of Alcohol and Drug Abuse Patient Records regulations: The Federal rules restrict any use of the information to criminally investigate or prosecute any alcohol or drug abuse patient.[facility] the event this information is protected by the Federal Confidentiality of Alcohol and Drug Abuse Patient Records regulations: The Federal rules restrict any use of the information to criminally investigate or prosecute any alcohol or drug abuse patient.[facility] the event this information is protected by the Federal Confidentiality of Alcohol and Drug Abuse Patient Records regulations: The Federal rules restrict any use of the information to criminally investigate or prosecute any alcohol or drug abuse patient.[facility] Dayton[facility] the event this information is protected by the Federal Confidentiality of Alcohol and Drug Abuse Patient Records regulations: The Federal rules restrict any use of the information to criminally investigate or prosecute any alcohol or drug abuse patient.[facility] Dayton[facility] the event this information is protected by the Federal Confidentiality of Alcohol and Drug Abuse Patient Records regulations: The Federal rules restrict any use of the information to criminally investigate or prosecute any alcohol or drug abuse patient.[facility] the event this information is protected by the Federal Confidentiality of Alcohol and Drug Abuse Patient Records regulations: The Federal rules restrict any use of the information to criminally investigate or prosecute any alcohol or drug abuse patient.[facility] the event this information is protected by the Federal Confidentiality of Alcohol and Drug Abuse Patient Records regulations: The Federal rules restrict any use of the information to criminally investigate or prosecute any alcohol or drug abuse patient.[facility] the event this information is protected by the Federal Confidentiality of Alcohol and Drug Abuse Patient Records regulations: The Federal rules restrict any use of the information to criminally investigate or prosecute any alcohol or drug abuse patient.[facility] the event this information is protected by the Federal Confidentiality of Alcohol and Drug Abuse Patient Records regulations: The Federal rules restrict any use of the information to criminally investigate or prosecute any alcohol or drug abuse patient.[facility] the event this information is protected by the Federal Confidentiality of Alcohol and Drug Abuse Patient Records regulations: The Federal rules restrict any use of the information to criminally investigate or prosecute any alcohol or drug abuse patient.[facility] DaytonIn the event this information is protected by the Federal Confidentiality of Alcohol and Drug Abuse Patient Records regulations: The Federal rules restrict any use of the information to criminally investigate or prosecute any alcohol or drug abuse patient.[facility] DaytonIn the event this information is protected by the Federal Confidentiality of Alcohol and Drug Abuse Patient Records regulations: The Federal rules restrict any use of the information to criminally investigate or prosecute any alcohol or drug abuse patient.[facility] Dayton[facility] the event this information is protected by the Federal Confidentiality of Alcohol and Drug Abuse Patient Records regulations: The Federal rules restrict any use of the information to criminally investigate or prosecute any alcohol or drug abuse patient.[facility] Reason for Visit (unrecogniz ed section and content) Reason Comments Medication Follow-up Reason Comments Throat Problem hoarse started 5 mon ths ago, again 3 months ago. voice was gone for a few days. Specialty Diagnoses / Procedures Referred By Contact Referred To Contact Ent - Otolaryngology / ENT-OTOLARYNGOLOGY Diagnoses Voice hoarseness Procedures CONSULT TO ENT OFFICE/OUTPATIENT NEW HIGH MDM 60-74 MINUTES Older, Jerrica, SHELLFISH CHECKER.TELETYPE ADJUSTER [address] [place] [address] [facility] [address] [address] Referral ID Status Reason Start Date Expiration Date V isits Requested Visits Authorized [id number] Closed PCP Requested Referral 11/14/2021 06/08/2022 1 1 Reason Comments Radiology Mammogram Specialty Diagnoses / Procedures Referred By Contac t Referred To Contact BR IMAGING Diagnoses Abnormal mammogram Procedures RJ DIAGNOSTIC BILAT DIAGNOSTIC MAMMOGRAPHY COMPUTER-AIDED DETCJ Alma Delia Renteria, SHELLFISH CHECKER.TELETYPE ADJUSTER [address] [place] [address] Br Imaging [address] [place] [address] Referral ID Status Reason Start Date Expiration Date V isits Requested Visits Authorized [id number] Closed Auto-Generate d Referral 11/08/2021 12/08/2022 1 [...] up Procedures FOLLOW-UP E-ASSESSMENT Arsenio Yun MD [address] [place] [address] [facility] [address] [place] [address] Referral ID Status Reason Start Date Expiration Date Visits Requested Visits Authorized [id number] Pending Review OON/Self Pay Override 02/19/2023 08/18/2023 1 1 Reason Comments Appointment Called patient and l eft a message that scheduling error was made, patient was referred to see an Endo Med,not an Endo Surg.Rescheduled appointment with on 04/21 with on 05/06 and sent [employer] message,gave [phone] number Care Teams (unrecognized sec tion and content) Mud Temperer Relationship Specialty Start Date End Date Arsenio Yun MD [address] [place] [address] PCP - General 02/05/07 Mud Temperer Relationship Specialty Start Date End Date Arsenio Yun MD [address] [place] [address] PCP - General 02/05/07 Mud Temperer Relationship Specialty Start Date End Date Arsenio Yun MD [facility] [place] [address] PCP - General 02/05/07 Mud Temperer Relationship Specialty Start Date End Date Arsenio Yun MD [facility] [place] [address] PCP - General 02/05/07 Mud Temperer Relationship Specialty Start Date End Date Arsenio Yun MD [facility] [place] [address] PCP - General 02/05/07 Mud Temperer Relationship Specialty Start Date End Date Arsenio Yun MD [facility] [place] [address] PCP - General 02/05/07 Mud Temperer Relationship Specialty Start Date End Date Arsenio Yun MD [facility] [place] [address] PCP - General 02/05/07 Mud Temperer Relationship Specialty Start Date End Date Arsenio Yun MD [facility] [place] [address] PCP - General 02/05/07 Mud Temperer Relationship Specialty Start Date End Date Arsenio Yun MD [address] [place] [address] PCP - General 02/05/07 Mud Temperer Relationship Specialty Start Date End Date Arsenio Yun MD [address] [place] [address] PCP - General 02/05/07 Mud Temperer Relationship Specialty Start Date End Date Arsenio Yun MD [address] [place] [address] PCP - General 02/05/07 Mud Temperer Relationship Specialty Start Date End Date Arsenio Yun MD [address] [place] [address] PCP - General 02/05/07 Mud Temperer Relationship Specialty Start Date End Date Arsenio Yun MD [address] [place] [address] PCP - General 02/05/07 Mud Temperer Relationship Specialty Start Date End Date Arsenio Yun MD [address] [place] [address] PCP - General 02/05/07 Mud Temperer Relationship Specialty Start Date End Date Arsenio Yun MD [address] [place] [address] PCP - General 02/05/07 Mud Temperer Relationship Specialty Start Date End Date Arsenio Yun MD [address] [place] [address] PCP - General 02/05/07 Mud Temperer Relationship Specialty Start Date End Date Arsenio Yun MD [address] [place], [place] [address] PCP - General 02/05/07 Mud Temperer Relationship Specialty Start Date End Date Arsenio Yun MD [address] [place], [place] [address] PCP General 02/05/07 Mud Temperer Relationship Specialty Start Date End Date Arsenio Yun MD [address] [place], [place] [address] PCP General 02/05/07 Mud Temperer Relationship Specialty Start Date End Date Arsenio Yun MD [address] [place], [place] [id number] PCP General 02/05/07 FOR RECORDS PERTAINING TO [...] BE BASED ON THE PRIMARY CLINICAL RECORDS. [facility]. provides no warranty or guarantee of the accuracy or completeness of information in this document.
[2023-07-02 21:47] LABS: Magnesium 2.3 mg/dL (1.6-2.6)
[2023-07-02 22:00] LABS: Reflex Troponin-HS? (from REC) Y
[2023-07-02 22:01] VITALS: BP 118/74; PULSE 62; RESP 16; O2SAT 97
[2023-07-02 22:04] VITALS: BP 118/74; PULSE 75; RESP 16; O2SAT 97
[2023-07-02 22:31] VITALS: BMI 32.0
[2023-07-02 22:35] LABS: Troponin-I HS 4 pg/mL (3.0-54.0)
[2023-07-02 23:05] VITALS: BP 109/80; PULSE 61; RESP 16; TEMP 36.9; O2SAT 100
[2023-07-02] MEDS: TICAGRELOR 90 MG TABLET PO (23:26)
[2023-07-02] MEDS: buPROPion (SR) 100 MG TABLET.SA PO (23:26)
[2023-07-02] MEDS: 0.9% Normal Saline (1000mL) 1,000 ML 100 ML IV (23:26)
[2023-07-02] MEDS: traZODone 100 MG Tablet PO (23:26)
[2023-07-02] MEDS: Atorvastatin Calcium 80 MG Tablet PO (23:26)
[2023-07-02] MEDS: Acetaminophen 325 MG Tablet 650 MG PO (23:26)
[2023-07-03 02:21] LABS: Absolute Lymphocyte Count 3.91 X10^3/uL (0.83-4.51); Basophil# 0.08 X10^3/uL; Basophil% 0.8 % (0-1); Eosinophil# 0.34 X10^3/uL; Eosinophils% 3.4 % (0-5); Hematocrit 41.9 % (37-47); Hemoglobin 14.1 g/dL (12.0-15.0); Lymphocyte # 3.91 X10^3/ul (0.83-4.51); Lymphocyte % 39.6 % (19-41); Mean Corp Hgb Conc 33.7 g/dL (32-36); Mean Corpuscular Hgb 30.7 pg (27.0-32.0); Mean Corpuscular Volume 91.1 fL (81-99); Mean Platelet Vol. 9.8 fl (6.2-12.0); Monocyte# 0.51 X10^3/uL; Monocyte% 5.2 % (0-10); NRBC Flagged by Analyzer 0 % (0-5); Neutrophil % 50.7 % (47-70); Platelet Count 330 K/mm3 (150-450); RBC Distribution Width CV 12.7 % (11.6-14.6); White Blood Count 9.9 K/mm3 (4.4-11.0)
[2023-07-03 02:40] LABS: ALB/GLOB Ratio 1.2 RATIO (0.9-2.4); AST(SGOT) 5 U/L (15-37); Alanine Aminotransfer ALT/SGPT 10 U/L (13-56); Albumin, Serum 3.2 g/dL (3.2-5.0); Alkaline Phosphatase 98 U/L (45-117); Anion Gap 3 (5-15); BUN 6 mg/dL (7-18); BUN/Creat Ratio 9.7 RATIO (10-20); Calcium,Total 8.9 mg/dL (8.5-10.1); Chloride 112 mmol/L (98-107); Cholesterol 141 mg/dL (200); Creatinine, Serum 0.62 mg/dL (0.55-1.02); EST Glomerular Filtration Rate 111 mL/min (>60); Est Glom Filt Rate - Afr Amer 134 mL/min (>60); Estimated Creatinine Clearance 112.99 ml/min; Globulin 2.7 g/dL (2.2-4.2); Glucose 131 mg/dL (74-106); High Density Lipoprotein 42 mg/dL; Potassium 3.3 mmol/L (3.5-5.1); Protein, Total 5.9 g/dL (6.4-8.2); Sodium Level 139 mmol/L (136-145); Triglycerides 188 mg/dL; Troponin-I HS 5 pg/mL (3.0-54.0); Very Low Density Lipoprotein 38 mg/dL (5-40)
[2023-07-03 05:00] VITALS: BP 104/70; PULSE 64; RESP 16; TEMP 36.6; O2SAT 94
[2023-07-03 06:00] VITALS: BMI 32.2
--- NOTE | 2023-07-03 07:48 | PCM.PN.HOSP ---
Reason for Visit Reason for Visit: Diagnoses Chest pain, unspecified (07/02/23) Subjective Subjective Patient is a 42-year-old lady with history of coronary artery disease with recent PCI to an RCA lesion on 923 who presented with chest pain Objective Data Objective Data Vital Signs: Vital Signs Temp Pulse Resp BP Pulse Ox O2 Del Method 97.9 F 64 16 104/70 94 Room Air 07/03/23 05:00 07/03/23 05:00 07/03/23 05:00 07/03/23 05:00 07/03/23 05:00 07/03/23 05:00 Oxygen Delivery Method Room Air Weight: 79.9 kg Body Mass Index (BMI) 32.2 Lab / Micro Data 07/03/23 02:04 07/03/23 02:04 Labs: Laboratory Results - last 24 hr 07/02/23 19:55: WBC 12.0 H, RBC 5.18, Hgb 15.9 H, Hct 47.1 H, MCV 90.9, MCH 30.7, MCHC 33.8, RDW Std Deviation 42.1, RDW Coeff of Kael 12.6, Plt Count 407, MPV 9.7, Immature Gran % (Auto) 0.200, Neut % (Auto) 59.2, Lymph % (Auto) 31.9, Coke % (Auto) 5.0, Eos % (Auto) 2.8, Baso % (Auto) 0.9, Absolute Neuts (auto) 7.1, Absolute Lymphs (auto) 3.83, Nucleated RBC % 0, Sodium 135 L, Potassium 3.9, Chloride 109 H, Carbon Dioxide 25.0, Anion Gap 1 L, BUN 8, Creatinine 0.72, Estim Creat Clear Calc 97.63, Est GFR (MDRD) Af Amer 113, Est GFR (MDRD) Non-Af 93, BUN/Creatinine Ratio 11.1, Glucose 100, Calcium 9.4, Magnesium 2.3, Troponin I High Sens 6 07/02/23 22:11: Troponin I High Sens 4 07/03/23 02:04: WBC 9.9, RBC 4.60, Hgb 14.1, Hct 41.9, MCV 91.1, MCH 30.7, MCHC 33.7, RDW Std Deviation 42.0, RDW Coeff of Kael 12.7, Plt Count 330, MPV 9.8, Immature Gran % (Auto) 0.300, Neut % (Auto) 50.7, Lymph % (Auto) 39.6, Coke % (Auto) 5.2, Eos % (Auto) 3.4, Baso % (Auto) 0.8, Absolute Neuts (auto) 5.0, Absolute Lymphs (auto) 3.91, Nucleated RBC % 0, Sodium 139, Potassium 3.3 L, Chloride 112 H, Carbon Dioxide 24.0, Anion Gap 3 L, BUN 6 L, Creatinine 0.62, Estim Creat Clear Calc 112.99, Est GFR (MDRD) Af Amer 134, Est GFR (MDRD) Non-Af 111, BUN/Creatinine Ratio 9.7 L, Glucose 131 H, Calcium 8.9, Total Bilirubin 0.30, AST 5 L, ALT 10 L, Alkaline Phosphatase 98, Troponin I High Sens 5, Total Protein 5.9 L, Albumin 3.2, Globulin 2.7, Albumin/Globulin Ratio 1.2, Triglycerides 188, Cholesterol 141, LDL Cholesterol 61, VLDL Cholesterol 38, HDL Cholesterol 42 Radiography Diagnostic Testing: Radiology Impression Chest X-Ray 07/02/23 19:45 IMPRESSION: Old granulomatous disease. No acute cardiopulmonary pathology. Electronically Signed: Deandre Guerin MD at 20:08 EST Reading Location ID and State: [facility] / [place] Tel , Service support , Physical Exam Narrative GENERAL: cooperative HEENT: Atraumatic; normocephalic EYES; Anicteric, Normal Conjunctiva NECK; supple, normal thyroid, RESPIRATORY: Diminished to auscultation CARDIOVASCULAR: Regular S1 S2, GI: soft, normoactive bowel sounds, : No Renal angle tenderness; EXTREMITIES: No edema, no clubbing, MUSCULOSKELETAL: no muscle wasting NEURO: Awake; no lateralizing signs. SKIN: No Rash PSYCH; Flat affect Assessment & Plan Assessment/Plan (1) Chest pain: PLAN: Plan Patient is a 42-year-old lady with history of coronary artery disease with recent PCI to an RCA lesion on 923 who presented with chest pain 1. Chest pain in a patient with high risk factors ? Patient admitted to a monitored bed ordered serial cardiac enzymes to rule out ND. Patient to complete evaluation with a nuclear stress test 2. Coronary artery disease ? With history of non-STEMI in February 2023. Patient underwent intervention with CLINT to an RCA lesion. Echo at that time demonstrated EF of 60% with no regional wall motion abnormalities. Patient is currently on guideline directed medical therapy 3. Class I obesity with BMI of 32.2 ? Complicating care weight loss advised 4. Hypertension - Blood pressure controlled, home medications continued with dose adjustment as needed 5. Dyslipidemia -Patient is on statin therapy, continued at home dose 6. Depression with anxiety ? Patient is on venlafaxine, bupropion and trazodone regimen. Did continue 7. Obstructive sleep apnea ? Patient is on CPAP at night consistent use encouraged 8. Tobacco dependence - Counseled on cessation, offered nicotine patch for tobacco cravings 9. DVT prophylaxis - On enoxaparin Time spent in the patient's overall evaluation,decision-making process, review of diagnostic data, adjustment of management, discussion with other providers, nursing nursing and ancillary staff involved in patient's care documentation, 50 Minutes Charges/Coding Visit Charges Inpatient E&M: 08226 [facility] L3
[2023-07-03] MEDS: TICAGRELOR 90 MG TABLET PO (09:43)
[2023-07-03] MEDS: Aspirin E.C. 81 MG Tablet PO (09:43)
[2023-07-03] MEDS: Venlafaxine XR 150 MG Capsule PO (09:43)
[2023-07-03] MEDS: buPROPion (SR) 100 MG TABLET.SA PO (09:43)
[2023-07-03 11:13] VITALS: BP 114/83; PULSE 55; RESP 14; TEMP 36.4; O2SAT 98
--- NOTE | 2023-07-03 13:10 | STRESSREP_ITS ---
Stress Test Report Date: 07/03/2023 Procedure: Pharmacologic stress nuclear imaging study Indications: Chest pain Consent: Per the patient Procedure: The patient underwent pharmacologic (Regadenoson) evaluation with a peak heart rate of 83 beats per minute (47%predicted maximal heart rate) and a peak blood pressure of 118/70 mmHg. The baseline ECG demonstrated normal sinus rhythm. EKG during lexiscan infusion revealed no significant ischemic changes. EKG post infusion revealed no significant ischemic changes [There were no cardiac dysrhythmias pretest, during pharmacologic infusion, or recovery]. [There was no complaint of chest discomfort during pharmacologic infusion or recovery]. The examination was discontinued secondary to completion of protocol. Impression: 1. Lexiscan stress test test is negative for Lexiscan infusion induced EKG changes of ischemia. 2. Lexiscan stress test test is negative for Lexiscan infusion induced chest pain. 3. Results of the nuclear portion of the test is as below Myocardial perfusion imaging study: Technique: The patient was injected with 12 millicuries of technetium 99m Cardiolite and subsequently rest SPECT Cardiolite nuclear imaging was obtained in the horizontal long, vertical long, and short axis views. The patient underwent pharmacologic [Regadenoson 0.4mg] evaluation. Please see above for details. The patient was injected with 34.7 millicuries of technetium 99m Cardiolite and subsequently stress SPECT Cardiolite nuclear imaging was obtained in the horizontal long, vertical long, and short axis views. A gated Cardiolite study at peak stress was obtained. Interpretation: Rest and stress SPECT Cardiolite nuclear imaging status post realignment, normalization, and attenuation correction demonstrate no evidence of significant ischemia or infarction. Gated images reveal no significant regional wall motion abnormalities. The reported LVEF is greater than 70%. Impression: 1. There is no evidence of significant ischemia or infarction. 2. Estimated ejection fraction is greater than 70%. This note was generated with Lockstream[employer] software. It may contain incorrect words, spelling, and punctuation that were not noted in checking the note before signing.
--- NOTE | 2023-07-03 13:56 | DS.PCM_ITS ---
Providers Date of Admission: 07/02/23 Date of Discharge: 07/03/23 Primary Care Physician: Dr. Arsenio Yun MD Reason For Visit: CHEST PAIN Diagnosis Discharge Diagnosis (1) Chest pain: Status: Acute Code(s): R07.9 - Chest pain, unspecified Qualifiers: Chest pain type: pleurodynia Qualified Code(s): R07.81 - Pleurodynia Plan Patient is a 42-year-old lady with history of coronary artery disease with recent PCI to an RCA lesion on who presented with chest pain 1. Chest pain in a patient with high risk factors ? Patient admitted to a monitored bed ordered serial cardiac enzymes to rule out DE. Patient to complete evaluation with a nuclear stress test -Patient nuclear stress test was negative for stress-induced ischemia subsequently discharged instructed to follow-up with primary care physician for subsequent care 2. Coronary artery disease ? With history of non-STEMI in February 2023. Patient underwent intervention with CLINT to an RCA lesion. Echo at that time demonstrated EF of 60% with no regional wall motion abnormalities. Patient is currently on guideline directed medical therapy 3. Class I obesity with BMI of 32.2 ? Complicating care weight loss advised 4. Hypertension - Blood pressure controlled, home medications continued with dose adjustment as needed 5. Dyslipidemia -Patient is on statin therapy, continued at home dose 6. Depression with anxiety ? Patient is on venlafaxine, bupropion and trazodone regimen. Did continue 7. Obstructive sleep apnea ? Patient is on CPAP at night consistent use encouraged 8. Tobacco dependence - Counseled on cessation, offered nicotine patch for tobacco cravings 9. DVT prophylaxis - On enoxaparin Medications at Discharge Home Medications venlafaxine 150 mg capsule,extended release 24 hr 150 mg PO DAILY 01/12/15 aspirin 81 mg tablet,delayed release 81 mg PO BREAKFAST #0 tabs 02/18/23 atorvastatin 80 mg tablet 80 mg PO QHS #90 tabs 03/20/23 bupropion HCl 100 mg tablet,12 hr sustained-release 100 mg PO BID 03/20/23 metoprolol succinate 25 mg tablet,extended release 24 hr 25 mg PO DAILY #90 tabs 03/20/23 trazodone 100 mg tablet 100 mg PO QHS 03/20/23 ticagrelor 90 mg tablet (Brilinta) 90 mg PO BID #180 tabs 05/19/23 Hospital Course Summary of Care Provided Minutes Spent on Discharge: 35 Physical Exam Narrative GENERAL: cooperative HEENT: Atraumatic; normocephalic EYES; Anicteric, Normal Conjunctiva NECK; supple, normal thyroid, RESPIRATORY: Diminished to auscultation CARDIOVASCULAR: Regular S1 S2, GI: soft, normoactive bowel sounds, : No Renal angle tenderness; EXTREMITIES: No edema, no clubbing, MUSCULOSKELETAL: no muscle wasting NEURO: Awake; no lateralizing signs. SKIN: No Rash PSYCH; Flat affect Weight / BMI Weight Weight: 79.9 kg Body Mass Index (BMI) 32.2 ABG / Lab / Microbiology Data 07/03/23 02:04 07/03/23 02:04 Laboratory: Laboratory Results - last 24 hr 07/02/23 19:55: WBC 12.0 H, RBC 5.18, Hgb 15.9 H, Hct 47.1 H, MCV 90.9, MCH 30.7, MCHC 33.8, RDW Std Deviation 42.1, RDW Coeff of Kael 12.6, Plt Count 407, MPV 9.7, Immature Gran % (Auto) 0.200, Neut % (Auto) 59.2, Lymph % (Auto) 31.9, [place] % (Auto) 5.0, Eos % (Auto) 2.8, Baso % (Auto) 0.9, Absolute Neuts (auto) 7.1, Absolute Lymphs (auto) 3.83, Nucleated RBC % 0, Sodium 135 L, Potassium 3.9, Chloride 109 H, Carbon Dioxide 25.0, Anion Gap 1 L, BUN 8, Creatinine 0.72, Estim Creat Clear Calc 97.63, Est GFR (MDRD) Af Amer 113, Est GFR (MDRD) Non-Af 93, BUN/Creatinine Ratio 11.1, Glucose 100, Calcium 9.4, Magnesium 2.3, Troponin I High Sens 6 07/02/23 22:11: Troponin I High Sens 4 07/03/23 02:04: WBC 9.9, RBC 4.60, Hgb 14.1, Hct 41.9, MCV 91.1, MCH 30.7, MCHC 33.7, RDW Std Deviation 42.0, RDW Coeff of Kael 12.7, Plt Count 330, MPV 9.8, Immature Gran % (Auto) 0.300, Neut % (Auto) 50.7, Lymph % (Auto) 39.6, [place] % (Auto) 5.2, Eos % (Auto) 3.4, Baso % (Auto) 0.8, Absolute Neuts (auto) 5.0, Absolute Lymphs (auto) 3.91, Nucleated RBC % 0, Sodium 139, Potassium 3.3 L, Chloride 112 H, Carbon Dioxide 24.0, Anion Gap 3 L, BUN 6 L, Creatinine 0.62, Estim Creat Clear Calc 112.99, Est GFR (MDRD) Af Amer 134, Est GFR (MDRD) Non-Af 111, BUN/Creatinine Ratio 9.7 L, Glucose 131 H, Calcium 8.9, Total Bilirubin 0.30, AST 5 L, ALT 10 L, Alkaline Phosphatase 98, Troponin I High Sens 5, Total Protein 5.9 L, Albumin 3.2, Globulin 2.7, Albumin/Globulin Ratio 1.2, Triglycerides 188, Cholesterol 141, LDL Cholesterol 61, VLDL Cholesterol 38, HDL Cholesterol 42 Radiography Diagnostic Testing: Radiology Impression Chest X-Ray 07/02/23 19:45 IMPRESSION: Old granulomatous disease. No acute cardiopulmonary pathology. Electronically Signed: Deandre Guerin MD at 20:08 EST Reading Location ID and State: [address] [place] [address] Tel , Service support , D/C Instructions Discharge Diet: Low fat / Low cholesterol Discharge Activity: Return to Normal Activity Call your doctor if you observe: Fever of 101 or Higher, Shortness of breath, Fainting spells and Chest pain Meaningful Use Info Meaningful Use Diagnoses (Choose all that apply): None applicable Discharge Plan Admission Admit Date/Time: 07/02/23 21:30 Attending Provider: Tenzin Leary Primary Care Provider: Arsenio Yun Consulting Providers: Alejandrina Flores Discharge Orders/Prescriptions Prescriptions: Continued trazodone 100 mg tablet 100 mg PO QHS bupropion HCl 100 mg tablet sustained-release 12 hr 100 mg PO BID Patient Comments: take 1 tablet by mouth twice a day atorvastatin 80 mg tablet 80 mg PO QHS Qty: 90 3RF metoprolol succinate 25 mg tablet extended release 24 hr 25 mg PO DAILY Qty: 90 3RF venlafaxine 150 MG capsule 150 mg PO DAILY aspirin 81 mg Tablet,Delayed Release (Dr/Ec) 81 mg PO BREAKFAST Qty: 0 0RF Brilinta 90 mg tablet 90 mg PO BID Qty: 180 3RF Referrals / Follow Up: Arsenio Yun MD [Primary Care Provider] - Within 2 Weeks Disposition Disposition (needs filled in before D/C Order can be placed): Home, Self Care Charges/Coding Visit Charges Inpatient E&M: 21510 Disch Hosp >30min
--- NOTE | 2023-07-03 14:34 | PHA.DC_ITS ---
Pharmacy [facility] Reconciliation Pharmacy Service has performed discharge medication reconciliation for this patient. The patient's discharge medication list was reviewed for discrepancies and discrepancies were resolved. Medications at Discharge Home Medications venlafaxine 150 mg capsule,extended release 24 hr 150 mg PO DAILY 01/12/15 aspirin 81 mg tablet,delayed release 81 mg PO BREAKFAST #0 tabs 02/18/23 atorvastatin 80 mg tablet 80 mg PO QHS #90 tabs 03/20/23 bupropion HCl 100 mg tablet,12 hr sustained-release 100 mg PO BID 03/20/23 metoprolol succinate 25 mg tablet,extended release 24 hr 25 mg PO DAILY #90 tabs 03/20/23 trazodone 100 mg tablet 100 mg PO QHS 03/20/23 ticagrelor 90 mg tablet (Brilinta) 90 mg PO BID #180 tabs 05/19/23
[2023-07-03 14:59] VITALS: BP 114/83; PULSE 65; RESP 14; TEMP 36.4; O2SAT 98
== END 2023-07-03 13:58 | disposition home or self-care (01) ==
LOC: ED 20:56 → PCU 21:38
PROVIDERS: Admitting Provider Family Medicine; Emergency Provider Emergency Medicine; PCP Internal Medicine; Referring Provider Emergency Medicine; Visit Provider Internal Medicine
DX: I25.10 Atherosclerotic heart disease of native coronary artery without angina pectoris (principal); Z86.16 Personal history of COVID-19; Z79.82 Long term (current) use of aspirin; Z68.32 Body mass index [BMI] 32.0-32.9, adult; E78.5 Hyperlipidemia, unspecified; F17.210 Nicotine dependence, cigarettes, uncomplicated; Z95.5 Presence of coronary angioplasty implant and graft; R07.81 Pleurodynia; I10 Essential (primary) hypertension; E66.9 Obesity, unspecified; G47.33 Obstructive sleep apnea (adult) (pediatric); F41.8 Other specified anxiety disorders; I25.2 Old myocardial infarction; K21.9 Gastro-esophageal reflux disease without esophagitis; Z79.899 Other long term (current) drug therapy
CPT/HCPCS: 36415; 71045; 78452; 80048; 80053; 80061; 83735; 84484; 85025; 93005; 93017; 96360; 96361; 99221; 99284; A9500; J7030; A4216; G0378; J2785

== ENCOUNTER → 2024-04-07 | Outpatient (CLI) | payer OTHER, SELFPAY ==
[2024-04-07 12:13] LABS: Absolute Lymphocyte Count 3.26 X10^3/uL (0.83-4.51); Absolute Neutrophil Count 4.6 X10^3/uL (2.0-7.7); Basophil# 0.08 X10^3/uL; Basophil% 0.9 % (0-1); Eosinophil# 0.16 X10^3/uL; Eosinophils% 1.8 % (0-5); Hematocrit 43.3 % (37-47); Hemoglobin 14.5 g/dL (12.0-15.0); Lymphocyte # 3.26 X10^3/ul (0.83-4.51); Lymphocyte % 37.6 % (19-41); Mean Corp Hgb Conc 33.5 g/dL (32-36); Mean Corpuscular Hgb 30.8 pg (27.0-32.0); Mean Corpuscular Volume 91.9 fL (81-99); Mean Platelet Vol. 9.8 fl (6.2-12.0); Monocyte% 5.8 % (0-10); NRBC Flagged by Analyzer 0 % (0-5); Neutrophil # 4.64 X10^3/uL (2.7-7.7); Neutrophil % 53.6 % (47-70); Platelet Count 412 K/mm3 (150-450); RBC Distribution Width CV 12.8 % (11.6-14.6); RBC Distribution Width SD 43.1 fl (35.1-43.9); Red Blood Count 4.71 M/mm3 (4.2-5.4); White Blood Count 8.7 K/mm3 (4.4-11.0)
[2024-04-07 12:40] LABS: BNP,B-Type NATRIURETIC PEPTIDE 25.6 pg/mL (0-100)
[2024-04-07 12:45] LABS: AST(SGOT) 15 U/L (15-37); Alanine Aminotransfer ALT/SGPT 14 U/L (13-56); Albumin, Serum 3.5 g/dL (3.2-5.0); Alkaline Phosphatase 87 U/L (45-117); Anion Gap 3 (5-15); BUN 7 mg/dL (7-18); BUN/Creat Ratio 11.3 RATIO (10-20); Calcium,Total 9.2 mg/dL (8.5-10.1); Chloride 107 mmol/L (98-107); Creatinine, Serum 0.62 mg/dL (0.55-1.02); EST Glomerular Filtration Rate 111 mL/min (>60); Est Glom Filt Rate - Afr Amer 134 mL/min (>60); Globulin 3.6 g/dL (2.2-4.2); Glucose 80 mg/dL (74-106); Protein, Total 7.1 g/dL (6.4-8.2); Sodium Level 136 mmol/L (136-145); T4 Free Direct 0.84 ng/dL (0.76-1.46)
== END | disposition home or self-care (01) ==
LOC: LAB 11:30
PROVIDERS: PCP Internal Medicine; Referring Provider Nurse Practitioner Family; Visit Provider Nurse Practitioner Family
DX: R06.09 Other forms of dyspnea (principal); Z95.5 Presence of coronary angioplasty implant and graft; E78.2 Mixed hyperlipidemia; Z72.0 Tobacco use; R00.2 Palpitations
CPT/HCPCS: 36415; 80053; 83880; 84439; 84443; 85025

== ENCOUNTER → 2024-04-21 | Outpatient (CLI) | payer OTHER, SELFPAY | END | disposition home or self-care (01) | LOC: CVS 06:19 | PROVIDERS: PCP Internal Medicine; Referring Provider Nurse Practitioner Family; Visit Provider Nurse Practitioner Family | DX: R06.09 Other forms of dyspnea (principal); E78.2 Mixed hyperlipidemia; Z95.5 Presence of coronary angioplasty implant and graft; Z72.0 Tobacco use | CPT/HCPCS: 78452; 93017; A9500; A4216 ==

== ENCOUNTER 2024-05-04 12:18 | Emergency (ER) | payer OTHER, SELFPAY ==
[2024-05-04 12:20] VITALS: BP 131/87; PULSE 89; RESP 16; TEMP 36.8; O2SAT 98; BMI 32.5
--- NOTE | 2024-05-04 13:07 | EX.ED.DYSGE1 ---
HPI History of Present Illness Chief Complaint: Abd Pain [facility] Medical History Irregular heart beat Coronary artery disease Anxiety GERD (gastroesophageal reflux disease) Smoker Sleep apnea Myocardial infarct COVID-19 Atherosclerotic heart disease of [place] coronary artery without angina pectoris (02/16/23) NSTEMI, initial episode of care (02/16/23) Adrenal adenoma Obesity Hyperlipidemia Tobacco use Anxiety and depression Home Medications ?Medication ?Instructions ?Recorded ?Last Taken ?Type venlafaxine 150 mg 150 mg PO DAILY 01/12/15 Unknown History capsule,extended release 24 hr aspirin 81 mg tablet,delayed 81 mg PO BREAKFAST #0 tabs 02/18/23 Unknown Rx release bupropion HCl 100 mg tablet,12 hr 100 mg PO BID 03/20/23 Unknown History sustained-release trazodone 100 mg tablet 100 mg PO QHS 03/20/23 Unknown History clopidogrel 75 mg tablet (Plavix) 75 mg PO QDAY #93 tabs 09/16/23 Unknown Rx metoprolol succinate 25 mg 25 mg PO DAILY #90 tabs 03/08/24 Unknown Rx tablet,extended release 24 hr isosorbide mononitrate 30 mg 30 mg PO DAILY #30 tabs 04/09/24 Unknown Rx tablet,extended release 24 hr atorvastatin 80 mg tablet 80 mg PO QHS #90 tabs 04/12/24 Unknown Rx ondansetron 4 mg disintegrating 4 mg PO Q8H PRN PRN Nausea #10 tabs 05/04/24 Unknown Rx tablet Allergy/AdvReac Type Severity Reaction Status Date / Time terbinafine HCl (From Allergy Hives Verified 05/04/24 12:21 Lamisil) Family History Father Heart disease CAD (coronary artery disease) Hypertension HLD (hyperlipidemia) Myocardial infarction Mother Heart disease Hypertension HLD (hyperlipidemia) Surgical History History of coronary artery stent placement Stented coronary artery (02/17/23) Social History household members: other details: Lives with her two daughters. current occupational status: employed and other details: Retired of 21 years. Smoking Status: Heavy Smoker (>10/day) quit status: considering quitting alcohol intake: never substance use type: does not use caffeine: Yes Type: coffee Number of servings: 4 EXAM Physical Exam Const Vital Signs: 05/04/24 12:20 05/04/24 14:18 Temperature 98.2 F Temperature Source Oral Pulse Rate 89 77 Respiratory Rate 16 14 Blood Pressure 131/87 H 103/56 L Blood Pressure Mean 101 71 Pulse Ox 98 96 Oxygen Delivery Method Room Air Room Air [facility] [place]arr[place] Medical decision making narrative: HISTORY OF PRESENT ILLNESS: 43-year-old female presents with right lower quad abdominal pain for last 2 days. Notes radiates to the back. She further states she has no urinary complaints. No vaginal bleeding or discharge. Last vomit was yesterday. No history of abdominal surgery. REVIEW OF SYSTEMS: Pertinent positives: Abdominal pain, nausea Pertinent negatives: As per HPI PHYSICAL EXAM: Nursing triage notes reviewed, Vital signs reviewed Constitutional: please see mdm HENT: MMM Eyes: Pupils equal round and reactive to light, Extraocular muscles intact Neck: No stridor, no JVD, full neck ROM Lungs: Clear to auscultation, No wheezing or rales. No increased work of breathing, no conversational dyspnea, no accessory muscle use, no nasal flaring. No respiratory distress noted Heart: Regular rate and rhythm, No murmurs, No rubs and No gallops, 2+ distal pulses (radial, femoral, posterior tibial) in all extremities Abdomen: Soft, right lower quadrant TTP but no rigidity, rebound or guarding, no obvious peritoneal signs, no palpable pulsatile abdominal masses, no auscultated abdominal bruit : No CVAT Extremities: No edema Neuro: No focal neurological deficits, cranial nerves II through XII intact, 5/5 strength in all extremities. Intact sensation to light touch in all extremities, 2+ reflexes bilateral patella tendons. Normal gait. No ataxia. Skin: No rash or lesions noted MEDICAL DECISION MAKING: Chief Complaint: Abdominal pain External records reviewed: Imaging reviewed: CT scan of the abdomen pelvis 2021 shows no evidence of kidney stone, diverticulosis, Factors affecting care: Nephrolithiasis, CAD, depression Social determinants of health: none History obtained from others: none Consults: none [facility] Narrative: The patient was hemodynamically stable, afebrile, nontoxic. Abdominal exam with right lower quadrant TTP but no peritoneal signs I considered the following differential diagnosis: Appendicitis, nephrolithiasis, pyelonephritis I obtained a broad lab and imaging workup to further elucidate the etiology of the patient's ALL IMAGES (IF OBTAINED) HAVE BEEN PERSONALLY REVIEWED AND INTERPRETED BY MYSELF. CT scan of the abdomen pelvis shows no evidence of obvious acute surgical pathology CBC leukocytosis suggestive of cystic inflammation, no anemia or thrombocytopenia CMP without evidence of acute kidney injury, significant electrolyte abnormality, anion gap to suggest end organ hypo-perfusion, no evidence of metabolic acidosis with a normal bicarbonate, no evidence of hepatobiliary obstructive pathology. Serum test negative urinalysis shows no evidence of urinary inflammation suggestive of UTI The synthesis of the patient history, physical exam, labs images suggest no acute life-limiting etiology specifically no surgical abnormality in the abdomen. Patient is appropriate discharge home. Will give prescription for Zofran. Strict return precautions and follow-up was arranged On reassessment patient abdominal exam remained benign. The patient and/or family, caregivers express understanding. The patient and/or family, caregivers agrees with the plan. Shared decision making: I will have a discussion with the patient and or visitors regarding risk/benefits of further testing or admission. They will be made aware of of the risk/benefits inherent in this decision they will be given the opportunity to voice understanding. Total critical care time today provided was at least 0 minutes. This excludes separately billable procedures. Critical care time (if documented) is secondary to the patient having high probability of clinically significant/life threatening deterioration in the patient's condition which required my urgent intervention. Impression: 1. Abdominal pain 2. Leukocytosis Dispo: Discharge home This note was generated with [email or web address] dictation software. It may contain incorrect words, spelling, and punctuation that were not noted in review of the chart prior to signing. Lab Data Labs: Laboratory Results - last 24 hr 05/04/24 05/04/24 12:54 13:40 WBC 11.5 H RBC 4.60 Hgb 14.4 Hct 41.7 MCV 90.7 MCH 31.3 MCHC 34.5 RDW Std Deviation 41.5 RDW Coeff of Kael 12.7 Plt Count 331 MPV 9.9 Immature Gran % (Auto) 0.300 Neut % (Auto) 73.4 H Lymph % (Auto) 19.0 [place] % (Auto) 5.0 Eos % (Auto) 1.7 Baso % (Auto) 0.6 Absolute Neuts (auto) 8.4 H Absolute Lymphs (auto) 2.18 Nucleated RBC % 0 Sodium 137 Potassium 3.6 Chloride 106 Carbon Dioxide 26.0 Anion Gap 5 BUN 6 L Creatinine 0.60 Estim Creat Clear Calc 116.56 Est GFR (MDRD) Af Amer 139 Est GFR (MDRD) Non-Af 115 BUN/Creatinine Ratio 10.1 Glucose 107 H Calcium 9.0 Total Bilirubin 0.30 AST 12 L ALT 15 Alkaline Phosphatase 80 Total Protein 6.5 Albumin 3.3 Globulin 3.2 Albumin/Globulin Ratio 1.0 Serum , Qual NEGATIVE Urine Color Yellow Urine Clarity Sl. Cloudy Urine pH 7.0 Ur Specific [place] 1.010 Urine Protein Negative Urine Glucose (UA) Normal Urine Ketones Negative Urine Occult Blood 10 H Urine Nitrite Negative Urine Bilirubin Negative Urine Urobilinogen Normal Ur Leukocyte Esterase Negative Urine RBC 0-5 SEEN Urine WBC 0 SEEN Ur Squamous Epith Cells 0 SEEN Urine Bacteria 0 SEEN Urine Mucus 0 SEEN Radiography Diagnostic Testing: Clinical Impression(s) from Imaging Studies Abdomen/Pelvis CT 05/04/24 13:45 IMPRESSION: No suspicious solid organ abnormality No free intraperitoneal fluid, air, or suspicious adenopathy. Normal appendix visualized Electronically Signed: Bradford Lopez MD at 14:53 EST Reading Location ID and State: [facility] / [place] , Service support , Discharge Plan Triage Chief Complaint: Abd Pain ED Provider: Denis Rojo Dx/Rx/DC Orders Instructions: ED Abdominal Pain Unkn Cause Fem Prescriptions: New ondansetron 4 mg tablet,disintegrating 4 mg PO Q8H PRN PRN (Reason: Nausea) Qty: 10 0RF No Action trazodone 100 mg tablet 100 mg PO QHS bupropion HCl 100 mg tablet sustained-release 12 hr 100 mg PO BID Patient Comments: take 1 tablet by mouth twice a day venlafaxine 150 MG capsule 150 mg PO DAILY aspirin 81 mg Tablet,Delayed Release (Dr/Ec) 81 mg PO BREAKFAST Qty: 0 0RF clopidogrel [Plavix] 75 mg tablet 75 mg PO QDAY Qty: 93 3RF Rx Instructions: 300mg on day one. 75mg PO daily starting day two. metoprolol succinate 25 mg tablet extended release 24 hr 25 mg PO DAILY Qty: 90 3RF isosorbide mononitrate 30 mg tablet extended release 24 hr 30 mg PO DAILY Qty: 30 11RF atorvastatin 80 mg tablet 80 mg PO QHS Qty: 90 3RF Primary Care Provider: Arsenio Yun Referrals: Arsenio Yun MD [Primary Care Provider] - Activity Restrictions/Additional Instructions: Thank you for trusting us with your care today! Your labs images were reassuring. Specifically no signs of acute surgical pathology in your abdomen. Specifically no signs of appendicitis Please take Zofran as needed for nausea vomiting control at home Please take Tylenol (2 pills, 650 mg), ibuprofen (2 pills, 400 mg) every 6 hours as needed for pain and fever control. Please return to the emergency department if your symptoms change or worsen. Please follow with your primary care physician for further outpatient evaluation and management. Print Language: Sinhala Disposition Disposition: Home, Self Care
[2024-05-04 13:08] LABS: Absolute Lymphocyte Count 2.18 X10^3/uL (0.83-4.51); Absolute Neutrophil Count 8.4 X10^3/uL (2.0-7.7); Basophil# 0.07 X10^3/uL; Basophil% 0.6 % (0-1); Eosinophil# 0.19 X10^3/uL; Eosinophils% 1.7 % (0-5); Hematocrit 41.7 % (37-47); Hemoglobin 14.4 g/dL (12.0-15.0); Lymphocyte # 2.18 X10^3/ul (0.83-4.51); Mean Corp Hgb Conc 34.5 g/dL (32-36); Mean Corpuscular Hgb 31.3 pg (27.0-32.0); Mean Corpuscular Volume 90.7 fL (81-99); Mean Platelet Vol. 9.9 fl (6.2-12.0); Monocyte# 0.57 X10^3/uL; NRBC Flagged by Analyzer 0 % (0-5); Neutrophil # 8.44 X10^3/uL (2.7-7.7); Neutrophil % 73.4 % (47-70); Platelet Count 331 K/mm3 (150-450); RBC Distribution Width CV 12.7 % (11.6-14.6); RBC Distribution Width SD 41.5 fl (35.1-43.9); White Blood Count 11.5 K/mm3 (4.4-11.0)
[2024-05-04 13:11] LABS: Internal QC Validated? YES +Cl - CLEAR BKGD; Pregnancy, Serum, hCG Quali. NEGATIVE Negative
[2024-05-04 13:19] LABS: AST(SGOT) 12 U/L (15-37); Alanine Aminotransfer ALT/SGPT 15 U/L (13-56); Albumin, Serum 3.3 g/dL (3.2-5.0); Alkaline Phosphatase 80 U/L (45-117); Anion Gap 5 (5-15); BUN 6 mg/dL (7-18); BUN/Creat Ratio 10.1 RATIO (10-20); Chloride 106 mmol/L (98-107); EST Glomerular Filtration Rate 115 mL/min (>60); Est Glom Filt Rate - Afr Amer 139 mL/min (>60); Estimated Creatinine Clearance 116.56 ml/min; Globulin 3.2 g/dL (2.2-4.2); Glucose 107 mg/dL (74-106); Potassium 3.6 mmol/L (3.5-5.1); Protein, Total 6.5 g/dL (6.4-8.2); Sodium Level 137 mmol/L (136-145)
--- NOTE | 2024-05-04 13:45 | CT_ITS ---
STUDY: CT ABDOMEN AND PELVIS WITH CONTRAST REASON FOR EXAM: Female, 43 years old. RLQ abdominal pain RADIATION DOSAGE (If Supplied By Facility): CTDIvol = ( 13.14 ) mGy, DLP = ( 979.97 ) mGycm TECHNIQUE: Transaxial images were obtained from the dome of the diaphragm to the symphysis pubis without oral contrast. IV 100mL Isovue-300 was administered. Sagittal and coronal images were reconstructed. Individualized dose optimization techniques were used for this CT. COMPARISON: None. FINDINGS: The visualized lung bases are unremarkable. The visualized portions of the heart are within normal limits. Normal liver. The gallbladder is contracted. Normal spleen. Normal pancreas. Normal bilateral adrenal glands. Normal right kidney. Normal left kidney. Normal visualized stomach. Normal small intestine. Normal colon. The appendix is visualized and appears normal. Appendix seen on coronal recon images 50 through 57 Normal abdominal aorta. Normal inferior vena cava. Normal retroperitoneum. Normal urinary bladder. The uterus contains an IUD in satisfactory position Normal abdominal wall. Normal osseous structures. CT/Abdomen/Pelvis W IV Cont ONLY IMPRESSION: No suspicious solid organ abnormality No free intraperitoneal fluid, air, or suspicious adenopathy. Normal appendix visualized Electronically Signed: Bradford Lopez MD at 14:53 EST ,
[2024-05-04 13:49] LABS: Bacteria 0 SEEN /hpf (None Seen); Mucous, Urine 0 SEEN /hpf (<or=2+); Squamous Epithelial Cells - UA 0 SEEN /hpf (5-10); White Blood Cells 0 SEEN /hpf (0-5)
[2024-05-04 13:54] LABS: Color, Urine Yellow (Yellow); Glucose, Dipstick Normal (Normal); Ketone-Dipstick Negative (Negative); Leukocyte Esterase-Dipstick Negative /ul (Negative); Nitrite-Dipstick Negative (Negative); Occult Blood-Urine 10 /ul (Negative); Protein-Dipstick Negative (Negative); Urine Bilirubin Dipstick Negative (Negative); Urine Clarity Sl. Cloudy (Clear); Urine Urobilinogen Normal (Normal)
[2024-05-04] MEDS: Ondansetron 4 MG/2 ML Vial IV (13:54)
[2024-05-04] MEDS: Ketorolac 15 MG/ML Vial IV (13:55)
[2024-05-04] MEDS: Morphine 4 MG/ML Syringe IV (13:56)
[2024-05-04 14:01] LABS: Red Blood Cells-Urine 0-5 SEEN /hpf (0-5)
[2024-05-04 14:18] VITALS: BP 103/56; PULSE 77; RESP 14; O2SAT 96
[2024-05-04 15:48] VITALS: BP 110/78; PULSE 81; RESP 14; TEMP 36.6; O2SAT 100
== END 2024-05-04 15:58 | disposition home or self-care (01) ==
PROVIDERS: Emergency Provider Emergency Medicine; PCP Internal Medicine; Visit Provider Emergency Medicine
DX: R10.31 Right lower quadrant pain (principal); D72.829 Elevated white blood cell count, unspecified; I25.10 Atherosclerotic heart disease of native coronary artery without angina pectoris; E78.5 Hyperlipidemia, unspecified; F17.200 Nicotine dependence, unspecified, uncomplicated; Z79.82 Long term (current) use of aspirin; Z79.02 Long term (current) use of antithrombotics/antiplatelets; Z79.899 Other long term (current) drug therapy; Z95.5 Presence of coronary angioplasty implant and graft
CPT/HCPCS: 74177; 80053; 81001; 84703; 85025; 96374; 96375; 99283; Q9967; A4216; J2405